=== PATIENT | female | born 1970 | race Caucasian/White ===

== ENCOUNTER 2018-07-17 18:59 | Emergency (ER) | payer MEDICAID, SELFPAY ==
[2018-07-17 19:04] VITALS: BP 151/89; PULSE 66; RESP 16; TEMP 36.2; O2SAT 97
--- NOTE | 2018-07-17 19:29 | ED.GENADUL_ITS ---
Disposition Clinical Impression: Migraine Disposition: HOME Condition: Good Instructions: Migraine Headache (ED) Additional Instructions: If you notice any worsening of your symptoms, or any new symptoms such as vomiting, diarrhea, fever, chills, shortness of breath, chest pain, numbness, weakness, or fainting , please return immediately to the emergency department for reevaluation. Please follow up with your primary care provider as soon as possible for reassessment and reevaluation. As always, it was a pleasure participating in your medical care today. Medical Decision Making - Medical Decision Making This is a pleasant 48-year-old female who presents for evaluation of migraine headache. It started at 3 AM. It was not thunderclap in onset, it is not the worst headache of her life. She has no risk factors or red flags for concerning headache etiologies. She shows no evidence of meningitis on clinical exam, nor does she show any nuchal rigidity or signs or symptoms concerning for intracranial bleed. We will give the patient a migraine cocktail , rehydrate, and reassess. 8:12 PM the patient is starting to feel better. I did inject 1 cc of bupivacaine with epinephrine into her left posterior occiput. The patient tolerated this well. Patient requires continued monitoring, and is not yet ready for discharge. She still needs her fluids completed. I feel that she can be safely discharged home if her headache resolves. The case has been signed out to my colleague Dr. Gama. History of Present Illness - General Chief complaint: Headache Stated complaint: MIGRAINE N/V Time Seen by Provider: 07/17/18 19:18 - History of Present Illness Initial comments: This is a 48-year-old female with a past medical history of migraines , narcolepsy, hysterectomy and kidney stones who presents tonight for headache. The patient states that she woke up at 3 AM with a headache. She described it as severe and achy in her left posterior occiput. It was worsened with loud noises and bright light. She had associated symptoms of seeing stars which she states is classic to her previous migraines. She has been nauseous and has had 3 episodes of vomiting. She denies any fevers, chills, or other sick contacts. She states that this headache seems very similar to her previous migraines, although slightly different. It is been about for 5 years since she has had a migraine. Patient states that she has had MRI imaging in the past which has been negative for evaluation of her migraines. Patient denies any history or family history of polycystic kidney disease, Marfan syndrome, Chicho-Danlos syndrome, intracranial aneurysms. Patient is not on any blood thinners. She has no other complaints at this time. Review of Systems Other: 10 point review of systems was performed, pertinent positives and negatives are noted in the history of present illness. General Exam - Other Other exam information: 1.Const: Well-nourished, Well-developed, appearing stated age 2.Eyes: PERRL, no conjunctival injection, and symmetrical lids. 3.ENT: Atraumatic external nose and ears. Moist MM. Neck: Symmetric, trachea midline, No thyromegaly. Patient demonstrates good movement of cervical neck. There is no nuchal rigidity, no nuchal tenderness. Patient is able to flex the neck without any difficulty or significant pain. Negative Kernig's and Brudzinski sign. Mild reproducible tenderness over the left occiput. 4.CVS: +S1/S2, No murmurs or gallops. Peripheral pulses 2+ and equal in all extremities. Brisk capillary refill in all extremities. 5.RESP: Unlabored respiratory effort. Clear to auscultation bilaterally. No wheezes rales or rhonchi 6.GI: Soft, Nontender/Nondistended, No hepatosplenomegaly. No guarding or rebound. 7.MSK: Normocephalic/Atraumatic, Extremities w/o deformity or ttp No cyanosis or clubbing, Normal movement of all extremities 8.Skin: Warm, Dry. No rashes or lesions. 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 Sensation grossly intact, no focal neurologic deficits. All 6 cardinal planes of vision or fully intact. No evidence of horizontal or vertical nystagmus. The patient demonstrated a normal [id number], good dexterity. There was no evidence of dysdiadochokinesia. Patient was able to ambulate without difficulty. There was no wide-based gait. Romberg, and [id number] are both normal on testing. Sensation was intact bilaterally as well as muscle strength bilaterally for all extremities. Patient was able to verbalize butter cup with no slurring, or miss pronunciation. 10.Psych: (AAO) x3. Appropriate mood and affect Course Vital Signs - 24 hr 07/17/18 19:04 Temperature 36.2 C L Pulse 66 Respiratory 16 Rate Blood Pressure 151/89 Pulse Oximetry 97
[2018-07-17] MEDS: Metoclopramide 10 MG/2 ML VIAL IVP (19:33)
[2018-07-17] MEDS: Ketorolac 30 MG/ML VIAL IVP (19:35)
[2018-07-17] MEDS: Normal Saline 1,000 ML 1000 ML IV (19:36)
[2018-07-17] MEDS: diphenhydrAMINE 50 MG/ML VIAL 25 MG IVP (19:37)
[2018-07-17] MEDS: Dexamethasone 10 MG/ML VIAL IVP (19:39)
[2018-07-17] MEDS: Acetaminophen 500 MG TAB 1000 MG PO (19:40)
[2018-07-17 21:10] VITALS: BP 126/79; PULSE 57; RESP 17; TEMP 36.9; O2SAT 95
== END 2018-07-17 21:25 | disposition home or self-care (01) ==
PROVIDERS: Emergency Provider Student in an Organized Health Care Education/Training Program; PCP Neuromusculoskeletal Medicine & OMM
DX: G43.909 Migraine, unspecified, not intractable, without status migrainosus (principal); R11.2 Nausea with vomiting, unspecified
CPT/HCPCS: 64405; 96361; 96374; 96375; 99284; J1100; J1200; J1885; J2765

== ENCOUNTER 2019-05-05 14:42 | Outpatient (CLI) | payer OTHER, SELFPAY ==
--- NOTE | 2019-05-05 14:39 | DI.RAD_ITS ---
SYMPTOM/DIAGNOSIS: EVAL LT KNEE PAIN LEFT KNEE: The joint spaces are well maintained. There is minimal periarticular spurring, greatest at the lateral patellofemoral joint. IMPRESSION: Minimal degenerative changes.
== END 2019-05-05 15:02 ==
PROVIDERS: PCP Neuromusculoskeletal Medicine & OMM; Visit Provider Student in an Organized Health Care Education/Training Program
DX: M25.562 Pain in left knee (principal); M17.12 Unilateral primary osteoarthritis, left knee
CPT/HCPCS: 73564

== ENCOUNTER 2019-08-20 22:41 | Emergency (ER) | payer OTHER, SELFPAY ==
[2019-08-20 22:47] VITALS: BP 136/74; PULSE 80; RESP 19; O2SAT 99
--- NOTE | 2019-08-20 23:02 | ED.GENADUL_ITS ---
Discharge Plan Disposition Patient Disposition: HOME Condition: Fair Discharge Details Chief Complaint: Orthopedic Clinical Impression: Epicondylitis, lateral Primary Care Provider: Waqas Cyr ED Provider: Mary Ann Buck Home Meds and New Rx's Prescriptions: Continued methylphenidate HCl [Ritalin] 10 mg tablet 10 mg PO QID RF: 0 meloxicam 15 mg tablet 15 mg PO DAILY Qty: 30 RF: 0 modafinil [Provigil] 200 MG tablet 200 mg PO PRNRF: 0 Discharge Instructions Instructions: Tennis Elbow Exercises (GEN) Additional Instructions: Encourage rest, ice, elevation. Tylenol and/or Ibuprofen as needed for discomfort. Continue with brace to help with discomfort. If not improved in 2 week follow up with primary care. If you develop new/worsening symptoms please seek care urgently once again. Referrals: Waqas Cyr [Primary Care Provider] - Medical Decision Making Patient is a 49 year old RHD female presenting today with c/c of right elbow pain x 2 weeks. Reprots that she was knocked by her [place] at [place] and fell striking the wall. Directly struck the lateral epicondyle. Since that time she has had persistent pain that has been gradually increasing such that now she is having difficulty preforming simple tasks such as picking up a cup. Denies altered sensation. Reports that pain radiates distally into the forearm. No other injury at the time of the incident. On exam, she is resting comfortably. She has full ROM. Pain with palpation over the lateral epicondyle, no palpable deformity. Pain with supination/pronation against resistence. Pain is alleviated by decompressing the area and apply pressure to the dorsal forearm. Discussed that this may be lateral epicondylitis. However, as there was a traumatic onset, feel that evaluation with XR is appropriate at this time. FINDINGS: Bones/joints: Bone mineralization is age-appropriate. There is no evidence of fracture. No evidence of dislocation. The joint spaces are adequately preserved; no significant degenerative narrowing and no bony erosion seen. Soft tissues: No radiopaque foreign body present. There is soft tissue swelling present. IMPRESSION: 1. No acute osseous abnormality. 2. Soft tissue swelling only. Discussed this finding with the patient. Encourage rest, ice, elevation. Tylenol and/or ibuprofen as needed for discomfort. Patient was fitted with a forearm brace to unload the lateral epicondyle, did have good improvement after application of this. Feels that the ADLs will be easier to perform. She is given strict return precautions. Advise close follow-up with primary care in 1 to 2 weeks if not improving. All other questions and concerns were addressed and she is in agreement this plan. HPI General Mode of arrival: ambulatory . Date/Time Provider Initiated Documentation: 08/20/19 23:01 . Limitations to Documentation: no limitations . Information obtained by: patient and RN notes reviewed . History of Present Illness 49 year old F presents to the emergency department with the chief complaint of right elbow pain, described as moderate, with intensity rated at 7. Quality is described as stabbing, and is localized to the right and upper extremity. Patient extremity. Patient started experiencing this w [place](s) (2) and it has been constant. Immobilization improves symptom(s), Movement worsens symptoms . Patient notes no other symptoms.. Patient did receive the following treatments prior to arrival, none Related Data Home Medications Medication Instructions Recorded Confirmed modafinil [Provigil] 200 mg PO PRN 07/17/18 06/16/19 meloxicam 15 mg tablet 15 mg PO DAILY #30 tab 05/05/19 08/20/19 methylphenidate HCl 10 mg tablet 10 mg PO QID tab 05/05/19 08/20/19 Previous Rx's Medication Instructions Recorded meloxicam 15 mg tablet 15 mg PO DAILY #30 tab 05/05/19 Allergies Allergy/AdvReac Type Severity Reaction Status Date / Time No Known Allergies Allergy Unverified 08/20/19 22:49 General Stated Complaint: Orthopedic RASHID: 4 Review of Systems Constitutional Constitutional: Reports as per HPI, Denies chills, Denies fever(s), Denies headache(s) and Denies weakness ENT Ears, Nose, Mouth, and Throat: Denies headache(s) Cardiovascular Cardiovascular: Reports as per HPI Respiratory Respiratory: Reports as per HPI and Denies cough Musculoskeletal Musculoskeletal: Reports as per HPI and Denies tingling Integumentary/Breasts Skin/Breast: Reports as per HPI, Denies rash and Denies wounds Neurologic Neurologic: Reports as per HPI, Denies headache(s), Denies tingling, Denies paresthesias and Denies weakness [facility] Social History Do you feel safe at home: Yes Do you feel safe in your relationship?: Yes Exam Const General: cooperative, healthy appearing, comfortable, no acute distress, well developed and well groomed Nutritional Appearance: average body habitus and well nourished Orientation: alert and awake Resp Effort & Inspection: normal respiratory effort, able to speak in complete sentences and no respiratory distress Cardio Rate: regular rate Rhythm: regular rhythm Skin General skin exam: no rashes or lesions noted Lesions: no lesions Rashes: no rashes Trauma: no lacerations or abrasions Neuro General: alert and awake Cognition: normal cognition Speech: speech normal Gait: normal gait Motor: muscle tone normal throughout Sensory Exam: no sensory deficits noted Extrem Right upper extremity: normal to inspection, full ROM, normal capillary refill, no joint enlargement, shoulder/upper arm Details: normal to inspection, elbow/forearm Details: normal to inspection, tenderness Location: of the lateral epicondyle (with direct palpation) Details: with resisted supination and with resisted pronation, normal ROM and distal pulses intact; no swelling, no unusual warmth, no abrasions, no lacerations, no ecchymosis, no crepitus, no penetrating wound and no deformity, wrist Details: normal to inspection, tenderness (extenstion against resistence causes pain over lateral epicondyle), normal ROM, normal vascular exam, radial pulse present and ulnar pulse present; no swelling, no unusual warmth, no lacerations, no ecchymosis and no deformity and hand Details: normal to inspection; no edema Psych Appearance: grossly normal and well kempt Mental Status: mental status grossly normal Speech and Movement: speech and movement normal Course Vital Signs Vital signs: Vital Signs Pulse 80 08/20/19 22:47 Respiratory Rate 19 08/20/19 22:47 Blood Pressure 136/74 08/20/19 22:47 Pulse Oximetry 99 08/20/19 22:47 Pulse 80 08/20/19 22:47 Respiratory Rate 19 08/20/19 22:47 Respiratory Effort 08/20/19 22:50 Blood Pressure 136/74 08/20/19 22:47 Blood Pressure Position Sitting 08/20/19 22:47 Pulse Oximetry 99 08/20/19 22:47 Oxygen Delivery Method Room Air 08/20/19 22:47 Oxygen Flow Rate 0 08/20/19 22:47 Pain Level 7 08/20/19 22:56
--- NOTE | 2019-08-20 23:14 | DI.RAD_ITS ---
EXAM: XR ELBOW RT COMPLETE INDICATION: struck lateral epicondyle. COMPARISON: No exams were available for comparison TECHNIQUE: 2D digital imaging was performed. FINDINGS: Three views were obtained. There is no evidence of an elbow joint effusion or hemarthrosis. No frac ture is identified. IMPRESSION:
--- NOTE | 2019-08-20 23:42 | DI.VRAD_ITS ---
PROCEDURE INFORMATION: Exam: XR Right Elbow Exam date and time: 08/20/2019 11:02 PM Clinical history: 49 years old, female; Injury or trauma; Injury history: Struck lateral epicondyle on wooden edge; Initial encounter; Blunt trauma (contusions or hematomas; Elbow; Right; Injury date: 08/20/2019 TECHNIQUE: Imaging protocol: XR Right elbow. Views: 3 or more views. COMPARISON: No relevant prior studies available. FINDINGS: Bones/joints: Bone mineralization is age-appropriate. There is no evidence of fracture. No evidence of dislocation. The joint spaces are adequately preserved; no significant degenerative narrowing and no bony erosion seen. Soft tissues: No radiopaque foreign body present. There is soft tissue swelling present. IMPRESSION: 1. No acute osseous abnormality. 2. Soft tissue swelling only. Dictated and Authenticated by: Mikey Moreno MD. Ordering:ALLEN Reese MD
== END 2019-08-20 23:27 | disposition home or self-care (01) ==
PROVIDERS: Emergency Provider Physician Assistant; PCP Neuromusculoskeletal Medicine & OMM
DX: M77.11 Lateral epicondylitis, right elbow (principal)
CPT/HCPCS: 99283; 73080; 99282

== ENCOUNTER 2019-11-22 02:22 | Emergency (ER) | payer OTHER, SELFPAY ==
[2019-11-22 02:31] VITALS: BP 152/100; PULSE 61; RESP 20; O2SAT 97
--- NOTE | 2019-11-22 02:47 | ED.GENADUL_ITS ---
Discharge Plan Disposition Patient Disposition: HOME Condition: Good Discharge Details Chief Complaint: RespSymp Clinical Impression: Right lower lobe pneumonia, RAD (reactive airway disease) with wheezing Primary Care Provider: Waqas Cyr ED Provider: Waqas Gama Home Meds and New Rx's Prescriptions: New albuterol sulfate [Ventolin HFA] 90 mcg/actuation Hfa Aerosol Inhaler 2 puff inhalation Q4H PRNQty: 8.5 RF: 0 doxycycline hyclate 100 mg tablet 100 mg PO BID Qty: 14 RF: 0 benzonatate 100 mg capsule 100 mg PO BID PRN (Reason: cough) Qty: 20 RF: 0 Continued methylphenidate HCl [Ritalin] 10 mg tablet 60 mg PO QID RF: 0 Discharge Instructions Instructions: Doxycycline (By mouth), Reactive Airways Disease (ED), Pneumonia (ED) Additional Instructions: Use inhaler with spacer every 4 hours for cough and wheezing. May use Tessalon for cough. Doxycycline twice a day. Avoid sunlight and UV rays due to photosensitivity of skin. Follow-up with primary care next week if not better. Return to ED for increasing shortness of breath, chest pain, mental status change, vomiting, other concerns or problems. Referrals: Waqas Cyr [Primary Care Provider] - Medical Decision Making Patient given DuoNeb treatment which did help. Still has bronchitic cough though not as severe. Wheezing cleared. Right lung still with diminished breath sounds and rhonchi at base. Presumed pneumonia. Will continue on albuterol inhaler. Will start on doxycycline and we discussed photosensitivity and GI symptoms. We will also try Tessalon to help with the cough. Rest and hydrate. Follow-up with primary care next week if not getting better. Return to ED for increasing shortness of breath, mental status changes, chest pain, other concerns or problems. HPI General Mode of arrival: ambulatory . Date/Time Provider Initiated Documentation: 11/22/19 02:47 . Limitations to Documentation: no limitations . Information obtained by: patient and RN notes reviewed . HPI Narrative: Patient presents to ED with cough. Symptoms started few days ago. Cough is bronchitic in nature. She does not have a history of asthma nor does she smoke. She has had sweats but no documented fever. She denies earache or sore throat. She denies chest pain. She has no GI symptoms. Cough is been getting worse so she wanted to be evaluated. Related Data Home Medications Medication Instructions Recorded Confirmed methylphenidate HCl 10 mg tablet 60 mg PO QID tab 05/05/19 11/22/19 albuterol sulfate [Ventolin HFA] 2 puff INHALATION Q4H PRN #8.5 gm 11/22/19 benzonatate 100 mg PO BID PRN #20 cap 11/22/19 doxycycline hyclate 100 mg PO BID #14 tab 11/22/19 Previous Rx's Medication Instructions Recorded albuterol sulfate [Ventolin HFA] 2 puff INHALATION Q4H PRN #8.5 gm 11/22/19 benzonatate 100 mg PO BID PRN #20 cap 11/22/19 doxycycline hyclate 100 mg PO BID #14 tab 11/22/19 Allergies Allergy/AdvReac Type Severity Reaction Status Date / Time No Known Allergies Allergy Unverified 11/22/19 02:32 General Stated Complaint: RespSymp RASHID: 3 Review of Systems Narrative: As documented in HPI otherwise negative as below. Const: no fever, chills, weakness Resp: cough; no SOB, pleuritic pain CV: no CP, diaphoresis, edema, syncope GI: no abdominal pain, nausea, vomiting, diarrhea Neuro: no headache, numbness, focal weakness, confusion PFSH Medical History ADHD (Chronic) Migraine (Chronic) Surgical History (Updated 11/22/19 @ 02:52 by Waqas Gama MD) History of section (Chronic) S/P gastric bypass (Chronic) S/P hysterectomy (Chronic) Social History Smoking/Tobacco Use Status: Never Alcohol Intake: never Substance use type: does not use Do you feel safe at home: Yes Do you feel safe in your relationship?: Yes Exam Narrative Exam Narrative: Vitals: Afebrile. Elevated blood pressure but otherwise normal vitals and normal room air pulse ox. Const: WDWN female in NAD. HEENT: NC/AT. Normal facial exam. TMs normal. OP normal. Eyes: Normal conjunctiva and sclera. Neck: Supple. Trachea midline. Lungs: Normal respiratory effort. Lungs with scattered wheeze. Diminished with rhonchi in right base. Cor: RRR without murmur/gallop. Neuro: A+O x 3. No gross motor or sensory deficit. Ext: No C/C/E. Skin: Warm and dry without rash. Course Vital Signs Vital signs: Vital Signs Pulse 61 11/22/19 02:31 Respiratory Rate 20 11/22/19 02:31 Blood Pressure 152/100 H 11/22/19 02:31 Pulse Oximetry 97 11/22/19 02:31 Pulse 61 11/22/19 02:31 Respiratory Rate 20 11/22/19 02:31 Respiratory Effort Non-Labored 11/22/19 02:33 Respiratory Depth Normal 11/22/19 02:33 Blood Pressure 152/100 H 11/22/19 02:31 Blood Pressure Position Sitting 11/22/19 02:31 Pulse Oximetry 97 11/22/19 02:31 Oxygen Delivery Method Room Air 11/22/19 02:31 Oxygen Flow Rate 0 11/22/19 02:31 Pain Level 0 11/22/19 02:31
[2019-11-22] MEDS: Albuterol/Ipratropium 3 ML UPD VIAL UPD (02:56)
[2019-11-22] MEDS: Doxycycline Hyclate 100 MG CAP PO (03:17)
[2019-11-22] MEDS: Benzonatate 100 MG CAP PO (03:17)
[2019-11-22] MEDS: Albuterol HFA 8 GM 60 PUFF INH IH (03:17)
[2019-11-22 03:43] VITALS: BP 152/100; PULSE 61; RESP 20; TEMP 37.1; O2SAT 97
== END 2019-11-22 03:25 | disposition home or self-care (01) ==
LOC: ER 03:26
PROVIDERS: Emergency Provider Emergency Medicine; PCP Neuromusculoskeletal Medicine & OMM
DX: J44.0 Chronic obstructive pulmonary disease with (acute) lower respiratory infection (principal); J18.9 Pneumonia, unspecified organism; J45.909 Unspecified asthma, uncomplicated
CPT/HCPCS: 94640; 99283; J7620

== ENCOUNTER 2020-02-04 12:04 | Emergency (ER) | payer OTHER, SELFPAY ==
[2020-02-04 12:07] VITALS: BP 152/90; PULSE 82; RESP 16; TEMP 36.7; O2SAT 97
--- NOTE | 2020-02-04 12:16 | W.ED.GENAD ---
Discharge Plan Disposition Patient Disposition: HOME Condition: Good Discharge Details Chief Complaint: FlankPain Clinical Impression: Hematuria, Urolithiasis, Back pain Primary Care Provider: Waqas Cyr ED Provider: Eulalio Arellano Home Meds and New Rx's Prescriptions: New lidocaine [Lidoderm] 1 PATCH patch 1 patch Topical Q24H Qty: 4 RF: 0 cyclobenzaprine 10 mg tablet 10 mg PO TID Qty: 14 RF: 0 No Action methylphenidate HCl [Ritalin] 10 mg tablet 60 mg PO QID RF: 0 albuterol sulfate [Ventolin HFA] 90 mcg/actuation Hfa Aerosol Inhaler 2 puff inhalation Q4H PRNQty: 8.5 RF: 0 sertraline 100 mg tablet 100 mg PO DAILY AM RF: 0 Discharge Instructions Instructions: Hematuria (ED), Back Pain (ED) Additional Instructions: I suspect that you have had a kidney stone that you have now passed. This is led to a notable spasm in your back. At this time your signs and symptoms are clinically consistent with a back sprain. This can cause significant pain and take a fair bit of time to heal. In the meantime do not lift anything greater than 5 pounds for the next 2 weeks. Avoid any significant vigorous physical activity. Perform easy gentle regular activities at home without any significant bending or lifting. Please take the steroids as directed. You have been given a prescription for Lidoderm patch. If your insurance does not cover this you can get [id number] Lidoderm patches at 4% which are almost just as effective. Please take the Flexeril as directed but do not take it when driving or operating any vehicles or heavy machinery, swimming, taking long baths, or operating firearms. Please use a heating pad as often as possible on your back. Perform daily gentle stretches on your back. Please continue to take the Tylenol and Motrin. You can take 1000 mg of Tylenol every 6 hours and 600 mg of ibuprofen every 6 hours. If you notice any worsening of your symptoms, or any new symptoms such as vomiting, diarrhea, fever, chills, shortness of breath, chest pain, numbness or tingling in your groin or legs, weakness in your legs, loss of control for your bowels or bladder, or fainting , please return immediately to the emergency department for reevaluation. Please follow up with your primary care provider as soon as possible for reassessment and reevaluation. As always, it was a pleasure participating in your medical care today. Referrals: Waqas Cyr [Primary Care Provider] - Medical Decision Making 49-year-old female with a past medical history of urolithiasis, and migraines past surgical history of gastric bypass hysterectomy and , presents today for evaluation of sudden onset of left flank pain that started last night early this morning. Sharp in onset, located in the left flank, radiates to the groin, she denies hematuria, blood was noticed on a dipstick urine at her PCPs office. She denies vomiting or diarrhea. She denies personal history of AAA. She denies numbness tingling or weakness. She states that this feels identical to her previous kidney stones. She did receive Toradol prior to arriving. She denies any other complaints. No other modifying factors. Physical exam demonstrates notable left-sided CVA tenderness, no significant abdominal pain to speak of. No signs of an acute surgical abdomen. Symptoms appearing inconsistent with AAA, they are certainly concerning for urolithiasis. We will get a CAT scan Noncon for further assessment, basic labs, check urine, monitor closely. Patient is refusing narcotics at this time, we will give Ofirmev. 1:57 PM Laboratory work-up is returned, no white count, no bandemia, no significant electrolyte abnormalities. Urinalysis shows evidence of large blood, greater than 50 RBCs, no significant whites leukoesterase or nitrates. Symptoms inconsistent with pyelonephritis. They also appearing inconsistent with interstitial cystitis. CT scan shows no evidence of retained stone. Suspect that she likely passed her stone. She has no bladder discomfort, no burning with urination, symptoms appearing inconsistent with pyelonephritis. No evidence of AAA. I suspect that her symptoms are secondary to a viscerosomatic reflex, with a back spasm from a passed kidney stone. Recommend Flexeril, Tylenol, Motrin, heating pad and Lidoderm patch. Discussed red flags which to return. Will give Wagener to go. I have extensively reviewed the treatment plan and discharge instructions with the patient. I have addressed all patient concerns at this time. The patient was made aware of what symptoms to monitor for that would warrant a return to the emergency department. Discussed the plan with the patient, they demonstrate verbal understanding and agreement with our assessment and plan at this time. FINDINGS: CT examination of the abdomen and pelvis was performed without contrast administration. Images obtained through the lung bases are unremarkable. Visualized portions of the liver and spleen are unremarkable. There is a prior cholecystectomy. No biliary dilatation seen. Pancreas unremarkable by CT criteria. Abdominal aorta is of normal diameter. No significant abdominal wall hernia seen. No abdominal or pelvic adenopathy. Appendix is normal. No evidence of diverticulitis or bowel obstruction. Adrenals appear normal bilaterally. There are tiny bilateral nonobstructing renal calculi. No hydronephrosis or nephrolithiasis seen. No ureterolithiasis identified. Urinary bladder grossly unremarkable by non contrast criteria. Uterus poorly visualized or absent. Presumed right and left ovaries identified, grossly unremarkable. No free fluid in the peritoneal cavity. IMPRESSION: Bilateral nonobstructing renal calculi. No evidence of urinary tract obstruction or ureterolithiasis. HPI General Date/Time Provider Initiated Documentation: 02/04/20 12:11. HPI Narrative: 49-year-old female with a past medical history of urolithiasis, and migraines past surgical history of gastric bypass hysterectomy and , presents today for evaluation of sudden onset of left flank pain that started last night early this morning. Sharp in onset, located in the left flank, radiates to the groin, she denies hematuria, blood was noticed on a dipstick urine at her PCPs office. She denies vomiting or diarrhea. She denies personal history of AAA. She denies numbness tingling or weakness. She states that this feels identical to her previous kidney stones. She did receive Toradol prior to arriving. She denies any other complaints. No other modifying factors. Related Data Home Medications Medication Instructions Recorded Confirmed methylphenidate HCl 10 mg tablet 60 mg PO QID tab 05/05/19 02/04/20 albuterol sulfate [Ventolin HFA] 2 puff INHALATION Q4H PRN #8.5 gm 11/22/19 02/04/20 cyclobenzaprine 10 mg PO TID #14 tab 02/04/20 lidocaine [Lidoderm] 1 patch TOPICAL Q24H #4 patch 02/04/20 sertraline 100 mg PO DAILY AM 02/04/20 02/04/20 Previous Rx's Medication Instructions Recorded albuterol sulfate [Ventolin HFA] 2 puff INHALATION Q4H PRN #8.5 gm 11/22/19 cyclobenzaprine 10 mg PO TID #14 tab 02/04/20 lidocaine [Lidoderm] 1 patch TOPICAL Q24H #4 patch 02/04/20 Allergies Allergy/AdvReac Type Severity Reaction Status Date / Time No Known Allergies Allergy Unverified 11/22/19 02:32 General Stated Complaint: FlankPain RASHID: 3 Review of Systems All systems reviewed & are unremarkable except as noted in HPI and below PFSH Medical History (Updated 02/04/20 @ 14:10 by Eulalio Arellano DO) ADHD (Chronic) Migraine (Chronic) Surgical History (Updated 11/22/19 @ 02:52 by Waqas Gama MD) History of section (Chronic) S/P gastric bypass (Chronic) S/P hysterectomy (Chronic) Social History Smoking/Tobacco Use Status: Never Alcohol Intake: never Substance use type: does not use Do you feel safe at home: Yes Do you feel safe in your relationship?: Yes Exam Narrative Exam Narrative: 1.Const: Well-nourished, Well-developed, appearing stated age 2.Eyes: PERRL, no conjunctival injection, and symmetrical lids. 3.ENT: Atraumatic external nose and ears. Moist MM. Neck: Symmetric, trachea midline, No thyromegaly. 4.CVS: +S1/S2, No murmurs or gallops. Peripheral pulses 2+ and equal in all extremities. Brisk capillary refill in all extremities. 5.RESP: Unlabored respiratory effort. Clear to auscultation bilaterally. No wheezes rales or rhonchi 6.GI: Soft, Nontender/Nondistended, minimal reproducible tenderness on the left, however notable left CVA tenderness as well as left paraspinal muscle spasm. No pain at McBurney's point, negative Ness sign. No hepatosplenomegaly. No guarding or rebound. 7.MSK: Normocephalic/Atraumatic, Extremities w/o deformity or ttp No cyanosis or clubbing, Normal movement of all extremities 8.Skin: Warm, Dry. No rashes or lesions. 9.Neuro: environmental protection officer II-XII grossly intact. Sensation grossly intact, no focal neurologic deficits. 10.Psych: (AAO) x3. Appropriate mood and affect Course Vital Signs Vital signs: Vital Signs Temperature 36.7 C 02/04/20 12:07 Pulse 82 02/04/20 12:07 Respiratory Rate 16 02/04/20 12:07 Blood Pressure 152/90 H 02/04/20 12:07 Pulse Oximetry 97 02/04/20 12:07 Temperature 36.7 C 02/04/20 12:07 Temperature Source Temporal Artery Scan 02/04/20 12:07 Pulse 82 02/04/20 12:07 Respiratory Rate 16 02/04/20 12:07 Blood Pressure 152/90 H 02/04/20 12:07 Pulse Oximetry 97 02/04/20 12:07 Oxygen Delivery Method Room Air 02/04/20 12:07 Oxygen Flow Rate 0 02/04/20 12:07 Pain Level 7 02/04/20 12:07
--- NOTE | 2020-02-04 12:40 | DI.CT_ITS ---
EXAM: CT RENAL COLIC WO CLINICAL HISTORY: left flank pain, hx stones TECHNIQUE: COMPARISON: No exams were available for comparison FINDINGS: CT examination of the abdomen and pelvis was performed without contrast administration. Images obtai dona through the lung bases are unremarkable. Visualized portions of the liver and spleen are unremar kable. There is a prior cholecystectomy. No biliary dilatation seen. Pancreas unremarkable by CT c riteria. Abdominal aorta is of normal diameter. No significant abdominal wall hernia seen. No abdo manpreet or pelvic adenopathy. Appendix is normal. No evidence of diverticulitis or bowel obstruction. Adrenals appear normal bilaterally. There are tiny bilateral nonobstructing renal calculi. No hydro nephrosis or nephrolithiasis seen. No ureterolithiasis identified. Urinary bladder grossly unremark able by non contrast criteria. Uterus poorly visualized or absent. Presumed right and left ovaries identified, grossly unremarkable . No free fluid in the peritoneal cavity. IMPRESSION: Bilateral nonobstructing renal calculi. No evidence of urinary tract obstruction or ureterolithiasis .
[2020-02-04 12:49] LABS: Abs Immature Grans 0.02 k/cumm (0.0-0.09); Absolute Basophil Count 0.02 k/cumm (0.0-0.2); Absolute Eosinophil Count 0.15 k/cumm (0.0-0.7); Absolute Lymphocyte Count 2.71 k/cumm (1.2-3.4); Absolute Monocyte Count 0.62 k/cumm (0.11-0.7); Absolute Neutrophil Count 5.61 k/cumm (1.2-6.7); Basophils % 0.2; Eosinophils % 1.6; HCT 37.4 % (36.0-46.0); HGB 12.7 g/dL (12.0-15.5); Immature Grans % 0.2 %; Lymphocytes % 29.7; Mean Corpuscular Hemoglobin 28.9 pg (27.0-33.0); Mean Corpuscular Volume 85.2 fL (80-95); Mean Platelet Volume 8.7 fL (8.0-11.0); Monocytes % 6.8; Neutrophils % 61.5; Platelet Count 387 x1000/uL (130-400); RBC 4.39 m/cumm (4.00-5.20); RBC Distribution Width 13.4 % (11.7-14.6); White Blood Cell Count 9.13 k/cumm (4.4-10.8)
[2020-02-04] MEDS: ACETAMINOPHEN 1,000 MG/100 ML BTL 400 MG IVPB (12:51)
[2020-02-04] MEDS: Normal Saline 1,000 ML 1000 ML IV (12:51)
[2020-02-04 13:05] LABS: ALT 25 U/L (14-59); AST 19 U/L (15-37); Alkaline Phosphatase 103 U/L (46-116); Anion Gap 10.5 mmol/L (3-11); BUN 14 mg/dL (7-18); Bilirubin, Total 0.5 mg/dL (0.2-1.0); CO2 24.5 mmol/L (21.0-32.0); CREATININE 0.89 mg/dL (0.55-1.02); Calcium 8.9 mg/dL (8.5-10.1); Chloride 103 mmol/L (98-107); Glucose 105 mg/dL (74-106); Potassium 3.7 mmol/L (3.5-5.1); Sodium 138 mmol/L (136-145); Total Protein 8.4 g/dL (6.4-8.2)
[2020-02-04 13:15] LABS: Bilirubin Negative (Negative); Blood Large (Negative); Clarity Sl Cloudy (Clear); Glucose Negative (Negative); Ketones Negative (Negative); Leukocyte Esterase Negative (Negative); Nitrite Negative (Negative); Specific Gravity >= 1.030 (1.005-1.025); Urobilinogen 0.2 EU/dL (Up TO 0.2)
[2020-02-04 13:43] LABS: RBC >50 HPF (0-2); WBC 0-2 HPF (0-5)
[2020-02-04 13:44] LABS: Bacteria Negative HPF (Negative); C & S Indicated? No; Casts 0-2 Coarse Granular LPF (Negative); Crystals Negative HPF (Negative); Epithelial Cells Negative HPF (Negative); Mucus Negative (Negative)
== END 2020-02-04 14:14 | disposition home or self-care (01) ==
PROVIDERS: Emergency Provider Student in an Organized Health Care Education/Training Program; PCP Neuromusculoskeletal Medicine & OMM
DX: M54.5 Low back pain (principal); R31.9 Hematuria, unspecified; Z87.442 Personal history of urinary calculi
CPT/HCPCS: 80053; 96360; 99284; 74176; 81003; 81015; 85025; J0131

== ENCOUNTER 2020-04-24 05:34 | Emergency (ER) | payer OTHER, SELFPAY ==
[2020-04-24 05:48] VITALS: BP 114/62; PULSE 67; RESP 20; TEMP 36.3; O2SAT 98
--- NOTE | 2020-04-24 05:53 | ED.GENADUL_ITS ---
Discharge Plan Disposition Patient Disposition: HOME Condition: Stable Discharge Details Chief Complaint: Recheck Clinical Impression: Encounter for screening for other viral diseases Primary Care Provider: Waqas Cyr ED Provider: Osmar Shetty Home Meds and New Rx's Prescriptions: Continued methylphenidate HCl [Ritalin] 10 mg tablet 60 mg PO QID RF: 0 albuterol sulfate [Ventolin HFA] 90 mcg/actuation Hfa Aerosol Inhaler 2 puff inhalation Q4H PRNQty: 8.5 RF: 0 sertraline 100 mg tablet 100 mg PO DAILY AM RF: 0 lidocaine [Lidoderm] 1 PATCH patch 1 patch Topical Q24H Qty: 4 RF: 0 cyclobenzaprine 10 mg tablet 10 mg PO TID Qty: 14 RF: 0 Medical Decision Making patient presents with no acute symptoms, 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 No symptoms, stable vitals, nursing to collect test and will d/c home Differential Diagnosis Differential Diagnosis: lab screening HPI General Mode of arrival: ambulatory . Date/Time Provider Initiated Documentation: 04/24/20 05:49 . Limitations to Documentation: no limitations . Information obtained by: patient . History of Present Illness 49 year old F presents to the emergency department with the chief complaint of covid19 test, and it has been constant. No relieving factors improve symptom(s), No exa cerbating factors reported . Related Data Home Medications Medication Instructions Recorded Confirmed methylphenidate HCl 10 mg tablet 60 mg PO QID tab 05/05/19 02/04/20 albuterol sulfate [Ventolin HFA] 2 puff INHALATION Q4H PRN #8.5 gm 11/22/19 02/04/20 cyclobenzaprine 10 mg PO TID #14 tab 02/04/20 lidocaine [Lidoderm] 1 patch TOPICAL Q24H #4 patch 02/04/20 sertraline 100 mg PO DAILY AM 02/04/20 02/04/20 Previous Rx's Medication Instructions Recorded albuterol sulfate [Ventolin HFA] 2 puff INHALATION Q4H PRN #8.5 gm 11/22/19 cyclobenzaprine 10 mg PO TID #14 tab 02/04/20 lidocaine [Lidoderm] 1 patch TOPICAL Q24H #4 patch 02/04/20 Allergies Allergy/AdvReac Type Severity Reaction Status Date / Time No Known Allergies Allergy Unverified 11/22/19 02:32 General RASHID: 3 Review of Systems All systems reviewed & are unremarkable except as noted in HPI and below Constitutional Constitutional: Denies chills and Denies fever(s) Cardiovascular Cardiovascular: Denies dyspnea Respiratory Respiratory: Denies cough and Denies dyspnea Gastrointestinal Gastrointestinal: Denies abdominal pain, Denies nausea and Denies vomiting PFSH Medical History (Updated 04/24/20 @ 05:53 by Osmar Shetty MD) ADHD (Chronic) Migraine (Chronic) Surgical History (Updated 11/22/19 @ 02:52 by Waqas Gama MD) History of section (Chronic) S/P gastric bypass (Chronic) S/P hysterectomy (Chronic) Social History Smoking/Tobacco Use Status: Never Alcohol Intake: never Substance use type: does not use Do you feel safe at home: Yes Do you feel safe in your relationship?: Yes Exam Const General: no acute distress Orientation: alert HENMT Head: normal to inspection Ears: external ears normal General nose exam: external nose normal Mouth: moist mucous membranes Eyes General: appearance normal, both eyes and all related structures Neck Neck: normal visual inspection Resp Effort & Inspection: normal respiratory effort and able to speak in complete sentences Cardio Rate: regular rate Skin General skin exam: no rashes or lesions noted Neuro General: patient alert and patient oriented x3 Extrem General: normal to inspection Psych Mental Status: mental status grossly normal
[2020-04-24 05:54] VITALS: BP 114/62; PULSE 67; RESP 20; TEMP 36.3; O2SAT 98
[2020-04-25 01:36] LABS: COVID-19 RT-PCR UVMMC Result Negative (Negative)
== END 2020-04-24 05:56 | disposition home or self-care (01) ==
LOC: ER 06:15
PROVIDERS: Emergency Provider Emergency Medicine; PCP Neuromusculoskeletal Medicine & OMM
DX: Z11.59 Encounter for screening for other viral diseases (principal)
CPT/HCPCS: U0003

== ENCOUNTER 2020-10-04 22:05 | Emergency (ER) | payer OTHER, SELFPAY ==
[2020-10-04 22:08] VITALS: BP 173/82; PULSE 86; RESP 20; TEMP 36.8; O2SAT 98
[2020-10-04 22:28] VITALS: RESP 20
--- NOTE | 2020-10-04 22:36 | ED.GENADUL_ITS ---
Discharge Plan Disposition Patient Disposition: HOME Condition: Good Discharge Details Clinical Impression: Panic attack Primary Care Provider: Waqas Cyr ED Provider: Eulalio Arellano Home Meds and New Rx's Prescriptions: Continued methylphenidate HCl [Ritalin] 10 mg tablet 60 mg PO QID RF: 0 albuterol sulfate [Ventolin HFA] 90 mcg/actuation Hfa Aerosol Inhaler 2 puff inhalation Q4H PRNQty: 8.5 RF: 0 sertraline 100 mg tablet 150 mg PO DAILY AM RF: 0 Discharge Instructions Additional Instructions: At this time your symptoms are concerning for panic attack. When you get home to take 2 tablets of the Valium, and 1x 25 mg Benadryl to help sleep. If you notice any worsening of your symptoms, or any new symptoms such as vomiting, diarrhea, fever, chills, shortness of breath, chest pain, numbness, weakness, or fainting , please return immediately to the emergency department for ree valuation. Please follow up with your primary care provider as soon as possible for reassessment and reevaluation. As always, it was a pleasure participating in your medical care today. Referrals: Waqas Cyr [Primary Care Provider] - Medical Decision Making 50-year-old female presents today for evaluation of panic attack. Patient has had a notable amount of stressors in her life, culminating today when she found out that her mother unexpectedly in a notably unexpected circumstance. Since then she has been unable to stop crying, she will get episodes where she breathes extremely rapidly and feels like she cannot get any air. She denies any chest pain. She does admit to frontal headache. She denies any experiences like this in the past. She denies any homicidal or suicidal ideations. She did take her melatonin tonight but denies any other medications. Physical exam demonstrates a notably tearful but very pleasant female. Intermittent episodes of tachypnea and rapid breathing, however oxygenation and heart rate remained stable and reassuring. No chest pain. No indication for EKG or further blood work-up. No homicidal or suicidal ideations. At this time I feel that the patient would strongly benefit from small dose of benzodiazepines. We will give her some Valium to go home with, to use at home. Discussed red flags which to return. I have extensively reviewed the treatment plan and discharge instructions with the patient. I have addressed all patient concerns at this time. The patient was made aware of what symptoms to monitor for that would warrant a return to the emergency department. Discussed the plan with the patient, they demonstrate verbal understanding and a greement with our assessment and plan at this time. HPI General Date/Time Provider Initiated Documentation: 10/04/20 22:05 . HPI Narrative: 50-year-old female presents today for evaluation of panic attack. Patient has had a notable amount of stressors in her life, culminating today when she found out that her mother unexpectedly in a notably unexpected circumstance. Since then she has been unable to stop crying, she will get episodes where she breathes extremely rapidly and feels like she cannot get any air. She denies any chest pain. She does admit to frontal headache. She denies any experiences like this in the past. She denies any homicidal or suicidal ideations. She did take her melatonin tonight but denies any other medications. Related Data Home Medications Medication Instructions Recorded Confirmed methylphenidate HCl 10 mg tablet 60 mg PO QID tab 05/05/19 10/04/20 albuterol sulfate [Ventolin HFA] 2 puff INHALATION Q4H PRN #8.5 gm 11/22/19 10/04/20 sertraline 150 mg PO DAILY AM 02/04/20 10/04/20 Previous Rx's Medication Instructions Recorded albuterol sulfate [Ventolin HFA] 2 puff INHALATION Q4H PRN #8.5 gm 11/22/19 Allergies Allergy/AdvReac Type Severity Reaction Status Date / Time No Known Allergies Allergy Unverified 11/22/19 02:32 General Stated Complaint: Anxiety RASHID: 3 Review of Systems All systems reviewed & are unremarkable except as noted in HPI and below [facility] Medical History ADHD Migraine Surgical History History of section S/P gastric bypass S/P hysterectomy Social History Smoking/Tobacco Use Status: Never Smoking risk assessment performed?: Yes Alcohol Intake: never Substance use type: does not use Do you feel safe at home: Yes Do you feel safe in your relationship?: Yes Exam Narrative Exam Narrative: 1.Const: Well-nourished, Well-developed, appearing stated age 2.Eyes: PERRL, no conjunctival injection, and symmetrical lids. 3.ENT: Atraumatic external nose and ears. Moist MM. Neck: Symmetric, trachea midline, No thyromegaly. 4.CVS: +S1/S2, No murmurs or gallops. Peripheral pulses 2+ and equal in all extremities. Brisk capillary refill in all extremities. 5.RESP: Unlabored respiratory effort. Clear to auscultation bilaterally. No wheezes rales or rhonchi 6.GI: Soft, Nontender/Nondistended, No hepatosplenomegaly. No guarding or rebound. 7.MSK: Normocephalic/Atraumatic, Extremities w/o deformity or ttp No cyanosis or clubbing, Normal movement of all extremities 8.Skin: Warm, Dry. No rashes or lesions. 9.Neuro: vamp throater II-XII grossly intact. Sensation grossly intact, no focal neurologic deficits. 10.Psych: (AAO) x3. Tremulous, notable current emotional distress, tearful. Course Vital Signs Vital signs: Vital Signs Temperature 36.8 C 10/04/20 22:08 Pulse 86 10/04/20 22:08 Respiratory Rate 20 10/04/20 22:08 Blood Pressure 173/82 H 10/04/20 22:08 Pulse Oximetry 98 10/04/20 22:08 Temperature 36.8 C 10/04/20 22:08 Temperature Source Skin 10/04/20 22:08 Pulse 86 10/04/20 22:08 Respiratory Rate 20 10/04/20 22:08 Blood Pressure 173/82 H 10/04/20 22:08 Blood Pressure Position Sitting 10/04/20 22:08 Pulse Oximetry 98 10/04/20 22:08 Oxygen Delivery Method Room Air 10/04/20 22:08 Oxygen Flow Rate 0 10/04/20 22:08 Comment 10/04/20 22:08
[2020-10-04] MEDS: diazePAM 5 MG TAB 25 MG PO (22:42)
[2020-10-04] MEDS: Ketorolac 30 MG/ML VIAL IM (22:43)
== END 2020-10-04 22:50 | disposition home or self-care (01) ==
PROVIDERS: Emergency Provider Student in an Organized Health Care Education/Training Program; PCP Neuromusculoskeletal Medicine & OMM
DX: F41.0 Panic disorder [episodic paroxysmal anxiety] (principal); R51.9 Headache, unspecified
CPT/HCPCS: 96372; 99284; 99283; J1885

== ENCOUNTER 2020-11-22 22:01 | Observation (INO) | payer OTHER, SELFPAY ==
[2020-11-22 22:07] VITALS: BP 143/95; PULSE 69; RESP 18; TEMP 36.6; O2SAT 95
--- NOTE | 2020-11-22 22:15 | DI.CT_ITS ---
EXAM: CT RENAL COLIC WO CLINICAL HISTORY: right flank pain. TECHNIQUE: Imaging Protocol: Axial computed tomography images with coronal and sagittal reformatted images were created and reviewed. COMPARISON: CT CT RENAL COLIC WO from 02/04/2020 FINDINGS: ABDOMEN: Lung Bases: Normal where visualized. Liver: Normal density. No measurable mass. Gallbladder and biliary tract: Status post cholecystectomy. No biliary ductal dilatation. Pancreas: Normal density, no abnormal calcifications or inflammatory process. Spleen: Normal. Kidneys: Normal size, contour and axis.There is a 1 cm stone in the right ureteropelvic junction caus ing mild hydronephrosis. No masses seen. Adrenal glands: No mass is seen. Lymph nodes: Within normal limits. Abdominal Aorta: Abdominal portion non-dilated. Mild atherosclerosis. PELVIS: Bladder:Incompletely distended but grossly unremarkable. Bowel: No obstruction or bowel wall thickening. Appendix is unremarkable. There again seen findings of prior gastric bypass surgery. Peritoneal cavity: No ascites, collection or mesenteric inflammatory response Reproductive organs: Status post hysterectomy. Bones: Degenerative changes. Grade 1 pseudo spondylolisthesis of L4 on L5. Soft Tissues: Within normal limits. IMPRESSION: 1 cm right UPJ calculus causing mild hydronephrosis. RADIATION DOSE DELIVERED: 1,406.58mGy.cm Total DLP DATA REPOSITORY: All CT scans at this facility are submitted to the National Radiology Data Registry (NRDR) Dose Index Registry (DIR) with the [employer] ([employer]). RADIATION OPTIMIZATION: All CT scans at this facility use at least one of these dose optimization te chniques: automated exposure control; mA and/or kV adjustment per patient size (includes targeted exa ms where dose is matched to clinical indication); or iterative reconstruction.
[2020-11-22] MEDS: Ketorolac 30 MG/ML VIAL IVP (22:16)
--- NOTE | 2020-11-22 22:24 | W.ED.GENAD ---
Discharge Plan Disposition Condition: Stable Discharge Details Chief Complaint: FlankPain Admit Date/Time: 11/22/20 23:35 Admit Provider: Quan Lebron Attending Provider: Quan Lebron Primary Care Provider: Waqas Cyr ED Provider: Delmy Lee Discharge Instructions Activity:: Activity as Tolerated Equipment/Supplies:: No Equipment Needed Diet:: As Tolerated Discharge Orders Discharge Orders: Discharge Order (Routine); Ordered 11/23/20 Ordered By: Quan Lebron Discharge Data Discharge Date/Time-TO BE ENTERED AT DEPARTURE: 11/23/20 00:24 Medical Decision Making Katty Peterson is a 50-year-old woman with a history of asthma, ADHD who presented to the emergency department with 1.5 weeks of right-sided flank/abdominal pain and hematuria consistent with multiple prior episodes of kidney stones. On exam patient is pacing in her exam room with worsening pain when staying still. Positive right CVA tenderness and right-sided abdominal tenderness. No rebound or guarding. Concern for likely obstructing kidney stone, possible UTI. Exam/history at this time is not consistent with appendicitis, cholecystitis, acute aortic pathology, sepsis, mesenteric ischemia. Plan for IV fluid hydration, IV pain meds, CT renal, screening labs. Will monitor and reassess. CT shows 9mm stone right renal pelvis. Labs reviewed, Cr 0.84. UA neg leuk est, nitrite. Plan for admission for further eval, IVF, pain control. Clinical Impression: kidney stone Disposition: [facility] inpatient Medical Records Medical records reviewed: Yes I reviewed the patient's medical records. Imaging Data Radiologic Study: Attestation: I personally reviewed and interpreted this imaging study as follows: Radiologist's impression: Exam: CT Abdomen And Pelvis Without Contrast Exam date and time: 11/22/2020 10:36 PM Age: 50 years old Clinical indication: Abdominal pain; Patient HX: Right flank pain TECHNIQUE: Imaging protocol: Computed tomography of the abdomen and pelvis without contrast. COMPARISON: CT RENAL COLIC WO 02/04/2020 12:30 PM FINDINGS: Lungs: Lung bases are clear. Liver: Normal. No mass. Gallbladder and bile ducts: Prior cholecystectomy. No biliary duct dilatation. Pancreas: Normal. No ductal dilation. Spleen: Normal. No splenomegaly. Adrenal glands: Normal. No mass. Kidneys and ureters: 9 mm oblong calculus in the right renal pelvis with minimal proximal hydronephrosis was not present on the comparison exam. No hydroureter. Punctate nonobstructing calculus in the right renal lower pole is unchanged. Left kidney and ureter have a normal noncontrast appearance. Stomach and bowel: Prior gastric bypass procedure. Small bowel and colon are unremarkable. Appendix: Normal appendix. Intraperitoneal space: Unremarkable. No free air. No significant fluid collection. Vasculature: Multiple pelvic phleboliths. Minimal calcified atherosclerotic disease. No abdominal aortic aneurysm. Lymph nodes: Unremarkable. No enlarged lymph nodes. Urinary bladder: Unremarkable as visualized. Reproductive: Uterus is absent. No adnexal mass. Bones/joints: Unremarkable. No acute fracture. Soft tissues: 4 mm soft tissue calcification adjacent to the right mid ureter is unchanged. IMPRESSION: 1. 9 mm partially obstructing right renal sinus calculus. 2. Unchanged punctate nonobstructing right renal lower pole calculus. 3. 4 mm soft tissue calcification adjacent to the right mid ureter is unchanged and appears to be external to the ureter. is new Lab Data Lab results reviewed: Yes I reviewed the patient's lab results. Labs: 11/22/20 22:25 Urine - Reflex from Ua Urine Culture - Pending Laboratory Tests Range/Units 11/22/20 11/22/20 11/22/20 22:25 22:30 22:30 WBC (4.4-10.8) 10^3/uL 8.28 RBC (3.93-5.22) 10^6/uL 4.41 Hgb (11.2-15.7) g/dL 12.5 Hct (36.0-46.0) % 37.4 MCV (80-95) fL 84.8 MCH (27.0-33.0) pg 28.3 MCHC (32.0-36.0) % 33.4 RDW (11.7-14.6) % 12.9 Plt Count (130-400) 10^3/uL 351 MPV (8.0-11.0) fL 8.6 Immature Gran % 0.2 Neutrophils % 53.8 Lymphocytes % 35.1 Monocytes % 8.0 Eosinophils % 2.5 Basophils % 0.4 Nucleated RBC % % 0 Absolute Neutrophils (1.2-6.7) 10^3/uL 4.45 Absolute Lymphocytes (1.2-3.4) 10^3/uL 2.91 Absolute Monocytes (0.1-0.8) 10^3/uL 0.66 Absolute Eosinophils (0.0-0.7) 10^3/uL 0.21 Absolute Basophils (0.0-0.2) 10^3/uL 0.03 Sodium (136-145) mmol/L 137 Potassium (3.5-5.1) mmol/L 3.6 Chloride (98-107) mmol/L 104 Carbon Dioxide (21.0-32.0) mmol/L 24.3 Anion Gap (3-11) mmol/L 8.7 BUN (7-18) mg/dL 17 Creatinine (0.55-1.02) mg/dL 0.84 Estimated GFR/1.73 m2 (mL/min/1.73m2) >= 60.00 Glucose (74-106) mg/dL 107 H Calcium (8.5-10.1) mg/dL 9.5 Total Bilirubin (0.2-1.0) mg/dL 0.5 AST (15-37) U/L 16 ALT (14-59) U/L 23 Alkaline Phosphatase (46-116) U/L 101 Total Protein (6.4-8.2) g/dL 8.3 H Albumin (3.4-5.0) g/dL 3.8 Urine Color (Yellow) Red Urine Clarity (Clear) Cloudy Urine pH (5-8) 5.5 Ur Specific [place] (1.005-1.025) >= 1.030 H Urine Protein (Negative) mg/dL >=300 H Urine Ketones (Negative) mg/dL Negative Urine Blood (Negative) Large H Urine Nitrite (Negative) Negative Urine Bilirubin (Negative) Negative Urine Urobilinogen (Up TO 0.2) EU/dL 0.2 Ur Leukocyte Esterase (Negative) Negative Urine RBC (0-2) HPF >50 H Urine WBC Not Applicable Ur Epithelial Cells Not Applicable Urine Crystals Not Applicable Urine Bacteria Not Applicable Urine Mucus Not Applicable Ur Culture Indicated? Yes Urine Glucose (Negative) mg/dL Negative HPI General Mode of arrival: ambulatory. Date/Time Provider Initiated Documentation: 11/22/20 22:16. Limitations to Documentation: no limitations. Information obtained by: patient, RN notes reviewed and old records reviewed. HPI Narrative: Katty Peterson is a 50 y/o woman with a history of ADHD, asthma presenting to emergency department with right-sided flank pain/abdominal pain. Patient reports that for the past week and a half she has had intermittent pain in her right flank, and also has noticed blood in her urine. Patient reports that she has a long history of kidney stones, and has been concerned that she has been passing kidney stones since onset of symptoms 1.5 weeks ago. Patient reports that she came to the emergency department today because of increasing pain unrelieved with oxycodone at home today. Patient reports that she has had mild diarrhea for the past 2 days. She denies fevers, cough, shortness of breath, vomiting, dysuria, weakness, numbness, rash, any other pain. Patient reports that her symptoms are exactly typical of many prior kidney stones. Has been eating and drinking as usual up until today, she states she has not had an appetite. Related Data Home Medications Medication Instructions Recorded Confirmed methylphenidate HCl 10 mg tablet 60 mg PO QID tab 05/05/19 11/22/20 albuterol sulfate [Ventolin HFA] 2 puff INHALATION Q4H PRN #8.5 gm 11/22/19 11/22/20 sertraline 150 mg PO DAILY AM 02/04/20 11/22/20 lidocaine 5 % topical patch 1 patch TOPICAL DAILY 11/23/20 11/23/20 lorazepam 0.5 mg tablet 0.5 mg PO Q4H PRN tab 11/23/20 11/23/20 tramadol 50 mg PO Q6H PRN #15 tab 11/23/20 Previous Rx's Medication Instructions Recorded albuterol sulfate [Ventolin HFA] 2 puff INHALATION Q4H PRN #8.5 gm 11/22/19 tramadol 50 mg PO Q6H PRN #15 tab 11/23/20 Allergies Allergy/AdvReac Type Severity Reaction Status Date / Time No Known Allergies Allergy Unverified 11/22/20 22:11 General Stated Complaint: FlankPain RASHID: 3 Review of Systems Narrative: Constitutional: denies fevers Eyes: denies eye pain ENT: denies ear pain, dental pain, sore throat Cardiovascular: denies chest pain Respiratory: denies SOB, cough GI: denies abdominal pain, vomiting, reports diarrhea : reports flank pain, hematuria MSK: denies back pain, neck pain, arthralgias, myalgias Skin: denies rash Neuro: denies headaches, numbness, weakness PFSH Medical History ADHD Carpal tunnel syndrome Claustrophobia Depressive disorder Hyperglycemia Insomnia Migraine ADAIR (obstructive sleep apnea) Polycystic ovaries Rosacea Severe obesity Surgical History History of section S/P gastric bypass S/P hysterectomy Social History Smoking/Tobacco Use Status: Never Smoking risk assessment performed?: Yes Alcohol Intake: never Drug use: Never Substance use type: does not use Do you feel safe at home: Yes Do you feel safe in your relationship?: Yes Exam Narrative Exam Narrative: Constitutional: uncomfortable but [id number], pleasant, conversing normally HENT: head atraumatic/normocephalic/normal inspection, mucous membranes moist Eyes: conjunctiva normal, sclera normal, pupils 3mm b/l Neck: no stridor, normal ROM, trachea midline Resp: normal work of breathing, speaking in full sentences Cardio: normal rate, normal rhythm GI: abdomen soft, non-tender, non-distended Back: + right CVA TTP, no left CVA TTP, normal inspection, no rash Skin: warm, dry, normal color, no rash Neuro: alert, not altered, grossly non-focal, normal tone Ext: no edema Psych: normal mood, normal affect, normal behavior Course Vital Signs Vital signs: Vital Signs Temperature 36.6 C 11/22/20 22:07 Pulse 69 11/22/20 22:07 Respiratory Rate 18 11/22/20 22:07 Blood Pressure 143/95 H 11/22/20 22:07 Pulse Oximetry 95 11/22/20 22:07 Temperature 36.6 C 11/22/20 22:07 Temperature Source Skin 11/22/20 22:07 Pulse 69 11/22/20 22:07 Respiratory Rate 18 11/22/20 22:07 Respiratory Effort Non-Labored 11/22/20 22:10 Blood Pressure 143/95 H 11/22/20 22:07 Pulse Oximetry 95 11/22/20 22:07 Oxygen Delivery Method Room Air 11/22/20 22:07 Oxygen Flow Rate 0 11/22/20 22:07 Pain Level 7 11/22/20 22:11
[2020-11-22 22:36] LABS: Abs Immature Grans 0.02 10^3/uL (0.0-0.06); Absolute Basophil Count 0.03 10^3/uL (0.0-0.2); Absolute Eosinophil Count 0.21 10^3/uL (0.0-0.7); Absolute Lymphocyte Count 2.91 10^3/uL (1.2-3.4); Absolute Monocyte Count 0.66 10^3/uL (0.1-0.8); Absolute Neutrophil Count 4.45 10^3/uL (1.2-6.7); Basophils % 0.4; Eosinophils % 2.5; HCT 37.4 % (36.0-46.0); HGB 12.5 g/dL (11.2-15.7); Immature Grans % 0.2; Lymphocytes % 35.1; MCH 28.3 pg (27.0-33.0); MCHC 33.4 % (32.0-36.0); MCV 84.8 fL (80-95); MPV 8.6 fL (8.0-11.0); Neutrophils % 53.8; Nucleated RBC 0 %; Platelet Count 351 10^3/uL (130-400); RBC 4.41 10^6/uL (3.93-5.22); RDW 12.9 % (11.7-14.6); RDW-SD 39.6 fL; WBC 8.28 10^3/uL (4.4-10.8)
[2020-11-22 22:38] LABS: Bilirubin Negative (Negative); Clarity Cloudy (Clear); Glucose Negative (Negative); Ketones Negative (Negative); Leukocyte Esterase Negative (Negative); Nitrite Negative (Negative); Specific Gravity >= 1.030 (1.005-1.025); Urobilinogen 0.2 EU/dL (Up TO 0.2); pH 5.5 (5-8)
[2020-11-22 22:40] LABS: Blood Large (Negative); C & S Indicated? Yes; RBC >50 HPF (0-2)
[2020-11-22 22:50] LABS: ALT 23 U/L (14-59); AST 16 U/L (15-37); Albumin 3.8 g/dL (3.4-5.0); Alkaline Phosphatase 101 U/L (46-116); Anion Gap 8.7 mmol/L (3-11); BUN 17 mg/dL (7-18); Bilirubin, Total 0.5 mg/dL (0.2-1.0); CO2 24.3 mmol/L (21.0-32.0); CREATININE 0.84 mg/dL (0.55-1.02); Calcium 9.5 mg/dL (8.5-10.1); Chloride 104 mmol/L (98-107); Glucose 107 mg/dL (74-106); Potassium 3.6 mmol/L (3.5-5.1); Sodium 137 mmol/L (136-145); Total Protein 8.3 g/dL (6.4-8.2)
[2020-11-22] MEDS: Normal Saline 1,000 ML 1000 ML IV (22:57)
--- NOTE | 2020-11-22 23:01 | DI.VRAD_ITS ---
PROCEDURE INFORMATION: Exam: CT Abdomen And Pelvis Without Contrast Exam date and time: 11/22/2020 10:36 PM Age: 50 years old Clinical indication: Abdominal pain; Patient HX: Right flank pain TECHNIQUE: Imaging protocol: Computed tomography of the abdomen and pelvis without contrast. COMPARISON: CT RENAL COLIC WO 02/04/2020 12:30 PM FINDINGS: Lungs: Lung bases are clear. Liver: Normal. No mass. Gallbladder and bile ducts: Prior cholecystectomy. No biliary duct dilatation. Pancreas: Normal. No ductal dilation. Spleen: Normal. No splenomegaly. Adrenal glands: Normal. No mass. Kidneys and ureters: 9 mm oblong calculus in the right renal pelvis with minimal proximal hydronephrosis was not present on the comparison exam. No hydroureter. Punctate nonobstructing calculus in the right renal lower pole is unchanged. Left kidney and ureter have a normal noncontrast appearance. Stomach and bowel: Prior gastric bypass procedure. Small bowel and colon are unremarkable. Appendix: Normal appendix. Intraperitoneal space: Unremarkable. No free air. No significant fluid collection. Vasculature: Multiple pelvic phleboliths. Minimal calcified atherosclerotic disease. No abdominal aortic aneurysm. Lymph nodes: Unremarkable. No enlarged lymph nodes. Urinary bladder: Unremarkable as visualized. Reproductive: Uterus is absent. No adnexal mass. Bones/joints: Unremarkable. No acute fracture. Soft tissues: 4 mm soft tissue calcification adjacent to the right mid ureter is unchanged. IMPRESSION: 1. 9 mm partially obstructing right renal sinus calculus. 2. Unchanged punctate nonobstructing right renal lower pole calculus. 3. 4 mm soft tissue calcification adjacent to the right mid ureter is unchanged and appears to be external to the ureter. is new Dictated and Authenticated by: Kip Gonsalves MD. Ordering:MATHEW Brock MD
[2020-11-22] MEDS: HYDROmorphone 2 MG/ML VIAL 1 MG IVP (23:08)
--- NOTE | 2020-11-22 23:26 | W.PM.HP.N ---
Date of service: 11/22/20 Time of Service: 23:27 Assessment and Plan Assessment and plan (1) Nephrolithiasis: Status: Chronic Assessment and plan: Kidney stone, apparently sufficiently distal in renal pelvis to cause obstruction. Spontaneous passage improbable given size. Will give IVF, prn analgesics and consult to urology. Usual meds as is otherwise. History of Present Illness History of Present Illness Chief Complaint: flank pain Narrative: 50 female with h/o kidney stones, here with 1 and 1/2 weeks of right flankn pain and gross hematuria. Has been receiving outpatient Tx with Oxycodone, but came in tonight with escalating pain. No nausea or vomiting, but a degree of anorexia. No fever or chills. In ER w/u of note for CT showing 9mm stone right renal pelvis with mild hydro. Given Dilaudid 1 mg IV with good effect. Admitted for further management. Review of Systems All systems reviewed & are unremarkable except as noted in HPI and below PFSH Medical History ADHD Migraine Surgical History History of section S/P gastric bypass S/P hysterectomy Social History Smoking/Tobacco Use Status: Never Smoking risk assessment performed?: Yes Alcohol Intake: never Drug use: Never Substance use type: does not use Do you feel safe at home: Yes Do you feel safe in your relationship?: Yes Meds Home Medications and Allergies Home Medications Medication Instructions Recorded Confirmed Type methylphenidate HCl 10 mg tablet 60 mg PO QID tab 05/05/19 11/22/20 History albuterol sulfate [Ventolin HFA] 2 puff INHALATION Q4H PRN #8.5 gm 11/22/19 11/22/20 Rx sertraline 150 mg PO DAILY AM 02/04/20 11/22/20 History Allergies Allergy/AdvReac Type Severity Reaction Status Date / Time No Known Allergies Allergy Unverified 11/22/20 22:11 Exam Narrative Exam Narrative: 119/72, 58, 36.6, 16, 96% RA. HEENT unremarkable; neck supple; lungs clearl heart RRR w/o MRG; back + right CVAT; extremities trace pedal edema, neuro ox3 nonfocal Results Labs Result diagrams: 11/22/20 22:30 11/22/20 22:30 Labs: Laboratory Results - last 24 hr 11/22/20 11/22/20 11/22/20 22:25 22:30 22:30 WBC 8.28 RBC 4.41 Hgb 12.5 Hct 37.4 MCV 84.8 MCH 28.3 MCHC 33.4 RDW 12.9 Plt Count 351 MPV 8.6 Immature Gran % 0.2 Neutrophils % 53.8 Lymphocytes % 35.1 Monocytes % 8.0 Eosinophils % 2.5 Basophils % 0.4 Nucleated RBC % 0 Absolute Neutrophils 4.45 Absolute Lymphocytes 2.91 Absolute Monocytes 0.66 Absolute Eosinophils 0.21 Absolute Basophils 0.03 Sodium 137 Potassium 3.6 Chloride 104 Carbon Dioxide 24.3 Anion Gap 8.7 BUN 17 Creatinine 0.84 Estimated GFR/1.73 m2 >= 60.00 Glucose 107 H Calcium 9.5 Total Bilirubin 0.5 AST 16 ALT 23 Alkaline Phosphatase 101 Total Protein 8.3 H Albumin 3.8 Urine Color Red Urine Clarity Cloudy Urine pH 5.5 Ur Specific [place] >= 1.030 H Urine Protein >=300 H Urine Ketones Negative Urine Blood Large H Urine Nitrite Negative Urine Bilirubin Negative Urine Urobilinogen 0.2 Ur Leukocyte Esterase Negative Urine RBC >50 H Urine WBC Not Applicable Ur Epithelial Cells Not Applicable Urine Crystals Not Applicable Urine Bacteria Not Applicable Urine Mucus Not Applicable Ur Culture Indicated? Yes Urine Glucose Negative Last Vital Signs Temp 36.6 C 11/22/20 22:07 Pulse 69 11/22/20 22:07 Resp 18 11/22/20 22:07 BP 143/95 H 11/22/20 22:07 Pulse Ox 95 11/22/20 22:07 COVID-19 Screening Have you, or household traveled for leisure in last 14 days?: No Had IN PERSON contact w/suspected or confirmed C-19 person: No
[2020-11-22 23:27] VITALS: BP 119/72; PULSE 58; RESP 16; O2SAT 96
[2020-11-23] VITALS (12 sets, daily range): BP systolic 89–130; BP diastolic 48–107; PULSE 48–60; RESP 16–20; TEMP 35.9–36.8; O2SAT 92–97
[2020-11-23] MEDS: HYDROmorphone 2 MG/ML VIAL 1 MG IVP ×4 (01:44→12:15)
[2020-11-23] MEDS: Normal Saline Flush 10 ML SYR IVP ×3 (01:45→05:24)
[2020-11-23] MEDS: Normal Saline 500 ML 150 ML IV (01:49)
[2020-11-23] MEDS: Normal Saline 1,000 ML 150 ML IV ×2 (04:59→14:34)
[2020-11-23] MEDS: Ondansetron 4 MG/2 ML VIAL IVP (05:24)
--- NOTE | 2020-11-23 07:04 | UCONE_ITS ---
Assessment and Plan Assessment and plan (1) Nephrolithiasis: Status: Chronic Assessment and plan: She has no signs of sepsis at this point, but she kenney s have persistent pain. We talked about 2 different definitive treatment options for her symptomatic stone. One would be ureteroscopy with holmium laser lithotripsy of the stone. The other would be ESWL. We do have access to ureteroscopy and holmium laser here at our facility, so this type of procedure could be done based on OR availability. The ESWL would require coordination with an outside company to bring the machine to our facility. Neither of these procedures would warrant declaring her an emergent surgical case. If elective OR time is not available today, we could always opt to place a ureteral stent temporarily. This would relieve any obstructive component related to her stone and we could schedule her ureteroscopy more electively. I would double check with my office staff and with the OR staff once they arrive today and see what we may be able to do later today in the operating room. I have asked the patient to remain n.p.o. until the nursing staff hears from us and we have finalized a plan. History of Present Illness History of Present Illness Chief Complaint: Right kidney stone Narrative: This is a 50-year-old woman who gives a past history of kidney stones. She last saw a urology provider at [facility] about 4 years ago. She was told that her stones were small and did not need any type of intervention. In fact, she has never required surgical treatment for any of her stones. She presented to our emergency room with persistent right flank pain that seemed to worsen last evening. She tells me that her urine has been orange-red colored for the past month or 2. She has not had any fever or chills. She presented to our emergency room and was evaluated with a noncontrast CT scan. A 9 mm stone was found in the renal pelvis. She also has smaller nonobstructing stones present. She does have a family history of stone disease (father). She has no history of gout or hyperparathyroid disease. She did have gastric bypass surgery about 2 years ago. In reviewing her [facility] and her [facility] records, I do not have access to any prior urologic evaluations. Review of Systems Narrative: No fevers or chills No vision change or dysphasia No diabetes or thyroid dysfunction No shortness of breath, cough or hemoptysis No chest pain or palpitations No hepatitis, ulcers, jaundice Hx migraines. No seizures or peripheral neuropathy No bleeding disorders or anemia No gout PFSH Medical History ADHD Migraine Surgical History History of section S/P gastric bypass S/P hysterectomy Social History Smoking/Tobacco Use Status: Never Smoking risk assessment performed?: Yes Alcohol Intake: never Drug use: Never Substance use type: does not use Do you feel safe at home: Yes Do you feel safe in your relationship?: Yes Exam Narrative Exam Narrative: I reviewed her CT scan on the PACS system. I also reviewed her previous scan from January 2020. There is a new stone in the renal pelvis on the right side with no obvious ureteral stone. Const General: cooperative and anxious Nutritional Appearance: obese Orientation: alert and oriented x3 GI Inspection: obesity Palpation: soft and no guarding Neuro General: patient alert, patient awake and patient oriented x3 Results Last Vital Signs Temp 35.9 C L 11/23/20 00:46 Pulse 57 L 11/23/20 00:46 Resp 18 11/23/20 00:46 BP 130/82 11/23/20 00:46 Pulse Ox 97 11/23/20 00:46 Labs Result diagrams: 11/22/20 22:30 11/22/20 22:30 Labs: Laboratory Results - last 24 hr 11/22/20 11/22/20 11/22/20 22:25 22:30 22:30 WBC 8.28 RBC 4.41 Hgb 12.5 Hct 37.4 MCV 84.8 MCH 28.3 MCHC 33.4 RDW 12.9 Plt Count 351 MPV 8.6 Immature Gran % 0.2 Neutrophils % 53.8 Lymphocytes % 35.1 Monocytes % 8.0 Eosinophils % 2.5 Basophils % 0.4 Nucleated RBC % 0 Absolute Neutrophils 4.45 Absolute Lymphocytes 2.91 Absolute Monocytes 0.66 Absolute Eosinophils 0.21 Absolute Basophils 0.03 Sodium 137 Potassium 3.6 Chloride 104 Carbon Dioxide 24.3 Anion Gap 8.7 BUN 17 Creatinine 0.84 Estimated GFR/1.73 m2 >= 60.00 Glucose 107 H Calcium 9.5 Total Bilirubin 0.5 AST 16 ALT 23 Alkaline Phosphatase 101 Total Protein 8.3 H Albumin 3.8 Urine Color Red Urine Clarity Cloudy Urine pH 5.5 Ur Specific [place] >= 1.030 H Urine Protein >=300 H Urine Ketones Negative Urine Blood Large H Urine Nitrite Negative Urine Bilirubin Negative Urine Urobilinogen 0.2 Ur Leukocyte Esterase Negative Urine RBC >50 H Urine WBC Not Applicable Ur Epithelial Cells Not Applicable Urine Crystals Not Applicable Urine Bacteria Not Applicable Urine Mucus Not Applicable Ur Culture Indicated? Yes Urine Glucose Negative
--- NOTE | 2020-11-23 08:00 | DI.RAD_ITS ---
EXAM: XR RETROGRADE IN OR CLINICAL HISTORY: cysto/retrograde stent TECHNIQUE: 2D and realtime digital imaging was performed. CONTRAST MATERIAL: Refer to procedure report. COMPARISON: No exams were available for comparison FINDINGS: Fluoroscopy was provided for Dr. Lebron during the performance of a retrograde evaluation of the kaitlin l collecting system. Please refer to the procedure report for complete details. Fluoro time: 24.6 seconds IMPRESSION: RADIATION DOSE DELIVERED:
[2020-11-23 08:45] LABS: Abs Immature Grans 0.01 10^3/uL (0.0-0.06); Absolute Basophil Count 0.01 10^3/uL (0.0-0.2); Absolute Eosinophil Count 0.11 10^3/uL (0.0-0.7); Absolute Lymphocyte Count 1.65 10^3/uL (1.2-3.4); Absolute Monocyte Count 0.49 10^3/uL (0.1-0.8); Absolute Neutrophil Count 5.61 10^3/uL (1.2-6.7); Basophils % 0.1; Eosinophils % 1.4; HCT 34.8 % (36.0-46.0); HGB 11.3 g/dL (11.2-15.7); Immature Grans % 0.1; Lymphocytes % 20.9; MCH 28.1 pg (27.0-33.0); MCHC 32.5 % (32.0-36.0); MCV 86.6 fL (80-95); MPV 8.5 fL (8.0-11.0); Monocytes % 6.2; Neutrophils % 71.3; Nucleated RBC 0 %; Platelet Count 303 10^3/uL (130-400); RBC 4.02 10^6/uL (3.93-5.22); RDW 13.2 % (11.7-14.6); RDW-SD 41.4 fL; WBC 7.88 10^3/uL (4.4-10.8)
[2020-11-23] MEDS: Lactated Ringers 1,000 ML 30 ML IV (08:50)
[2020-11-23 08:52] LABS: Anion Gap 8.3 mmol/L (3-11); BUN 17 mg/dL (7-18); CO2 24.7 mmol/L (21.0-32.0); CREATININE 0.69 mg/dL (0.55-1.02); Calcium 8.4 mg/dL (8.5-10.1); Chloride 105 mmol/L (98-107); Glucose 132 mg/dL (74-106); Magnesium 1.8 mg/dL (1.8-2.4); Potassium 3.7 mmol/L (3.5-5.1); Sodium 138 mmol/L (136-145)
[2020-11-23] MEDS: ceFAZolin 2 GM/50 ML BAG IVPB (09:09)
[2020-11-23] MEDS: Lidocaine 2% Jelly 6 ML SYR (09:52)
--- NOTE | 2020-11-23 10:25 | ROE_ITS ---
Date of service: 11/23/20 Time of Service: 10:25 Operative Note Operative Note DATE OF PROCEDURE: 11/23/20 PRE-OP DIAGNOSIS: Right kidney stone POST-OP DIAGNOSIS: same PROCEDURE: Cystoscopy, right retrograde pyelogram, right flexible ureteroscopy, right holmium laser lithotripsy of the renal stone, extract stone fragment, insert right ureteral stent SURGEON: Quan Lebron ANESTHESIA: GETA ESTIMATED BLOOD LOSS: 10 PATHOLOGY: other (stones for chemical analysis) COMPLICATIONS: None Patient was transported to: PACU Patient's condition: stable Implants: 4.8 [place] by 22 to 30 cm right ureteral stent (with string attached) Indications: This is a 50-year-old woman who has a past history of kidney stones. Apparently, she has never required surgical treatment for stones in the past. She presented to our emergency room last evening with right flank pain and discolored urine. On CT, she was found to have a 9 mm stone in the renal pelvis. She was admitted for pain control. She continued to have pain overnight and was agreeable to ureteroscopic treatment for renal stone. Findings: Stone within the right renal pelvis Procedure Description: The patient was brought to the operating room on 11/23/2020. He was given a dose of preoperative. After successful induction of general anesthesia, she was placed in the dorsal lithotomy position. Her genitalia was prepped and draped. 2% Xylocaine jelly was instilled into the urethra. A 22 [place] rigid cystoscope was passed through the urethra into the bladder. The bladder was then inspected with a 30 degree lens. The base of the bladder is distended slightly. Both ureteral orifice ease appeared normal. No blood was seen coming from either side. No papillary or nodular masses were seen within the bladder. The right ureteral orifice was cannulated with a 6 [place] access catheter. Retrograde film was obtained by injecting Omnipaque through the access catheter under fluoroscopic guidance. A retrograde pyelogram outlined an oval-shaped filling defect in the right renal pelvis. We then passed a Glidewire through the access catheter and maneuvered the wire up to the upper pole calyx. The access catheter was removed and was replaced with a dual-lumen catheter. We then positioned a second wire. We chose one of the wires as a working wire and the other as a safety wire. I then passed the ureteral access sheath over the working wire and advanced the sheath until the tip was seen in the proximal right ureter. I passed the flexible ureteroscope through the access sheath and advanced the scope up into the renal pelvis. The large stone could then be visualized directly. We used a holmium laser to treat the stone. We chose a 272 ?m holmium laser fiber and used dusting settings of his power of 200 and a rate of 8. The stone fragmented quite nicely. We left some of this fragments larger so that we could grasp them and remove for stone analysis. We used a ZeroTip stone basket to grasp and extract the stones. Each of the stone fragments that were retrieved were sent to pathology for chemical analysis. Reinspection of the renal pelvis and calyces showed no significant residual stone fragments. Because of trauma and edema associated with the holmium laser lithotripsy,we elected to place a ureteral stent. The stent should remain for 3 to 5 days before removal. We chose a 4.8 [place] variable length stent and advanced it over the safety wire. We positioned the stent such that the proximal end was curled in the renal pelvis and the distal end was curled within the bladder. The safety string was brought through the urethra and the end of the safety string was tucked into the patient's vaginal cavity. She tolerated this procedure well.
--- NOTE | 2020-11-23 10:44 | W.PM.DS.N ---
Date of service: 11/23/20 DS: Diagnosis Discharge Diagnosis (1) Nephrolithiasis: Status: Chronic Discharge Plan Disposition Patient Disposition: HOME Condition: Stable Discharge Details Reason For Visit: KIDNEY STONE Admit Date/Time: 11/22/20 23:35 Admit Provider: Quan Lebron Attending Provider: Quan Lebron Primary Care Provider: Waqas Cyr Hospital Course Hospital Course: The patient initially presented to the emergency room with right-sided flank pain and discolored urine. On CT, she was found to have a 9 mm stone in the right renal pelvis. Her pain could not be controlled as an outpatient, so she was admitted on 11/22/2020. The following day, her pain continued, so she was taken to the operating room where she underwent right flexible ureteroscopy, holmium laser lithotripsy of her right kidney stone, stone extraction and placement of her right ureteral stent. In the postoperative time, she was able to tolerate oral nutrition and pain medication. She is comfortable enough that she feels ready for discharge. Home Meds and New Rx's Prescriptions: New tramadol 50 mg tablet 50 mg PO Q6H PRN (Reason: pain) Qty: 15 RF: 0 Discontinued cyclobenzaprine 10 mg tablet 10 mg PO HS RF: 0 No Action methylphenidate HCl [Ritalin] 10 mg tablet 60 mg PO QID RF: 0 lorazepam 0.5 mg tablet 0.5 mg PO Q4H PRNRF: 0 lidocaine 5 % adhesive patch,medicated 1 patch topical DAILY RF: 0 albuterol sulfate [Ventolin HFA] 90 mcg/actuation Hfa Aerosol Inhaler 2 puff inhalation Q4H PRNQty: 8.5 RF: 0 sertraline 100 mg tablet 150 mg PO DAILY AM RF: 0 Discharge Instructions Additional Instructions: She should follow-up with my office (nurse visit) seems for stent removal in 2 to 3 days-tell my office that there is a string on the patient's stent She should have a follow-up visit with a provider in my office in 4 to 6 weeks. A renal ultrasound should be done at that time and we will review her stone analysis She does not need to strain her urine Stand Alone Forms: Nursing Discharge Form Activity:: Activity as Tolerated Equipment/Supplies:: No Equipment Needed Diet:: As Tolerated Discharge Orders Discharge Orders: Discharge Order (Routine); Ordered 11/23/20 Ordered By: Quan Lebron DS: Summary Status at Discharge Functional status at discharge: independent ambulation Overall status at discharge: patient is back to baseline Mental Status: mental status grossly normal Speech and Movement: speech and movement normal Mood: congruent mood Affect: normal affect Exam Psych Mental Status: mental status grossly normal Speech and Movement: speech and movement normal Mood: congruent mood Affect: normal affect DS: Data Vitals/I&O Vitals and I&O: Vital Signs Temperature 36.7 C 11/23/20 07:28 Temperature Source Temporal Artery Scan 11/23/20 07:28 Pulse 60 11/23/20 07:28 Pulse Rhythm Regular 11/23/20 05:26 Respiratory Rate 17 11/23/20 07:28 Respiratory Effort Non-Labored 11/23/20 05:26 Respiratory Depth Normal 11/23/20 05:26 Respiratory Pattern Normal 11/23/20 05:26 Blood Pressure 118/58 L 11/23/20 07:28 Pulse Oximetry 97 11/23/20 07:28 Oxygen Delivery Method Room Air 11/23/20 07:28 Oxygen Flow Rate 0 11/23/20 07:28 Pain Level 5 11/23/20 07:28 Intake & Output 11/22/20 11/22/20 11/23/20 11:59 23:59 11:59 Intake Total 450 / 450 Balance 450 / 450 Weight 95.254 kg 109.905 kg Intake: IV 450 / 450 Other: Urine Color Yellow Urine Appearance Clear Urine Odor Normal Comment pt reports voiding prior to procedure. no hat in toilet for assessment of urine. pt states she voided well Voiding Methods Toilet Data Completed and Pending Labs on day of discharge: Labs from last 24 hours 11/23/20 11/23/20 11/22/20 08:31 08:31 23:45 WBC 7.88 RBC 4.02 Hgb 11.3 Hct 34.8 L MCV 86.6 MCH 28.1 MCHC 32.5 RDW 13.2 Plt Count 303 MPV 8.5 Immature Gran % 0.1 Neutrophils % 71.3 Lymphocytes % 20.9 Monocytes % 6.2 Eosinophils % 1.4 Basophils % 0.1 Nucleated RBC % 0 Absolute Neutrophils 5.61 Absolute Lymphocytes 1.65 Absolute Monocytes 0.49 Absolute Eosinophils 0.11 Absolute Basophils 0.01 Sodium 138 Potassium 3.7 Chloride 105 Carbon Dioxide 24.7 Anion Gap 8.3 BUN 17 Creatinine 0.69 Estimated GFR/1.73 m2 >= 60.00 Glucose 132 H Calcium 8.4 L Magnesium 1.8 Total Bilirubin AST ALT Alkaline Phosphatase Total Protein Albumin Urine Color Urine Clarity Urine pH Ur Specific [place] Urine Protein Urine Ketones Urine Blood Urine Nitrite Urine Bilirubin Urine Urobilinogen Ur Leukocyte Esterase Urine RBC Urine WBC Ur Epithelial Cells Urine Crystals Urine Bacteria Urine Mucus Ur Culture Indicated? Urine Glucose SARS-CoV-2 (PCR) Pending Nasopharyn COVID-19 PCR Pending Ref Test Perform Site Pending 11/22/20 11/22/20 11/22/20 22:30 22:30 22:25 WBC 8.28 RBC 4.41 Hgb 12.5 Hct 37.4 MCV 84.8 MCH 28.3 MCHC 33.4 RDW 12.9 Plt Count 351 MPV 8.6 Immature Gran % 0.2 Neutrophils % 53.8 Lymphocytes % 35.1 Monocytes % 8.0 Eosinophils % 2.5 Basophils % 0.4 Nucleated RBC % 0 Absolute Neutrophils 4.45 Absolute Lymphocytes 2.91 Absolute Monocytes 0.66 Absolute Eosinophils 0.21 Absolute Basophils 0.03 Sodium 137 Potassium 3.6 Chloride 104 Carbon Dioxide 24.3 Anion Gap 8.7 BUN 17 Creatinine 0.84 Estimated GFR/1.73 m2 >= 60.00 Glucose 107 H Calcium 9.5 Magnesium Total Bilirubin 0.5 AST 16 ALT 23 Alkaline Phosphatase 101 Total Protein 8.3 H Albumin 3.8 Urine Color Red Urine Clarity Cloudy Urine pH 5.5 Ur Specific [place] >= 1.030 H Urine Protein >=300 H Urine Ketones Negative Urine Blood Large H Urine Nitrite Negative Urine Bilirubin Negative Urine Urobilinogen 0.2 Ur Leukocyte Esterase Negative Urine RBC >50 H Urine WBC Not Applicable Ur Epithelial Cells Not Applicable Urine Crystals Not Applicable Urine Bacteria Not Applicable Urine Mucus Not Applicable Ur Culture Indicated? Yes Urine Glucose Negative SARS-CoV-2 (PCR) Nasopharyn COVID-19 PCR Ref Test Perform Site Preliminary micro results at discharge 11/22/20 22:25 Urine Culture - Preliminary Urine - Reflex from [facility] Medical History (Updated 11/23/20 @ 09:29 by Magda More) ADHD Carpal tunnel syndrome Claustrophobia Depressive disorder Hyperglycemia Insomnia Migraine ADAIR (obstructive sleep apnea) Polycystic ovaries Rosacea Severe obesity Surgical History History of section S/P gastric bypass S/P hysterectomy Social History Smoking/Tobacco Use Status: Never Smoking risk assessment performed?: Yes Alcohol Intake: never Drug use: Never Substance use type: does not use Do you feel safe at home: Yes Do you feel safe in your relationship?: Yes
[2020-11-23] MEDS: traMADol 50 MG TAB PO (14:02)
--- NOTE | 2020-11-23 14:03 | INITIAL_ITS ---
- If Service Date Differs Date of service: 11/23/20 Time of Service: 14:03 Care Management Initial Assess REASON FOR HOSPITALIZATION:: Flank pain PAST MEDICAL HISTORY/PAST SURGICAL HISTORY:: Past Medical History: ADHD, carpal tunnel, claustrophobia, depressive disorder, hyperglycemia, In somnia, Migraine, DAAIR, Polycystic ovaries, rosacea, obesity. Past surgical history: C/S. S/P gastric bypass. S/P hysterectomy PREVIOUS FUNCTIONAL STATUS/SOCIAL/FAMILY SUPPORTS:: Katty lives in a single family home in [place] with her and daughter. She is independent at baseline and does not receive any community services. CURRENT FUNCTIONAL STATUS:: Katty was sitting up in a chair when CMmet with her. She admitted to being in pain and had just received medication. Katty stated that she will be going home later today and denied the need for any services. ADVANCE DIRECTIVES:: None- Declined offer of assistance or a copy of forms. Has patient been provided with info about the portal/API?: Yes Did the patient sign up for the portal?: Yes (previously) CODE STATUS:: Full Code INSURANCE COVERAGE / FINANCIAL ISSUES:: Medicaid. [employer] CURRENT HOME/COMMUNITY SERVICES/EQUIPMENT:: none PRIMARY CARE PHYSICIAN:: Waqas Cyr POTENTIAL DISCHARGE NEEDS:: follow up with Urology and PCP PATIENT/FAMILY EDUCATION NEEDS:: Discharge plan, limitations, follow up plan, Ask Me [employer] TRANSPORTATION:: via private vehicle with family PLAN:: Katty will be discharged home with no new services. She will follow up with Urology and her PCP and the plan of care. Katty will transpport with family.
--- NOTE | 2020-11-23 14:41 | PGE_ITS ---
Date of Service Date of service: 11/23/20 Time of Service: 14:41 Subjective Subjective Interval history since last seen: Care transitioned to Dr Lebron, who plans to discharge the patient home later today. Objective Last Vital Signs Temp 36.8 C 11/23/20 12:26 Pulse 53 L 11/23/20 12:26 Resp 17 11/23/20 12:26 BP 120/81 11/23/20 12:26 Pulse Ox 97 11/23/20 12:26 Laboratory Results - last 24 hr 11/22/20 11/22/20 11/22/20 22:25 22:30 22:30 WBC 8.28 RBC 4.41 Hgb 12.5 Hct 37.4 MCV 84.8 MCH 28.3 MCHC 33.4 RDW 12.9 Plt Count 351 MPV 8.6 Immature Gran % 0.2 Neutrophils % 53.8 Lymphocytes % 35.1 Monocytes % 8.0 Eosinophils % 2.5 Basophils % 0.4 Nucleated RBC % 0 Absolute Neutrophils 4.45 Absolute Lymphocytes 2.91 Absolute Monocytes 0.66 Absolute Eosinophils 0.21 Absolute Basophils 0.03 Sodium 137 Potassium 3.6 Chloride 104 Carbon Dioxide 24.3 Anion Gap 8.7 BUN 17 Creatinine 0.84 Estimated GFR/1.73 m2 >= 60.00 Glucose 107 H Calcium 9.5 Magnesium Total Bilirubin 0.5 AST 16 ALT 23 Alkaline Phosphatase 101 Total Protein 8.3 H Albumin 3.8 Urine Color Red Urine Clarity Cloudy Urine pH 5.5 Ur Specific [place] >= 1.030 H Urine Protein >=300 H Urine Ketones Negative Urine Blood Large H Urine Nitrite Negative Urine Bilirubin Negative Urine Urobilinogen 0.2 Ur Leukocyte Esterase Negative Urine RBC >50 H Urine WBC Not Applicable Ur Epithelial Cells Not Applicable Urine Crystals Not Applicable Urine Bacteria Not Applicable Urine Mucus Not Applicable Ur Culture Indicated? Yes Urine Glucose Negative 11/23/20 11/23/20 08:31 08:31 WBC 7.88 RBC 4.02 Hgb 11.3 Hct 34.8 L MCV 86.6 MCH 28.1 MCHC 32.5 RDW 13.2 Plt Count 303 MPV 8.5 Immature Gran % 0.1 Neutrophils % 71.3 Lymphocytes % 20.9 Monocytes % 6.2 Eosinophils % 1.4 Basophils % 0.1 Nucleated RBC % 0 Absolute Neutrophils 5.61 Absolute Lymphocytes 1.65 Absolute Monocytes 0.49 Absolute Eosinophils 0.11 Absolute Basophils 0.01 Sodium 138 Potassium 3.7 Chloride 105 Carbon Dioxide 24.7 Anion Gap 8.3 BUN 17 Creatinine 0.69 Estimated GFR/1.73 m2 >= 60.00 Glucose 132 H Calcium 8.4 L Magnesium 1.8 Total Bilirubin AST ALT Alkaline Phosphatase Total Protein Albumin Urine Color Urine Clarity Urine pH Ur Specific [place] Urine Protein Urine Ketones Urine Blood Urine Nitrite Urine Bilirubin Urine Urobilinogen Ur Leukocyte Esterase Urine RBC Urine WBC Ur Epithelial Cells Urine Crystals Urine Bacteria Urine Mucus Ur Culture Indicated? Urine Glucose
[2020-11-23 20:55] LABS: COVID-19 RT-PCR UVMMC Result Negative (Negative)
[2020-11-25 17:57] LABS: Source: Right Kidney
== END 2020-11-23 16:44 | disposition home or self-care (01) ==
LOC: ER 23:52 → MS 11-23 00:29
PROVIDERS: General Practice; Internal Medicine; Admitting Provider Urology; Emergency Provider Student in an Organized Health Care Education/Training Program; PCP Neuromusculoskeletal Medicine & OMM; Visit Provider Urology
PROC: (CPT 52356; principal; 2020-11-23 08:30)
DX: N20.0 Calculus of kidney (principal); R31.0 Gross hematuria; J45.909 Unspecified asthma, uncomplicated; F90.9 Attention-deficit hyperactivity disorder, unspecified type; Z98.84 Bariatric surgery status
CPT/HCPCS: 52356; 36415; 80048; 80053; 96361; 96374; 96375; 99222; 99253; 99284; NC; U0003; 74176; 74420; 81003; 81015; 82365; 83735; 85025; 87086; 99219; G0378; J0690; J1100; J1885; J2250; J2370; J2405

== ENCOUNTER 2020-12-22 02:19 | Outpatient (CLI) | payer OTHER, SELFPAY ==
--- NOTE | 2020-12-22 06:30 | DI.US_ITS ---
EXAM: US RENAL CLINICAL HISTORY: r/o hydronephrosis after ureteroscopy,NEPHROLITHIASIS,N20.0. TECHNIQUE: Pollard scale, color and spectral Doppler were used. COMPARISON: CT CT RENAL COLIC WO from 11/22/2020 FINDINGS: Renal size in cm: Right: 13.6. Left: 12.1. Echogenicity: Normal. Hydronephrosis: Mild prominence of the right renal pelvis. Cyst or mass: No. Nephrolithiasis: No. Other findings: None. Bladder:Normal. Ureteral jets: Right: Visualized and unremarkable. Left: Visualized and unremarkable. Prevoid vol:441 cc Postvoid vol:113 cc Renal color flow: Symmetric and within normal limits. IMPRESSION: 1. Mild prominence of the right renal pelvis. This may represent a mild hydronephrosis. 2. No evidence of nephrolithiasis. 3. Large postvoid urinary bladder volume. DATA REPOSITORY:
== END 2020-12-22 02:20 | disposition home or self-care (01) ==
LOC: DI 02:19
PROVIDERS: PCP Neuromusculoskeletal Medicine & OMM; Visit Provider Urology
DX: Z87.442 Personal history of urinary calculi (principal); R33.9 Retention of urine, unspecified
CPT/HCPCS: 76770

== ENCOUNTER 2021-01-18 18:38 | Emergency (ER) | payer OTHER, SELFPAY ==
[2021-01-18 18:41] VITALS: BP 165/104; PULSE 82; RESP 18; TEMP 36.4; O2SAT 97
--- NOTE | 2021-01-18 19:00 | DI.RAD_ITS ---
EXAM: XR CHEST 2V PA LATERAL CLINICAL HISTORY: cough TECHNIQUE: 2D digital imaging was performed. COMPARISON: No exams were available for comparison FINDINGS: MEDIASTINUM: Normal. HEART: Normal. PULMONARY VASCULATURE: Normal. LUNGS: Clear. PLEURAL SPACE: No pleural effusion or pneumothorax. BONE:Within normal limits for the patient's age. OTHER FINDINGS:Normal. IMPRESSION: No acute pulmonary findings. DATA REPOSITORY: RADIATION DOSE DELIVERED:
--- NOTE | 2021-01-18 19:04 | W.ED.GENAD ---
Discharge Plan Disposition Patient Disposition: HOME Condition: Improving Discharge Details Clinical Impression: Acute bronchitis with bronchospasm Primary Care Provider: Waqas Cyr ED Provider: Gonzalo Man Home Meds and New Rx's Prescriptions: New doxycycline hyclate 100 mg capsule 100 mg PO BID 7 Days Qty: 14 RF: 0 prednisone 50 mg tablet 50 mg PO DAILY 5 Days Qty: 5 RF: 0 zolpidem [Ambien] 5 mg tablet 5 mg PO QHS PRNQty: 5 RF: 0 Continued methylphenidate HCl [Ritalin] 10 mg tablet 60 mg PO QID RF: 0 sertraline 100 mg tablet 150 mg PO DAILY AM RF: 0 Discharge Instructions Instructions: Acute Bronchitis (ED) Additional Instructions: I recommend you and Dr. Cyr consider a referral for pulmonary function test. Take antibiotics as prescribed. Take prednisone as prescribed. May use Ambien if needed for sleep. Return for difficulty breathing or any other acute concerns. Use inhaler every 4 hours at home if needed, return if you feel you are requiring more frequent use of the inhaler. 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 Presents with 3 days of cough, wheeze, similar to previous pneumonias for which she benefited from an inhaled beta agonist. She has had COVID-19 vaccinations x2. She has recently been well and has no travel or known sick contacts. Afebrile, oxygenating normally and speaking in full sentences. Her lung sounds are diminished and and expiratory wheezes noted as well as dry cough. Differential diagnosis includes viral syndrome, bronchitis, pneumonia, exacerbation of reactive airway disease. Patient given DuoNeb updraft, oral prednisone, referred for chest x-ray. Chest x-ray is without infiltrate or other acute abnormality. 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 Given her history of reactive airway disease, will treat with burst of prednisone. Will treat for bronchitis with a course of doxycycline. She is stable and improving. Appropriate for discharge to home. Will recommend she consider outpatient follow-up PFTs for which I have placed a referral. She requests aids with sleep as she has had difficulty with same while taking prednisone in the past. She has had good success with Ambien in the past. HPI General Mode of arrival: ambulatory. Date/Time Provider Initiated Documentation: 01/18/21 18:39. Limitations to Documentation: no limitations. Information obtained by: patient. History of Present Illness 50 year old F presents to the emergency department with the chief complaint of Cough and wheeze for 3 days, described as moderate, Quality is described as dull, and is localized to the chest. Patient reports no radiation. Patient started experiencing this day(s) and it has been constant. No relieving factors improve symptom(s), No exacerbating factors reported . Patient notes cough and shortness of breath. Patient did receive the following treatments prior to arrival, none Related Data Home Medications Medication Instructions Recorded Confirmed methylphenidate HCl 10 mg tablet 60 mg PO QID tab 05/05/19 01/18/21 sertraline 150 mg PO DAILY AM 02/04/20 01/18/21 doxycycline hyclate 100 mg PO BID 7 Days #14 cap 01/18/21 prednisone 50 mg PO DAILY 5 Days #5 tab 01/18/21 zolpidem [Ambien] 5 mg PO QHS PRN #5 tab 01/18/21 Previous Rx's Medication Instructions Recorded doxycycline hyclate 100 mg PO BID 7 Days #14 cap 01/18/21 prednisone 50 mg PO DAILY 5 Days #5 tab 01/18/21 zolpidem [Ambien] 5 mg PO QHS PRN #5 tab 01/18/21 Allergies Allergy/AdvReac Type Severity Reaction Status Date / Time No Known Allergies Allergy Unverified 01/18/21 19:03 General Stated Complaint: RespSymp RASHID: 3 Review of Systems Narrative: No fever. 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 Has received 2 COVID-19 immunizations. No current inhaler. No smoking. No travel or known sick contacts. 8 systems reviewed and otherwise negative [facility] Medical History ADHD Carpal tunnel syndrome Claustrophobia Depressive disorder Hyperglycemia Insomnia Migraine ADAIR (obstructive sleep apnea) Polycystic ovaries Rosacea Severe obesity Surgical History History of section S/P gastric bypass S/P hysterectomy Social History Smoking/Tobacco Use Status: Never Smoking risk assessment performed?: Yes Alcohol Intake: never Drug use: Never Substance use type: does not use Do you feel safe at home: Yes Do you feel safe in your relationship?: Yes Exam Narrative Exam Narrative: GEN: awake, alert, oriented 3. Pleasant, well groomed, interactive. HEAD: Normocephalic, atraumatic ENT: Mucous membranes moist, oropharynx unremarkable, External ear exam unremarkable EYES: PERRL, EOMI NECK: Full ROM, no ADAN, no menigismus CHEST/RESP: Diminished bilaterally, and expiratory wheeze bilateral, cough noted CARDIOVASCULAR: RRR, no murmur, rub clary. 2+ Rad pulse bilateral ABDOMEN: Soft, nontender, no mass. +Bowel sounds EXT: Full ROM, no edema, no rash Neuro: Grossly normal neurologic exam, conversant, interactive. Psych: Speech fluent, thoughts congruent, affect normal Course Vital Signs Vital signs: Vital Signs Temperature 36.4 C L 01/18/21 18:41 Pulse 82 01/18/21 18:41 Respiratory Rate 18 01/18/21 18:41 Blood Pressure 165/104 H 01/18/21 18:41 Pulse Oximetry 97 01/18/21 18:41 Temperature 36.4 C L 01/18/21 18:41 Temperature Source Skin 01/18/21 18:41 Pulse 82 01/18/21 18:41 Respiratory Rate 18 01/18/21 18:41 Respiratory Effort Non-Labored 01/18/21 19:00 Respiratory Depth Normal 01/18/21 19:00 Blood Pressure 165/104 H 01/18/21 18:41 Blood Pressure Position Sitting 01/18/21 18:41 Pulse Oximetry 97 01/18/21 18:41 Oxygen Delivery Method Room Air 01/18/21 18:41 Oxygen Flow Rate 0 01/18/21 18:41 Pain Level 4 01/18/21 18:41
[2021-01-18] MEDS: predniSONE 20 MG TAB 60 MG PO (19:09)
[2021-01-18] MEDS: Albuterol/Ipratropium 3 ML UPD VIAL UPD ×2 (19:09→19:53)
[2021-01-18 19:33] VITALS: RESP 8
--- NOTE | 2021-01-18 19:39 | DI.VRAD_ITS ---
PROCEDURE INFORMATION: Exam: XR Chest Exam date and time: 01/18/2021 7:01 PM Age: 50 years old Clinical indication: Cough and other: Chest tightness; Patient HX: Chest tightness and cough TECHNIQUE: Imaging protocol: XR of the chest Views: 2 views. COMPARISON: No relevant prior studies available. FINDINGS: Lungs: Unremarkable. No consolidation. Pleural spaces: Unremarkable. No pleural effusion. No pneumothorax. Heart/Mediastinum: Unremarkable. No cardiomegaly. Bones/joints: Unremarkable. IMPRESSION: No evidence for acute abnormality in the chest. Dictated and Authenticated by: Linda Segundo MD. Ordering:ANTONIO Sánchez MD
[2021-01-18 19:53] VITALS: RESP 20; RESP 8
[2021-01-18] MEDS: Albuterol HFA 8 GM 60 PUFF INH IH (19:55)
[2021-01-18] MEDS: Inhaler, Assist Device 1 EACH MC (19:58)
[2021-01-18] MEDS: Doxycycline Hyclate 100 MG, 2 CAPS/BTL PO (20:01)
[2021-01-18 20:19] LABS: COVID-19 PCR Negative (Negative); Influenza A PCR Negative (Negative); Influenza B PCR Negative (Negative); RSV PCR Negative (Negative)
[2021-01-18 20:23] VITALS: RESP 1; RESP 8
[2021-01-18] MEDS: Benzonatate 100 MG CAP PO (20:23)
--- NOTE | 2021-01-24 06:33 | W.ED.FU ---
Date of service: 01/24/21 Time of Service: 06:33 Follow Up Plan: Patient was reassessed today. Patient still has persistent cough. Concern for early pneumonia. Will transition antibiotic to Levaquin 750 mg daily, will give prescription for duo nebs and nebulizer for home use. Recommend nebulizers every 4-6 hours as needed. Recommend 2 tablespoons of honey as needed for coughing continuation of Tessalon Perles. Discussed concerning red flags which to return.
== END 2021-01-18 20:32 | disposition home or self-care (01) ==
PROVIDERS: Emergency Provider Emergency Medicine; PCP Neuromusculoskeletal Medicine & OMM
DX: J20.8 Acute bronchitis due to other specified organisms (principal); Z03.818 Encounter for observation for suspected exposure to other biological agents ruled out
CPT/HCPCS: 94640; 99284; 71046; J7512; J7620

== ENCOUNTER 2021-02-04 11:53 | Inpatient (IN) | payer OTHER, SELFPAY ==
[2021-02-04] VITALS (23 sets, daily range): BP systolic 116–173; BP diastolic 76–106; PULSE 68–142; RESP 1–30; TEMP 36.4–36.5; O2SAT 93–100
[2021-02-04] MEDS: methylPREDNISolone SUCC 125 MG VIAL IVP (12:12)
--- NOTE | 2021-02-04 12:15 | RT.EKG_ITS ---
APPROVED REPORT Exam: Resting ECG Patient Location: E HR:104 bpm ECG Measurements Heart Rate 104 AXIS MS 130 P 47 QRSd 97 QRS 39 QT 359 T 20 QTc 471 Conclusion Sinus tachycardia...rate> 99 motion artifact, no clear st elevation
[2021-02-04] MEDS: Albuterol/Ipratropium 3 ML UPD VIAL UPD ×4 (12:18→19:59)
[2021-02-04] MEDS: Albuterol/Ipratropium 3 ML UPD VIAL (12:21)
--- NOTE | 2021-02-04 12:21 | ED.GENADUL_ITS ---
Discharge Plan Discharge Details Chief Complaint: SOB Admit Date/Time: 02/04/21 14:53 Admit Provider: Hernandez Cornell Attending Provider: Hernandez Cornell Primary Care Provider: Waqas Cyr ED Provider: Julieta Chaudhry Discharge Data Discharge Date/Time-TO BE ENTERED AT DEPARTURE: 02/04/21 15:[address] does not show evidence of acute abnormality Patient will be treated as a COPD exacerbation as she is still in mild distress Respiratory evaluated and treated patient Patient remains hypoxic, she is in bronchospasm does not appear to be improving at the [facility] IV steroids, observation, nebs and respiratory intervention Issues not show evidence of infectious etiology of symptoms, given the patient's, 2 courses of antibiotics, I will withhold antibiotics at this time discussion with the admitting hospitalist Patient likely with elevated, likely secondary to albuterol She is agreeable to admission at this time Unfortunately secondary to IV placement, patient did not have a therapeutic bolus contrast and needed a repeat and imaging study, I did discuss risk of radiation patient agreeable. [ Reviewed study, CTA of her radiology is not evident pulmonary embolism I suspect her symptoms are related to exacerbation of COPD Differential Diagnosis Differential Diagnosis: Pulmonary embolism, COPD exacerbation, bronchitis, pneumonia Medical Records Medical records reviewed: Yes I reviewed the patient's medical records. Lab Data Lab results reviewed: Yes I reviewed the patient's lab results. HPI This 50-year-old female presents with report of shortness of breath. Patient reportedly has been on 2 courses of antibiotics, finishing the last course of antibiotics 2 days ago. She is also been on steroids, and finished approximately a week ago. Negative Covid test. Denies known sick contacts. Is not on exogenous hormones, denies prior history of DVT or PE. Denies fever or chills. Is having chest pain, predominantly. Reports he used her nebulizer today without alleviation in symptoms. Symptoms were improved initially and in the past 2 days cough and shortness of breath is been exacerbating. General Date/Time Provider Initiated Documentation: 02/04/21 11:58 . Related Data Home Medications Medication Instructions Recorded Confirmed sertraline 150 mg PO DAILY AM 02/04/20 02/04/21 methylphenidate HCl [Ritalin] 60 mg PO TID 02/04/21 02/04/21 Allergies Allergy/AdvReac Type Severity Reaction Status Date / Time No Known Allergies Allergy Unverified 02/04/21 12:02 General Stated Complaint: SOB RASHID: 2 Review of Systems Narrative: Review of systems negative x7 aside from where indicated in HPI PFSH Medical History ADHD Carpal tunnel syndrome Claustrophobia Depressive disorder Hyperglycemia Insomnia Migraine ADARI (obstructive sleep apnea) Polycystic ovaries Rosacea Severe obesity Surgical History History of section S/P gastric bypass S/P hysterectomy Social History Smoking/Tobacco Use Status: Never Smoking risk assessment performed?: Yes Alcohol Intake: never Drug use: Never Substance use type: does not use Do you feel safe at home: Yes Do you feel safe in your relationship?: Yes Exam Const General: cooperative Nutritional Appearance: well nourished HENMT Throat: uvula midline Neck Other: no stridor Resp Effort & Inspection: cough and respiratory distress Auscultation: diminished lung sounds and rhonchi Cardio Rate: tachycardic Rhythm: regular rhythm Skin Other: diaphoretic Neuro General: patient alert and patient oriented x3 Extrem Other: no calf tenderness or swelling Course Vital Signs Vital signs: Vital Signs Temperature 36.4 C L 02/04/21 12:00 Pulse 79 02/04/21 12:00 Respiratory Rate 28 H 02/04/21 12:00 Blood Pressure 173/83 H 02/04/21 12:00 Pulse Oximetry 95 02/04/21 12:00 Temperature 36.4 C L 02/04/21 12:00 Temperature Source Skin 02/04/21 12:00 Pulse 120 H 02/04/21 12:21 Respiratory Rate 28 H 02/04/21 12:21 Respiratory Effort 02/04/21 12:03 Blood Pressure 173/83 H 02/04/21 12:00 Blood Pressure Position Standing 02/04/21 12:00 Pulse Oximetry 97 02/04/21 12:21 Oxygen Delivery Method Room Air 02/04/21 12:21 Oxygen Flow Rate 0 02/04/21 12:21 Lab/Test Results Lab/Test Results: 02/04/21 12:15 Blood Blood Culture - Pending 02/04/21 12:15 Blood Blood Culture - Pending
[2021-02-04 12:30] LABS: Lactate 3.1 mmol/L (0.6-1.4)
[2021-02-04 12:33] LABS: Abs Immature Grans 0.03 10^3/uL (0.0-0.06); Absolute Basophil Count 0.03 10^3/uL (0.0-0.2); Absolute Eosinophil Count 0.15 10^3/uL (0.0-0.7); Absolute Lymphocyte Count 2.16 10^3/uL (1.2-3.4); Absolute Monocyte Count 0.72 10^3/uL (0.1-0.8); Absolute Neutrophil Count 7.14 10^3/uL (1.2-6.7); Basophils % 0.3; Eosinophils % 1.5; HCT 40.1 % (36.0-46.0); HGB 13.4 g/dL (11.2-15.7); Immature Grans % 0.3; Lymphocytes % 21.1; MCHC 33.4 % (32.0-36.0); MCV 83.9 fL (80-95); MPV 8.9 fL (8.0-11.0); Neutrophils % 69.8; Nucleated RBC 0 %; Platelet Count 358 10^3/uL (130-400); RBC 4.78 10^6/uL (3.93-5.22); RDW 13.9 % (11.7-14.6); RDW-SD 42.1 fL; WBC 10.23 10^3/uL (4.4-10.8)
[2021-02-04] MEDS: Normal Saline 1,000 ML 1000 ML IV (12:38)
[2021-02-04 12:46] LABS: ALT 48 U/L (14-59); AST 29 U/L (15-37); Albumin 4.1 g/dL (3.4-5.0); Alkaline Phosphatase 97 U/L (46-116); Anion Gap 13.2 mmol/L (3-11); BUN 8 mg/dL (7-18); Bilirubin, Total 0.8 mg/dL (0.2-1.0); CO2 26.8 mmol/L (21.0-32.0); CREATININE 0.9 mg/dL (0.55-1.02); Calcium 10.1 mg/dL (8.5-10.1); Chloride 101 mmol/L (98-107); Glucose 104 mg/dL (74-106); Potassium 3.5 mmol/L (3.5-5.1); Sodium 141 mmol/L (136-145); Total Protein 9.1 g/dL (6.4-8.2)
[2021-02-04 12:55] LABS: NT-proBNP 71 pg/mL (<300); Troponin I < 0.05 ng/mL (<0.06)
[2021-02-04 13:08] LABS: COVID-19 PCR Negative (Negative)
[2021-02-04] MEDS: Normal Saline - Diluent 50 ML VIAL IV (13:18)
[2021-02-04] MEDS: Omnipaque 350 MG/ML 100 ML BTL IJ (13:36)
--- NOTE | 2021-02-04 13:41 | DI.CT_ITS ---
EXAM: CT CHEST PE CTA CLINICAL HISTORY: recurrent bronchospasm, 2 course of antibiotics. TECHNIQUE: Imaging Protocol: Axial CT angiography was performed with multi-slice acquisition and mu lti-planar and/or 3D reconstructions. CONTRAST MATERIAL: Intravenous: Omnipaque 350 Contrast volume:100 ml COMPARISON: CT CT RENAL COLIC WO from 11/22/2020 CR,XR XR CHEST 2V PA LATERAL from 01/18/2021 CR,XR XR CHEST 2V PA LATERAL from 01/18/2021 FINDINGS: The exam is somewhat limited due to patient body habitus. Pulmonary Arteries: No evidence of filling defect to suggest pulmonary emboli. Tracheobronchial tree: Patent where visualized. Mediastinum and Mayda: No dominant adenopathy or fluid collection. Pulmonary parenchyma: Somewhat limited evaluation due to mild respiratory motion and expiratory montoya es. No consolidation or dominant measurable mass. No emphysematous or fibrotic changes. No bronchi al wall thickening. Pleura: No effusion or pneumothorax. Heart: The heart is not dilated. No coronary artery calcifications are seen. Aorta: Thoracic aorta non-dilated. Upper abdomen: Unremarkable. Bones: Mild degenerative changes. IMPRESSION: No evidence of pulmonary embolism or other acute abnormality.. RADIATION DOSE DELIVERED: 494.22 mGy.cm Total DLP DATA REPOSITORY: All CT scans at this facility are submitted to the National Radiology Data Registry (NRDR) Dose Index Registry (DIR) with the [employer] (ACR). RADIATION OPTIMIZATION: All CT scans at this facility use at least one of these dose optimization te chniques: automated exposure control; mA and/or kV adjustment per patient size (includes targeted exa ms where dose is matched to clinical indication); or iterative reconstruction.
--- NOTE | 2021-02-04 17:54 | HPE_ITS ---
Date of service: 02/04/21 Time of Service: 17:54 Assessment and Plan Assessment and plan (1) Acute bronchitis with bronchospasm: Status: Acute Assessment and plan: Cont solu-medrol IV: 40mg Q12 hours. Cont hydrocodone/homotropine cough syrup prn. No antibiotics indicated at this time. No supplemental O2 requirements at this time. She denies acid-brash or reflux sxs; states they resolved after her gastric by- pass. Silent reflux triggering her cough? Pepcid 40mg po BID (2) S/P gastric bypass: Status: Chronic History of Present Illness History of Present Illness Chief Complaint: shortness of air Narrative: This is a 50 yo female with a PMH of yearly episode of bronchitis, nephrolithiasis, gastric bypass surgery for obesity, migraine HERNANDEZ, ADHD. She presented to the ED with ongoing SOA and cough for appx 3 weeks. During the last three weeks she finished a course of levaquin, a course of doxycycline and prednisone. Cough is dry. Congested feeling in the central chest. Discomfort from central chest into back. Covid negative. No known ill contacts. No F/C, N/V/abd pain. In the ED her WBC count was normal. CTA chest w/o pulmonary embolism or evidence of pneumonia. VBG lactate of 3.1. Electrolytes normal. IV solumedrol 125mg given in the ED. After a dose of hydrocodone/Homatropine her central chest discomfort improved as did her cough, though marginally. Review of Systems All systems reviewed & are unremarkable except as noted in HPI and below PFSH Medical History ADHD Carpal tunnel syndrome Claustrophobia Depressive disorder Hyperglycemia Insomnia Migraine ADAIR (obstructive sleep apnea) Polycystic ovaries Rosacea Severe obesity Surgical History History of section S/P gastric bypass S/P hysterectomy Social History Smoking/Tobacco Use Status: Never Smoking risk assessment performed?: Yes Alcohol Intake: never Drug use: Never Substance use type: does not use Do you feel safe at home: Yes Do you feel safe in your relationship?: Yes Meds Home Medications and Allergies Allergies Allergy/AdvReac Type Severity Reaction Status Date / Time No Known Allergies Allergy Unverified 02/04/21 12:02 Home Medications Medication Instructions Recorded Confirmed Type sertraline 150 mg PO DAILY AM 02/04/20 02/04/21 History methylphenidate HCl [Ritalin] 60 mg PO TID 02/04/21 02/04/21 History Exam Const General: cooperative and other (with coughing paroxysms has short-lived distress/chest discomfort.) Nutritional Appearance: obese Orientation: alert Neck Neck: full ROM and no JVD Resp Effort & Inspection: normal respiratory effort and able to speak in complete sentences Auscultation: diminished lung sounds and wheezes expiratory wheezes Cardio Rate: tachycardic Rhythm: regular rhythm Heart Sounds: S1 normal and S2 normal GI Palpation: soft and nontender Skin General skin exam: no rashes or lesions noted Extrem General: no pedal edema and no calf tenderness Psych Appearance: grossly normal Mental Status: mental status grossly normal Speech and Movement: speech and movement normal Affect: normal affect Results Labs Result diagrams: 02/04/21 12:05 02/04/21 12:05 Labs: Laboratory Results - last 24 hr 02/04/21 02/04/21 02/04/21 12:05 12:05 12:05 WBC 10.23 RBC 4.78 Hgb 13.4 Hct 40.1 MCV 83.9 MCH 28.0 MCHC 33.4 RDW 13.9 Plt Count 358 MPV 8.9 Immature Gran % 0.3 Neutrophils % 69.8 Lymphocytes % 21.1 Monocytes % 7.0 Eosinophils % 1.5 Basophils % 0.3 Nucleated RBC % 0 Absolute Neutrophils 7.14 H Absolute Lymphocytes 2.16 Absolute Monocytes 0.72 Absolute Eosinophils 0.15 Absolute Basophils 0.03 VBG Lactate 3.1 H* Sodium 141 Potassium 3.5 Chloride 101 Carbon Dioxide 26.8 Anion Gap 13.2 H BUN 8 Creatinine 0.9 Estimated GFR/1.73 m2 >= 60.00 Glucose 104 Calcium 10.1 Total Bilirubin 0.8 AST 29 ALT 48 Alkaline Phosphatase 97 Troponin I NT-Pro-B Natriuret Pep Total Protein 9.1 H Albumin 4.1 COVID-19 Source SARS-CoV-2 (PCR) 02/04/21 02/04/21 12:05 12:20 WBC RBC Hgb Hct MCV MCH MCHC RDW Plt Count MPV Immature Gran % Neutrophils % Lymphocytes % Monocytes % Eosinophils % Basophils % Nucleated RBC % Absolute Neutrophils Absolute Lymphocytes Absolute Monocytes Absolute Eosinophils Absolute Basophils VBG Lactate Sodium Potassium Chloride Carbon Dioxide Anion Gap BUN Creatinine Estimated GFR/1.73 m2 Glucose Calcium Total Bilirubin AST ALT Alkaline Phosphatase Troponin I < 0.05 NT-Pro-B Natriuret Pep 71 Total Protein Albumin COVID-19 Source Nasopharyx SARS-CoV-2 (PCR) Negative Last Vital Signs Temp 36.5 C 02/04/21 16:13 Pulse 99 H 02/04/21 16:13 Resp 22 02/04/21 16:13 BP 132/76 02/04/21 16:13 Pulse Ox 96 02/04/21 16:13 COVID-19 Screening Have you, or household traveled for leisure in last 14 days?: No Had IN PERSON contact w/suspected or confirmed C-19 person: No
[2021-02-04] MEDS: Acetaminophen 325 MG TAB 650 MG PO (19:59)
[2021-02-04] MEDS: Famotidine 20 MG TAB 40 MG PO (19:59)
[2021-02-04] MEDS: Normal Saline Flush 10 ML SYR IVP (20:01)
[2021-02-04] MEDS: methylPREDNISolone SUCC 40 MG VIAL IVP (20:01)
[2021-02-05] VITALS (8 sets, daily range): BP systolic 112–167; BP diastolic 70–87; PULSE 63–122; RESP 1–20; TEMP 36.3–36.7; O2SAT 95–99
[2021-02-05] MEDS: Acetaminophen 325 MG TAB 650 MG PO ×4 (04:51→20:01)
[2021-02-05] MEDS: Albuterol/Ipratropium 3 ML UPD VIAL UPD (07:40)
[2021-02-05 08:03] LABS: ALT 40 U/L (14-59); AST 19 U/L (15-37); Albumin 3.7 g/dL (3.4-5.0); Alkaline Phosphatase 86 U/L (46-116); Anion Gap 17.1 mmol/L (3-11); BUN 11 mg/dL (7-18); Bilirubin, Total 0.6 mg/dL (0.2-1.0); CO2 19.9 mmol/L (21.0-32.0); CREATININE 1.1 mg/dL (0.55-1.02); Calcium 9.9 mg/dL (8.5-10.1); Chloride 102 mmol/L (98-107); Estimated GFR 53.01 (mL/min/1.73m2); Glucose 144 mg/dL (74-106); Potassium 3.7 mmol/L (3.5-5.1); Sodium 139 mmol/L (136-145); Total Protein 8.4 g/dL (6.4-8.2)
[2021-02-05] MEDS: methylPREDNISolone SUCC 40 MG VIAL IVP (08:11)
[2021-02-05] MEDS: Sertraline 50 MG TAB 150 MG PO (08:12)
[2021-02-05] MEDS: Normal Saline Flush 10 ML SYR IVP (08:12)
[2021-02-05] MEDS: Famotidine 20 MG TAB 40 MG PO ×2 (08:12→19:52)
--- NOTE | 2021-02-05 08:17 | PDOC.CMIN ---
- If Service Date Differs Date of service: 02/05/21 Time of Service: 11:56 Care Management Initial Assess REASON FOR HOSPITALIZATION:: Acute Respiratory Failure PAST MEDICAL HISTORY/PAST SURGICAL HISTORY:: ADHD, carpal tunnel syndrome, claustrophobia, depressive disorder, hyperglycemia, insomnia, migraine, ADAIR, polycystic ovaries, rosacea, severe obesity, hx of section, gastric bypass, hysterectomy PREVIOUS FUNCTIONAL STATUS/SOCIAL/FAMILY SUPPORTS:: Independent at baseline, resides in [place], [place] with her , Kit. CURRENT FUNCTIONAL STATUS:: Katty is up independently in her room, and walking the hallways. She is looking forward to returning home. CM continues to follow. ADVANCE DIRECTIVES:: None on file. Has patient been provided with info about the portal/API?: No Did the patient sign up for the portal?: No CODE STATUS:: Full Code INSURANCE COVERAGE / FINANCIAL ISSUES:: Medicaid. [employer] CURRENT HOME/COMMUNITY SERVICES/EQUIPMENT:: None, currently. PRIMARY CARE PHYSICIAN:: Waqas Cyr. POTENTIAL DISCHARGE NEEDS:: Follow up appointments. PATIENT/FAMILY EDUCATION NEEDS:: Review discharge instructions, discuss Ask Me Three. ANTICIPATED BARRIERS TO DISCHARGE:: None identified. TRANSPORTATION:: Via private vehicle with her . PLAN:: Katty will return home when ready per MD. She will follow up with her PCP and plan of care as prescribed. She will transport home via private vehicle with her .
--- NOTE | 2021-02-05 09:47 | RESPIRATORY ---
Pt walked with RT 350 ft around M/S floor. Pt's O2 stayed at 96% and higher throughout walk. Of note, HR was in the 120's while walking.
[2021-02-05 10:13] LABS: Absolute Basophil Count 0.02 10^3/uL (0.0-0.2); Absolute Lymphocyte Count 0.72 10^3/uL (1.2-3.4); Absolute Monocyte Count 0.85 10^3/uL (0.1-0.8); Basophils % 0.1; HGB 11.4 g/dL (11.2-15.7); Immature Grans % 0.5; Lymphocytes % 3.9; MCH 28.5 pg (27.0-33.0); MCHC 33.5 % (32.0-36.0); MPV 8.6 fL (8.0-11.0); Monocytes % 4.6; Neutrophils % 90.9; Nucleated RBC 0 %; Platelet Count 282 10^3/uL (130-400); RDW 14.2 % (11.7-14.6); RDW-SD 43.6 fL; WBC 18.45 10^3/uL (4.4-10.8)
[2021-02-05 10:14] LABS: Absolute Neutrophil Count 16.77 10^3/uL (1.2-6.7)
[2021-02-05 10:17] LABS: Lactate 4.2 mmol/L (0.6-1.4)
[2021-02-05] MEDS: guaiFENesin 600 MG TABCR PO ×2 (12:19→19:53)
--- NOTE | 2021-02-05 12:24 | W.PM.PROGNOT ---
Date of Service Date of service: 02/05/21 Time of Service: 12:24 Assessment and Plan Assessment and plan (1) Acute bronchitis with bronchospasm: Status: Acute Assessment and plan: I am concerned about elevated lactate - it is unclear if this is due to beta agonists or due to severity of her illness. Cough is incessant though aeration is improving. I have scheduled tessalon and mucinex in addition to hycodin. Switch steroids to PO. Address GERD/esophagitis. Also, provide saline nasal spray. (2) GERD (gastroesophageal reflux disease): Status: Chronic Assessment and plan: Add PPI and carafate to pepcid. (3) Acute esophagitis: Status: Acute Assessment and plan: ?Pill esophagitis due to doxycycline. Add carafate. May require an EGD once respiratory status is better. (4) Insomnia: Status: Acute Assessment and plan: Control cough. Add ambien (5) DVT prophylaxis: Status: Acute Assessment and plan: SC lovenox (6) Discharge planning issues: Status: Acute Assessment and plan: Full code Continues to require hospitalization Subjective Subjective Interval history since last seen: Ms Peterson states that she cannot stop coughing. She has not been able to sleep for several nights. She reports bleeding from her nares, dry cough, burning when she drinks water senior living down her chest. She has a h/o GERD prior to gastric bypass, but has not been on any medications for it since her bypass. Denies dizziness, chest pain, nausea. Concerned about her BP (I reassured Crystal that steroids can drive it up) and her HR (which I explained to her had to do with medications for her breathing). Exam Narrative Exam Narrative: General: Obese female, A&Ox3, coughing HEENT: EOMI, MMM Heart: RRR, mildly tachycardic 110s Lungs: coarse breath sounds B, but no wheezing; bilateral air entry Abdomen: nondistended Extremities: no edema BLEs Objective Last Vital Signs Temp 36.3 C L 02/05/21 07:13 Pulse 92 H 02/05/21 07:42 Resp 20 02/05/21 07:42 BP 167/87 H 02/05/21 07:13 Pulse Ox 99 02/05/21 07:42 Laboratory Results - last 24 hr 02/04/21 02/04/21 02/04/21 12:05 12:05 12:05 WBC 10.23 RBC 4.78 Hgb 13.4 Hct 40.1 MCV 83.9 MCH 28.0 MCHC 33.4 RDW 13.9 Plt Count 358 MPV 8.9 Immature Gran % 0.3 Neutrophils % 69.8 Lymphocytes % 21.1 Monocytes % 7.0 Eosinophils % 1.5 Basophils % 0.3 Nucleated RBC % 0 Absolute Neutrophils 7.14 H Absolute Lymphocytes 2.16 Absolute Monocytes 0.72 Absolute Eosinophils 0.15 Absolute Basophils 0.03 VBG Lactate 3.1 H* Sodium 141 Potassium 3.5 Chloride 101 Carbon Dioxide 26.8 Anion Gap 13.2 H BUN 8 Creatinine 0.9 Estimated GFR/1.73 m2 >= 60.00 Glucose 104 Calcium 10.1 Total Bilirubin 0.8 AST 29 ALT 48 Alkaline Phosphatase 97 Troponin I NT-Pro-B Natriuret Pep Total Protein 9.1 H Albumin 4.1 COVID-19 Source SARS-CoV-2 (PCR) 02/04/21 02/04/21 02/05/21 12:05 12:20 06:43 WBC RBC Hgb Hct MCV MCH MCHC RDW Plt Count MPV Immature Gran % Neutrophils % Lymphocytes % Monocytes % Eosinophils % Basophils % Nucleated RBC % Absolute Neutrophils Absolute Lymphocytes Absolute Monocytes Absolute Eosinophils Absolute Basophils VBG Lactate Sodium 139 Potassium 3.7 Chloride 102 Carbon Dioxide 19.9 L Anion Gap 17.1 H BUN 11 Creatinine 1.1 H Estimated GFR/1.73 m2 53.01 Glucose 144 H Calcium 9.9 Total Bilirubin 0.6 AST 19 ALT 40 Alkaline Phosphatase 86 Troponin I < 0.05 NT-Pro-B Natriuret Pep 71 Total Protein 8.4 H Albumin 3.7 COVID-19 Source Nasopharyx SARS-CoV-2 (PCR) Negative 02/05/21 02/05/21 10:03 10:03 WBC 18.45 H D RBC 4.00 Hgb 11.4 Hct 34.0 L MCV 85.0 MCH 28.5 MCHC 33.5 RDW 14.2 Plt Count 282 MPV 8.6 Immature Gran % 0.5 Neutrophils % 90.9 Lymphocytes % 3.9 Monocytes % 4.6 Eosinophils % 0.0 Basophils % 0.1 Nucleated RBC % 0 Absolute Neutrophils 16.77 H Absolute Lymphocytes 0.72 L Absolute Monocytes 0.85 H Absolute Eosinophils 0.00 Absolute Basophils 0.02 VBG Lactate 4.2 H* Sodium Potassium Chloride Carbon Dioxide Anion Gap BUN Creatinine Estimated GFR/1.73 m2 Glucose Calcium Total Bilirubin AST ALT Alkaline Phosphatase Troponin I NT-Pro-B Natriuret Pep Total Protein Albumin COVID-19 Source SARS-CoV-2 (PCR)
[2021-02-05] MEDS: Omeprazole 20 MG CAPCR 40 MG PO ×2 (12:57→19:53)
[2021-02-05] MEDS: Benzonatate 200 MG CAP PO ×2 (14:27→19:53)
[2021-02-05] MEDS: Sodium Chloride-Nasal SPRAY-ADULT 44 ML BTL NS ×2 (16:19→20:02)
[2021-02-05] MEDS: Ipratropium 0.5 MG/2.5 ML UPD VIAL UPD ×2 (16:23→19:54)
[2021-02-05] MEDS: Levalbuterol 1.25 MG/3 ML UPD VIAL UPD (16:23)
[2021-02-05] MEDS: Sucralfate 1 GM TAB PO ×2 (17:02→21:27)
[2021-02-05] MEDS: Enoxaparin 40 MG/0.4 ML SYR SC (17:02)
[2021-02-05] MEDS: predniSONE 20 MG TAB 40 MG PO (19:53)
[2021-02-05] MEDS: Mometasone 220 MCG 14 DOSE INHALER 1 PUFF IH (20:01)
[2021-02-05] MEDS: Zolpidem 5 MG TAB PO (21:27)
[2021-02-06] VITALS (13 sets, daily range): BP systolic 92–130; BP diastolic 60–75; PULSE 68–111; RESP 1–20; TEMP 36.4–37.1; O2SAT 95–99
--- NOTE | 2021-02-06 04:05 | NUR.NOTE ---
Nursing Note: Patient slept well, since Ambien was taken until this time. The specification writer not able to take vital signs this shift. Aware of not disturbing her sleep for the reason that she had 48 hrs of no sleep at nights. Will continue to observe.
[2021-02-06 06:25] LABS: Abs Immature Grans 0.09 10^3/uL (0.0-0.06); Absolute Lymphocyte Count 1.46 10^3/uL (1.2-3.4); Absolute Monocyte Count 0.69 10^3/uL (0.1-0.8); Absolute Neutrophil Count 13.09 10^3/uL (1.2-6.7); Basophils % 0.1; HCT 33.5 % (36.0-46.0); Immature Grans % 0.6; Lymphocytes % 9.5; MCH 28.1 pg (27.0-33.0); MCHC 32.8 % (32.0-36.0); MCV 85.7 fL (80-95); MPV 8.8 fL (8.0-11.0); Monocytes % 4.5; Neutrophils % 85.3; Nucleated RBC 0 %; Platelet Count 293 10^3/uL (130-400); RBC 3.91 10^6/uL (3.93-5.22); RDW 14.6 % (11.7-14.6); RDW-SD 44.9 fL; WBC 15.34 10^3/uL (4.4-10.8)
[2021-02-06 06:26] LABS: Absolute Basophil Count 0.02 10^3/uL (0.0-0.2)
[2021-02-06 06:31] LABS: Lactate 2.1 mmol/L (0.6-1.4)
[2021-02-06 06:34] LABS: Anion Gap 10.6 mmol/L (3-11); BUN 17 mg/dL (7-18); CO2 26.4 mmol/L (21.0-32.0); CREATININE 0.8 mg/dL (0.55-1.02); Calcium 8.8 mg/dL (8.5-10.1); Chloride 103 mmol/L (98-107); Glucose 127 mg/dL (74-106); Potassium 3.9 mmol/L (3.5-5.1); Sodium 140 mmol/L (136-145)
[2021-02-06] MEDS: Ipratropium 0.5 MG/2.5 ML UPD VIAL UPD ×4 (07:35→20:43)
[2021-02-06] MEDS: Mometasone 220 MCG 14 DOSE INHALER 1 PUFF IH (07:35)
[2021-02-06] MEDS: Levalbuterol 1.25 MG/3 ML UPD VIAL UPD ×3 (07:36→16:20)
[2021-02-06] MEDS: Omeprazole 20 MG CAPCR 40 MG PO ×2 (08:09→20:43)
[2021-02-06] MEDS: guaiFENesin 600 MG TABCR PO ×2 (08:09→20:43)
[2021-02-06] MEDS: Sertraline 50 MG TAB 150 MG PO (08:09)
[2021-02-06] MEDS: Sucralfate 1 GM TAB PO ×4 (08:09→22:03)
[2021-02-06] MEDS: Benzonatate 200 MG CAP PO ×3 (08:09→22:03)
[2021-02-06] MEDS: Famotidine 20 MG TAB 40 MG PO ×2 (08:10→20:43)
[2021-02-06] MEDS: predniSONE 20 MG TAB 40 MG PO ×2 (08:10→20:43)
[2021-02-06] MEDS: Sodium Chloride-Nasal SPRAY-ADULT 44 ML BTL NS ×4 (08:17→22:03)
[2021-02-06] MEDS: Acetaminophen 325 MG TAB 650 MG PO (10:27)
--- NOTE | 2021-02-06 10:39 | CMPROGNOTE_ITS ---
- If Service Date Differs Date of service: 02/06/21 Time of Service: 10:39 Care Management Progress Note S/O:Katty was sitting up in bed when CM met with her. She was peasant and receptive to conversation. Katty stated that she is finally beginning to feel better after 3 weeks of having bronchitis and pneumonia.She has had several courses of antibioticsas an outpatient. Katty admitted to being a bit bored so CM provided her with an adult coloring book and colored pencils. Katty admit riddhi that she enjoys coloring and was appreciative of the items offered. A: Katty is a 50 year old woman admitted with bronchospasms om 02/04/21 P:Katty will return home when ready per MD. She will follow up with her PCP and plan of care as prescribed. She will transport home via private vehicle with her . CM will continue to support Katty and her discharge planning needs.
--- NOTE | 2021-02-06 11:32 | W.PM.PROGNOT ---
Date of Service Date of service: 02/06/21 Time of Service: 11:32 Assessment and Plan Assessment and plan (1) Acute bronchitis with bronchospasm: Status: Acute Assessment and plan: Clinically better. Introduce symbicort in place of mometasone. Cough now productive with green sputum. Obtain procalcitonin and sputum sample. Patient failed doxycycline and levofloxacin as outpatient. Consider zosyn. Continue scheduled tessalon and mucinex in addition to hycodin. No change to steroid dose. Continue H2 ascencion, PPI, carafate. Continue saline nasal spray. (2) GERD (gastroesophageal reflux disease): Status: Chronic Assessment and plan: As above - as this is triggering acute bronchospasm, using combination of H2 ascencion, PPI and carafate. (3) Acute esophagitis: Status: Acute Assessment and plan: ?Pill esophagitis due to doxycycline. Continue above therapy as improved. May require an EGD once respiratory status is better. (4) Insomnia: Status: Acute Assessment and plan: Control cough. prn ambien (5) DVT prophylaxis: Status: Acute Assessment and plan: SC lovenox (6) Discharge planning issues: Status: Acute Assessment and plan: Full code Continues to require hospitalization Admit to inpatient status. Subjective Subjective Interval history since last seen: Slept through most of the night as cough did improve some. Today, coughed up green sputum x 2. Cough is worse now than it was last night. Denies dizziness, chest is sore from coughing, but there is no longer burning on swallowing liquids, denies nausea. Feels better, but not ready to go home. Nose feels better - still having some bleeding. Exam Narrative Exam Narrative: General: Obese female, A&Ox3, coughing, less harsh than yesterday HEENT: EOMI, MMM Heart: RRR, not tachycardic today (70s) Lungs: coarse breath sounds B, no wheezing, sounds better than yesterday Abdomen: nondistended Extremities: no edema BLEs Objective Last Vital Signs Temp 36.6 C 02/06/21 07:25 Pulse 70 02/06/21 07:38 Resp 18 02/06/21 07:38 BP 108/75 02/06/21 07:25 Pulse Ox 99 02/06/21 07:38 Laboratory Results - last 24 hr 02/06/21 02/06/21 02/06/21 06:14 06:14 06:14 WBC 15.34 H RBC 3.91 L Hgb 11.0 L Hct 33.5 L MCV 85.7 MCH 28.1 MCHC 32.8 RDW 14.6 Plt Count 293 MPV 8.8 Immature Gran % 0.6 Neutrophils % 85.3 Lymphocytes % 9.5 Monocytes % 4.5 Eosinophils % 0.0 Basophils % 0.1 Nucleated RBC % 0 Absolute Neutrophils 13.09 H Absolute Lymphocytes 1.46 Absolute Monocytes 0.69 Absolute Eosinophils 0.00 Absolute Basophils 0.02 VBG Lactate 2.1 H Sodium 140 Potassium 3.9 Chloride 103 Carbon Dioxide 26.4 Anion Gap 10.6 BUN 17 D Creatinine 0.8 Estimated GFR/1.73 m2 >= 60.00 Glucose 127 H Calcium 8.8 Magnesium 2.0
[2021-02-06 12:24] LABS: Procalcitonin < 0.1 ng/mL
[2021-02-06] MEDS: Cetirizine 10 MG TAB PO (12:33)
[2021-02-06] MEDS: Enoxaparin 40 MG/0.4 ML SYR SC (16:10)
[2021-02-06] MEDS: PIPERACILLIN/TAZO 3.375 GM in Normal Saline 50 ML IVPB (19:01)
[2021-02-06] MEDS: Normal Saline 50 ML 100 ML IV (19:01)
[2021-02-06] MEDS: Normal Saline 500 ML 30 ML IV (19:02)
[2021-02-06] MEDS: Normal Saline Flush 10 ML SYR IVP ×2 (19:18→20:43)
[2021-02-06] MEDS: Budesonide/Formoterol 160/4.5 6 GM 60 PUFF INH IH (20:43)
[2021-02-06] MEDS: Zolpidem 5 MG TAB PO (22:40)
[2021-02-07] VITALS (7 sets, daily range): BP systolic 134–143; BP diastolic 79–99; PULSE 74–90; RESP 7–19; TEMP 36.2–36.8; O2SAT 93–97
[2021-02-07] MEDS: PIPERACILLIN/TAZO 3.375 GM in Normal Saline 50 ML IVPB ×4 (01:10→18:32)
[2021-02-07] MEDS: Normal Saline Flush 10 ML SYR IVP ×4 (01:17→23:41)
[2021-02-07] MEDS: Zolpidem 5 MG TAB PO ×2 (02:20→21:15)
[2021-02-07] MEDS: Sucralfate 1 GM TAB PO ×4 (08:36→21:15)
[2021-02-07] MEDS: Omeprazole 20 MG CAPCR 40 MG PO ×2 (08:36→21:15)
[2021-02-07] MEDS: Sertraline 50 MG TAB 150 MG PO (08:37)
[2021-02-07] MEDS: predniSONE 20 MG TAB 40 MG PO ×2 (08:37→14:02)
[2021-02-07] MEDS: guaiFENesin 600 MG TABCR PO ×2 (08:38→21:16)
[2021-02-07] MEDS: Benzonatate 200 MG CAP PO ×3 (08:38→21:15)
[2021-02-07] MEDS: Cetirizine 10 MG TAB PO (08:38)
[2021-02-07] MEDS: Famotidine 20 MG TAB 40 MG PO ×2 (08:38→21:15)
[2021-02-07] MEDS: Ipratropium 0.5 MG/2.5 ML UPD VIAL UPD ×4 (08:46→21:16)
[2021-02-07] MEDS: Budesonide/Formoterol 160/4.5 6 GM 60 PUFF INH IH ×2 (08:55→21:10)
--- NOTE | 2021-02-07 09:11 | PDOC.CMDIS ---
LACE Index Scoring Tool - Questions: Length of Stay (in days): 1 Acuity (Admit via E.D.?): Yes E.D. Visits: 5 - Answers: Total Score: 8 Risk of Readmission: Low Risk Care Management Discharge Reason for Hospitalization: Acute Respiratory Failure Discharge Plan: Katty will return home when ready per MD. She will follow up with her PCP and plan of care as prescribed. She will transport home via private vehicle with her . CM will continue to support Katty and her discharge planning needs. Patient/Family Education Needs: Review discharge instructions, discuss Ask Me Three.
[2021-02-07] MEDS: Sodium Chloride-Nasal SPRAY-ADULT 44 ML BTL NS ×2 (09:57→12:06)
--- NOTE | 2021-02-07 12:30 | W.PM.PROGNOT ---
Date of Service Date of service: 02/07/21 Time of Service: 12:30 Assessment and Plan Assessment and plan (1) Acute bronchitis with bronchospasm: Status: Acute Assessment and plan: No improvement except for appearance of sputum. Sputum no longer green since initiation of zosyn yesterday. Continue zosyn empirically. Await sputum culture. Continue scheduled tessalon and mucinex in addition to hycodin. Increase steroid dose. Continue H2 ascencion, PPI, carafate. Continue saline nasal spray. (2) GERD (gastroesophageal reflux disease): Status: Chronic Assessment and plan: As above - as this is triggering acute bronchospasm, using combination of H2 ascencion, PPI and carafate. (3) Acute esophagitis: Status: Acute Assessment and plan: ?Pill esophagitis due to doxycycline or due to reflux. I am concerned about pills getting stuck today. Obtain barium swallow. Depending on results, consider general surgery consult. May require an EGD once respiratory status is better. (4) Insomnia: Status: Acute Assessment and plan: This is better. Continue all antitussive measures, GERD meds, etc. prn ambien (5) DVT prophylaxis: Status: Acute Assessment and plan: SC lovenox (6) Discharge planning issues: Status: Acute Assessment and plan: Full code Continues to require hospitalization Subjective Subjective Interval history since last seen: Katty continues to cough. Sputum changed color to white today (was initiated on zosyn yesterday). Sputum sample was obtained. Katty feels like pills are getting stuck midway through the chest when she swallows them. No difficulty when eating chicken or swallowing liquids, just pills. Denies dizziness, chest pain, nausea. Exam Narrative Exam Narrative: General: Obese female, A&Ox3, coughing incessantly (dry) HEENT: EOMI, MMM Heart: RRR, not tachycardic, no m/r/g Lungs: coarse breath sounds B, unchanged from yesterday Abdomen: nondistended Extremities: no edema BLEs Objective Last Vital Signs Temp 36.2 C L 02/07/21 07:20 Pulse 90 02/07/21 07:20 Resp 19 02/07/21 07:20 BP 143/86 H 02/07/21 07:20 Pulse Ox 93 02/07/21 07:20
[2021-02-07] MEDS: Levalbuterol 1.25 MG/3 ML UPD VIAL UPD (12:31)
--- NOTE | 2021-02-07 13:09 | PHA.REVIEW ---
Pharmacy Admission Review - Admission Clinical Review (Last Reviewed 02/04/21 @ 18:19 by Hernandez Cornell MD) Discharge planning issues (Acute) DVT prophylaxis (Acute) Insomnia (Acute) Acute esophagitis (Acute) Acute bronchitis with bronchospasm (Acute) No Known Allergies Allergy (Unverified 02/04/21 12:02) Height 5 ft 4 in Weight 99.79 kg - Renal Dosing Renal Dosing: BUN 17 mg/dL (7-18) D 02/06/21 06:14 Creatinine 0.8 mg/dL (0.55-1.02) 02/06/21 06:14 Medications needing adjustments: Reviewed (Crcl ~98.7 mL/min using adjusted body weight. Current meds okay.) - Anticoagulation Anticoagulation: Hgb 11.0 g/dL (11.2-15.7) L 02/06/21 06:14 Hct 33.5 % (36.0-46.0) L 02/06/21 06:14 Plt Count 293 10^3/uL (130-400) 02/06/21 06:14 Creatinine 0.8 mg/dL (0.55-1.02) 02/06/21 06:14 DVT Prohphylaxis: Reviewed Medications: Enoxaparin Therapeutic Anticoagulation: N/A - Opiate Usage Evaluate Pain Scale/Pains Meds: Reviewed Scheduled Bowel Reg ordered if on Opiates?: No (has PRN med ordered) - Relevant Labs Sodium 140 mmol/L (136-145) 02/06/21 06:14 Potassium 3.9 mmol/L (3.5-5.1) 02/06/21 06:14 Chloride 103 mmol/L (98-107) 02/06/21 06:14 Magnesium 2.0 mg/dL (1.8-2.4) 02/06/21 06:14 Electrolytes, C-Reactive P, ESR: Reviewed - DM Control DM Control: Glucose 127 mg/dL (74-106) H 02/06/21 06:14 Insulin Dosing: N/A (BG has been mildly elevated so far this admission, pt has hyperglycemia listed one medical history but no A1c on file.) - Heart Failure/TX Heart Failure/TX: Troponin I < 0.05 ng/mL (<0.06) 02/04/21 12:05 NT-Pro-B Natriuret Pep 71 pg/mL (<300) 02/04/21 12:05 EF%, AKANKSHA's, B-Blockers, Diuretics: Reviewed - BP Control BP Control: Blood Pressure 143/86 Blood Pressure 134/79 If elevated: Reviewed (BP has been up and down this admission, but mostly elevated so far. Pt is not on any BP meds at home.) - Qtc Review If Elevated: Reviewed (QTc 471 on admission) - IV to PO Switch IV Medications: Reviewed - Home Meds Home Med List reviewed: Reviewed Relevent Home Meds Not ordered & why?: Both home meds ordered, pt has been refusing methylphenidate so far this admission. - Current meds Current Medication Order Review: Intervened (Discontinued a duplicate med order.) - Comments Comments/Follow Ups: Watch BP, BG, for culture results and for med changes (need of BM meds, change of abx to PO). Antibiotic Activity - Pharmacy Antibiotic Review Pharmacy Antibiotic Activity: Reviewed, no change (Zosyn continues (day 2 starts this evening). BC no growth @48 hours, sputum culture pending.)
[2021-02-07] MEDS: Polyethylene Glycol 3350 17 GM PACKET PO (14:02)
--- NOTE | 2021-02-07 14:16 | PDOC.CMPRO ---
Care Management Progress Note S/O: Katty continues to require hospitalization at this time, per MD. She was lying in bed when CM met with her, she shared no concerns at this time. She remains pleasant in interaction and continues to ambulate independently, CM continues to follow. A: 50 year old female admitted to [facility] 02/06/21 for Acute Respiratory Failure P: Katty will return home when ready per MD. She will follow up with her PCP and plan of care as prescribed. She will transport home via private vehicle with her . CM will continue to support Katty and her discharge planning needs.
[2021-02-07] MEDS: Enoxaparin 40 MG/0.4 ML SYR SC (17:01)
[2021-02-07] MEDS: predniSONE 20 MG TAB 60 MG PO (21:16)
[2021-02-07] MEDS: Normal Saline 500 ML IV (23:42)
[2021-02-08] VITALS (9 sets, daily range): BP systolic 128–129; BP diastolic 61–77; PULSE 68–102; RESP 1–19; TEMP 35.7–36.6; O2SAT 93–100
[2021-02-08] MEDS: PIPERACILLIN/TAZO 3.375 GM in Normal Saline 50 ML IVPB ×2 (06:02)
[2021-02-08] MEDS: Normal Saline Flush 10 ML SYR IVP ×2 (06:03→10:07)
[2021-02-08 07:16] LABS: Abs Immature Grans 0.13 10^3/uL (0.0-0.06); Absolute Basophil Count 0.01 10^3/uL (0.0-0.2); Absolute Monocyte Count 0.73 10^3/uL (0.1-0.8); Basophils % 0.1; HCT 34.5 % (36.0-46.0); HGB 11.6 g/dL (11.2-15.7); Immature Grans % 0.9; Lymphocytes % 9.3; MCH 28.4 pg (27.0-33.0); MCHC 33.6 % (32.0-36.0); MCV 84.4 fL (80-95); MPV 8.9 fL (8.0-11.0); Monocytes % 5.1; Neutrophils % 84.6; Nucleated RBC 0 %; Platelet Count 330 10^3/uL (130-400); RBC 4.09 10^6/uL (3.93-5.22); RDW 14.6 % (11.7-14.6); RDW-SD 44.6 fL; WBC 14.26 10^3/uL (4.4-10.8)
[2021-02-08 07:18] LABS: Absolute Lymphocyte Count 1.33 10^3/uL (1.2-3.4); Absolute Neutrophil Count 12.06 10^3/uL (1.2-6.7)
[2021-02-08 07:33] LABS: Anion Gap 10.6 mmol/L (3-11); BUN 18 mg/dL (7-18); CO2 26.4 mmol/L (21.0-32.0); CREATININE 0.8 mg/dL (0.55-1.02); Calcium 9.4 mg/dL (8.5-10.1); Chloride 103 mmol/L (98-107); Glucose 130 mg/dL (74-106); Magnesium 2.1 mg/dL (1.8-2.4); Sodium 140 mmol/L (136-145)
[2021-02-08] MEDS: Budesonide/Formoterol 160/4.5 6 GM 60 PUFF INH IH (07:42)
[2021-02-08] MEDS: Ipratropium 0.5 MG/2.5 ML UPD VIAL UPD ×2 (07:42→12:53)
[2021-02-08] MEDS: Levalbuterol 1.25 MG/3 ML UPD VIAL UPD ×2 (07:43→12:52)
--- NOTE | 2021-02-08 08:59 | PDOC.CMPRO ---
Care Management Progress Note S/O: Katty continues to require hospitalization at this time, per MD. Medications continue to be adjusted for suspected bronospasm, she will also have a barrium swallow today, per MD. She was lying in bed when CM met with her, she shared no concerns at this time. She remains pleasant in interaction and continues to ambulate independently, CM continues to follow. A: 50 year old female admitted to [facility] 02/06/21 for Acute Respiratory Failure P: Katty will return home when ready per MD. She will follow up with her PCP and plan of care as prescribed. She will transport home via private vehicle with her . CM will continue to support Katty and her discharge planning needs.
[2021-02-08] MEDS: Sertraline 50 MG TAB 150 MG PO (10:08)
[2021-02-08] MEDS: predniSONE 20 MG TAB 60 MG PO (10:09)
[2021-02-08] MEDS: Cetirizine 10 MG TAB PO (10:09)
[2021-02-08] MEDS: Famotidine 20 MG TAB 40 MG PO (10:09)
[2021-02-08] MEDS: Sucralfate 1 GM TAB PO ×2 (10:09→16:28)
[2021-02-08] MEDS: guaiFENesin 600 MG TABCR PO (10:10)
[2021-02-08] MEDS: Benzonatate 200 MG CAP PO ×2 (10:10→14:40)
[2021-02-08] MEDS: Omeprazole 20 MG CAPCR 40 MG PO (10:10)
--- NOTE | 2021-02-08 10:47 | DI.RAD_ITS ---
EXAM: RF BARIUM SWALLOW CLINICAL HISTORY: dysphagia for pills, ?esophageal stricture TECHNIQUE: 2D and realtime digital imaging was performed. CONTRAST MATERIAL: Oral barium contrast was administered. COMPARISON: No exams were available for comparison FINDINGS: CHEST X-RAY: The heart and pulmonary vasculature are within normal limits. The lungs are clear. No pl eural effusion or pneumothorax is present. The bones are within normal limits fo the patient's age. ESOPHAGRAM: The esophagus is patent with no evidence for erosions, fold thickening, strictures, or ma sses. With regards to the motility, there is a normal primary stripping wave. No tertiary contraction s were noted. There is a small hiatal hernia. No evidence of gastroesophageal reflux or aspiration w as seen during the examination. IMPRESSION: 1. Small hiatal hernia. 2. No evidence of aspiration or gastroesophageal reflux was seen during the examination.
[2021-02-08] MEDS: Barium Sulfate 60% W/V 355 ML BTL PO (10:49)
--- NOTE | 2021-02-08 10:51 | W.PM.PROGNOT ---
Date of Service Date of service: 02/08/21 Time of Service: 10:51 Assessment and Plan Assessment and plan (1) Acute bronchitis with bronchospasm: Status: Acute Assessment and plan: I think this is better today. Cough no longer productive. Switch to augmentin. Sputum cx without growth to date. Continue scheduled tessalon and mucinex in addition to hycodin. Continue current steroid dose. Continue H2 ascencion, PPI, carafate. Continue saline nasal spray. Address dysphagia. (2) GERD (gastroesophageal reflux disease): Status: Chronic Assessment and plan: As above - as this is triggering acute bronchospasm, using combination of H2 ascencion, PPI and carafate. (3) Acute esophagitis: Status: Acute Assessment and plan: ?Pill esophagitis due to doxycycline or due to reflux vs esophageal stricture or spasm. Await barium swallow results. May require an EGD. NPO until we have barium swallow results. May require an EGD once respiratory status is better. (4) Insomnia: Status: Acute Assessment and plan: This is better. Continue all antitussive measures, GERD meds, etc. prn ambien (5) DVT prophylaxis: Status: Acute Assessment and plan: SC lovenox (6) Discharge planning issues: Status: Acute Assessment and plan: Full code Continues to require hospitalization Subjective Subjective Interval history since last seen: Ms Peterson states that a pill got stuck in her esophagus again today. She is s/p barium swallow this am; results are not available. Cough and breathing are both a little better. Able to sleep last night. No other new complaints. Exam Narrative Exam Narrative: General: Obese female, A&Ox3, coughing les today(dry) HEENT: EOMI, MMM Heart: RRR, not tachycardic, no m/r/g Lungs: coarse breath sounds B, quiet expiratory wheezing on left Abdomen: nondistended Extremities: no edema BLEs Objective Last Vital Signs Temp 36.4 C L 02/08/21 07:14 Pulse 68 02/08/21 07:43 Resp 17 02/08/21 07:43 BP 129/77 02/08/21 07:14 Pulse Ox 98 02/08/21 07:43 Laboratory Results - last 24 hr 02/08/21 02/08/21 06:49 06:49 WBC 14.26 H RBC 4.09 Hgb 11.6 Hct 34.5 L MCV 84.4 MCH 28.4 MCHC 33.6 RDW 14.6 Plt Count 330 MPV 8.9 Immature Gran % 0.9 Neutrophils % 84.6 Lymphocytes % 9.3 Monocytes % 5.1 Eosinophils % 0.0 Basophils % 0.1 Nucleated RBC % 0 Absolute Neutrophils 12.06 H Absolute Lymphocytes 1.33 Absolute Monocytes 0.73 Absolute Eosinophils 0.00 Absolute Basophils 0.01 Sodium 140 Potassium 4.0 Chloride 103 Carbon Dioxide 26.4 Anion Gap 10.6 BUN 18 Creatinine 0.8 Estimated GFR/1.73 m2 >= 60.00 Glucose 130 H Calcium 9.4 Magnesium 2.1
--- NOTE | 2021-02-08 16:21 | DSE_ITS ---
Date of service: 02/08/21 Time of Service: 16:21 DS: Diagnosis Discharge Diagnosis (1) Acute bronchitis with bronchospasm: Status: Acute (2) GERD (gastroesophageal reflux disease): Status: Chronic (3) Acute esophagitis: Status: Acute (4) Pill dysphagia: Status: Acute Asessment and Plan: sensation of pills getting stuck in the esophagus (5) Insomnia: Status: Acute (6) Post-nasal drip: Status: Acute (7) Epistaxis: Status: Resolved (8) COVID-19 ruled out by laboratory testing: Status: Ruled-out Discharge Plan Disposition Patient Disposition: HOME Condition: Improving Discharge Details Reason For Visit: ACUTE RESPIRATORY DISTRESS Admit Date/Time: 02/06/21 16:17 Admit Provider: Hernandez Cornell Attending Provider: Hernandez Cornell Primary Care Provider: Waqas Cyr Hospital Course Hospital Course: Ms Peterson is a 50 year old female with PMHx of GERD, obesity s/p gastric bypass, since which she has not been on GERD therapy, nephrolithiasis, insomnia, who was a patient on [facility] hospitalist service from 02/04/2021 until 02/08/2021 for acute bronchospasm in setting of acute bronchitis likely complicated by GERD and esophagitis. The patient had failed two outpatient courses of antibiotics accompanied by prednisone. COVID-19 was ruled out with a negative nasal swab. There was no evidence of pneumonia by imaging. She has not required oxygen on this admission. She was initiated on high dose systemic steroids, scheduled and prn medications, as well as combination of H2 ascencion and PPI for her GERD symptoms. She also appeared to have some allergic rhinitis/postnasal drip, for which she was initiated on antihistamines and saline nasal spray. We found that she had become quite tachycardic with albuterol and did much better with xopenex. We did add symbicort to her regimen. The patient described a change in her sputum color, which prompted initiation of antibiotics (initially zosyn, then switched to augmentin). Sputum culture has grown only normal noemi. Her symptoms are improving now, but have certainly not resolved. She is going home today to complete her course of antibiotics and steroids and with follow up with her PCP, who can clear her to return to work. Importantly, Katty has reported that pills get stuck in her esophagus. She has no difficulties with food or liquids. She had a normal barium swallow. SHe is being referred to the general surgical service for an EGD as outpatient. She is stable for discharge home today. Care for patient as well as completion of her discharge summary on day of discharge took 1 hr. Home Meds and New Rx's Prescriptions: New benzonatate 200 mg Capsule 200 mg PO TID Qty: 30 RF: 0 budesonide-formoterol [Symbicort] 160-4.5 mcg/actuation Hfa Aerosol Inhaler 2 puff inhalation BID Qty: 10.2 RF: 0 cetirizine 10 mg Tablet 10 mg PO DAILY Qty: 30 RF: 0 prednisone 20 mg Tablet See Rx Instructions mg .ROUTE .COMPLEX Qty: 44 RF: 0 hydrocodone-homatropine 5-1.5 mg/5 mL Syrup 5 ml PO Q4H PRN PRNQty: 120 RF: 0 levalbuterol HCl 1.25 mg/3 mL Solution For Nebulization 1.25 mg UPD Q4H PRN PRNQty: 90 RF: 1 guaifenesin [Mucinex] 600 mg Tablet Extended Release 12hr 600 mg PO BID Qty: 30 RF: 0 sucralfate 1 gram Tablet 1 g PO AC & HS Qty: 120 RF: 0 zolpidem 5 mg Tablet 5 mg PO HS PRN MAY REPEAT X1 PRNQty: 10 RF: 0 sodium chloride [Deep Sea Nasal] 0.65 % Aerosol,Cashiers 2 spray NS QID Qty: 30 RF: 0 amoxicillin-pot clavulanate 400-57 mg/5 mL suspension for reconstitution 10 ml PO Q12H Qty: 100 RF: 0 pantoprazole [Protonix] 40 mg tablet,delayed release (DR/EC) 40 mg PO BID Qty: 60 RF: 0 Continued sertraline 100 mg tablet 150 mg PO DAILY AM RF: 0 methylphenidate HCl [Ritalin] 20 mg Tablet 60 mg PO TID RF: 0 Discharge Instructions Instructions: Prednisone (By mouth), Amoxicillin/Clavulanate Potassium (By mouth), Pantoprazole (By injection), GERD (Gastroesophageal Reflux Disease) (DC) Additional Instructions: Finish your antibiotics and steroids as prescribed. Return to the hospital with any fever, bleeding, chest pain, worsening shortness of breath or cough. Follow up with your PCP within 1 week. Follow up with general surgery for your difficulty with getting pills stuck in your esophagus. Referrals: Waqas Cyr [Primary Care Provider] - Theodora Sellers DO [OSTEOPATHIC DOCTOR] - (Dysphagia for pills - sensations of them stuck in the esophagus) Activity:: Activity as Tolerated Equipment/Supplies:: No Equipment Needed Diet:: As Tolerated Discharge Orders Discharge Orders: Discharge Order (Routine); Ordered 02/08/21 Ordered By: Ros Rodriguez DS: Summary Time Spent with Patient providing and/or coordinating discharge services: Greater than 30 minutes Status at Discharge Functional status at discharge: independent ambulation Overall status at discharge: patient is progressing back to baseline Mental Status: mental status grossly normal Speech and Movement: speech and movement normal Mood: congruent mood Affect: normal affect Exam Narrative Exam Narrative: General: Obese female, A&Ox3, coughing les today(dry) HEENT: EOMI, MMM Heart: RRR, not tachycardic, no m/r/g Lungs: coarse breath sounds B, quiet expiratory wheezing on left Abdomen: nondistended Extremities: no edema BLEs Psych Mental Status: mental status grossly normal Speech and Movement: speech and movement normal Mood: congruent mood Affect: normal affect DS: Data Vitals/I&O Vitals and I&O: Vital Signs Temperature 35.7 C L 02/08/21 15:09 Temperature Source Tympanic 02/08/21 15:09 Pulse 102 H 02/08/21 15:09 Pulse Rhythm Regular 02/08/21 07:15 Pulse 114 H 02/04/21 13:55 Respiratory Rate 19 02/08/21 15:09 Respiratory Effort 02/08/21 07:15 Respiratory Depth Normal 02/08/21 07:15 Respiratory Pattern Normal 02/08/21 07:15 Blood Pressure 128/71 02/08/21 15:09 Blood Pressure Mean 98 02/04/21 13:55 Blood Pressure Position Standing 02/04/21 12:00 Pulse Oximetry 93 02/08/21 15:09 Oxygen Delivery Method Room Air 02/08/21 15:09 Oxygen Flow Rate 0 02/08/21 15:09 Pain Level 0 02/08/21 15:09 Intake & Output 02/07/21 02/08/21 02/08/21 23:59 11:59 23:59 Intake Total 650.005 / 800.005 80 / 80 Balance 650.005 / 800.005 80 / 80 Intake: IV 170.005 / 270.005 80 / 80 Oral 480 / 530 Other: Urine Color Yellow Urine Appearance Clear Clear Urine Odor None Comment pt voiding independently Void in toilet, measuring hat has been removed. Voiding Methods Toilet Toilet Data Completed and Pending Completed studies during hospitalization [Text1]: CXR: No evidence of pulmonary embolism or other acute abnormality.. Barium Swallow: 1. Small hiatal hernia. 2. No evidence of aspiration or gastroesophageal reflux was seen during the examination Labs on day of discharge: Labs from last 24 hours 02/08/21 02/08/21 06:49 06:49 WBC 14.26 H RBC 4.09 Hgb 11.6 Hct 34.5 L MCV 84.4 MCH 28.4 MCHC 33.6 RDW 14.6 Plt Count 330 MPV 8.9 Immature Gran % 0.9 Neutrophils % 84.6 Lymphocytes % 9.3 Monocytes % 5.1 Eosinophils % 0.0 Basophils % 0.1 Nucleated RBC % 0 Absolute Neutrophils 12.06 H Absolute Lymphocytes 1.33 Absolute Monocytes 0.73 Absolute Eosinophils 0.00 Absolute Basophils 0.01 Sodium 140 Potassium 4.0 Chloride 103 Carbon Dioxide 26.4 Anion Gap 10.6 BUN 18 Creatinine 0.8 Estimated GFR/1.73 m2 >= 60.00 Glucose 130 H Calcium 9.4 Magnesium 2.1 Preliminary micro results at discharge 02/04/21 14:05 Blood Culture - Preliminary Blood NO GROWTH 96 HOURS 02/04/21 12:05 Blood Culture - Preliminary Blood NO GROWTH 96 HOURS 02/07/21 09:10 Sputum Culture - Preliminary Sputum Normal Noemi [facility] Medical History ADHD Carpal tunnel syndrome Claustrophobia Depressive disorder Hyperglycemia Insomnia Migraine ADAIR (obstructive sleep apnea) Polycystic ovaries Rosacea Severe obesity Surgical History History of section S/P gastric bypass S/P hysterectomy Social History Smoking/Tobacco Use Status: Never Smoking risk assessment performed?: Yes Alcohol Intake: never Drug use: Never Substance use type: does not use Do you feel safe at home: Yes Do you feel safe in your relationship?: Yes
--- NOTE | 2021-02-08 16:48 | PDOC.CMDIS ---
LACE Index Scoring Tool - Questions: Length of Stay (in days): 2 Acuity (Admit via E.D.?): Yes E.D. Visits: 5 - Answers: Total Score: 9 Risk of Readmission: Low Risk Care Management Discharge Reason for Hospitalization: Acute Respiratory Failure Discharge Plan: Katty will discharge home when ready per MD. She is not cleared to return to work (NEREYDA drafted work letter, collected MD signature and provided to Katty) and will need to be cleared by her PCP. She will fill new medications and follow up with her PCP. She will transport via private vehicle with her . Patient/Family Education Needs: Review discharge instructions, discuss Ask Me Three.
== END 2021-02-08 17:25 | disposition home or self-care (01) | DRG 203 ==
LOC: ER 15:14 → MS 16:06
PROVIDERS: Internal Medicine; Admitting Provider Family Medicine; Emergency Provider Physician Assistant; PCP Neuromusculoskeletal Medicine & OMM; Visit Provider Family Medicine
DX: J20.9 Acute bronchitis, unspecified (principal); Z98.84 Bariatric surgery status; Z20.822 Contact with and (suspected) exposure to COVID-19; K21.00 Gastro-esophageal reflux disease with esophagitis, without bleeding; G47.00 Insomnia, unspecified; R04.0 Epistaxis; E66.9 Obesity, unspecified; F90.9 Attention-deficit hyperactivity disorder, unspecified type; F32.9 Major depressive disorder, single episode, unspecified; R73.9 Hyperglycemia, unspecified; G43.909 Migraine, unspecified, not intractable, without status migrainosus; G47.33 Obstructive sleep apnea (adult) (pediatric); L71.9 Rosacea, unspecified; E28.2 Polycystic ovarian syndrome
CPT/HCPCS: 36415; 71275; 80048; 80053; 84145; 87040; 87635; 93005; 94618; 94640; 96361; 96374; 99219; 99225; 99232; 99233; 99239; 99285; J1650; 74221; 83605; 83735; 83880; 84484; 85025; 87070; 87205; 93010; G0378; J2543; J2930; J3490; J7512; J7614; J7620; J7644

== ENCOUNTER 2021-03-18 07:55 | Outpatient (CLI) | payer OTHER, SELFPAY ==
[2021-03-18] MEDS: Methacholine 100 MG VIAL IH (15:28)
[2021-03-18] MEDS: Albuterol HFA 18 GM 200 PUFF INH IH (15:29)
[2021-03-18] MEDS: Inhaler, Assist Device 1 EACH MC (15:29)
--- NOTE | 2021-03-21 13:29 | W.PFT ---
Date of service: 03/18/21 Time of Service: 13:13 Pulmonary Function Test Result Interpretation Spirometry: No evidence of obstructive airways disease, no bronchodilator response Lung Volumes: No evidence of restriction Diffusion Capacity: Borderline mildly reduced which is normal when corrected to alveolar volume Airway Pressure: Normal Impression Isolated borderline reduction in diffusion capacity, this is normal when corrected to alveolar volume Clinical Correlation therefore is recommended. Methacholine Challnege Test Date of Service Date of Service: 03/18/2021 Note After pulmonary function testing showing no obstruction but borderline diffusion defect, bronchoprovocation challenge testing with methacholine was carried out. Maximum methacholine concentration of 1 mg/mL which is reached at which point the patient had a 29% drop in FEV1. Impression Strongly positive methacholine challenge test
== END 2021-03-18 07:56 | disposition home or self-care (01) ==
LOC: RT 07:56
PROVIDERS: PCP Neuromusculoskeletal Medicine & OMM; Visit Provider Emergency Medicine
DX: J45.909 Unspecified asthma, uncomplicated (principal); R07.89 Other chest pain; R05 Cough; R06.09 Other forms of dyspnea
CPT/HCPCS: 94060; 94726; 94729; 95070; 94010; J7674

== ENCOUNTER 2021-05-23 01:03 | Outpatient (CLI) | payer OTHER, SELFPAY ==
--- NOTE | 2021-05-23 01:00 | DI.RAD_ITS ---
Exam(s) XR FOOT RT COMPLETE EXAM: XR FOOT RT COMPLETE CLINICAL HISTORY: 4,5 metatarsal pain, no trauma. TECHNIQUE: 2D digital imaging was performed. COMPARISON: No exams were available for comparison FINDINGS: BONES: No acute fracture is present. No bony destructive lesion is seen. Mild degenerative changes. JOINTS: No dislocation present. SOFT TISSUE: Normal. IMPRESSION: Unremarkable radiographs of the right foot. DATA REPOSITORY: RADIATION DOSE DELIVERED:
--- NOTE | 2021-05-23 02:52 | DI.VRAD_ITS ---
PROCEDURE INFORMATION: Exam: XR Right Foot Exam date and time: 05/23/2021 1:09 AM Age: 51 years old Clinical indication: Foot; Right; Patient HX: 4,5 metatarsal pain, no trauma TECHNIQUE: Imaging protocol: XR Right foot. Views: 3 or more views. COMPARISON: No relevant prior studies available. FINDINGS: Bones/joints: No acute fracture or dislocation. Question mild pes planus Soft tissues: Normal. IMPRESSION: No acute findings. Question mild pes planus Dictated and Authenticated by: Leonid Hannah MD. Ordering:CELE Tsai MD
== END 2021-05-23 01:23 ==
PROVIDERS: PCP Neuromusculoskeletal Medicine & OMM; Visit Provider Student in an Organized Health Care Education/Training Program
DX: M79.671 Pain in right foot (principal)
CPT/HCPCS: 73630

== ENCOUNTER 2021-07-27 00:56 | Outpatient (CLI) | payer OTHER, SELFPAY ==
--- NOTE | 2021-07-27 00:45 | DI.RAD_ITS ---
Exam(s) XR LUMBAR SPINE COMPLETE EXAM: XR LUMBAR SPINE COMPLETE CLINICAL HISTORY: fall, l4 pain. TECHNIQUE: 2D digital imaging was performed. COMPARISON: No exams were available for comparison FINDINGS: There are no compression fractures. There is mild disc space narrowing at L4-5 level and an element of anterolisthesis of L4 upon L5 is noted, not associated with obvious pars defects. Probably relate d to facet arthropathy. Mild disc space narrowing also noted at L5-S1 level. Other disc spaces exhi bit normal height. Sacroiliac joints appear unremarkable. Degenerative disc disease chronic-type no riddhi in the lower cyst thoracic spine. IMPRESSION: No obvious fracture. Mild anterolisthesis L4 upon L5, probably degenerative. There are no obvious p ars defects at this level. DATA REPOSITORY: RADIATION DOSE DELIVERED:
--- NOTE | 2021-07-27 00:45 | DI.RAD_ITS ---
Exam(s) XR THORACIC SPINE COMPLETE EXAM: XR THORACIC SPINE COMPLETE CLINICAL HISTORY: midline t2 pain after fall. TECHNIQUE: 2D digital imaging was performed. COMPARISON: No exams were available for comparison FINDINGS: There is no evidence of compression fracture or listhesis. Multilevel chronic-type degenerative disc disease is noted in the lower thoracic spinal column. No abnormal widening of the paraspinal lines. No scoliosis. No osseous lesions. IMPRESSION: DATA REPOSITORY: RADIATION DOSE DELIVERED:
--- NOTE | 2021-07-27 02:14 | DI.VRAD_ITS ---
PROCEDURE INFORMATION: Exam: XR Thoracic Spine Exam date and time: 07/27/2021 1:01 AM Age: 51 years old Clinical indication: Injury or trauma; Blunt trauma (contusions or hematomas); Injury date: 07/24/21; Injury details: Fall down stairs t2 pain TECHNIQUE: Imaging protocol: XR of the thoracic spine. Views: 3 views. COMPARISON: CR XR CHEST 2V PA LATERAL 01/18/2021 7:11 PM FINDINGS: Bones/joints: Normal. No acute fracture. Normal alignment. Soft tissues: Unremarkable. IMPRESSION: No definite fracture Dictated and Authenticated by: Jai Hooks MD. Ordering:CELE Tsai MD
--- NOTE | 2021-07-27 02:15 | DI.VRAD_ITS ---
PROCEDURE INFORMATION: Exam: XR Lumbosacral Spine Exam date and time: 07/27/2021 1:01 AM Age: 51 years old Clinical indication: Injury or trauma; Blunt trauma (contusions or hematomas); Injury date: 07/24/21; Injury details: Fall down stairs, l$ pain TECHNIQUE: Imaging protocol: XR of the lumbosacral spine. Views: 4 or 5 views. COMPARISON: CT RENAL COLIC WO 11/22/2020 10:33 PM FINDINGS: Bones/joints: Slight anterolisthesis at L4-L5. Vertebral body heights are maintained. Degenerative changes are noted. No evidence of fracture. Soft tissues: See Intraperitoneal space finding. Intraperitoneal space: Surgical clip seen in the right upper quadrant. Surgical clips near the GE junction. IMPRESSION: No definite fracture Dictated and Authenticated by: Jai Hooks MD. Ordering:CELE Tsai MD
== END 2021-07-27 01:16 ==
PROVIDERS: PCP Neuromusculoskeletal Medicine & OMM; Visit Provider Student in an Organized Health Care Education/Training Program
DX: M54.6 Pain in thoracic spine (principal); M51.34 Other intervertebral disc degeneration, thoracic region; M54.5 Low back pain; M51.37 Other intervertebral disc degeneration, lumbosacral region; Z91.81 History of falling
CPT/HCPCS: 72072; 72110

== ENCOUNTER 2021-08-02 15:58 | Inpatient (IN) | payer OTHER, SELFPAY ==
[2021-08-02] VITALS (55 sets, daily range): BP systolic 122–148; BP diastolic 60–94; PULSE 62–105; RESP 17–38; TEMP 36.5–38.3; O2SAT 90–95
[2021-08-02] MEDS: Normal Saline 1,000 ML 1000 ML IV (16:10)
--- NOTE | 2021-08-02 16:15 | RT.EKG_ITS ---
APPROVED REPORT Exam: Resting ECG Reason for Exam: sob Patient Location: E HR:94 bpm ECG Measurements Heart Rate 94 AXIS DE 150 P 50 QRSd 98 QRS 22 QT 374 T -5 QTc 468 Conclusion Sinus rhythm...normal P axis, V-rate 60- 99. Sinus. No STEMI. I have reviewed and interpreted ECG and agree with software generated interpretation.
--- NOTE | 2021-08-02 16:26 | W.ED.GENAD ---
Discharge Plan Disposition Patient Disposition: [facility] INPATIENT Condition: Fair Discharge Details Chief Complaint: RespSymp Clinical Impression: Pneumonia due to COVID-19 virus Admit Date/Time: 08/02/21 18:32 Admit Provider: Osmar Regalado Attending Provider: Osmar Regalado Primary Care Provider: Waqas Cyr ED Provider: Mary Ann Buck Discharge Data Discharge Date/Time-TO BE ENTERED AT DEPARTURE: 08/02/21 19:54 Medical Decision Making Patient is a pleasant 51-year-old female with past sickle history concerning for GERD, obesity status post gastric bypass, asthma, presenting today with chief complaint of increased shortness of breath. Patient was diagnosed with Covid 2 weeks ago. States that initially she was primarily having cough and diarrhea. However, over the past 2 to 3 days she has been having severe shortness of breath with any type of movement as well as pain in her back. States she has increased fatigue. Reports that she had presyncopal episode with going to the restroom. States that her oxygen saturation dropped into the mid 80s with any type of movement. She has been using her nebulizer as well as her inhalers without any improvement. States that this causes her cough more and thus become more short of breath. On exam, patient appears anxious, uncomfortable and short of breath. Her O2 is in the mid 90s. She was in the mid to high 80s initially after standing from wheelchair to the stretcher. Patient is tripoding. Has frequent dry cough. She is afebrile. Tachycardic with a heart rate in the 120s. Normal cardiac auscultation otherwise no murmurs rubs or gallops. Patient has shallow breaths., Lungs sound clear. Primarily concerned for worsening COVID-19. However, with her new complaint of back pain as well as increase shortness of breath and tachycardia, also considered potential pulmonary embolism. Also considered infectious etiologies such as bacterial pneumonia. Will obtain chest x-ray, baseline labs. We will begin the patient on steroids. FINDINGS: Lungs: There is some very hazy patchy opacity in the left upper lobe, poorly defined and both lower lobes. Pleural spaces: Unremarkable. No pleural effusion. No pneumothorax. Heart/Mediastinum: Unremarkable. No cardiomegaly. Vasculature: Mild aortic ectasia. Diaphragm: There is mild elevation of the left hemidiaphragm. Bones/joints: Unremarkable. IMPRESSION: Mild left upper lobe and bibasilar airspace disease consistent with positive COVID-19 status. Labs reviewed. No leukocytosis. Stable H&H. D-dimer within normal limits. Lactate normal. Potassium is low at 3.2. Will replenish this orally. Liver enzymes within normal limits. We will begin remdesivir. Troponin within normal limits. CRP is elevated 8.3. Given the marked shortness of breath and hypoxia with minimal movement, I do feel that patient would benefit from inpatient admission. I discussed this with her at length, she is agreeable with plan. Will treat with 6 mg of dexamethasone, remdesivir, antibiotics. Giving a cough suppressant as well. Updated patient's , Kit [phone], at her request. Consulted with hospitalist who agrees to admission. HPI General Mode of arrival: wheelchair. Date/Time Provider Initiated Documentation: 08/02/21 16:08. Limitations to Documentation: no limitations. Information obtained by: patient and RN notes reviewed. History of Present Illness 51 year old F presents to the emergency department with the chief complaint of SOB, cough, back pain, described as moderate, with intensity rated at 2. Quality is described as aching, and is localized to the back. Patient reports no radiation. Patient started experiencing this week(s) (2) and it has been constant. No relieving factors improve symptom(s), No exacerbating factors reported . Patient notes cough, fever/chills, loss of appetite and shortness of breath; denies chest pain and nausea/vomiting. Patient did receive the following treatments prior to arrival, none Related Data Home Medications Medication Instructions Recorded Confirmed sertraline 150 mg PO DAILY AM 02/04/20 08/02/21 methylphenidate HCl [Ritalin] 20 mg PO TID 02/04/21 08/03/21 benzonatate 200 mg PO TID #30 cap 02/08/21 budesonide-formoterol [Symbicort] 2 puff INHALATION BID #10.2 g 02/08/21 08/02/21 guaifenesin [Mucinex] 600 mg PO BID #30 tab 02/08/21 08/02/21 levalbuterol HCl 1.25 mg UPD Q4H PRN PRN #90 ml 02/08/21 08/02/21 albuterol sulfate [ProAir HFA] INHALATION PRN PRN 08/02/21 ipratropium-albuterol ml INHALATION 08/02/21 08/02/21 levalbuterol HCl INHALATION 08/02/21 08/02/21 Previous Rx's Medication Instructions Recorded benzonatate 200 mg PO TID #30 cap 02/08/21 budesonide-formoterol [Symbicort] 2 puff INHALATION BID #10.2 g 02/08/21 guaifenesin [Mucinex] 600 mg PO BID #30 tab 02/08/21 levalbuterol HCl 1.25 mg UPD Q4H PRN PRN #90 ml 02/08/21 Allergies Allergy/AdvReac Type Severity Reaction Status Date / Time No Known Allergies Allergy Unverified 08/02/21 16:06 General Stated Complaint: RespSymp RASHID: 2 Review of Systems Constitutional Constitutional: Reports as per HPI, Reports chills, Reports fatigue, Denies headache(s), Reports lethargy, Reports malaise and Reports poor appetite Eyes Eyes: Reports as per HPI, Denies eye discharge and Denies irritation ENT Ears, Nose, Mouth, and Throat: Reports as per HPI and Denies headache(s) Cardiovascular Cardiovascular: Reports as per HPI, Denies chest pain, Reports lightheadedness (with increased SOB), Denies radiating jaw, neck or arm pain, Reports dyspnea and Reports dyspnea on exertion Respiratory Respiratory: Reports as per HPI, Reports cough, Reports dyspnea and Reports dyspnea on exertion Gastrointestinal Gastrointestinal: Reports as per HPI, Denies abdominal pain, Denies change in bowel habits, Denies nausea and Denies vomiting Integumentary/Breasts Skin/Breast: Reports as per HPI and Denies rash Neurologic Neurologic: Reports as per HPI and Denies headache(s) Endocrine Endocrine: Reports fatigue PFSH Medical History ADHD Carpal tunnel syndrome Claustrophobia Depressive disorder Hyperglycemia Insomnia Migraine ADAIR (obstructive sleep apnea) Polycystic ovaries Rosacea Severe obesity Surgical History History of section S/P gastric bypass S/P hysterectomy Social History Smoking/Tobacco Use Status: Never Smoking risk assessment performed?: Yes Alcohol Intake: never Drug use: Never Substance use type: does not use Do you feel safe at home: Yes Do you feel safe in your relationship?: Yes Exam Const General: cooperative, well developed, in distress mild, anxious and ill appearing acutely Nutritional Appearance: well nourished and overweight Orientation: alert and awake [facility] Head: normal to inspection Ears: hearing grossly normal bilaterally, external ears normal and TM's normal bilaterally Face and sinus: normal facial exam and face symmetric Mouth: oral mucosae normal, lip normal, tongue normal, oropharynx normal and mucous membranes dry Teeth and gingiva: dentition normal Throat: posterior oropharynx normal, tonsils normal and uvula midline Eyes General: appearance normal, both eyes and all related structures Neck Neck: normal visual inspection, full ROM, no lymphadenopathy and no meningeal signs Resp Effort & Inspection: cough Quality of cough: dry, labored, tachypneic, tripod positioning and uses accessory muscles Auscultation: clear to auscultation bilaterally, no rales, no rhonchi and no wheezes Cardio Rate: tachycardic Rhythm: regular rhythm Heart Sounds: S1 normal and S2 normal Skin General skin exam: no rashes or lesions noted Neuro General: patient alert and patient awake Cognition: normal cognition Speech: speech normal Gait: normal gait Psych Appearance: grossly normal and well kempt Mental Status: mental status grossly normal Speech and Movement: speech and movement normal Course Vital Signs Vital signs: Vital Signs Temperature 36.5 C 08/02/21 16:01 Pulse 105 H 08/02/21 16:01 Respiratory Rate 34 H 08/02/21 16:01 Pulse Oximetry 94 08/02/21 16:01 Temperature 36.5 C 08/02/21 16:01 Temperature Source Skin 08/02/21 16:01 Pulse 105 H 08/02/21 16:01 Respiratory Rate 34 H 08/02/21 16:01 Respiratory Effort 08/02/21 16:05 Blood Pressure Position Sitting 08/02/21 16:01 Pulse Oximetry 94 08/02/21 16:01 Oxygen Delivery Method Room Air 08/02/21 16:01 Oxygen Flow Rate 0 08/02/21 16:01 Pain Level 2 08/02/21 16:01
--- NOTE | 2021-08-02 16:30 | DI.RAD_ITS ---
Exam(s) XR PORTABLE CHEST AP EXAM: XR PORTABLE CHEST AP CLINICAL HISTORY: SOB, COVID+ TECHNIQUE: 2D digital imaging was performed. COMPARISON: No exams were available for comparison FINDINGS: MEDIASTINUM: Normal. HEART: Normal. PULMONARY VASCULATURE: Normal. LUNGS: There are mild increased lung markings suggested in the left upper and left lower lobe. Incre ased lung markings in the right lung base. PLEURAL SPACE: No pleural effusion or pneumothorax. BONE:Within normal limits for the patient's age. OTHER FINDINGS:Normal. IMPRESSION: Question of a faint multifocal pneumonia. DATA REPOSITORY: RADIATION DOSE DELIVERED:
[2021-08-02] MEDS: LORazepam 2 MG/ML VIAL 0.5 MG IVP (16:44)
[2021-08-02 17:15] LABS: Abs Immature Grans 0.03 10^3/uL (0.0-0.06); Absolute Basophil Count 0.01 10^3/uL (0.0-0.2); Absolute Eosinophil Count 0.01 10^3/uL (0.0-0.7); Absolute Lymphocyte Count 1.05 10^3/uL (1.2-3.4); Absolute Monocyte Count 0.49 10^3/uL (0.1-0.8); Absolute Neutrophil Count 6.51 10^3/uL (1.2-6.7); Basophils % 0.1; Eosinophils % 0.1; HCT 37.1 % (36.0-46.0); HGB 12.4 g/dL (11.2-15.7); Immature Grans % 0.4; MCH 28.1 pg (27.0-33.0); MCHC 33.4 % (32.0-36.0); MCV 83.9 fL (80-95); MPV 8.8 fL (8.0-11.0); Neutrophils % 80.4; Nucleated RBC 0 %; Platelet Count 284 10^3/uL (130-400); RBC 4.42 10^6/uL (3.93-5.22); RDW 13.1 % (11.7-14.6)
[2021-08-02 17:20] LABS: ALT 40 U/L (14-59); AST 31 U/L (15-37); Albumin 3.7 g/dL (3.4-5.0); Alkaline Phosphatase 116 U/L (46-116); Anion Gap 11.2 mmol/L (3-11); BUN 9 mg/dL (7-18); Bilirubin, Total 0.6 mg/dL (0.2-1.0); CO2 26.8 mmol/L (21.0-32.0); CREATININE 0.8 mg/dL (0.55-1.02); Calcium 9.2 mg/dL (8.5-10.1); Chloride 100 mmol/L (98-107); Glucose 124 mg/dL (74-106); LDH 234 U/L (81-234); Potassium 3.2 mmol/L (3.5-5.1); Sodium 138 mmol/L (136-145)
[2021-08-02 17:24] LABS: Troponin I < 0.05 ng/mL (<0.06)
[2021-08-02 17:47] LABS: Ferritin 145 ng/mL (8-252)
[2021-08-02 17:49] LABS: D-Dimer 415 ng/mlFEU (<500)
--- NOTE | 2021-08-02 17:49 | DI.VRAD_ITS ---
PROCEDURE INFORMATION: Exam: XR Chest Exam date and time: 08/02/2021 4:38 PM Age: 51 years old Clinical indication: Cough; Patient HX: SOB, covid+ TECHNIQUE: Imaging protocol: XR of the chest. Views: 1 view. Other technique: Portable exam. COMPARISON: CR XR CHEST 2V PA LATERAL 01/18/2021 7:11 PM FINDINGS: Lungs: There is some very hazy patchy opacity in the left upper lobe, poorly defined and both lower lobes. Pleural spaces: Unremarkable. No pleural effusion. No pneumothorax. Heart/Mediastinum: Unremarkable. No cardiomegaly. Vasculature: Mild aortic ectasia. Diaphragm: There is mild elevation of the left hemidiaphragm. Bones/joints: Unremarkable. IMPRESSION: Mild left upper lobe and bibasilar airspace disease consistent with positive COVID-19 status. Dictated and Authenticated by: Linda Segundo MD. Ordering:ALLEN Reese MD
[2021-08-02] MEDS: Dexamethasone 4 MG/ML VIAL 6 MG IVP (17:56)
[2021-08-02] MEDS: guaiFENesin/CODEINE PHOSPHATE 10 ML CUP 5 ML PO (17:56)
[2021-08-02] MEDS: REMDESIVIR 200 MG in Normal Saline 250 ML 250 MG IVPB (17:57)
[2021-08-02 17:59] LABS: Procalcitonin < 0.1 ng/mL
[2021-08-02] MEDS: Azithromycin 250 MG TAB 500 MG PO (18:55)
[2021-08-02] MEDS: POTASSIUM CHLORIDE 20 MEQ, POTASSIUM CHLORIDE 10 MEQ 30 MEQ PO (18:56)
[2021-08-02] MEDS: cefTRIAXone 1 GM/50 ML BAG IVPB (19:26)
[2021-08-02 20:14] LABS: Troponin I < 0.05 ng/mL (<0.06)
--- NOTE | 2021-08-02 21:37 | W.PM.HP.N ---
Date of service: 08/02/21 Time of Service: 21:37 Assessment and Plan Assessment and plan (1) Pneumonia due to COVID-19 virus: Status: Acute Assessment and plan: fully vaccinated, week 2 of symptoms/diagnosis. requiring oxygen with activity. started on remdesivir and decadron in addition to ceftriaxone and azithromycin all day 1. wean oxygen as able. continue home inhalers as scheduled and as needed. follow crp, bmp and cbc tomorrow morning add vit D (2) Discharge planning issues: Status: Acute Assessment and plan: anticipate discharge to home with no services continue home medication discussed with DR Regalado. History of Present Illness History of Present Illness Chief Complaint: shortness of breath Narrative: This is a 51-year-old female with past medical history of GERD, obesity status post gastric bypass, asthma, who presented to the ED with increased shortness of breath. Patient was diagnosed with Covid 2 weeks ago, she was fully vaccinated in Nov 2020. States that initially she was primarily having cough and diarrhea. However, over the past 2 to 3 days she has been having severe shortness of breath with any type of movement as well as pain in her back. Reports that she had presyncopal episode with going to the restroom. States that her oxygen saturation dropped into the mid 80s with any type of movement. She has been using her nebulizer as well as her inhalers without any improvement. States that this causes her cough more and thus become more short of breath. Work up in the ED with cxr consistent with covid pneumonia. she was started on remdesivir, decadron and antibiotics. she will be admitted to the med/surg unit for further monitoring and treatment. Review of Systems All systems reviewed & are unremarkable except as noted in HPI and below Cardiovascular Cardiovascular: Reports dyspnea Respiratory Respiratory: Reports cough and Reports dyspnea PFSH Medical History ADHD Carpal tunnel syndrome Claustrophobia Depressive disorder Hyperglycemia Insomnia Migraine ADAIR (obstructive sleep apnea) Polycystic ovaries Rosacea Severe obesity Surgical History History of section S/P gastric bypass S/P hysterectomy Social History Smoking/Tobacco Use Status: Never Smoking risk assessment performed?: Yes Alcohol Intake: never Drug use: Never Substance use type: does not use Do you feel safe at home: Yes Do you feel safe in your relationship?: Yes Meds Allergies and Home Medications Allergies Allergy/AdvReac Type Severity Reaction Status Date / Time No Known Allergies Allergy Unverified 08/02/21 16:06 Home Medications Medication Instructions Recorded Confirmed Type sertraline 150 mg PO DAILY AM 02/04/20 08/02/21 History methylphenidate HCl [Ritalin] 60 mg PO TID 02/04/21 08/02/21 History benzonatate 200 mg PO TID #30 cap 02/08/21 Rx budesonide-formoterol [Symbicort] 2 puff INHALATION BID #10.2 g 02/08/21 08/02/21 Rx guaifenesin [Mucinex] 600 mg PO BID #30 tab 02/08/21 08/02/21 Rx levalbuterol HCl 1.25 mg UPD Q4H PRN PRN #90 ml 02/08/21 08/02/21 Rx albuterol sulfate [ProAir HFA] INHALATION PRN PRN 08/02/21 History ipratropium-albuterol ml INHALATION 08/02/21 08/02/21 History levalbuterol HCl INHALATION 08/02/21 08/02/21 History Exam Const General: cooperative, healthy appearing, comfortable, well developed and well groomed Nutritional Appearance: well nourished Orientation: alert and awake [facility] Head: normal to inspection, normocephalic and atraumatic Ears: external ears normal General nose exam: external nose normal and nares normal Face and sinus: normal facial exam and face symmetric Mouth: oral mucosae normal, oropharynx normal and moist mucous membranes Eyes General: appearance normal, both eyes and all related structures Neck Neck: normal visual inspection, full ROM, no lymphadenopathy and no meningeal signs Resp Effort & Inspection: normal respiratory effort and able to speak in complete sentences Cardio Rate: regular rate Rhythm: regular rhythm Skin General skin exam: no rashes or lesions noted Neuro General: patient alert and patient awake Cognition: normal cognition Speech: speech normal Gait: normal gait Psych Appearance: grossly normal and well kempt Mental Status: mental status grossly normal Speech and Movement: speech and movement normal Results Labs Result diagrams: 08/02/21 16:07 08/02/21 16:07 Labs: Laboratory Results - last 24 hr 08/02/21 08/02/21 08/02/21 16:07 16:07 16:07 WBC 8.10 RBC 4.42 Hgb 12.4 Hct 37.1 MCV 83.9 MCH 28.1 MCHC 33.4 RDW 13.1 Plt Count 284 MPV 8.8 Immature Gran % 0.4 Neutrophils % 80.4 Lymphocytes % 13.0 Monocytes % 6.0 Eosinophils % 0.1 Basophils % 0.1 Nucleated RBC % 0 Absolute Neutrophils 6.51 Absolute Lymphocytes 1.05 L Absolute Monocytes 0.49 Absolute Eosinophils 0.01 Absolute Basophils 0.01 D-Dimer 415 VBG Lactate Sodium 138 Potassium 3.2 L Chloride 100 Carbon Dioxide 26.8 Anion Gap 11.2 H BUN 9 Creatinine 0.8 Estimated GFR/1.73 m2 >= 60.00 Glucose 124 H Calcium 9.2 Ferritin 145 Total Bilirubin 0.6 AST 31 ALT 40 Alkaline Phosphatase 116 Lactate Dehydrogenase 234 Troponin I < 0.05 C-Reactive Protein 8.30 H Total Protein 9.0 H Albumin 3.7 Procalcitonin 08/02/21 08/02/21 16:50 19:37 WBC RBC Hgb Hct MCV MCH MCHC RDW Plt Count MPV Immature Gran % Neutrophils % Lymphocytes % Monocytes % Eosinophils % Basophils % Nucleated RBC % Absolute Neutrophils Absolute Lymphocytes Absolute Monocytes Absolute Eosinophils Absolute Basophils D-Dimer VBG Lactate 1.0 Sodium Potassium Chloride Carbon Dioxide Anion Gap BUN Creatinine Estimated GFR/1.73 m2 Glucose Calcium Ferritin Total Bilirubin AST ALT Alkaline Phosphatase Lactate Dehydrogenase Troponin I < 0.05 C-Reactive Protein Total Protein Albumin Procalcitonin < 0.1 Last Vital Signs Temp 38.3 C H 08/02/21 20:09 Pulse 84 08/02/21 19:58 Resp 22 08/02/21 19:58 BP 122/72 08/02/21 19:58 Pulse Ox 93 08/02/21 19:58
[2021-08-02] MEDS: Acetaminophen 325 MG TAB 650 MG PO (23:00)
[2021-08-02] MEDS: Melatonin 3 MG TAB 6 MG PO (23:01)
[2021-08-02] MEDS: LORazepam 0.5 MG TAB PO (23:49)
[2021-08-02] MEDS: Enoxaparin 40 MG/0.4 ML SYR SC (23:49)
[2021-08-03] VITALS: TEMP 36.7
[2021-08-03 04:10] VITALS: BP 110/69; PULSE 55; RESP 16; TEMP 35.6; O2SAT 96
[2021-08-03 07:26] LABS: Abs Immature Grans 0.02 10^3/uL (0.0-0.06); Absolute Basophil Count 0.01 10^3/uL (0.0-0.2); Absolute Lymphocyte Count 0.73 10^3/uL (1.2-3.4); Absolute Monocyte Count 0.25 10^3/uL (0.1-0.8); Basophils % 0.2; HCT 35.4 % (36.0-46.0); HGB 11.5 g/dL (11.2-15.7); Immature Grans % 0.4; Lymphocytes % 13.2; MCH 27.5 pg (27.0-33.0); MCHC 32.5 % (32.0-36.0); MCV 84.7 fL (80-95); MPV 8.6 fL (8.0-11.0); Monocytes % 4.5; Neutrophils % 81.7; Nucleated RBC 0 %; Platelet Count 272 10^3/uL (130-400); RBC 4.18 10^6/uL (3.93-5.22); RDW 13.1 % (11.7-14.6); RDW-SD 40.3 fL; WBC 5.55 10^3/uL (4.4-10.8)
[2021-08-03 07:29] LABS: Absolute Neutrophil Count 4.53 10^3/uL (1.2-6.7)
[2021-08-03 07:43] LABS: ALT 34 U/L (14-59); AST 26 U/L (15-37); Albumin 3.3 g/dL (3.4-5.0); Alkaline Phosphatase 107 U/L (46-116); Anion Gap 9.2 mmol/L (3-11); BUN 12 mg/dL (7-18); Bilirubin, Total 0.4 mg/dL (0.2-1.0); C-Reactive Protein 9.06 mg/dL (0.0-0.3); CO2 27.8 mmol/L (21.0-32.0); CREATININE 0.7 mg/dL (0.55-1.02); Calcium 8.8 mg/dL (8.5-10.1); Chloride 103 mmol/L (98-107); Glucose 133 mg/dL (74-106); Potassium 3.8 mmol/L (3.5-5.1); Sodium 140 mmol/L (136-145); Total Protein 7.7 g/dL (6.4-8.2)
[2021-08-03] MEDS: Normal Saline Flush 10 ML SYR IVP ×3 (08:39→22:07)
[2021-08-03] MEDS: Azithromycin 250 MG TAB 500 MG PO (08:40)
[2021-08-03] MEDS: Sertraline 50 MG TAB 150 MG PO (08:40)
[2021-08-03] MEDS: guaiFENesin 600 MG TABCR PO ×2 (08:40→22:06)
[2021-08-03] MEDS: Cholecalciferol (Vitamin D3) 1,000 UNIT TAB 2000 UNITS PO (08:40)
[2021-08-03] MEDS: Methylphenidate 10 MG TAB 20 MG PO (08:40)
[2021-08-03] MEDS: Benzonatate 200 MG CAP PO ×3 (08:40→22:05)
[2021-08-03] MEDS: Dexamethasone 4 MG TAB 6 MG PO (08:41)
[2021-08-03] MEDS: Acetaminophen 325 MG TAB 650 MG PO (08:41)
[2021-08-03] MEDS: LORazepam 0.5 MG TAB PO ×2 (08:41→22:11)
[2021-08-03 08:45] VITALS: BP 123/78; PULSE 63; RESP 16; TEMP 35.6; O2SAT 94
[2021-08-03] MEDS: Budesonide/Formoterol 160/4.5 6 GM 60 PUFF INH IH ×2 (09:09→22:15)
--- NOTE | 2021-08-03 12:57 | W.NUTRFU ---
Date of service: 08/03/21 Time of Service: 12:45 Nutritional Follow up NOTE: Assessment: Pt. with poor PO intake. BMI is 40.7 kg/m2 c/w severe obesity. She is on a regular diet. She is s/p gastric bypass but I do not know when she had it. Nutrition diagnosis: Inadequate intake of oral foods and fluids likely r/t respiratory status. Intervention: Will provide Glucerna supplements with meals (low simple sugars, high protein better tolerated s/p gastric bypass) Monitoring and Evaluation: Will continue to monitor PO intake, tolerance to supplements. Will evaluate nutrition care plan ongoing and adjust as needed. Time Spent in Nutritional Counseling and Treatment: 0
[2021-08-03 13:26] VITALS: O2SAT 93
--- NOTE | 2021-08-03 15:06 | W.PM.PROGNOT ---
Date of Service Date of service: 08/03/21 Time of Service: 15:06 Assessment and Plan Assessment and plan (1) Pneumonia due to COVID-19 virus: Status: Acute Assessment and plan: fully vaccinated, week 2 of symptoms/diagnosis. requiring oxygen with activity. started on remdesivir and decadron in addition to ceftriaxone and azithromycin all day 1. wean oxygen as able. Currently with O2 sats in the low to mid 90's at rest. continue home inhalers as scheduled and as needed. Add quaifenasin with codeine for cough. Cont to follow crp, bmp and cbc. add vit D (2) Discharge planning issues: Status: Acute Assessment and plan: anticipate discharge to home with no services continue home medication discussed with DR Regalado. Subjective Subjective Patient reports: no new complaints, tolerating a regular diet and shortness of breath (with ambulation.); denies nausea and vomiting Exam Const General: cooperative, healthy appearing, comfortable, well developed and well groomed Nutritional Appearance: well nourished Orientation: alert and awake [facility] Head: normal to inspection, normocephalic and atraumatic Ears: external ears normal General nose exam: external nose normal and nares normal Face and sinus: normal facial exam and face symmetric Mouth: oral mucosae normal, oropharynx normal and moist mucous membranes Eyes General: appearance normal, both eyes and all related structures Neck Neck: normal visual inspection, full ROM, no lymphadenopathy and no meningeal signs Resp Effort & Inspection: normal respiratory effort and able to speak in complete sentences Cardio Rate: regular rate Rhythm: regular rhythm Skin General skin exam: no rashes or lesions noted Neuro General: patient alert and patient awake Cognition: normal cognition Speech: speech normal Gait: normal gait Psych Appearance: grossly normal and well kempt Mental Status: mental status grossly normal Speech and Movement: speech and movement normal Objective Last Vital Signs Temp 35.6 C L 08/03/21 08:45 Pulse 63 08/03/21 08:45 Resp 16 08/03/21 08:45 BP 123/78 08/03/21 08:45 Pulse Ox 93 08/03/21 13:26 Laboratory Results - last 24 hr 08/02/21 08/02/21 08/02/21 16:07 16:07 16:07 WBC 8.10 RBC 4.42 Hgb 12.4 Hct 37.1 MCV 83.9 MCH 28.1 MCHC 33.4 RDW 13.1 Plt Count 284 MPV 8.8 Immature Gran % 0.4 Neutrophils % 80.4 Lymphocytes % 13.0 Monocytes % 6.0 Eosinophils % 0.1 Basophils % 0.1 Nucleated RBC % 0 Absolute Neutrophils 6.51 Absolute Lymphocytes 1.05 L Absolute Monocytes 0.49 Absolute Eosinophils 0.01 Absolute Basophils 0.01 D-Dimer 415 VBG Lactate Sodium 138 Potassium 3.2 L Chloride 100 Carbon Dioxide 26.8 Anion Gap 11.2 H BUN 9 Creatinine 0.8 Estimated GFR/1.73 m2 >= 60.00 Glucose 124 H Calcium 9.2 Ferritin 145 Total Bilirubin 0.6 AST 31 ALT 40 Alkaline Phosphatase 116 Lactate Dehydrogenase 234 Troponin I < 0.05 C-Reactive Protein 8.30 H Total Protein 9.0 H Albumin 3.7 Procalcitonin 08/02/21 08/02/21 08/03/21 16:50 19:37 06:50 WBC RBC Hgb Hct MCV MCH MCHC RDW Plt Count MPV Immature Gran % Neutrophils % Lymphocytes % Monocytes % Eosinophils % Basophils % Nucleated RBC % Absolute Neutrophils Absolute Lymphocytes Absolute Monocytes Absolute Eosinophils Absolute Basophils D-Dimer VBG Lactate 1.0 Sodium 140 Potassium 3.8 Chloride 103 Carbon Dioxide 27.8 Anion Gap 9.2 BUN 12 Creatinine 0.7 Estimated GFR/1.73 m2 >= 60.00 Glucose 133 H Calcium 8.8 Ferritin Total Bilirubin 0.4 AST 26 ALT 34 Alkaline Phosphatase 107 Lactate Dehydrogenase Troponin I < 0.05 C-Reactive Protein 9.06 H Total Protein 7.7 Albumin 3.3 L Procalcitonin < 0.1 08/03/21 06:50 WBC 5.55 D RBC 4.18 Hgb 11.5 Hct 35.4 L MCV 84.7 MCH 27.5 MCHC 32.5 RDW 13.1 Plt Count 272 MPV 8.6 Immature Gran % 0.4 Neutrophils % 81.7 Lymphocytes % 13.2 Monocytes % 4.5 Eosinophils % 0.0 Basophils % 0.2 Nucleated RBC % 0 Absolute Neutrophils 4.53 Absolute Lymphocytes 0.73 L Absolute Monocytes 0.25 Absolute Eosinophils 0.00 Absolute Basophils 0.01 D-Dimer VBG Lactate Sodium Potassium Chloride Carbon Dioxide Anion Gap BUN Creatinine Estimated GFR/1.73 m2 Glucose Calcium Ferritin Total Bilirubin AST ALT Alkaline Phosphatase Lactate Dehydrogenase Troponin I C-Reactive Protein Total Protein Albumin Procalcitonin
[2021-08-03] MEDS: cefTRIAXone 1 GM/50 ML BAG IVPB (18:48)
--- NOTE | 2021-08-03 18:56 | INITIAL_ITS ---
- If Service Date Differs Date of service: 08/03/21 Time of Service: 18:56 Care Management Initial Assess REASON FOR HOSPITALIZATION:: Acute Respiratory Failure PAST MEDICAL HISTORY/PAST SURGICAL HISTORY:: ADHD, carpal tunnel syndrome, claustrophobia, depressive disorder, hyperglycemia, insomnia, migraine, ADAIR, polycystic ovaries, rosacea, severe obesity, hx of section, gastric bypass, hysterectomy PREVIOUS FUNCTIONAL STATUS/SOCIAL/FAMILY SUPPORTS:: Independent at baseline, resides in [place], [place] with her , Kit. CURRENT FUNCTIONAL STATUS:: Katty is up independently in her room, and walking the hallways. She is looking forward to returning home. CM continues to follow. ADVANCE DIRECTIVES:: None on file. Has patient been provided with info about the portal/API?: No Did the patient sign up for the portal?: No CODE STATUS:: Full Code INSURANCE COVERAGE / FINANCIAL ISSUES:: Medicaid. CURRENT HOME/COMMUNITY SERVICES/EQUIPMENT:: None, currently. PRIMARY CARE PHYSICIAN:: Waqas Cyr. POTENTIAL DISCHARGE NEEDS:: Follow up appointments. PATIENT/FAMILY EDUCATION NEEDS:: Review discharge instructions, discuss Ask Me Three. ANTICIPATED BARRIERS TO DISCHARGE:: None identified. TRANSPORTATION:: Via private vehicle with her . PLAN:: Katty will return home when ready per MD. She will follow up with her PCP and plan of care as prescribed. She will transport home via private vehicle with her .
[2021-08-03 19:07] VITALS: BP 130/84; PULSE 90; RESP 24; TEMP 36; O2SAT 93
[2021-08-03] MEDS: guaiFENesin/CODEINE PHOSPHATE 10 ML CUP 5 ML PO (19:39)
[2021-08-03] MEDS: Melatonin 3 MG TAB 6 MG PO (22:07)
[2021-08-03] MEDS: Enoxaparin 40 MG/0.4 ML SYR SC (22:12)
[2021-08-03 22:19] VITALS: BP 128/85; PULSE 77; RESP 24; TEMP 35.8; O2SAT 93
[2021-08-04] MEDS: guaiFENesin/CODEINE PHOSPHATE 10 ML CUP 5 ML PO (06:16)
[2021-08-04 06:20] VITALS: BP 109/72; PULSE 62; RESP 18; TEMP 35.9; O2SAT 93
[2021-08-04 07:11] LABS: Abs Immature Grans 0.05 10^3/uL (0.0-0.06); Absolute Basophil Count 0.01 10^3/uL (0.0-0.2); Absolute Lymphocyte Count 0.91 10^3/uL (1.2-3.4); Absolute Monocyte Count 0.42 10^3/uL (0.1-0.8); Basophils % 0.1; HCT 33.4 % (36.0-46.0); HGB 11.2 g/dL (11.2-15.7); Immature Grans % 0.6; MCH 27.8 pg (27.0-33.0); MCHC 33.5 % (32.0-36.0); MCV 82.9 fL (80-95); MPV 8.8 fL (8.0-11.0); Monocytes % 5.1; Neutrophils % 83.2; Nucleated RBC 0 %; Platelet Count 301 10^3/uL (130-400); RBC 4.03 10^6/uL (3.93-5.22); RDW 12.9 % (11.7-14.6); RDW-SD 39.2 fL; WBC 8.24 10^3/uL (4.4-10.8)
[2021-08-04 07:18] LABS: Absolute Neutrophil Count 6.86 10^3/uL (1.2-6.7)
[2021-08-04 07:36] LABS: Anion Gap 12.2 mmol/L (3-11); BUN 16 mg/dL (7-18); C-Reactive Protein 4.18 mg/dL (0.0-0.3); CO2 24.8 mmol/L (21.0-32.0); CREATININE 0.7 mg/dL (0.55-1.02); Calcium 9.1 mg/dL (8.5-10.1); Chloride 104 mmol/L (98-107); Glucose 139 mg/dL (74-106); Potassium 3.1 mmol/L (3.5-5.1); Sodium 141 mmol/L (136-145)
[2021-08-04] MEDS: guaiFENesin 600 MG TABCR PO (07:43)
[2021-08-04] MEDS: Cholecalciferol (Vitamin D3) 1,000 UNIT TAB 2000 UNITS PO (07:43)
[2021-08-04] MEDS: Benzonatate 200 MG CAP PO (07:44)
[2021-08-04] MEDS: Sertraline 50 MG TAB 150 MG PO (07:44)
[2021-08-04] MEDS: Azithromycin 250 MG TAB 500 MG PO (07:44)
[2021-08-04] MEDS: Normal Saline Flush 10 ML SYR IVP (07:44)
[2021-08-04] MEDS: Dexamethasone 4 MG TAB 6 MG PO (07:44)
[2021-08-04] MEDS: Budesonide/Formoterol 160/4.5 6 GM 60 PUFF INH IH (09:15)
--- NOTE | 2021-08-04 11:05 | W.PM.DS.N ---
Date of service: 08/04/21 Time of Service: 11:05 DS: Diagnosis Discharge Diagnosis (1) Pneumonia due to COVID-19 virus: Status: Acute (2) Discharge planning issues: Status: Acute Discharge Plan Disposition Patient Disposition: HOME Condition: Fair Discharge Details Reason For Visit: Covid, Hypoxia Admit Date/Time: 08/02/21 18:31 Admit Provider: Osmar Regalado Attending Provider: Osmar Regalado Primary Care Provider: [facility] Hospital Course: This is a 51-year-old female with past medical history of GERD, obesity status post gastric bypass, asthma, who presented to the ED with increased shortness of breath. Patient was diagnosed with Covid 2 weeks ago, she was fully vaccinated in Nov 2020. States that initially she was primarily having cough and diarrhea. However, over the past 2 to 3 days she has been having severe shortness of breath with any type of movement as well as pain in her back. Reports that she had presyncopal episode with going to the restroom. States that her oxygen saturation dropped into the mid 80s with any type of movement. She has been using her nebulizer as well as her inhalers without any improvement. States that this causes her cough more and thus become more short of breath. Work up in the ED with cxr consistent with covid pneumonia. WBC count normal. Her temperature was elevated at 38.3. She was started on remdesivir, decadron and antibiotics. she will be admitted to the med/surg unit for further monitoring and treatment. Her main complaint during this admission was fatigue and a cough. Guaifenasin with codeine was helpful. She was afebrile during the course of this stay. Her CRP declined from 9.06 to 4.18. Her RA oxygen saturation remained in the low to mid 90's. She will d/c on a tapering dose of dexamethasone. She will finish a course of azithromycin. Guaifenesin with codeine prescription given. She plans to return to work next week. This will be greater than 14 days from onset of symptoms. F/U with PCP in 1-2 weeks. Home Meds and New Rx's Prescriptions: New azithromycin 250 mg Tablet 500 mg PO DAILY Qty: 3 RF: 0 cholecalciferol (vitamin D3) 25 mcg (1,000 unit) Tablet 2,000 units PO DAILY Qty: 0 RF: 0 zolpidem 10 mg tablet 10 mg PO QHS PRNQty: 14 RF: 0 dexamethasone 1 mg tablet See Rx Instructions .ROUTE .COMPLEX Qty: 12 RF: 0 codeine-guaifenesin 6.3-100 mg/5 mL liquid 10 ml PO Q6H PRNQty: 250 RF: 0 Continued ipratropium-albuterol 0.5 mg-3 mg(2.5 mg base)/3 mL solution for nebulization 3 ml INHALATION Q6H PRNRF: 0 albuterol sulfate [ProAir HFA] 90 mcg/actuation HFA aerosol inhaler 1 - 2 puff INHALATION PRN PRNRF: 0 fluticasone propionate 50 mcg/actuation spray,suspension 2 spray INTRANASAL BID PRNRF: 0 sertraline 100 mg tablet 150 mg PO DAILY AM RF: 0 methylphenidate HCl [Ritalin] 20 mg Tablet 20 mg PO TID RF: 0 budesonide-formoterol [Symbicort] 160-4.5 mcg/actuation Hfa Aerosol Inhaler 2 puff inhalation BID Qty: 10.2 RF: 0 levalbuterol HCl 1.25 mg/3 mL Solution For Nebulization 1.25 mg UPD Q4H PRN PRNQty: 90 RF: 1 guaifenesin [Mucinex] 600 mg Tablet Extended Release 12hr 600 mg PO BID Qty: 30 RF: 0 Discharge Instructions Instructions: COVID-19 (Coronavirus Disease 2019) (DC) Stand Alone Forms: Nursing Discharge Form Referrals: Waqas Cyr [Primary Care Provider] - 08/17/21 9:20 am Activity:: Activity as Tolerated Equipment/Supplies:: No Equipment Needed Diet:: Normal Diet Discharge Orders Discharge Orders: Discharge Order (Routine); Ordered 08/04/21 Ordered By: Hernandez Cornell Discharge Data Discharge Date/Time-TO BE ENTERED AT DEPARTURE: 08/04/21 12:38 DS: Summary Time Spent with Patient providing and/or coordinating discharge services: Greater than 30 minutes Status at Discharge Functional status at discharge: independent ambulation Overall status at discharge: patient is progressing back to baseline Mental Status: mental status grossly normal Speech and Movement: speech and movement normal Mood: congruent mood Affect: normal affect Exam Const General: cooperative, healthy appearing, comfortable, well developed and well groomed Nutritional Appearance: well nourished Orientation: alert and awake [facility] Head: normal to inspection, normocephalic and atraumatic Ears: external ears normal General nose exam: external nose normal and nares normal Face and sinus: normal facial exam and face symmetric Mouth: oral mucosae normal, oropharynx normal and moist mucous membranes Eyes General: appearance normal, both eyes and all related structures Neck Neck: normal visual inspection, full ROM, no lymphadenopathy and no meningeal signs Resp Effort & Inspection: normal respiratory effort and able to speak in complete sentences Cardio Rate: regular rate Rhythm: regular rhythm Skin General skin exam: no rashes or lesions noted Neuro General: patient alert and patient awake Cognition: normal cognition Speech: speech normal Gait: normal gait Psych Appearance: grossly normal and well kempt Mental Status: mental status grossly normal Speech and Movement: speech and movement normal Mood: congruent mood Affect: normal affect DS: Data Vitals/I&O Vitals and I&O: Vital Signs Temperature 35.9 C L 08/04/21 06:20 Temperature Source Tympanic 08/04/21 06:20 Pulse 62 08/04/21 06:20 Pulse Rhythm Regular 08/04/21 06:33 Respiratory Rate 18 08/04/21 06:20 Respiratory Effort Non-Labored 08/04/21 06:33 Respiratory Depth Normal 08/04/21 06:33 Respiratory Pattern Normal 08/04/21 06:33 Blood Pressure 109/72 08/04/21 06:20 Blood Pressure Position Sitting 08/02/21 16:01 Pulse Oximetry 93 08/04/21 06:20 Oxygen Delivery Method Room Air 08/04/21 06:20 Oxygen Flow Rate 0 08/04/21 06:20 Pain Level 0 08/04/21 06:20 Comment 08/02/21 19:58 Intake & Output 08/03/21 08/03/21 08/04/21 11:59 23:59 11:59 Intake Total 120 / 590 470 / 590 Output Total 200 / 400 200 / 400 300 / 300 Balance -80 / 190 270 / 190 -300 / -300 Intake: IV 110 / 110 Oral 120 / 480 360 / 480 Output: Urine 200 / 400 200 / 400 300 / 300 Other: Urine Color Yellow [place] Urine Appearance Clear Clear Comment per pt report, pt voiding independently Stool Size Small Stool Characteristics Liquid Mucoid Voiding Methods Toilet Data Completed and Pending Labs on day of discharge: Labs from last 24 hours 08/04/21 08/04/21 06:32 06:32 WBC 8.24 D RBC 4.03 Hgb 11.2 Hct 33.4 L MCV 82.9 MCH 27.8 MCHC 33.5 RDW 12.9 Plt Count 301 MPV 8.8 Immature Gran % 0.6 Neutrophils % 83.2 Lymphocytes % 11.0 Monocytes % 5.1 Eosinophils % 0.0 Basophils % 0.1 Nucleated RBC % 0 Absolute Neutrophils 6.86 H Absolute Lymphocytes 0.91 L Absolute Monocytes 0.42 Absolute Eosinophils 0.00 Absolute Basophils 0.01 Sodium 141 Potassium 3.1 L Chloride 104 Carbon Dioxide 24.8 Anion Gap 12.2 H BUN 16 Creatinine 0.7 Estimated GFR/1.73 m2 >= 60.00 Glucose 139 H Calcium 9.1 C-Reactive Protein 4.18 H Preliminary micro results at discharge 08/02/21 18:47 Blood Culture - Preliminary Blood NO GROWTH 24 HOURS 08/02/21 18:07 Blood Culture - Preliminary Blood NO GROWTH 24 HOURS [facility] Medical History ADHD Carpal tunnel syndrome Claustrophobia Depressive disorder Hyperglycemia Insomnia Migraine ADAIR (obstructive sleep apnea) Polycystic ovaries Rosacea Severe obesity Surgical History History of section S/P gastric bypass S/P hysterectomy Social History Smoking/Tobacco Use Status: Never Smoking risk assessment performed?: Yes Alcohol Intake: never Drug use: Never Substance use type: does not use Do you feel safe at home: Yes Do you feel safe in your relationship?: Yes
--- NOTE | 2021-08-04 18:14 | PDOC.CMDIS ---
LACE Index Scoring Tool - Questions: Length of Stay (in days): 2 Acuity (Admit via E.D.?): Yes E.D. Visits: 5 - Answers: Total Score: 9 Risk of Readmission: Low Risk Care Management Discharge Reason for Hospitalization: Acute Respiratory Failure Discharge Plan: Katty will return home with her and follow up with her PCP and plan of care as prescribed. Patient/Family Education Needs: Review discharge instructions, discuss Ask Me Three.
== END 2021-08-04 12:38 | disposition home or self-care (01) | DRG 177 ==
LOC: ER 19:14 → MS 19:54
PROVIDERS: Family Medicine; Nurse Practitioner Acute Care; Admitting Provider Family Medicine; Emergency Provider Physician Assistant; PCP Neuromusculoskeletal Medicine & OMM; Visit Provider Family Medicine
DX: U07.1 COVID-19 (principal); J12.82 Pneumonia due to coronavirus disease 2019; Z68.41 Body mass index [BMI] 40.0-44.9, adult; R09.02 Hypoxemia; Z98.84 Bariatric surgery status; K21.9 Gastro-esophageal reflux disease without esophagitis; J45.909 Unspecified asthma, uncomplicated; M54.9 Dorsalgia, unspecified; F90.9 Attention-deficit hyperactivity disorder, unspecified type; F32.9 Major depressive disorder, single episode, unspecified; G43.909 Migraine, unspecified, not intractable, without status migrainosus; G47.33 Obstructive sleep apnea (adult) (pediatric); E28.2 Polycystic ovarian syndrome; E66.01 Morbid (severe) obesity due to excess calories; L71.9 Rosacea, unspecified; R73.9 Hyperglycemia, unspecified
CPT/HCPCS: 36415; 80048; 80053; 84145; 87040; 93005; 94640; 96361; 96365; 96367; 96375; 99285; J1650; 71045; 82728; 83605; 83615; 84484; 85025; 85379; 86140; 93010; 99223; 99232; 99239; J0696; J1100; J2060; J8540

== ENCOUNTER 2022-04-24 17:10 | Emergency (ER) | payer BC, SELFPAY ==
[2022-04-24 17:14] VITALS: BP 173/108; PULSE 96; RESP 16; TEMP 36.3; O2SAT 95
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
[2022-04-24] MEDS: Ketorolac 15 MG/ML VIAL IM (17:38)
[2022-04-24] MEDS: Acetaminophen 325 MG TAB 650 MG PO (17:39)
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
== END 2022-04-24 19:55 | disposition home or self-care (01) ==
PROVIDERS: Emergency Provider Emergency Medicine; PCP Neuromusculoskeletal Medicine & OMM
DX: M54.50 Low back pain, unspecified (principal); V86.65XA Passenger of 3- or 4- wheeled all-terrain vehicle (ATV) injured in nontraffic accident, initial encounter
CPT/HCPCS: 73552; 96372; 99284; 72128; 72131; 72192; 99283; J1885

== ENCOUNTER 2022-11-22 03:21 | Outpatient (CLI) | payer BC, SELFPAY ==
--- NOTE | 2022-11-22 | DI.MAMMO_ITS ---
Exam(s) MAMMO SCREENING EXAM: MAMMO SCREENING CLINICAL HISTORY: SCREENING, Z00.00,ENCOUTER FOR GEN ADULT MEDICAL EXAM TECHNIQUE: Mammograms were interpreted according to the usual protocol including computer analysis w [employer] CAD system, tomosynthesis and C-view imaging. COMPARISON: [address] [facility]. FINDINGS: The breasts are composed of mainly fatty density , Breast Density category A. No suspicious masses or suspicious microcalcifications are seen. No skin thickening or abnormal axillary lymph nodes are seen. There has been no significant change from prior exams. IMPRESSION: BI-RADS Category 1, Negative mammogram Yearly screening mammography is recommended. Breast Density - Category A, fatty density. A negative radiographic report should not delay biopsy if a dominant or clinically suspicious mass is present. Up to ten percent of cancers are not identified on mammography. A negative report may reinforce clinical impression. Adenosis and dense breasts may obscure an underlying neoplasm. False positive reports average 6 to 10%. Patient will receive a letter notifying them of these results.
== END 2022-11-22 03:41 ==
PROVIDERS: PCP Neuromusculoskeletal Medicine & OMM; Visit Provider Neuromusculoskeletal Medicine & OMM
DX: Z00.00 Encounter for general adult medical examination without abnormal findings (principal); Z12.31 Encounter for screening mammogram for malignant neoplasm of breast
CPT/HCPCS: 77063; 77067

== ENCOUNTER 2023-03-27 21:47 | Emergency (ER) | payer BC, SELFPAY ==
[2023-03-27 21:50] VITALS: BP 119/77; PULSE 128; RESP 20; TEMP 36.9; O2SAT 97
--- NOTE | 2023-03-27 22:01 | W.ED.GENAD ---
Discharge Plan Disposition Patient Disposition: Home Condition: Stable Discharge Details Clinical Impression: H/O bilateral breast reduction surgery Primary Care Provider: Waqas Cyr ED Provider: Eileen Alcocer Home Meds and New Rx's Prescriptions: Continued Ozempic 1 mg/dose (2 mg/1.5 mL) pen injector 1 mg subcut QWEEK ipratropium-albuterol 0.5 mg-3 mg(2.5 mg base)/3 mL solution for nebulization 3 ml INHALATION Q6H PRN albuterol sulfate [ProAir HFA] 90 mcg/actuation HFA aerosol inhaler 1 - 2 puff INHALATION PRN PRN fluticasone propionate 50 mcg/actuation spray,suspension 2 spray INTRANASAL BID PRN azithromycin 250 mg Tablet 500 mg PO DAILY Qty: 3 0RF cholecalciferol (vitamin D3) 25 mcg (1,000 unit) Tablet 2,000 units PO DAILY Qty: 0 0RF zolpidem 10 mg tablet 10 mg PO QHS PRNQty: 14 0RF dexamethasone 1 mg tablet See Rx Instructions .ROUTE .COMPLEX Qty: 12 0RF Rx Instructions: 3 daily for 2 days (starting 08/05), then 2 daily for 2, then 1 daily for 2, then stop codeine-guaifenesin 6.3-100 mg/5 mL liquid 10 ml PO Q6H PRNQty: 250 0RF sertraline 100 mg tablet 150 mg PO DAILY AM methylphenidate HCl [Ritalin] 20 mg Tablet 20 mg PO TID budesonide-formoterol [Symbicort] 160-4.5 mcg/actuation Hfa Aerosol Inhaler 2 puff inhalation BID Qty: 10.2 0RF levalbuterol HCl 1.25 mg/3 mL Solution For Nebulization 1.25 mg UPD Q4H PRN PRNQty: 90 1RF guaifenesin [Mucinex] 600 mg Tablet Extended Release 12hr 600 mg PO BID Qty: 30 0RF lidocaine [Lidoderm] 5 % adhesive patch,medicated 1 patch topical DAILY Qty: 7 0RF Rx Instructions: leave on most painful area for up to 12 hrs cyclobenzaprine 5 mg tablet 5 mg PO DAILY PRN (Reason: muscle spasm) Qty: 7 0RF Discharge Instructions Additional Instructions: your hemoglobin and hemotocrit are 11.4 and 33, however, this does not indicate how much blood you are losing. your vitals signs are stable but you should have evaluation by your surgery team to determine if any interventions or further testing is required. Referrals: Abhilash Chacon [ NON-[facility] STAFF PHYSICIAN] - Discharge Data Discharge Date/Time-TO BE ENTERED AT DEPARTURE: 03/27/23 23:28 Medical Decision Making <Eileen Alcocer NP - Last Filed: 03/29/23 17:01> Patient presents for evaluation of postoperative bleeding she is tachycardic IV established we will give a liter of normal saline check CBC coags orthostatics. Patient continues to remain hemodynamically stable in the department with a pulse in the high 60s. Orthostatic vital signs unremarkable with systolic blood pressure remaining in the 110's. Call placed to plastics at [facility] and awaiting return phone call While awaiting callback from [facility] patient is requesting discharge. She is stable for discharge and will follow-up with her plastics team at [facility] for further evaluation Lab Data Lab results reviewed: Yes I reviewed the patient's lab results. Lab results narrative: Laboratory Results - last 24 hr 03/27/23 03/27/23 03/27/23 22:05 22:05 22:05 WBC 20.40 H RBC 3.93 Hgb 11.4 Hct 33.0 L MCV 84 MCH 29.0 MCHC 34.5 RDW 13.0 Plt Count 322 MPV 8.6 Immature Gran % 0.4 Neutrophils % 89.8 Lymphocytes % 3.5 Monocytes % 6.0 Eosinophils % 0.0 Basophils % 0.3 Nucleated RBC % 0.0 Absolute Neutrophils 18.32 H Absolute Lymphocytes 0.71 L Absolute Monocytes 1.22 H Absolute Eosinophils 0.00 Absolute Basophils 0.06 PT 10.2 INR 1.0 Patient ABO/Rh A Positive Antibody Screen NEGATIVE <Janine Puente DO - Last Filed: 04/02/23 07:55> Patient presents for evaluation of postoperative bleeding she is tachycardic IV established we will give a liter of normal saline check CBC coags orthostatics. Patient continues to remain hemodynamically stable in the department with a pulse in the high 60s. Orthostatic vital signs unremarkable with systolic blood pressure remaining in the 110's. Call placed to plastics at [facility] and awaiting return phone call While awaiting callback from [facility] patient is requesting discharge. She is stable for discharge and will follow-up with her plastics team at [facility] for further evaluation Dr. Puente Patient not seen or examined by me but I was available for consult if needed. HPI <Eileen Alcocer NP - Last Filed: 03/29/23 17:01> General Date/Time Provider Initiated Documentation: 03/27/23 21:52. Limitations to Documentation: no limitations. Information obtained by: patient. HPI Narrative: Is a 52-year-old female patient who had breast reduction at [facility] today discharged to home and tonight noticed increased drainage from her left CRISTAL drain. She has been emptying the drain hourly. They are both draining bloody drainage. She states there was a clot on the left side that she removed and since removing that clot she has had increased drainage and has since developed increased pain firmness and swelling in that left chest area. She contacted [facility] who advised her to come here for evaluation. She does report some lightheadedness and nausea with position change intermittently but currently is denying any complaints Of nausea. There have been no syncopal episodes. She has had no fever no vomiting Related Data Home Medications Medication Instructions Recorded Confirmed sertraline 100 mg tablet 150 mg PO DAILY AM 02/04/20 04/24/22 methylphenidate HCl 20 mg tablet 20 mg PO TID 02/04/21 04/24/22 (Ritalin) budesonide-formoterol HFA 160 2 puff inhalation BID #10.2 grams 02/08/21 08/02/21 mcg-4.5 mcg/actuation aerosol inhaler (Symbicort) guaifenesin 600 mg tablet, 600 mg PO BID #30 tabs 02/08/21 08/02/21 extended release 12 hr (Mucinex) levalbuterol HCl 1.25 mg/3 mL 1.25 mg (3 mL) UPD Q4H PRN PRN #90 02/08/21 08/02/21 solution for nebulization mL albuterol sulfate 90 mcg/actuation 1 - 2 puff inhalation PRN PRN 08/02/21 08/03/21 aerosol inhaler (ProAir HFA) ipratropium 0.5 mg-albuterol 3 mg 3 ml inhalation Q6H PRN 08/02/21 08/03/21 (2.5 mg base)/3 mL nebulization soln fluticasone propionate 50 2 spray intranasal BID PRN 08/03/21 08/03/21 mcg/actuation nasal spray,suspension azithromycin 250 mg tablet 500 mg PO DAILY #3 tabs 08/04/21 cholecalciferol (vitamin D3) 25 2,000 units PO DAILY #0 tabs 08/04/21 mcg (1,000 unit) tablet codeine 6.3 mg-guaifenesin 100 10 ml PO Q6H PRN #250 mL 08/04/21 mg/5 mL oral liquid dexamethasone 1 mg tablet See Rx Instructions .Route 08/04/21 .COMPLEX #12 tabs zolpidem 10 mg tablet 10 mg PO QHS PRN #14 tabs 08/04/21 04/24/22 cyclobenzaprine 5 mg tablet 5 mg PO DAILY PRN muscle spasm #7 04/24/22 tabs lidocaine 5 % topical patch 1 patch topical DAILY pain #7 ea 04/24/22 (Lidoderm) semaglutide 1 mg/dose (2 mg/1.5 1 mg subcut QWEEK 12/26/22 mL) subcutaneous pen injector (Ozempic) Previous Rx's Medication Instructions Recorded budesonide-formoterol HFA 160 2 puff inhalation BID #10.2 grams 02/08/21 mcg-4.5 mcg/actuation aerosol inhaler (Symbicort) guaifenesin 600 mg tablet, 600 mg PO BID #30 tabs 02/08/21 extended release 12 hr (Mucinex) levalbuterol HCl 1.25 mg/3 mL 1.25 mg (3 mL) UPD Q4H PRN PRN #90 02/08/21 solution for nebulization mL azithromycin 250 mg tablet 500 mg PO DAILY #3 tabs 08/04/21 cholecalciferol (vitamin D3) 25 2,000 units PO DAILY #0 tabs 08/04/21 mcg (1,000 unit) tablet codeine 6.3 mg-guaifenesin 100 10 ml PO Q6H PRN #250 mL 08/04/21 mg/5 mL oral liquid dexamethasone 1 mg tablet See Rx Instructions .Route 08/04/21 .COMPLEX #12 tabs zolpidem 10 mg tablet 10 mg PO QHS PRN #14 tabs 08/04/21 cyclobenzaprine 5 mg tablet 5 mg PO DAILY PRN muscle spasm #7 04/24/22 tabs lidocaine 5 % topical patch 1 patch topical DAILY pain #7 ea 04/24/22 (Lidoderm) Allergies Allergy/AdvReac Type Severity Reaction Status Date / Time No Known Allergies Allergy Unverified 04/24/22 17:20 General Stated Complaint: Recheck RASHID: 3 Review of Systems <Eileen Alcocer NP - Last Filed: 03/29/23 17:01> All systems reviewed & are unremarkable except as noted in HPI and below PFSH <Eileen Alcocer NP - Last Filed: 03/29/23 17:01> All Active Problems (Updated 12/26/22 @ 14:50 by Jocelynn Correia RN) H/O bilateral breast reduction surgery (Acute) Acne (Acute) Abdominal pain (Acute) Screening for colon cancer (Acute) Pneumonia due to COVID-19 virus (Acute) Encounter for screening laboratory testing for COVID-19 virus (Acute) Post-nasal drip (Acute) Pill dysphagia (Acute) Discharge planning issues (Acute) DVT prophylaxis (Acute) Insomnia (Acute) Acute esophagitis (Acute) GERD (gastroesophageal reflux disease) (Chronic) Acute bronchitis with bronchospasm (Acute) Nephrolithiasis (Chronic) Nausea (Acute) Fatigue (Acute) Fever (Acute) Encounter for screening for other viral diseases (Acute) S/P hysterectomy (Chronic) History of section (Chronic) S/P gastric bypass (Chronic) Migraine (Chronic) ADHD (Chronic) Chondromalacia of left patellofemoral joint (Acute) Maltracking of left patella (Acute) Medical History (Updated 12/26/22 @ 14:50 by Jocelynn Correia RN) Carpal tunnel syndrome Claustrophobia Depressive disorder Family history of cardiovascular disease Gastritis Hyperglycemia Hypersomnia Insomnia Mixed hyperlipidemia ADAIR (obstructive sleep apnea) Ovarian cyst Periodic limb movement sleep disorder Polycystic ovaries Rosacea Severe obesity Surgical History (Updated 03/27/23 @ 22:58 by Eileen Alcocer NP) H/O cystoscopy (~2020) H/O LEEP (~1998) H/O ureteroscopy (~2020) Hx of cholecystectomy (~2000) Social History Smoking/Tobacco Use Status: Never Smoking risk assessment performed?: Yes Alcohol Intake: never Drug use: Never Substance use type: does not use Do you feel safe at home: Yes Do you feel safe in your relationship?: Yes Exam <Eileen Alcocer NP - Last Filed: 03/29/23 17:01> Const General: cooperative and ill appearing (Pale fatigued appearing) acutely Orientation: alert, awake and oriented x3 HENMT Head: normal to inspection, normocephalic and atraumatic Mouth: oral mucosae normal Chest Chest: tenderness (Increased swelling and firmness over left chest wall bulky dressings and bi) Cardio Rate: tachycardic Skin Lesions: other (Surgical dressings intact no drainage CRISTAL drains intact bilaterally with blo) Course <Eileen Alcocer NP - Last Filed: 03/29/23 17:01> Vital Signs Vital signs: Vital Signs Temperature 36.9 C 03/27/23 21:50 Pulse 128 H 03/27/23 21:50 Respiratory Rate 20 03/27/23 21:50 Blood Pressure 119/77 03/27/23 21:50 Pulse Oximetry 97 03/27/23 21:50 Temperature 36.9 C 03/27/23 21:50 Temperature Source Temporal Artery Scan 03/27/23 21:50 Pulse 128 H 03/27/23 21:50 Respiratory Rate 20 03/27/23 21:50 Blood Pressure 119/77 03/27/23 21:50 Blood Pressure Position Sitting 03/27/23 21:50 Pulse Oximetry 97 03/27/23 21:50 Oxygen Delivery Method Room Air 03/27/23 21:50 Oxygen Flow Rate 0 03/27/23 21:50 Pain Level 6 03/27/23 21:50
[2023-03-27 22:12] LABS: Abs Immature Grans 0.09 10^3/uL (0.0-0.06); Absolute Basophil Count 0.06 10^3/uL (0.0-0.2); Absolute Monocyte Count 1.22 10^3/uL (0.1-0.8); Basophils % 0.3; HGB 11.4 g/dL (11.2-15.7); Immature Grans % 0.4; Lymphocytes % 3.5; MCHC 34.5 % (32.0-36.0); MCV 84 fL (80-95); MPV 8.6 fL (8.0-11.0); Neutrophils % 89.8; Platelet Count 322 10^3/uL (130-400); RBC 3.93 10^6/uL (3.93-5.22); RDW-SD 40.2 fL
[2023-03-27 22:13] LABS: Absolute Lymphocyte Count 0.71 10^3/uL (1.2-3.4); Absolute Neutrophil Count 18.32 10^3/uL (1.2-6.7)
--- NOTE | 2023-03-27 22:14 | NUR.NOTE ---
CRISTAL drains emptied: L:70mL pt states last emptied at 2115. R: 20 mL last emptied at 1700.
--- OUTSIDE RECORDS SUMMARY | 2023-03-27 22:20 | XMS_ITS | Continuity of Care Document ---
Author Name Unknown Organization [facility] Address [address] [place] [address] Care Team Providers Care College Dean Name Role Phone Waqas Cyr Primary Care Physician [facility] [id number] Date(s): 01/23/23 - 01/23/[address] [address] Encounter Diagnosis Fatigue(Discharge Diagnosis) - 01/23/23 Hyperglycemia(Discharge Diagnosis) - 01/23/23 Abdominal pain(Discharge Diagnosis) - 01/23/23 Screening for cardiovascular condition(Discharge Diagnosis) - 01/23/23 Discharge Disposition: Home or Self Care Attending Physician: Waqas Cyr DO Admitting Physician: Waqas Cyr DO Allergies, Adverse Reactions, Alerts No Known Medication Allergies Assessment and Plan Future Appointments Future Scheduled Tests Radiology* MG Mammo Digital Screening Bilateral 10/31/22 * US AAA Screening 10/31/22 Immunizations Given and Recorded Vaccine Date Status Refusal Reason hepatitis B adult vaccine 05/24/18 Recorded hepatitis B adult vaccine 02/20/18 Recorded hepatitis B adult vaccine 01/08/18 Recorded Medications methylphenidate 20 mg oral tablet 20 mg = 1 tab, Oral, TID, ok to fill 01/19/2023, next will be due 02/18/2023, # 90 tab, 0 Refill(s), Pharmacy: [facility] Start Date: 01/16/23 Status: Ordered zolpidem 5 mg oral tablet 5 mg = 1 tab, Oral, every day at bedtime, PRN as needed for insomnia, # 30 tab, 5 Refill(s), 04/18/23 10:34:00 EDT, Pharmacy: [facility] Start Date: 10/16/22 Stop Date: 04/18/23 Status: Ordered Problem List Condition Confirmation Course Effective Dates Status H ealth Status Informant Abdominal pain Confirmed Active Acne Confirmed Active Carpal tunnel syndrome of right wrist Confirmed Active Chronic gastritis Confirmed Active Circadian rhythm sleep disorder of shift work type Confirmed Active Claustrophobia Confirmed Active COVID-19 Confirmed 08/04/21 Active Cyst of right ovary Confirmed Active Depressive disorder Confirmed Active FH: Cardiovascular disease Confirmed Active Hyperglycemia Confirmed Active Hypersomnia Confirmed Active Insomnia Confirmed Active Kidney stone Confirmed Active Large breasts Confirmed Active Menopause present Confirmed Active Mixed hyperlipidemia Confirmed Active Obesity Confirmed Active Obstructive sleep apnea syndrome Confirmed Active Annual physical exam Confirmed Active Dietary counseling Confirmed Active Periodic leg movements of sleep Confirmed 09/11/18 Active Pneumonia Confirmed 08/04/21 Active Polycystic ovaries Confirmed Active Rosacea Confirmed Active Serum/plasma protein finding Confirmed Active Severe obesity Confirmed Active Skin change Confirmed Active Sleep disorder Confirmed Active Sprain of wrist and/or hand Confirmed Active Procedures Procedure Date Related Diagnosis Body Site Status Cystoscopy 11/22/20 Completed Ureteroscopy 11/21/20 Completed Cholecystectomy 11/18/00 Completed LEEP 1 11/18/98 Completed 1x2 and Cryo, pap normal since Results Laboratory List Name Date Automated Diff 01/23/23 CBC w/ Diff 01/23/23 Comprehensive Metabolic Panel (CMP) Generic Orderable [facility] 01/23/23 Hemoglobin A1c 01/23/23 Lipase Level 01/23/23 Lipid Panel 01/23/23 T3, Free [facility] 01/23/23 TSH w/ Rflx to Free T4 01/23/23 Most recent to oldest [Reference Range]: 1 WBC [5.0-10.0 x10^3/mcL] 5.7 x10^3/mcL (01/23/23 11:40 AM) RBC [4.1-5.3 x10^6/mcL] 4.7 x10^6/mcL (01/23/23 11:40 AM) Neutro Auto [40.0-75.0 %] 57.4 % (01/23/23 11:40 AM) Lymph Auto [20.0-50.0 %] 31.3 % (01/23/23 11:40 AM) [place] Auto [2.0-15.0 %] 8.1 % (01/23/23 11:40 AM) Basophil Auto [0.0-1.0 %] 0.7 % (01/23/23 AM) BUN [7-18 mg/dL] 14 mg/dL (01/23/23 AM) Cholesterol Total [50-200 mg/dL] 245 mg/ dL *HI* (01/23/23 AM) LDL [0-130 mg/dL] 177 mg/dL *HI* (01/23/23 AM) Glucose Level [74-106 mg/dL] 120 mg/dL *HI* (01/23/23 AM) Potassium Level [3.5-5.1 mmol/L] 4.0 mmo l/L (01/23/23 AM) MCV [80.0-96.0] 85.0 (01/23/23 AM) HDL [40-60 mg/dL] 37 mg/dL *LOW* (01/23/23) AST [15-37 unit/L] 26 unit/L (01/23/23 AM) ALT [14-59 unit/L] 40 unit/L (01/23/23 AM) MCHC [31.0-35.0 g/dL] 34.0 g/dL (01/23/23 AM) Sodium Level [136-145 mmol/L] 140 mmol/L (01/23/23 AM) Hct [37.0-47.0 %] 40.3 % (01/23/23 AM) Lipase Level [16-77 unit/L] 58 unit/L (01/23/23 AM) Triglycerides [0-150 mg/dL] 154 mg/dL *HI* (01/23/23 AM) Calcium Level [8.5-10.1 mg/dL] 10.3 mg/d L *HI* (01/23/23 AM) Albumin Level [3.4-5.0 g/dL] 4.1 g/dL (01/23/23 AM) Protein Total [6.4-8.2 g/dL] 8.6 g/dL *HI* (3/7/23 11:40 AM) MCH [26.0-32.0 pg] 28.9 pg (01/23/23 11:40 AM) Neutro Absolute 3.3 x10^3/mcL *NA* (01/23/2340 AM) Bilirubin Total [0.2-1.0 mg/dL] 0.6 mg/d L (01/23/23:40 AM) Hgb [12.0-16.0 g/dL] 13.7 g/dL (01/23/2340 AM) Alk Phos [46-146 unit/L] 105 unit/L (01/23/23:40 AM) Platelets [130-450 x10^3/mcL] 322 x10^3/ mcL (01/23/23:40 AM) CO2 [21-32 mmol/L] 26 mmol/L (01/23/23:40 AM) TSH [0.358-3.740 mcIntlUnit/mL] 1.735 mc IntlUnit/mL (01/23/23:40 AM) eGFR Non-AA [>=60] 88 (01/23/23:40 AM) eGFR AA [>=60] 88 (01/23/23 11:40 AM) Hemoglobin A1c [4.0-6.0 %] Sent to [facility] % *NA* (01/23/2340 AM) Chloride Level [98-107 mmol/L] 103 mmol/ L (01/23/23:40 AM) RDW-CV [11.7-17.0 %] 13.2 % (01/23/23:40 AM) Imm Gran Auto [0.0-0.9 %] 0.2 % (01/23/23:40 AM) Creatinine Level [0.55-1.02 mg/dL] 0.81 mg/dL (01/23/23 11:40 AM) T3, Free [facility] [2.8-5.3 pg/mL] 4.6 pg/mL 1 *NA* (01/23/23 11:40 AM) Generic Result LEE See Footnote 2 *ABN* (01/23/23:40 AM) Eos, Auto [1.0-6.0 %] 2.3 % (01/23/23 11:40 AM) 1Result Comment: Test performed [place] [address] 2Result Comment: Test Result Flag Unit RefValue Hemoglobin A1c 6.1 H % <5.7 Glycemic Status References: Normal: <5.7% Pre-Diabetes: 5.7% - 6.4% Diagnostic of Diabetes: > or = 6.5% (if confirmed) Estimated Average Glucose 128 mg/dL The eAG represents the A1c result expressed as average glucose in mg/dL. [id number]: HA1C [facility]: [id number] Test performed [place] [address] Social History Social History Type Response Tobacco Former tobacco user Tobacco Use:. Sex Female Patient Care team information Care Team Personnel Name: Waqas Cyr DO Position: Physician Member Role: Primary Care Physician Address: Address: [place] [facility] [address] [address] Name: Leydi Presley NP Position: Physician Member Role: Nurse Practitioner Address: Address: [facility] [place], [place] [address]
[2023-03-27 22:21] VITALS: BP 109/61; BP 111/66; BP 113/86; PULSE 100; PULSE 123; PULSE 73
--- OUTSIDE RECORDS SUMMARY | 2023-03-27 22:21 | XMS_ITS ---
Author Name Oj Kumar Address [address], [place] [id number] Organization [facility] Address [address], [place] [id number] Care Team Providers Care Patent Chemist Name Role Phone Oj Kumar Unavailable [phone] PROBLEMS Unknown Problems ALLERGIES No Information ENCOUNTERS Encounter Location Date Diagnosis [facility] [address], [place] [id number] Feb, Encounter for other administrative examinations Z02.89 IMMUNIZATIONS Vaccine Route Administration Date Status Tdap - Adult IM Intramuscular March 01, 2022 Administe red SOCIAL HISTORY Never Assessed REASON FOR REFERRAL FUNCTIONAL STATUS PLAN OF CARE VITAL SIGNS MEDICATIONS Unknown Medications PROCEDURES Procedure Date Ordered Result Body Site IMMUNIZATION ADMINISTRATION March 01, 2022 TDaP (TT REDUCED DT AND ACEL) March 01, 2022 RESULTS Name Result Date Reference Range MEASLES ANTIBODIES, IgG ([id number]) 2022-03-01 Rubeola Ab, IgG 198.0 Immune >16.4 MUMPS IgG ANTIBODY ([id number]) 2022-03-01 RUBELLA IGG ANTIBODY 2022-03-01 RUBELLA 51.1 >=10.0 RUB HEAD REFERENCE RANGE: (IU /mL) <5.0 : NON-IMMUNE 5.0 - 9.9 : GODOY ZONE >= 10.0 : IMMUNE VARICELLA ZOSTER IGG AB (LRH) 2022-03-01 VARICELLA ZOSTER IGG POSITIVE NEGATIV E VZG_TEXT An Equivocal result may occur when a specimen falls close to, but does not achieve, an interpretative threshold. They are statistically uninterpretable. These are repeated for validity and, if required, submitted to a Reference Laboratory for confirmation testing. QUANTIFERON TB GOLD PLUS ([id number]) 2022-03-01 QuantiFERON Criteria Comment QuantiFERON TB1 Ag Value 0.02 QuantiFERON TB2 Ag Value 0.03 QuantiFERON Nil Value 0.08 QuantiFERON Mitogen Value >10.00 QuantiFERON TB Gold Plus Negative Neg ative REASON FOR VISIT occ tb mmr varicella tdap titers Insurance Providers Health Insurance Type Health Plan Insurance Address Health Plan Insurance Phone Health Plan Insurance Name Health Plan Coverage Dates Member ID Patient Relationship to Subscriber Patient Address Patient Phone Patient Name Patient Date of Subscriber ID Subscriber Name Subscriber Date of Group No [employer] [address] [address] [facility] [id number] [employer] self Crystal Langmaid [id number]
--- OUTSIDE RECORDS SUMMARY | 2023-03-27 22:21 | XMS_ITS | Continuity of Care Document ---
Author Name Unknown Organization 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 Name Role Phone Darrin Titus Primary Care Physician [phone] Encounter [facility] Date(s): 11/17/22 - 11/17/22 [facility] [address] [place] [address] Encounter Diagnosis Hypersomnia(Discharge Diagnosis) - 09/07/22 Insomnia(Discharge Diagnosis) - 11/17/22 Discharge Disposition: Home or Self Care Attending Physician: Leydi Presley [employer] MEMBER Allergies, Adverse Reactions, Alerts No Known Medication Allergies Assessment and Plan Future Appointments Future Scheduled Tests Radiology* MG Mammo Digital Screening Bilateral 10/31/22 * US AAA Screening 10/31/22 Functional Status 11/17/22 Other exposure to Infectious Disease Non e Immunizations Given and Recorded Vaccine Date Status Refusal Reason hepatitis B adult vaccine 05/24/18 Recorded hepatitis B adult vaccine 02/20/18 Recorded hepatitis B adult vaccine 01/08/18 Recorded Medications methylphenidate 20 mg oral tablet 20 mg = 1 tab, Oral, TID, ok to fill 11/17/2022, next will be due 12/17/2022, # 90 tab, 0 Refill(s),Pharmacy: [facility] Start Date: 11/15/22 Status: Ordered methylphenidate 20 mg oral tablet 20 mg = 1 tab, Oral, TID, ok to fill 04/13/2022, # 90 tab, 0 Refill(s), Pharmacy: [facility] Start Date: 04/12/22 Status: Ordered zolpidem 5 mg oral tablet 5 mg = 1 tab, Oral, every night at bedtime, # 30 tab, 5 Refill(s), Pharmacy: [facility] Start Date: 06/14/22 Status: Ordered zolpidem 5 mg oral tablet 5 mg = 1 tab, Oral, every day at bedtime, PRN as needed for insomnia, # 30 tab, 5 Refill(s), 04/18/23 10:34:00 EDT, Pharmacy: [facility] Start Date: 10/16/22 Stop Date: 04/18/23 Status: [...] Insomnia Confirmed Active Kidney stone Confirmed Active Menopause present Confirmed Active Mixed hyperlipidemia Confirmed Active Obstructive sleep apnea syndrome Confirmed Active Annual physical exam Confirmed Active Periodic leg movements of sleep Confirmed 09/11/18 Active Pneumonia Confirmed 08/04/21 Active Polycystic ovaries Confirmed Active Rosacea Confirmed Active Serum/plasma protein finding Confirmed Active Severe obesity Confirmed Active Sleep disorder Confirmed Active Sprain of wrist and/or hand Confirmed Active Procedures Procedure Date Related Diagnosis Body Site Status Cystoscopy 11/22/20 Completed Ureteroscopy 11/21/20 Completed Cholecystectomy 11/18/00 Completed LEEP 1 11/18/98 Completed 1x2 and Cryo, pap normal since Vital Signs Most recent to oldest [Reference Range]: 1 Weight 107.95 kg (11/17/22 12:48 PM) Weight Measured (lbs) 237.989 lb (11/17/22 12:48 PM) Height 162 cm (11/17/22 12:48 PM) Height/Length Measured (inches) 63.78 in ch (11/17/22 12:48 PM) BSA Measured 2.2 m2 (11/17/22 12:48 PM) Body Mass Index 41.13 kg/m2 (11/17/22 12:48 PM) Social History Social History Type Response Tobacco Former tobacco user Tobacco Use:. Sex Female Polysomnography (sleep) study * Sonny Reyez: PERFORM Event Display: Sleep Study Authored Date: [id number] Physician Outpatient Note * Leydi Presley [employer] MEMBER: PERFORM Event Display: Office Clinic Note Physician Authored Date: [id number] RODOLFO PETERSON :1970 Age:52 years Sex:Female Visit Date:11/17/2022 Primary Care Physician: Darrin Titus DO History of Present Illness Rodolfo Peterson has a visit for hypersomnia and medication follow-up. ?? Rodolfo last had a visit with me on 03/03/2022.?? HST 07/22/16 (BMI 43.93) with an AHI of 7.2/hr and sp02 deana 87%. She had been treated with CPAP with good compliance and residual sleepiness so she had been taking modafinil 200 mg ?? tab BID in the past. She had bariatric surgery on 05/25/17 and since that time reported severe sleepiness to the point she has trouble staying awake all day. Her ESS was 24/24. PSG 08/22/18 (BMI 36.13), Sleep efficiency was 87% sleep latency 0 minutes, REM latency 108 minutes,AHI 4.8/hr, RDI 7.3/hr, REM AHI 11.4/hr, REM RDI 15.8/hr, supine AHI 9/hr, right lateral AHI 0/hr, left lateral AHI 0/hr, sp02 deana 88%,0 minutes were spent at a saturation <88%, arousal index 6/hr, PLMi 17.1/hr, PLM arousal index 0.4/hr, EKG . MSLT 08/23/18 she slept 5/5 naps with a mean sleep l atency of 0.3 minutes and 0/5 SOREM???s inconsistent with narcolepsy but consistent with extremely severe hypersomnia. Provigil 200 mg BID was not effective. ?? Last visit she was taking methylphenidate 20 TID. She was using Ambien 5 mg sparingly. ?? Rodolfo tells me she typically gets to bed around 7 pm, she falls asleep easily most nights. She wakes after a couple of hours and it can take a long time to get back to sleep so she often takes anAmbien to help her get back to sleep. She takes Ambien at least 4 nights a week. She gets up between 3-6 am (50% time it is around 3 am). She is falling asleep at work many days even when taking her m edication. This tends to occur during the last two hours before she takes her next med. She is taking her methylphenidate??every 3-4 hours. She tries to stretch it out because she has a two [address] commute [address]. the drive home is often difficult. She does caul fat puller to sleep when needed. ?? She is not snoring that she is aware of and denies waking choking/gasping. She is not having nocturia??or nocturnal reflux. She has chronic headaches in the morning and frequent. N/A ?? ESS 03/12 Physical Exam Vitals & Measurements HT:??162??cm?? WT:??107.95??kg?? BMI:??41.13?? BSA:??2.2?? N/A Assessment/Plan 1.??Hypersomnia??G47.10 MSLT 08/23/18 she slept 5/5 naps with a mean sleep latency of 0.3 minutes and 0/5 SOREM???s As long as she uses the methylphenidate she is able to stay awake but as soon as it wears out she can't stayawake. She is prescribed 20 mg TID and she tolerates this very well and it significantly improved her sleepiness but she still gets very sleepy for bout two hours before she can take her next dose. She drives two hours home from work and this is often difficult for her to sty awake. I have suggested she break one or two of her tabs in half to allow her to take them more often and closer to her drive home. She will try this. Controlled drug contract was mailed to her today. She is asked to sign and return it at her earliest convenience. I will see her back in six months. She is asked to call our office for any sleep related questions or concerns. Drowsy driving precautions were reviewed.?? I provided greater than 30 minutes in the care of this patient, more than half the time was spent in [id number] counseling. Ordered: Follow-Up Appointment Request RAMO, *Est. 05/18/23 +/- 28 days, Future Order, In [facility] ?? 2.??Insomnia??G47.00 She takes Ambien 5 mg most days of the week. Without this she has significant sleep fragmentation and difficulty returning to sleep. Her weight is up some and I wonder if she has developed ADAIR or if her PLMS seen on last PSG is now affecting her sleep. I discussed repeating a PSG as it has been over four years since her last. She may be having surgery soon (remove Pannus) so she would like to wait until after this. We will discuss at follow-up or she will call sooner if she wants to proceed . Ordered: Follow-Up Appointment Request RAMO, *Est. 05/18/23 +/- 28 days, Future Order, In Approximately, [facility] ?? Problem List/Past Medical History Ongoing Abdominal pain Acne Annual physical exam Carpal tunnel syndrome of right wrist Chronic gastritis Circadian rhythm sleep disorder of shift work type Claustrophobia COVID-19 Cyst of right ovary Depressive disorder FH: Cardiovascular disease Hyperglycemia Hypersomnia Insomnia Kidney stone Menopause present Mixed hyperlipidemia Obstructive sleep apnea syndrome Periodic leg movements of sleep Pneumonia Polycystic ovaries Rosacea Serum/plasma protein finding Severe obesity Sleep disorder Sprain of wrist and/or hand Historical No qualifying data Procedure/Surgical History ???Cystoscopy (11/23/2020)???Ureteroscopy (11/22/2020)???Cholecystectomy (11/19/2000)???LEEP (11/19/1998) Medications methylphenidate 20 mg oral tablet, 20 mg= 1 tab, Oral, TID methylphenidate 20 mg oral tablet, 20 mg= 1 tab, Oral, TID zolpidem 5 mg oral tablet, 5 mg= 1 tab, Oral, every night at bedtime, 5 refills zolpidem 5 mg oral tablet, 5 mg= 1 tab, Oral, every night at bedtime, PRN, 5 refills Allergies No Known Medication Allergies Social History Electronic Cigarette/Vaping Electronic Cigarette Use: Unknown/not obtained. Tobacco Former tobacco user Tobacco Use:. Family History Coronary artery disease: Father. Depression: Mother and Father. Diabetes mellitus: Father. Diabetes mellitus type II: Mother (Dx about 30). Disorder of kidney: Father. Myocardial infarction: Father. Obesity: Mother. Family Member(s): ?? FATHER, at age: 66 Years. Cause of : Immunizations Vaccine Date Status hepatitis B adult vaccine 05/24/2018 Recorded hepatitis B adult vaccine 02/20/2018 Recorded hepatitis B adult vaccine 01/08/2018 Recorded Electronically Signed on 11/17/22 01:09 PM Leydi Presley [employer] TE[employer] MEMBER * Sonny Reyez: PERFORM Event Display: Office Clinic Note Physician Authored Date: [id number] Name RODOLFO PETERSON (51yo, F) ID# [id number] Appt. Date/Time 03/03/2022 01:30PM 1970 Service Dept. P_Sleep Medicine Provider LEYDI PRESLEY NP Insurance Med Primary: [facility] Insurance # : [id number] Policy/Group # : [id number] Employer Name : [employer] Prescription: OPTUM_IRX - Member is eligible. details Chief Complaint None recorded. Patient's Care Team Urologist: LETICIA VASQUEZ MD Primary Care Provider: DARRIN TITUS DO: [address] [place] [address], , Patient's Pharmacies [facility] [address], [place] [address], , Vitals 03/03/2022 12:03 pm Ht: 5 ft 4 in Stated (162.56 cm) Wt: 240.5 lbs (109.09 kg) BMI: 41.3 BP: 130/92 Pulse: 69 bpm O2Sat: 98% Allergies Reviewed Allergies NKDA Medications Reviewed Medications fluticasone propionate 50 mcg/actuation nasal spray,suspension [place] 1 spray(s) every day by intranasal route. 06/13/21 filled surescripts ipratropium 0.5 mg-albuteroL 3 mg (2.5 mg base)/3 mL nebulization soln 01/24/21 filled surescripts levalbuteroL 1.25 mg/3 mL solution for nebulization 02/08/21 filled surescripts methylphenidate 20 mg tablet TAKE ONE TABLET BY MOUTH THREE TIMES A DAY 02/15/22 filled surescripts multivitamin 1 qd 05/15/18 entered Guillermo Nye LPN Nebulizer 01/27/21 entered Guillermo Nye LPN ProAir HFA 90 mcg/actuation aerosol inhaler 06/13/21 filled surescripts sertraline 100 mg tablet Take 1.5 tablet(s) every day by oral route for 90 days. 01/10/22 filled surescripts Symbicort 160 mcg-4.5 mcg/actuation HFA aerosol inhaler Inhale 2 puff(s) twice a day by inhalation route. 02/09/21 entered Guillermo Nye LPN triamcinolone acetonide 0.1 % topical cream APPLY A THIN LAYER TO THE AFFECTED AREA(S) BY TOPICAL ROUTE 2 TIMES PER DAY Internal Note: prn 05/21/19 filled [facility] Vitamin D3 25 mcg (1,000 unit) capsule Take 1 capsule(s) every day by oral route. 08/04/21 entered Guillermo Nye LPN zolpidem 5 mg tablet TAKE ONE TABLET BY MOUTH EVERY DAY AT BEDTIME NEEDED 02/09/22 filled surescripts Vaccines Vaccines not reviewed (last reviewed 09/13/2021) Vaccine Type Date Amt. Route Site [facility] Lot # [id number]. Exp. Date VIS VIS Given [employer] Professional Hepatitis B Hep B, adult 05/24/18 1 mL Intramuscular Deltoid, Right [id number] [employer] 07/11/20 Franchesca Grajeda RN Hep B, adult 02/20/18 1 mL Subcutaneous Deltoid, Right [id number] 02/20/20 [facility] Hep B, adult 01/08/18 1 mL Subcutaneous Deltoid, Right [id number] 04/20/19 JD Problems Reviewed Problems Mixed hyperlipidemia Severe obesity Claustrophobia Depressive disorder Insomnia Hypersomnia - . MSLT 08/23/18 she slept 5/5 naps with a mean sleep latency of 0.3 minutes and 0/5 SOREM???s Contract signed 08/26/2021- VPMS checked 02/07/21 and c/w POC- Obstructive sleep apnea syndrome - HST 07/22/16 AHI 7.2, 02 87%- PSG 08/22/18 AHI 4.8, RDI 7.3, 02 88%, CPAP 5-10 cm- Circadian rhythm sleep disorder of shift work type Pneumonia - Onset: 08/04/2021 Chronic gastritis Kidney stone Rosacea Acne Sleep disorder Periodic leg movements of sleep - Onset: 09/11/2018 Abdominal pain Hyperglycemia Serum/plasma protein finding Sprain of wrist and/or hand Family history of Cardiovascular disease Menopause present Polycystic ovaries Carpal tunnel syndrome of right wrist Cyst of right ovary COVID-19 - Onset: 08/04/2021 Family History Family History not reviewed (last reviewed 09/13/2021) Mother; 05/29/2014: Type 2 DM on insulin, onset in 30's, obesity, I think she has depression but shedoesn't address it. She's 62 and she sleeps all day. Father; 03/29/2016: d. age 66. AAA ?PE. 05/29/2014: age 64. Type 1 DM x childhood, CAD, multiple IL, multiple stents, kidney stones (not on dialysis), severe depression- suicidal, I remember him cutting himself when I was 12 , no inpt psych admit Cancer; Mother Per pt non-cancerous tumors were found Depression; mother, aunt Heart Disease;Mother, Father Diabetes Mellitus; Mother, Father Father; 05/29/2014: age 64. Type 1 DM x childhod, CAD, multiple IL, multiple stents, kidney stones (not on dialysis), severe depression- suicidal, I remember him cutting himself when I was 12 , no inpt psych admit Brother 1; 12/23/2015 Father; 05/29/2014: age 64. Type 1 DM x childhood, CAD, multiple IL, multiple stents, kidney stones (not on dialysis), severe depression- suicidal, I remember him cutting himself when I was 12 , no inpt psych admit Brother 2; 12/23/2015: tall and lean per patient Father; 03/29/2016: d. age 66. ?AAA ?PE. No autopsy. 05/29/2014: age 64. Type 1 DM x childhood, CAD, multiple IL, multiple stents, kidney stones (not on dialysis), severe depression- suicidal, I remember him cutting himself when I was 12 , no inpt psych admit Arthritis; Mother, Father Mother; 03/29/2016: age 65 05/29/2014: Type 2 DM on insulin, onset in 30's, obesity, I think she has depression but she doesn't address it. She's 64 and she sleeps all day. Social History Reviewed Social History Education and Occupation Are you currently employed?: Yes What is your occupation?: (Notes: [employer]) Substance Use Do you or have you ever smoked tobacco?: Former smoker (Notes: 18, 1/2ppd. quit 2012) How much tobacco do you chew?: none What was the date of your most recent tobacco screening?: 05/21/2019 What is your level of alcohol consumption?: Occasional (Notes: 0-1 per month) Have you used IV drugs?: No What is your level of caffeine consumption?: Occasional (Notes: 2 cups daily) Home and Environment Do you have any pets?: Yes (Notes: 4 dogs) Activities of Daily Living Are you blind or do you have difficulty seeing?: No (Notes: glasses) Are you deaf or do you have serious difficulty hearing? 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 GROUP LEADER History not reviewed (last reviewed 09/13/2021) Obstetric History Obstetric History not reviewed (last reviewed 09/13/2021) Past Medical History Past Medical History not reviewed (last reviewed 08/21/2018) Notes: Mammogram, Screening [02/19/2018] Tetanus Annual Eye Exam Flu Vaccine Home Sleep Study (eg, ApneaLink)[07/22/2016] EDX[12/14/2015] MRI Brain, Brain Stem[11/25/2014] Endoscopy[03/20/2017] Ultrasound, Pelvic[11/10/2014] Ultrasound[08/01/2016] CT Scan of Head[11/10/2014] Screening Name Score Notes [place] Sleepiness Not scored HPI Rodolfo Peterson has a visit for hypersomnia and medication follow-up. Rodolfo last had a visit with me on 02/07/21. She had a HST 07/22/16 (BMI 43.93) with an AHI of 7.2/hrand sp02 deana 87%. She had been treated with CPAP with good compliance and residual sleepiness so she had been taking modafinil 200 mg ?? tab BID in the past. She had bariatric surgery on 05/25/17 andsince that time reported severe sleepiness to the point she has trouble staying awake all day. Her ESS was . She stopped Ambien CR because she couldn???t stay awake and insomnia was no longer a problem. She had lost 60 lbs and hadn???t been using her CPAP since her weight loss. I ordered a PSG/MSLT at that time. PSG 08/22/18 (BMI 36.13), Sleep efficiency was 87% sleep latency 0 minutes, REM latency 108 minutes, AHI 4.8/hr, RDI 7.3/hr, REM AHI 11.4/hr, REM RDI 15.8/hr, supine AHI 9/hr, rightlateral AHI 0/hr, left lateral AHI 0/hr, sp02 deana 88%,0 minutes were spent at a saturation <88%, arousal index 6/hr, PLMi 17.1/hr, PLM arousal index 0.4/hr, EKG . MSLT 08/23/18 she slept 5/5 napswith a mean sleep latency of 0.3 minutes and 0/5 SOREM???s inconsistent with narcolepsy but consistent with extremely severe hypersomnia. Provigil 200 mg BID was not effective. Last visit she was taking methylphenidate 20 TID. 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 Rodolfo says she is still taking the methylphenidate 20 mg TID (7am, 11am and 3pm). She says as long as she takes her methylphenidate. She is back on day shift and she really is no longer having trouble falling asleep. She falls asleep instantly. She only very rarely takes an Ambien. She is sleeping from about 7:30 pm, she wakes 2-3 times a night and gets right back to sleep. She gets up 4:30 am to start her day. ESS today ROS ROS as noted in the HPI Physical Exam General: A&O, well groomed obese. HEAD: normocephalic & atraumatic. EYES: non icteric. LUNGS: CTA all phillip. Good air movement. CARDIO: RRR without murmur, gallop or thrill. NEURO: A&O. Normal gait. PSYCH: Normal mood and affect. CUTANEOUS: no overt lesions or rashes Assessment / Plan 1. Hypersomnia - MSLT 08/23/18 she slept 5/5 naps with a mean sleep latency of 0.3 minutes and 0/5 SOREM???s As long as she uses the methylphenidate she is able to stay awake but as soon as it wears out she can't stayawake. She is prescribed 20 mg TID and she tolerates this very well and it significantly improved her sleepiness. She has taken zolpidem with good relief in the past so today I filled a Rx for zolpidem 5 mg to take only when working. She is advised to stop once she gets on a day shift. I let her know I would write a letter to support her getting on day shifts. I provided greater than 20 minutes in the care of this patient, more than half the time was spent in [id number] counseling. G47.10: Hypersomnia, unspecified 2. Insomnia - This has resolved since being back on day shift and she really is not taking Ambien any longer. G47.00: Insomnia, unspecified Return to Office to see LEYDI PRESLEY NP at P_Sleep Medicine on or around 09/02/2022 Electronically Signed on 09/08/22 02:34 PM Sonny Reyez Patient Care team information Personnel Name: Darrin Titus DO Address: Address: [place] [facility] [address] [place] [id number] [place] [address]
[2023-03-27 22:29] LABS: Prothrombin Time 10.2 sec (9.3-11.0)
[2023-03-27 23:00] VITALS: BP 103/66; PULSE 99; TEMP 36.6; O2SAT 97
[2023-03-27 23:53] LABS: Anion Gap 10.7 mmol/L (3-11); BUN 18 mg/dL (7-18); CO2 24.3 mmol/L (21.0-32.0); CREATININE 0.9 mg/dL (0.55-1.02); Calcium 9.2 mg/dL (8.5-10.1); Chloride 99 mmol/L (98-107); Estimated GFR 77.88 (mL/min/1.73m2); Glucose 169 mg/dL (74-106); Sodium 134 mmol/L (136-145)
== END 2023-03-27 23:28 | disposition home or self-care (01) ==
PROVIDERS: Emergency Provider Nurse Practitioner Acute Care; PCP Neuromusculoskeletal Medicine & OMM
DX: T81.89XA Other complications of procedures, not elsewhere classified, initial encounter (principal); G89.18 Other acute postprocedural pain; L76.22 Postprocedural hemorrhage of skin and subcutaneous tissue following other procedure; R42 Dizziness and giddiness; R11.0 Nausea
CPT/HCPCS: 36415; 80048; 86850; 86900; 86901; 96360; 99283; 85025; 85610

== ENCOUNTER 2023-06-01 09:09 | Emergency (ER) | payer BC, SELFPAY ==
[2023-06-01 09:14] VITALS: BP 135/75; PULSE 76; RESP 16; TEMP 36.3; O2SAT 96
[2023-06-01 09:56] LABS: Lactate 1.7 mmol/L (0.6-1.4)
[2023-06-01 09:57] LABS: Abs Immature Grans 0.01 10^3/uL (0.0-0.06); Absolute Basophil Count 0.04 10^3/uL (0.0-0.2); Absolute Eosinophil Count 0.19 10^3/uL (0.0-0.7); Absolute Lymphocyte Count 1.88 10^3/uL (1.2-3.4); Absolute Monocyte Count 0.54 10^3/uL (0.1-0.8); Absolute Neutrophil Count 3.94 10^3/uL (1.2-6.7); Basophils % 0.6; Eosinophils % 2.9; HCT 33.2 % (36.0-46.0); HGB 10.4 g/dL (11.2-15.7); Immature Grans % 0.2; Lymphocytes % 28.5; MCH 24.1 pg (27.0-33.0); MCHC 31.3 % (32.0-36.0); MCV 77 fL (80-95); MPV 8.4 fL (8.0-11.0); Monocytes % 8.2; Neutrophils % 59.6; Platelet Count 345 10^3/uL (130-400); RBC 4.32 10^6/uL (3.93-5.22); RDW 14.2 % (11.7-14.6); RDW-SD 39.9 fL
[2023-06-01] MEDS: Normal Saline 500 ML IV (09:59)
--- NOTE | 2023-06-01 09:59 | ED.GENADUL_ITS ---
Discharge Plan Disposition Patient Disposition: Home Condition: Good Discharge Details Clinical Impression: Kidney stone on right side Primary Care Provider: Waqas Cyr ED Provider: Eulalio Arellano Home Meds and New Rx's Prescriptions: New oxycodone 10 mg tablet 10 mg PO BID PRNQty: 10 0RF No Action Ozempic 1 mg/dose (2 mg/1.5 mL) pen injector 1 mg subcut QWEEK Rx Instructions: no longer taking ipratropium-albuterol 0.5 mg-3 mg(2.5 mg base)/3 mL solution for nebulization 3 ml INHALATION Q6H PRN Patient Comments: no longer taking albuterol sulfate [ProAir HFA] 90 mcg/actuation HFA aerosol inhaler 1 - 2 puff INHALATION PRN PRN fluticasone propionate 50 mcg/actuation spray,suspension 2 spray INTRANASAL BID PRN azithromycin 250 mg Tablet 500 mg PO DAILY Qty: 3 0RF cholecalciferol (vitamin D3) 25 mcg (1,000 unit) Tablet 2,000 units PO DAILY Qty: 0 0RF zolpidem 10 mg tablet 10 mg PO QHS PRNQty: 14 0RF dexamethasone 1 mg tablet See Rx Instructions .ROUTE .COMPLEX Qty: 12 0RF Rx Instructions: 3 daily for 2 days (starting 08/05), then 2 daily for 2, then 1 daily for 2, then stop codeine-guaifenesin 6.3-100 mg/5 mL liquid 10 ml PO Q6H PRNQty: 250 0RF sertraline 100 mg tablet 150 mg PO DAILY AM Rx Instructions: no longer taking methylphenidate HCl [Ritalin] 20 mg Tablet 20 mg PO TID budesonide-formoterol [Symbicort] 160-4.5 mcg/actuation Hfa Aerosol Inhaler 2 puff inhalation BID Qty: 10.2 0RF levalbuterol HCl 1.25 mg/3 mL Solution For Nebulization 1.25 mg UPD Q4H PRN PRNQty: 90 1RF guaifenesin [Mucinex] 600 mg Tablet Extended Release 12hr 600 mg PO BID Qty: 30 0RF Patient Comments: no longer taking lidocaine [Lidoderm] 5 % adhesive patch,medicated 1 patch topical DAILY Qty: 7 0RF Patient Comments: no longer taking Rx Instructions: leave on most painful area for up to 12 hrs cyclobenzaprine 5 mg tablet 5 mg PO DAILY PRN (Reason: muscle spasm) Qty: 7 0RF Discharge Instructions Instructions: Kidney Stones (ED) Additional Instructions: Please follow-up closely with Dr. Lebron. Please stay well-hydrated and drink plenty of fluids. Please take the oxycodone tablets only as needed for pain. If you notice any worsening of your symptoms, or any new symptoms such as vomiting, diarrhea, fever, chills, shortness of breath, chest pain, numbness, weakness, or fainting , please return immediately to the emergency department for reevaluation. Please follow up with your primary care provider as soon as possible for reassessment and reevaluation. As always, it was a pleasure participating in your medical care today. Referrals: Quan Lebron MD [ [facility] STAFF PHYSICIAN] - Medical Decision Making This is a 53-year-old female with a past medical history of hysterectomy, , gastric bypass, obstructive sleep apnea, cholecystectomy, kidney stone, who presents today for evaluation of right-sided flank pain. Patient states has been present for the last 3 to 4 weeks. She states that it is chronic in nature and worsens throughout the day. She denies any nausea vomiting or diarrhea. She denies any dysuria hematuria or increase in urinary frequency. She does admit to intermittent occasional chills. She denies any recorded fever. She states that this feels similar to her previous kidney stones. She denies any numbness tingling or weakness. She denies any radiation to any other quadrants. She has been taking Tylenol and Motrin with no improvement. Physical exam demonstrates right-sided flank pain and tenderness and right upper quadrant tenderness as well. Differential is broad but includes pyelonephritis, kidney stone, abscess tumor mass. We will get CT imaging, gently rehydrate, evaluate can for concerning etiologies, monitor closely and reassess. Patient does not want anything for pain at this time. 12:30 PM Patient does not feel improved after Toradol. Laboratory work-up shows no evidence of infection on urinalysis, laboratory work-up stable. Electrolytes and renal function stable. CT scan shows evidence of a large 9 x 8 mm calculus in the right UPJ. This is likely the cause of her pain. I did contact Dr. Lebron and discussed this with him. He states that he does not have any OR time availability today or on Sunday, but we will try to expedite this to to have removal. We will give a few oxycodones to go home with for the patient and a small prescription to use as needed. Recommend continued hydration. Discussed red flags for which to return. I have extensively reviewed the treatment plan and discharge instructions with the patient. I have addressed all patient concerns at this time. The patient was made aware of what symptoms to monitor for that would warrant a return to the emergency department. Discussed the plan with the patient, they demonstrate verbal understanding and agreement with our assessment and plan at this time. The documentation in this chart was dictated using [email or web address] dictation software. Please excuse any dictation errors. FINDINGS: VISUALIZED LUNG BASES: No nodules nor pleural effusions evident. ABDOMEN: GI: There is evidence of prior bariatric surgery. The pre colic Colt limb is not dilated. The [place] excluded stomach is not dilated. Duodenum not dilated. No obstruction at the distal anastomosis-enteroenterostomy nor evidence of small-bowel obstruction distal to this level. No evidence of free air nor abscess nor ascites. LIVER: There are no obvious focal hepatic lesions evident of this noninfused study. GALLBLADDER/BILIARY: Gallbladder surgically absent. CBD is not dilated. PANCREAS: No evidence of pancreatic mass nor dilatation of the pancreatic duct. SPLEEN: Spleen is not enlarged. No obvious intrasplenic lesions. ADRENALS: There are no significant adrenal masses. KIDNEYS:Bilateral nephrolithiasis. On the right side is a E 9 x 8 millimeter calculus in the renal pelvis just above the UPJ. Another punctate calculus is seen in the lower pole the right kidney and a single punctate calculus in the left kidney, nonobstructive. There is a round calcification associated with the mid right ureter but I suspect this is probably a phlebolith and is unchanged from April [address] CT scan. ABDOMINAL AORTA: Abdominal aorta is not enlarged. LYMPH NODES: There is no retroperitoneal nor paraaortic adenopathy. ABDOMINAL WALL: No evidence of significant anterior abdominal wall nor inguinal hernia. GI: There is no evidence of bowel obstruction, free air, nor abscess. PELVIS: LYMPH NODES: There is no intrapelvic nor inguinal adenopathy. GI: No evidence of appendicitis.No evidence of sigmoid diverticulitis. URINARY BLADDER: No calculi nor obvious masses evident REPRODUCTIVE: Uterus is surgically absent. Ovaries appear unremarkable. No free fluid in the pelvis. OSSEOUS: No significant osseous lesions. No fractures but there is degenerative anterolisthesis L4 upon L5 due to facet arthropathy. IMPRESSION: 1. Bilateral nephrolithiasis. In addition, there is an 8 x 9 millimeter calculus in the right renal pelvis just above the UPJ. Minimal dilatation. No calculi in the nondistended urinary bladder. 2. Prior bariatric surgery. No evidence of bowel obstruction. No free air nor abscess. 3. Gallbladder surgically absent. Biliary tree not dilated. HPI General Date/Time Provider Initiated Documentation: 06/01/23 09:41 . HPI Narrative: This is a 53-year-old female with a past medical history of hysterectomy, , gastric bypass, obstructive sleep apnea, cholecystectomy, kidney stone, who presents today for evaluation of right-sided flank pain. Patient states has been present for the last 3 to 4 weeks. She states that it is chronic in nature and worsens throughout the day. She denies any nausea vomiting or diarrhea. She denies any dysuria hematuria or increase in urinary frequency. She does admit to intermittent occasional chills. She denies any recorded fever. She states that this feels similar to her previous kidney stones. She denies any numbness tingling or weakness. She denies any radiation to any other quadrants. She has been taking Tylenol and Motrin with no improvement. Related Data Home Medications Medication Instructions Recorded Confirmed sertraline 100 mg tablet 150 mg PO DAILY AM 02/04/20 04/24/22 methylphenidate HCl 20 mg tablet 20 mg PO TID 02/04/21 06/01/23 (Ritalin) budesonide-formoterol HFA 160 2 puff inhalation BID #10.2 grams 02/08/21 08/02/21 mcg-4.5 mcg/actuation aerosol inhaler (Symbicort) guaifenesin 600 mg tablet, 600 mg PO BID #30 tabs 02/08/21 08/02/21 extended release 12 hr (Mucinex) levalbuterol HCl 1.25 mg/3 mL 1.25 mg (3 mL) UPD Q4H PRN PRN #90 02/08/21 06/01/23 solution for nebulization mL albuterol sulfate 90 mcg/actuation 1 - 2 puff inhalation PRN PRN 09/14/21 09/15/21 aerosol inhaler (ProAir HFA) ipratropium 0.5 mg-albuterol 3 mg 3 ml inhalation Q6H PRN 08/02/21 08/03/21 (2.5 mg base)/3 mL nebulization soln fluticasone propionate 50 2 spray intranasal BID PRN 08/03/21 08/03/21 mcg/actuation nasal spray,suspension azithromycin 250 mg tablet 500 mg PO DAILY #3 tabs 08/04/21 cholecalciferol (vitamin D3) 25 2,000 units PO DAILY #0 tabs 08/04/21 mcg (1,000 unit) tablet codeine 6.3 mg-guaifenesin 100 10 ml PO Q6H PRN #250 mL 08/04/21 mg/5 mL oral liquid dexamethasone 1 mg tablet See Rx Instructions .Route 08/04/21 .COMPLEX #12 tabs zolpidem 10 mg tablet 10 mg PO QHS PRN #14 tabs 08/04/21 06/01/23 cyclobenzaprine 5 mg tablet 5 mg PO DAILY PRN muscle spasm #7 04/24/22 tabs lidocaine 5 % topical patch 1 patch topical DAILY pain #7 ea 04/24/22 (Lidoderm) semaglutide 1 mg/dose (2 mg/1.5 1 mg subcut QWEEK 12/26/22 mL) subcutaneous pen injector (Ozempic) oxycodone 10 mg tablet 10 mg PO BID PRN #10 tabs 06/01/23 Previous Rx's Medication Instructions Recorded budesonide-formoterol HFA 160 2 puff inhalation BID #10.2 grams 02/08/21 mcg-4.5 mcg/actuation aerosol inhaler (Symbicort) guaifenesin 600 mg tablet, 600 mg PO BID #30 tabs 02/08/21 extended release 12 hr (Mucinex) levalbuterol HCl 1.25 mg/3 mL 1.25 mg (3 mL) UPD Q4H PRN PRN #90 02/08/21 solution for nebulization mL azithromycin 250 mg tablet 500 mg PO DAILY #3 tabs 08/04/21 cholecalciferol (vitamin D3) 25 2,000 units PO DAILY #0 tabs 08/04/21 mcg (1,000 unit) tablet codeine 6.3 mg-guaifenesin 100 10 ml PO Q6H PRN #250 mL 08/04/21 mg/5 mL oral liquid dexamethasone 1 mg tablet See Rx Instructions .Route 08/04/21 .COMPLEX #12 tabs zolpidem 10 mg tablet 10 mg PO QHS PRN #14 tabs 08/04/21 cyclobenzaprine 5 mg tablet 5 mg PO DAILY PRN muscle spasm #7 04/24/22 tabs lidocaine 5 % topical patch 1 patch topical DAILY pain #7 ea 04/24/22 (Lidoderm) oxycodone 10 mg tablet 10 mg PO BID PRN #10 tabs 06/01/23 Allergies Allergy/AdvReac Type Severity Reaction Status Date / Time No Known Allergies Allergy Unverified 06/01/23 09:19 General Stated Complaint: FlankPain RASHID: 3 Review of Systems All systems reviewed & are unremarkable except as noted in HPI and below PFSH All Active Problems (Updated 06/01/23 @ 11:38 by Eulalio Arellano DO) Kidney stone on right side (Acute) Acne (Acute) Abdominal pain (Acute) Screening for colon cancer (Acute) Pneumonia due to COVID-19 virus (Acute) Encounter for screening laboratory testing for COVID-19 virus (Acute) Post-nasal drip (Acute) Pill dysphagia (Acute) Discharge planning issues (Acute) DVT prophylaxis (Acute) Insomnia (Acute) Acute esophagitis (Acute) GERD (gastroesophageal reflux disease) (Chronic) Acute bronchitis with bronchospasm (Acute) Nephrolithiasis (Chronic) Nausea (Acute) Fatigue (Acute) Fever (Acute) Encounter for screening for other viral diseases (Acute) S/P hysterectomy (Chronic) History of section (Chronic) S/P gastric bypass (Chronic) Migraine (Chronic) ADHD (Chronic) Chondromalacia of left patellofemoral joint (Acute) Maltracking of left patella (Acute) Medical History Carpal tunnel syndrome Claustrophobia Depressive disorder Family history of cardiovascular disease Gastritis Hyperglycemia Hypersomnia Insomnia Mixed hyperlipidemia ADAIR (obstructive sleep apnea) Ovarian cyst Periodic limb movement sleep disorder Polycystic ovaries Rosacea Severe obesity Surgical History H/O cystoscopy (~2020) H/O LEEP (~1998) H/O ureteroscopy (~2020) Hx of cholecystectomy (~2000) Social History Smoking/Tobacco Use Status: Never Smoking risk assessment performed?: Yes Alcohol Intake: never Drug use: Never Substance use type: does not use Do you feel safe at home: Yes Do you feel safe in your relationship?: Yes Exam Narrative Exam Narrative: 1.Const: Well-nourished, Well-developed, appearing stated age 2.Eyes: PERRL, no conjunctival injection, and symmetrical lids. 3.ENT: Atraumatic external nose and ears. Moist MM. Neck: Symmetric, trachea midline, No thyromegaly. 4.CVS: +S1/S2, No murmurs or gallops. Peripheral pulses 2+ and equal in all extremities. Brisk capillary refill in all extremities. 5.RESP: Unlabored respiratory effort. Clear to auscultation bilaterally. No wheezes rales or rhonchi 6.GI: Soft, nondistended. No guarding. Mild rebound and notable tenderness in the right upper right flank and right lower quadrants of the abdomen. No extremity tenderness. No left-sided tenderness. 7.MSK: Normocephalic/Atraumatic, Extremities w/o deformity or ttp No cyanosis or clubbing, Normal movement of all extremities 8.Skin: Warm, Dry. No rashes or lesions. 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 Sensation grossly intact, no focal neurologic deficits. 10.Psych: (AAO) x3. Appropriate mood and affect Course Vital Signs Vital signs: Vital Signs Temperature 36.3 C L 06/01/23 09:14 Pulse 76 06/01/23 09:14 Respiratory Rate 16 06/01/23 09:14 Blood Pressure 135/75 06/01/23 09:14 Pulse Oximetry 96 06/01/23 09:14 Temperature 36.3 C L 06/01/23 09:14 Temperature Source Oral 06/01/23 09:14 Pulse 76 06/01/23 09:14 Respiratory Rate 16 06/01/23 09:14 Blood Pressure 135/75 06/01/23 09:14 Blood Pressure Position Sitting 06/01/23 09:14 Pulse Oximetry 96 07/14/23 09:14 Oxygen Delivery Method Room Air 06/01/23 09:14 Oxygen Flow Rate 0 06/01/23 09:14 Pain Level 8 06/01/23 09:14 Lab/Test Results Lab/Test Results: Laboratory Tests Range/Units 06/01/23 09:51 VBG Lactate (0.6-1.4) mmol/L 1.7 H POC- Test(urine) Negative
[2023-06-01 10:05] LABS: Bilirubin Negative (Negative); Blood Moderate (Negative); Clarity Clear (Clear); Glucose Negative (Negative); Ketones Negative (Negative); Leukocyte Esterase Negative (Negative); Nitrite Negative (Negative); Specific Gravity >= 1.030 (1.005-1.025); Urobilinogen 0.2 mg/dL (Up to 0.2)
[2023-06-01 10:13] LABS: ALT 38 U/L (14-59); AST 26 U/L (15-37); Alkaline Phosphatase 130 U/L (46-116); BUN 11 mg/dL (7-18); Bilirubin, Total 0.6 mg/dL (0.2-1.0); CREATININE 0.8 mg/dL (0.55-1.02); Calcium 9.4 mg/dL (8.5-10.1); Chloride 102 mmol/L (98-107); Estimated GFR 89.15 (mL/min/1.73m2); Glucose 120 mg/dL (74-106); Potassium 3.9 mmol/L (3.5-5.1); Sodium 139 mmol/L (136-145); Total Protein 8.5 g/dL (6.4-8.2)
--- NOTE | 2023-06-01 10:15 | DI.CT_ITS ---
Exam(s) CT ABDOMEN PELVIS WO EXAM: CT ABDOMEN PELVIS WO CLINICAL HISTORY: right flank and upper abdominal pain. TECHNIQUE: Imaging Protocol: Axial computed tomography images with coronal and sagittal reformatted images were created and reviewed CONTRAST MATERIAL: Intravenous: none Oral: None COMPARISON: CT CT PELVIC WO from 04/24/2022 FINDINGS: VISUALIZED LUNG BASES: No nodules nor pleural effusions evident. ABDOMEN: GI: There is evidence of prior bariatric surgery. The pre colic Colt limb is not dilated. The nativ e excluded stomach is not dilated. Duodenum not dilated. No obstruction at the distal anastomosis-e nteroenterostomy nor evidence of small-bowel obstruction distal to this level. No evidence of free a ir nor abscess nor ascites. LIVER: There are no obvious focal hepatic lesions evident of this noninfused study. GALLBLADDER/BILIARY: Gallbladder surgically absent. CBD is not dilated. PANCREAS: No evidence of pancreatic mass nor dilatation of the pancreatic duct. SPLEEN: Spleen is not enlarged. No obvious intrasplenic lesions. ADRENALS: There are no significant adrenal masses. KIDNEYS:Bilateral nephrolithiasis. On the right side is a E 9 x 8 millimeter calculus in the renal p eddie just above the UPJ. Another punctate calculus is seen in the lower pole the right kidney and a single punctate calculus in the left kidney, nonobstructive. There is a round calcification associa riddhi with the mid right ureter but I suspect this is probably a phlebolith and is unchanged from April [address] scan[address] ABDOMINAL AORTA: Abdominal aorta is not enlarged. LYMPH NODES: There is no retroperitoneal nor paraaortic adenopathy. ABDOMINAL WALL: No evidence of significant anterior abdominal wall nor inguinal hernia. GI: There is no evidence of bowel obstruction, free air, nor abscess. PELVIS: LYMPH NODES: There is no intrapelvic nor inguinal adenopathy. GI: No evidence of appendicitis.No evidence of sigmoid diverticulitis. URINARY BLADDER: No calculi nor obvious masses evident REPRODUCTIVE: Uterus is surgically absent. Ovaries appear unremarkable. No free fluid in the pelvis . OSSEOUS: No significant osseous lesions. No fractures but there is degenerative anterolisthesis L4 upon L5 due to facet arthropathy. IMPRESSION: 1. Bilateral nephrolithiasis. In addition, there is an 8 x 9 millimeter calculus in the right renal pelvis just above the UPJ. Minimal dilatation. No calculi in the nondistended urinary bladder. 2. Prior bariatric surgery. No evidence of bowel obstruction. No free air nor abscess. 3. Gallbladder surgically absent. Biliary tree not dilated. Uterus surgically absent. Discussed with ER physician. RADIATION DOSE DELIVERED: 1,433.36mGy.cm Total DLP DATA REPOSITORY: All CT scans at this facility are submitted to the National Radiology Data Registry (NRDR) Dose Index Registry (DIR) with the [employer] (A[employer]). RADIATION OPTIMIZATION: All CT scans at this facility use at least one of these dose optimization te chniques: automated exposure control; mA and/or kV adjustment per patient size (includes targeted exa ms where dose is matched to clinical indication); or iterative reconstruction.
[2023-06-01 10:17] LABS: Bacteria Negative HPF (Negative); C & S Indicated? No; Casts 3-5 Hyaline LPF (Negative); Crystals Negative HPF (Negative); Epithelial Cells Few HPF (Negative); Mucus Trace (Negative); RBC 20-50 HPF (0-2); WBC Negative HPF (0-5)
[2023-06-01] MEDS: Dicyclomine 10 MG CAP (10:53)
[2023-06-01] MEDS: Ketorolac 30 MG/ML VIAL IVP (10:53)
[2023-06-01] MEDS: MORPHine 4 MG/ML SYR IVP (11:52)
== END 2023-06-01 11:56 | disposition home or self-care (01) ==
PROVIDERS: Emergency Provider Student in an Organized Health Care Education/Training Program; PCP Neuromusculoskeletal Medicine & OMM
DX: R10.9 Unspecified abdominal pain (principal); N20.2 Calculus of kidney with calculus of ureter; Z98.84 Bariatric surgery status
CPT/HCPCS: 80053; 96374; 96375; 99284; 74176; 81003; 81015; 83605; 85025; J1885; J2270

== ENCOUNTER 2023-06-07 08:25 | Day surgery (SDC) | payer BC, SELFPAY ==
[2023-06-07] VITALS (8 sets, daily range): BP systolic 94–138; BP diastolic 41–82; PULSE 52–74; RESP 16–23; TEMP 36–36.7; O2SAT 94–97; BMI 42.2
[2023-06-07] MEDS: Lactated Ringers 1,000 ML 80 ML IV (09:14)
--- NOTE | 2023-06-07 09:22 | ANES.PREOP_ITS ---
General Info Date of Service Date Performed: 06/07/23 Height: 5 ft 4 in Weight: 111.5 kg Body Mass Index (BMI): 42.2 Surgical Procedure: Operation Date: 06/07/23 09:40 Proposed Procedure Side Surgeon p Cystoscopy/Laser/Retrograde/Ureteroscopy/Possible Stent Placement Right Quan Lebron MD Meds Allergies and Home Medications Allergies Allergy/AdvReac Type Severity Reaction Status Date / Time No Known Allergies Allergy Unverified 06/07/23 08:46 Home Medication Medication Instructions Recorded methylphenidate HCl 20 mg tablet 20 mg PO TID 02/04/21 (Ritalin) levalbuterol HCl 1.25 mg/3 mL 1.25 mg (3 mL) UPD Q4H PRN PRN #90 02/08/21 solution for nebulization mL albuterol sulfate 90 mcg/actuation 1 - 2 puff inhalation PRN PRN 08/02/21 aerosol inhaler (ProAir HFA) ipratropium 0.5 mg-albuterol 3 mg 3 ml inhalation Q6H PRN 08/02/21 (2.5 mg base)/3 mL nebulization soln zolpidem 10 mg tablet 10 mg PO QHS PRN #14 tabs 08/04/21 oxycodone 10 mg tablet 10 mg PO Q6H PRN PRN pain #20 tabs 06/04/23 Current Visit Medications: Current Medications Generic Name Dose Route Start Last Admin Trade Name Freq PRN Reason Stop Dose Admin Ringer's Solution 1,000 mls @ 80 mls/hr 06/07/23 06:00 06/07/23 09:14 IV 07/06/23 23:59 80 mls/hr INFUSION MEI Administration Cefazolin Sodium/Dextrose 2 gm in 50 mls @ 100 mls/hr 06/07/23 06:00 Ancef Duplex IVPB 06/07/23 16:00 PREOP MEI IV Miscellaneous Supplies 1 each 06/07/23 06:00 Iv Access IV 07/06/23 23:59 DIRECTED MEI Sodium Chloride 0 ml 06/07/23 06:00 Normal Saline Flush 10 Ml Syr IV 07/06/23 23:59 PRN PRN Sodium Chloride 0 ml 06/07/23 06:00 Normal Saline 10 Ml Vial IJ 07/06/23 23:59 DIRECTED PRN Sterile Water 0 ml 06/07/23 06:00 Water,Injection,Sterile 10 Ml Vial IJ 07/06/23 23:59 DIRECTED PRN PFSH Active Problems Active Problems: Problem Status Onset Code Kidney stone on right side N20.0 Acne L70.9 Abdominal pain R10.9 Screening for colon cancer Z12.11 Pneumonia due to COVID-19 virus U07.1, J12.82 Encounter for screening laboratory testing for COVID-19 virus Z20.822 Epistaxis R04.0 Post-nasal drip R09.82 Pill dysphagia R13.10 Discharge planning issues Z02.9 DVT prophylaxis Z29.9 Insomnia G47.00 Acute esophagitis K20.90 GERD (gastroesophageal reflux disease) K21.9 Acute bronchitis with bronchospasm J20.9 Nephrolithiasis N20.0 Nausea R11.0 Fatigue R53.83 Fever R50.9 Encounter for screening for other viral diseases Z11.59 S/P hysterectomy Z90.710 History of section Z98.891 S/P gastric bypass Z98.84 Migraine G43.909 ADHD F90.9 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.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 Medical History Medical History Carpal tunnel syndrome Claustrophobia Depressive disorder Family history of cardiovascular disease Gastritis Hyperglycemia Hypersomnia Insomnia Mixed hyperlipidemia ADAIR (obstructive sleep apnea) Ovarian cyst Periodic limb movement sleep disorder Polycystic ovaries Rosacea Severe obesity Surgical History Surgical History H/O cystoscopy (~2020) H/O LEEP (~1998) H/O ureteroscopy (~2020) Hx of cholecystectomy (~2000) Tobacco Smoking/Tobacco Use Status: Former Tobacco Use Alcohol Alcohol Intake: never Substance Use Substance use: Never Substance use type: does not use Vital Signs and Lab Results Vital Signs Most Recent Vital Signs in EMR: Most Recent Vital Signs Temp Pulse Resp BP Pulse Ox 36.7 C 74 18 138/82 97 06/07/23 08:35 06/07/23 08:35 06/07/23 08:35 06/07/23 08:35 06/07/23 08:35 Lab Results Blood Type / Crossmatch: No Data to Display Complete Blood Count: White Blood Count 6.60 10^3/uL (4.4-10.8) 06/01/23 09:51 Red Blood Count 4.32 10^6/uL (3.93-5.22) 06/01/23 09:51 Hemoglobin 10.4 g/dL (11.2-15.7) L 06/01/23 09:51 Hematocrit 33.2 % (36.0-46.0) L 06/01/23 09:51 Platelet Count 345 10^3/uL (130-400) 06/01/23 09:51 Venous Blood Lactate 1.7 mmol/L (0.6-1.4) H 06/01/23 09:51 Complete Metabolic Panel: Sodium 139 mmol/L (136-145) 06/01/23 09:51 Potassium 3.9 mmol/L (3.5-5.1) 06/01/23 09:51 Chloride 102 mmol/L (98-107) 06/01/23 09:51 Carbon Dioxide 26.0 mmol/L (21.0-32.0) 06/01/23 09:51 BUN 11 mg/dL (7-18) 06/01/23 09:51 Creatinine 0.8 mg/dL (0.55-1.02) 06/01/23 09:51 Est GFR (CKD-EPI 2020) 89.15 (mL/min/1.73m2) 06/01/23 09:51 Calcium 9.4 mg/dL (8.5-10.1) 06/01/23 09:51 Albumin 4.0 g/dL (3.4-5.0) 06/01/23 09:51 Glucose 120 mg/dL (74-106) H 06/01/23 09:51 Liver Function Panel: Alanine Aminotransferase (ALT/SGPT) 38 U/L (14-59) 06/01/23 09: 51 Aspartate Amino Transf (AST/SGOT) 26 U/L (15-37) 06/01/23 09:51 Coagulation Panel: No Data to Display Cardiac Panel: No Data to Display Arterial Blood Gas: No Data to Display Venous Blood Gas: No Data to Display Pancreas Panel: No Data to Display Thyroid Panel: No Data to Display Infectious Disease: No Data to Display Blood Cultures: No Data to Display Toxicology Panel: No Data to Display Panel: No Data to Display Imaging and Studies Imaging and Studies Study information below may be from another EMR and interpreted by another provider. Please see original notes in EMR for more complete details. EKG Summary: 08/02/21: Exam: Resting ECG Reason for Exam: sob Patient Location: E HR:94 bpm ECG Measurements Heart Rate 94 AXIS NC 150 P 50 QRSd 98 QRS 22 QT 374 T-5 QTc 468 Conclusion Sinus rhythm...normal P axis, V-rate 60- 99. Sinus. No STEMI. I have reviewed and interpreted ECG and agree with software generated interpretation. Pulmonary Function Summary: 03/31/21: Pulmonary Function Test Result Interpretation Spirometry: No evidence of obstructive airways disease, no bronchodilator response Lung Volumes: No evidence of restriction Diffusion Capacity: Borderline mildly reduced which is normal when corrected to alveolar volume Airway Pressure: Normal Impression Isolated borderline reduction in diffusion capacity, this is normal when corrected to alveolar volume Clinical Correlation therefore is recommended. Anesthesia Assessment and Plan Anesthesia History Personal History: No History of Anesthesia Complications Family History: No Family History of Anesthesia Complications Exercise Tolerance Exercise Tolerance: Metabolic Equivalents>4 Pertinent Negatives Pertinent Negatives: No Symptoms of GERD, No Major Cardiovascular Symptoms or Complaints and No Major Pulmonary Symptoms or Complaints Cardiac & Pulmonary Exam Cardiac Exam: Normal S1/S2 Heart Sounds Pulmonary Exam: Clear Bilateral Breath Sounds Implantable Cardiac Device Does patient have a Pacemaker or an ICD?: No Airway Exam Known Difficult Airway: No Mallampati Class: 1 Mouth Opening: Normal (> 3cm) Thyromental Distance: Greater than 3 cm Neck Range of Motion: Full ROM Neck Circumference: Normal Teeth Condition: Edentulous ASA Classification ASA Score: ASA 3 Emergency Case?: No NPO Status NPO Status: NPO Clears >2 hours, Solids >8 hours Status Status: History of Hysterectomy Anesthesia Plan Resuscitation Status: Full Code Anesthesia Technique: General Anesthesia Airway Planned: LMA Monitors Used: Standard Monitors
--- NOTE | 2023-06-07 09:28 | W.PM.HP.N ---
Date of service: 06/07/23 Time of Service: 09:28 Assessment and Plan Assessment and plan (1) Kidney stone on right side: Status: Acute Assessment and plan: We will plan on doing cystoscopy, right retrograde pyelogram and right flexible ureteroscopy with holmium laser lithotripsy. If I am unable to access the stone safely today, we may need to place a ureteral stent and do a staged procedure. We discussed potential side effects from ureteroscopy including bleeding, infection and ureteral injuries. We plan on doing a follow-up renal ultrasound to rule out silent hydronephrosis 6 to 8 weeks following her final procedure. Once we see her stone analysis, we can come up with stone prevention techniques. History of Present Illness History of Present Illness Chief Complaint: Right kidney stone Narrative: This is a 53-year-old woman who has a past history of kidney stones. About 2 years ago, she had undergone ureteroscopy and holmium laser lithotripsy of a right sided stone. The stone analysis showed it was composed of 80% uric acid and 20% calcium oxalate dihydrate. She presented to the emergency department recently with right flank pain reminiscent of her renal colic. She has had right flank pain for up to a month now. She has not seen any gross hematuria (like she did with her last stone presentation) She was found to have a large stone at the right ureteropelvic junction. She had no nausea or vomiting. She had no fever or chills. She presents now for stone manipulation. She has no known bleeding disorders. She has not had issues with general anesthesia in the past. She has had a gastric bypass and follows a high protein diet. Review of Systems Narrative: No fevers or chills No vision change or dysphasia No diabetes or thyroid dysfunction Has needed her inhaler more frequently recently. No hemoptysis No chest pain or palpitations GERD. No hepatitis, ulcers, jaundice No seizures, strokes or peripheral neuropathy No bleeding disorders or anemia No gout PFSH All Active Problems Kidney stone on right side (Acute) Acne (Acute) Abdominal pain (Acute) Screening for colon cancer (Acute) Pneumonia due to COVID-19 virus (Acute) Encounter for screening laboratory testing for COVID-19 virus (Acute) Post-nasal drip (Acute) Pill dysphagia (Acute) Discharge planning issues (Acute) DVT prophylaxis (Acute) Insomnia (Acute) Acute esophagitis (Acute) GERD (gastroesophageal reflux disease) (Chronic) Acute bronchitis with bronchospasm (Acute) Nephrolithiasis (Chronic) Nausea (Acute) Fatigue (Acute) Fever (Acute) Encounter for screening for other viral diseases (Acute) S/P hysterectomy (Chronic) History of section (Chronic) S/P gastric bypass (Chronic) Migraine (Chronic) ADHD (Chronic) Chondromalacia of left patellofemoral joint (Acute) Maltracking of left patella (Acute) Medical History Carpal tunnel syndrome Claustrophobia Depressive disorder Family history of cardiovascular disease Gastritis Hyperglycemia Hypersomnia Insomnia Mixed hyperlipidemia ADAIR (obstructive sleep apnea) Ovarian cyst Periodic limb movement sleep disorder Polycystic ovaries Rosacea Severe obesity Surgical History H/O cystoscopy (~2020) H/O LEEP (~1998) H/O ureteroscopy (~2020) Hx of cholecystectomy (~2000) Social History Smoking/Tobacco Use Status: Former Tobacco Use Quit Date: 11/19/99 Smoking risk assessment performed?: Yes Alcohol Intake: never Drug use: Never Substance use type: does not use Housing: house Do you feel safe at home: Yes Do you feel safe in your relationship?: Yes Meds Allergies and Home Medications Allergies Allergy/AdvReac Type Severity Reaction Status Date / Time No Known Allergies Allergy Unverified 06/07/23 08:46 Home Medications Medication Instructions Recorded Confirmed Type methylphenidate HCl 20 mg tablet 20 mg PO TID 02/04/21 06/07/23 History (Ritalin) levalbuterol HCl 1.25 mg/3 mL 1.25 mg (3 mL) UPD Q4H PRN PRN #90 02/08/21 06/06/23 Rx solution for nebulization mL albuterol sulfate 90 mcg/actuation 1 - 2 puff inhalation PRN PRN 08/02/21 06/07/23 History aerosol inhaler (ProAir HFA) ipratropium 0.5 mg-albuterol 3 mg 3 ml inhalation Q6H PRN 08/02/21 06/06/23 History (2.5 mg base)/3 mL nebulization soln zolpidem 10 mg tablet 10 mg PO QHS PRN #14 tabs 08/04/21 06/07/23 Rx oxycodone 10 mg tablet 10 mg PO Q6H PRN PRN pain #20 tabs 06/04/23 06/07/23 Rx Exam Const General: cooperative Neck Neck: normal visual inspection and supple Resp Effort & Inspection: normal respiratory effort Auscultation: clear to auscultation bilaterally Cardio Rate: regular rate Rhythm: regular rhythm GI Palpation: soft and no masses Neuro General: patient alert, patient awake and patient oriented x3 Results Last Vital Signs Temp 36.7 C 06/07/23 08:35 Pulse 74 06/07/23 08:35 Resp 18 06/07/23 08:35 BP 138/82 06/07/23 08:35 Pulse Ox 97 06/07/23 08:35 Time Spent Time spent with Patient: <40 minutes Time was spent: other
[2023-06-07] MEDS: ceFAZolin 2 GM/50 ML BAG IVPB (10:29)
[2023-06-07] MEDS: Omnipaque 300 MG/ML 50 ML BTL (10:46)
[2023-06-07] MEDS: Lidocaine 2% Jelly 6 ML SYR (10:47)
--- NOTE | 2023-06-07 11:51 | W.PM.DSUDISC ---
Date of service: 06/07/23 Time of Service: 11:51 Discharge Plan Disposition Condition: Stable Discharge Details Reason For Visit: right kidney stone Attending Provider: Quan Lebron Primary Care Provider: Waqas Cyr Home Meds and New Rx's Prescriptions: No Action oxycodone 10 mg tablet 10 mg PO Q6H PRN MDD 4 PRN (Reason: pain) Qty: 20 0RF ipratropium-albuterol 0.5 mg-3 mg(2.5 mg base)/3 mL solution for nebulization 3 ml INHALATION Q6H PRN Patient Comments: no longer taking albuterol sulfate [ProAir HFA] 90 mcg/actuation HFA aerosol inhaler 1 - 2 puff INHALATION PRN PRN zolpidem 10 mg tablet 10 mg PO QHS PRNQty: 14 0RF methylphenidate HCl [Ritalin] 20 mg Tablet 20 mg PO TID levalbuterol HCl 1.25 mg/3 mL Solution For Nebulization 1.25 mg UPD Q4H PRN PRNQty: 90 1RF Discharge Instructions Additional Instructions: no need to strain urine my office will contact pt to make arrangement for cystoscopy, stent removal and repeat ureteroscopy to make sure all stone fragments have been removed ask pt to call my office tomorrow to let us know about her pain level and whether or not she needs a refill on her pain meds Activity:: Activity as Tolerated Shower/Bathe:: 24 hours Diet:: As Tolerated DS: Diagnosis Discharge Diagnosis (1) Kidney stone on right side: Status: Acute
--- NOTE | 2023-06-07 11:52 | DI.RAD_ITS ---
Exam(s) XR RETROGRADE IN OR EXAM: XR RETROGRADE IN OR CLINICAL HISTORY: KIDNEY STONE TECHNIQUE: 2D and realtime digital imaging was performed. CONTRAST MATERIAL: Refer to procedure report. COMPARISON: CT CT ABDOMEN PELVIS WO from 06/01/2023 FINDINGS: Fluoroscopy was provided for Dr. Lebron during the performance of a retrograde evaluation of the kaitlin l collecting system. Single image shows the distal aspect of a nephroureteral stent.. Please refer to the procedure report for complete details. Ka,r=17.3 mGy IMPRESSION: RADIATION DOSE DELIVERED:
--- NOTE | 2023-06-07 11:56 | W.PM.OP ---
Date of service: 06/07/23 Time of Service: 11:56 Operative Note Operative Note DATE OF PROCEDURE: 06/07/23 PRE-OP DIAGNOSIS: Right kidney stone POST-OP DIAGNOSIS: same PROCEDURE: Cystoscopy, right retrograde pyelogram, right flexible ureteroscopy with holmium laser lithotripsy of right kidney stone, extraction of multiple stone fragments, insert right ureteral stent SURGEON: Quan Lebron ANESTHESIA TYPE: Local By Surgeon and General LMA/ETT Refer to Anesthesia Record ESTIMATED BLOOD LOSS: 0 PATHOLOGY: other (Stones for chemical analysis) COMPLICATIONS: None Patient was transported to: PACU Patient's condition: stable Implants: 6 [place] by 22 to 30 cm right ureteral stent Indications: This is a 53-year-old woman who has a past history of kidney stones. We had done ureteroscopy and holmium laser lithotripsy of a right sided kidney stone several years ago. Her stone was composed of 80% uric acid and 20% calcium oxalate dihydrate. She has had about a 1 month history of right-sided back pain. She was evaluated in the emergency department and found to have a large stone in the right renal pelvis. She presents now for stone manipulation Findings: Large kidney stone in right renal pelvis Procedure Description: The patient was brought to the operating room on 06/07/2023. After being given IV antibiotics, general anesthesia was induced. She was then placed in the dorsal lithotomy position. Her genitalia and perineum were prepped and draped. 2% Xylocaine jelly was instilled into the urethra to act as a local anesthetic. A 22 [place] rigid cystoscope was passed through the urethra into the bladder. The bladder was inspected with a 30 degree lens. Both ureteral orifices appeared normal with no blood coming from either side. The right ureteral orifice was then cannulated with a 5 [place] access catheter and a retrograde film was obtained by injecting Omnipaque through the access catheter under fluoroscopic guidance. A filling defect in the renal pelvis was outlined. A Glidewire was then advanced through the access catheter and the catheter was removed. A dual-lumen catheter was passed over the wire and a second wire was then positioned. We chose one of the wires as a working wire and the other as a safety wire. The dual-lumen catheter was removed and the ureteral access sheath was then passed over the working wire. The safety wire was left in place. The flexible ureteroscope was then passed through the lumen of the access sheath. The renal pelvis was then inspected and a large stone was visualized. We then treated the stone with a 272 ?m holmium laser fiber. The stone fragmented quite nicely with a power setting of 0.8 and a rate of 8. We then were able to grasp multiple stone fragments using a 0 tip stone basket. The stone fragments that were removed were sent to pathology for chemical analysis. At the completion of the procedure, there was some blood product present in the renal pelvis. I was unsure if all large stone fragments had been removed, so we placed a 6 [place] variable length ureteral stent over the safety wire. The proximal end of the stent was curled in the renal pelvis and the distal end was curled within the bladder. The positioning of the stent was confirmed both fluoroscopically and cystoscopically. We will make arrangements to come back to the operating room to remove the stent and take 1 more look with the ureteroscope to make sure all stone fragments had been addressed. The bladder was emptied. The patient was taken to the recovery room in stable condition.
[2023-06-07] MEDS: ePHEDrine 25 MG/5 ML Syringe IVP (12:09)
--- NOTE | 2023-06-07 12:49 | W.ANESPOSTOP ---
Postoperative Evaluation Date, Time and Location Date Performed: 06/07/23 Time Performed: 12:49 Patient Location: Day Surgery Unit Vital Signs Most Recent Imported Vital Signs: Most Recent Vital Signs Temp Pulse Resp BP Pulse Ox 36.7 C 57 L 19 106/61 95 06/07/23 12:35 06/07/23 12:35 06/07/23 12:35 06/07/23 12:35 06/07/23 12:35 Pain Score Most Recent Pain Score: Most Recent Pain Score Pain Level 0 06/07/23 12:35 Assessment Mental Status: Awake (Alert & Oriented to Patient Baseline) Airway and Respiratory Function: Patent airway with normal (patient baseline) respiratory exam Cardiovascular Function: Hemodynamically Stable Hydration Status: Adequately Hydrated Nausea & Vomiting: No Nausea or Vomiting Pain: Pt. Denies Any Pain Peripheral Nerve Block: Patient did not receive a nerve block
[2023-06-07] MEDS: Phenazopyridine 200 MG TAB PO (12:56)
[2023-06-07] MEDS: oxyCODONE 5 MG TAB 10 MG PO (12:56)
[2023-06-13 15:07] LABS: Source: Right Kidney
== END 2023-06-07 13:15 | disposition home or self-care (01) ==
PROVIDERS: PCP Neuromusculoskeletal Medicine & OMM; Visit Provider Urology
PROC: (CPT 52356; principal; 2023-06-07 09:30)
DX: N20.0 Calculus of kidney (principal)
CPT/HCPCS: 52356; 74420; 82365; J0131; J0690; J1100; J1885; J2001; J2250; J2405; Q9967

== ENCOUNTER 2023-07-02 07:04 | Day surgery (SDC) | payer BC, SELFPAY ==
[2023-07-02] VITALS (10 sets, daily range): BP systolic 112–138; BP diastolic 60–73; PULSE 49–61; RESP 14–20; TEMP 36–36.5; O2SAT 94–97; BMI 41.3
[2023-07-02] MEDS: Lactated Ringers 1,000 ML 80 ML IV (07:45)
--- NOTE | 2023-07-02 07:56 | W.ANESPRE ---
General Info Date of Service Date Performed: 07/02/23 Height: 5 ft 4 in Weight: 109.4 kg Body Mass Index (BMI): 41.3 Surgical Procedure: Operation Date: 07/02/23 08:40 Proposed Procedure Side Surgeon p Cystoscopy/Possible Laser/Retrograde/Ureteroscopy/Stent Removal Right Quan Lebron MD Meds Allergies and Home Medications Allergies Allergy/AdvReac Type Severity Reaction Status Date / Time No Known Allergies Allergy Unverified 07/02/23 07:28 Home Medication Medication Instructions Recorded methylphenidate HCl 20 mg tablet 20 mg PO TID 02/04/21 (Ritalin) levalbuterol HCl 1.25 mg/3 mL 1.25 mg (3 mL) UPD Q4H PRN PRN #90 02/08/21 solution for nebulization mL albuterol sulfate 90 mcg/actuation 1 - 2 puff inhalation PRN PRN 08/02/21 aerosol inhaler (ProAir HFA) ipratropium 0.5 mg-albuterol 3 mg 3 ml inhalation Q6H PRN 08/02/21 (2.5 mg base)/3 mL nebulization soln zolpidem 10 mg tablet 10 mg PO QHS PRN #14 tabs 08/04/21 oxycodone 10 mg tablet 10 mg PO Q6H PRN PRN pain #10 tabs 06/22/23 Current Visit Medications: Current Medications Generic Name Dose Route Start Last Admin Trade Name Freq PRN Reason Stop Dose Admin Ringer's Solution 1,000 mls @ 80 mls/hr 07/02/23 06:00 IV 07/29/23 23:59 INFUSION MEI Cefazolin Sodium/Dextrose 2 gm in 50 mls @ 100 mls/hr 07/02/23 06:00 Ancef Duplex IVPB 07/02/23 16:00 PREOP MEI IV Miscellaneous Supplies 1 each 07/02/23 06:00 Iv Access IV 07/29/23 23:59 DIRECTED MEI Sodium Chloride 0 ml 07/02/23 06:00 Normal Saline Flush 10 Ml Syr IV 07/29/23 23:59 PRN PRN Sodium Chloride 0 ml 07/02/23 06:00 Normal Saline 10 Ml Vial IJ 07/29/23 23:59 DIRECTED PRN Sterile Water 0 ml 07/02/23 06:00 Water,Injection,Sterile 10 Ml Vial IJ 07/29/23 23:59 DIRECTED PRN PFSH Active Problems Active Problems: Problem Status Onset Code 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 ADHD F90.9 History of section Z98.891 S/P gastric bypass Z98.84 S/P hysterectomy Z90.710 Migraine G43.909 Encounter for screening for other viral diseases Z11.59 Fever R50.9 Fatigue R53.83 Nausea R11.0 Nephrolithiasis N20.0 Acute bronchitis with bronchospasm J20.9 GERD (gastroesophageal reflux disease) K21.9 Acute esophagitis K20.90 Insomnia G47.00 DVT prophylaxis Z29.9 Discharge planning issues Z02.9 Pill dysphagia R13.10 Post-nasal drip R09.82 Epistaxis R04.0 Encounter for screening laboratory testing for COVID-19 virus Z20.822 Pneumonia due to COVID-19 virus U07.1, J12.82 Screening for colon cancer Z12.11 Abdominal pain R10.9 Acne L70.9 Medical History Medical History (Updated 07/02/23 @ 07:27 by Genet Willett) Carpal tunnel syndrome Claustrophobia Depressive disorder Family history of cardiovascular disease Gastritis History of asthma Hyperglycemia Hypersomnia Insomnia Mixed hyperlipidemia ADAIR (obstructive sleep apnea) Ovarian cyst Periodic limb movement sleep disorder Polycystic ovaries Rosacea Severe obesity Surgical History Surgical History (Updated 07/02/23 @ 08:00 by Genet Willett) H/O cystoscopy (~2020) H/O LEEP (~1998) H/O ureteroscopy (~2020) Hx of cholecystectomy (~2000) Hx of hysterectomy Tobacco Smoking/Tobacco Use Status: Former Tobacco Use Alcohol Alcohol Intake: never Substance Use Substance use: Never Substance use type: does not use Vital Signs and Lab Results Vital Signs Most Recent Vital Signs in EMR: Most Recent Vital Signs Temp Pulse Resp BP Pulse Ox 36.2 C L 58 L 16 133/67 97 07/02/23 07:32 07/02/23 07:32 07/02/23 07:32 07/02/23 07:32 07/02/23 07:32 Lab Results Blood Type / Crossmatch: No Data to Display Complete Blood Count: No Data to Display Complete Metabolic Panel: No Data to Display Liver Function Panel: No Data to Display Coagulation Panel: No Data to Display Cardiac Panel: No Data to Display Arterial Blood Gas: No Data to Display Venous Blood Gas: No Data to Display Pancreas Panel: No Data to Display Thyroid Panel: No Data to Display Infectious Disease: No Data to Display Blood Cultures: No Data to Display Toxicology Panel: No Data to Display Panel: No Data to Display Imaging and Studies Imaging and Studies Study information below may be from another EMR and interpreted by another provider. Please see original notes in EMR for more complete details. EKG Summary: 08/02/21: Exam: Resting ECG Reason for Exam: sob Patient Location: E HR:94 bpm ECG Measurements Heart Rate 94 AXIS IL 150 P 50 QRSd 98 QRS 22 QT 374 T-5 QTc 468 Conclusion Sinus rhythm...normal P axis, V-rate 60- 99. Sinus. No STEMI. I have reviewed and interpreted ECG and agree with software generated interpretation. Pulmonary Function Summary: 03/31/21: Pulmonary Function Test Result Interpretation Spirometry: No evidence of obstructive airways disease, no bronchodilator response Lung Volumes: No evidence of restriction Diffusion Capacity: Borderline mildly reduced which is normal when corrected to alveolar volume Airway Pressure: Normal Impression Isolated borderline reduction in diffusion capacity, this is normal when corrected to alveolar volume Clinical Correlation therefore is recommended. Anesthesia Assessment and Plan Anesthesia History Personal History: No History of Anesthesia Complications Family History: No Family History of Anesthesia Complications Exercise Tolerance Exercise Tolerance: Metabolic Equivalents>4 Pertinent Negatives Pertinent Negatives: No Major Cardiovascular Symptoms or Complaints, No Major Pulmonary Symptoms or Complaints and No History of CVA/TIA Cardiac & Pulmonary Exam Cardiac Exam: Normal S1/S2 Heart Sounds Pulmonary Exam: Clear Bilateral Breath Sounds Cardiac and Pulmonary Comment:: Lungs slightly diminished Denies ADAIR Uses inhalers PRN only, not needed today Implantable Cardiac Device Does patient have a Pacemaker or an ICD?: No Airway Exam Known Difficult Airway: No Mallampati Class: 1 Mouth Opening: Normal (> 3cm) Thyromental Distance: Greater than 3 cm Neck Range of Motion: Full ROM Neck Circumference: Normal Teeth Condition: Removable Dentures/Plates Upper and Edentulous ASA Classification ASA Score: ASA 3 Emergency Case?: No NPO Status NPO Status: NPO Clears >2 hours, Solids >8 hours Status Status: History of Hysterectomy Anesthesia Plan Resuscitation Status: Full Code Anesthesia Technique: General Anesthesia Airway Planned: Endotracheal Tube Monitors Used: Standard Monitors Preoperative Comments:: Methylphenidate taken to treat Narcolepsy
--- NOTE | 2023-07-02 08:00 | DI.RAD_ITS ---
Exam(s) XR RETROGRADE IN OR EXAM: XR RETROGRADE IN OR CLINICAL HISTORY: rt kidney stone. TECHNIQUE: Fluoroscopy was provided for the referring physician for guidance with performing retrogr jet procedure. COMPARISON: CT CT ABDOMEN PELVIS WO from 06/01/2023 XA XR RETROGRADE IN OR from 06/07/2023 FINDINGS: Please see procedure note for details. Fluoro time: 1 minutes 21 seconds RADIATION DOSE DELIVERED: Ka,r=40.5 mGy
--- NOTE | 2023-07-02 08:07 | W.PM.HP.N ---
Date of service: 07/02/23 Time of Service: 08:07 Assessment and Plan Assessment and plan (1) Nephrolithiasis: Status: Chronic Assessment and plan: We will do cystoscopy and remove her right ureteral stent. We will then do retrograde pyelogram and repeat right flexible ureteroscopy to ensure that all stone fragments had been addressed. We will be prepared to use a holmium laser to fragment stones or use a 0 tip stone basket to extract stone fragments. History of Present Illness History of Present Illness Chief Complaint: right kidney stone Narrative: This is a 53-year-old woman who has a history of kidney stones. She underwent ureteroscopy and holmium laser lithotripsy of her right sided stones. I was not convinced that I removed all significant stone fragments during her first procedure, so we elected to do a staged procedure. She now has a ureteral stent in place. She presents for stent removal with repeat ureteroscopy and stone manipulation. She has had some stent discomfort which improves with oxycodone as needed. She is not having any fevers or chills. She does see occasional gross hematuria. Review of Systems Constitutional Comments: No fevers or chills No vision change or dysphasia No diabetes or thyroid dysfunction No shortness of breath, cough or hemoptysis No chest pain or palpitations Hx GERD. No hepatitis, ulcers, jaundice ADHD. No seizures, strokes or peripheral neuropathy No bleeding disorders or anemia No gout PFSH All Active Problems Maltracking of left patella (Acute) Chondromalacia of left patellofemoral joint (Acute) ADHD (Chronic) History of section (Chronic) S/P gastric bypass (Chronic) S/P hysterectomy (Chronic) Migraine (Chronic) Encounter for screening for other viral diseases (Acute) Fever (Acute) Fatigue (Acute) Nausea (Acute) Nephrolithiasis (Chronic) Acute bronchitis with bronchospasm (Acute) GERD (gastroesophageal reflux disease) (Chronic) Acute esophagitis (Acute) Insomnia (Acute) DVT prophylaxis (Acute) Discharge planning issues (Acute) Pill dysphagia (Acute) Post-nasal drip (Acute) Encounter for screening laboratory testing for COVID-19 virus (Acute) Pneumonia due to COVID-19 virus (Acute) Screening for colon cancer (Acute) Abdominal pain (Acute) Acne (Acute) Medical History Carpal tunnel syndrome Claustrophobia Depressive disorder Family history of cardiovascular disease Gastritis History of asthma Hyperglycemia Hypersomnia Insomnia Mixed hyperlipidemia ADAIR (obstructive sleep apnea) Ovarian cyst Periodic limb movement sleep disorder Polycystic ovaries Rosacea Severe obesity Surgical History (Updated 07/02/23 @ 08:00 by Genet Willett) H/O cystoscopy (~2020) H/O LEEP (~1998) H/O ureteroscopy (~2020) Hx of cholecystectomy (~2000) Hx of hysterectomy Social History Smoking/Tobacco Use Status: Former Tobacco Use Quit Date: 11/19/99 Smoking risk assessment performed?: Yes Alcohol Intake: never Drug use: Never Substance use type: does not use Housing: house Do you feel safe at home: Yes Do you feel safe in your relationship?: Yes Meds Allergies and Home Medications Allergies Allergy/AdvReac Type Severity Reaction Status Date / Time No Known Allergies Allergy Unverified 07/02/23 07:28 Home Medications Medication Instructions Recorded Confirmed Type methylphenidate HCl 20 mg tablet 20 mg PO TID 02/04/21 07/02/23 History (Ritalin) levalbuterol HCl 1.25 mg/3 mL 1.25 mg (3 mL) UPD Q4H PRN PRN #90 02/08/21 07/02/23 Rx solution for nebulization mL albuterol sulfate 90 mcg/actuation 1 - 2 puff inhalation PRN PRN 08/02/21 07/02/23 History aerosol inhaler (ProAir HFA) ipratropium 0.5 mg-albuterol 3 mg 3 ml inhalation Q6H PRN 08/02/21 07/02/23 History (2.5 mg base)/3 mL nebulization soln zolpidem 10 mg tablet 10 mg PO QHS PRN #14 tabs 08/04/21 07/02/23 Rx oxycodone 10 mg tablet 10 mg PO Q6H PRN PRN pain #10 tabs 06/22/23 07/02/23 Rx Exam Const General: cooperative Neck Neck: supple Resp Effort & Inspection: normal respiratory effort Auscultation: clear to auscultation bilaterally GI Inspection: normal to inspection Neuro General: patient alert, patient awake and patient oriented x3 Results Labs Labs: RUN DATE: 07/02/23 [facility] PAGE 1 RUN TIME: [id number] RUN USER: [place] [address] Batsheva Jones MD PATIENT REPORT PATIENT: Katty Peterson LOC: [facility] U #: [id number] /SX: 1970 F ROOM: RE06/07/[address]: KAVITHA HUANG MD STATUS: DEP [facility] [place] BED: DIS: SPEC #: [id number] NAVID: 06/07/23 STATUS: COMP REQ #: [id number] RECD: 06/07/[address]: KAVITHA HUANG MD ENTERED: 06/07/[address]: DARRIN TITUS DO FAX #: ORDERED: Stone Anaylsis QUERIES: Source: Right Kidney Test Result Flag Reference Verified Kidney Stone Analysis Source: Right Kidney 06/13/23 Interpretation SEE BELOW 06/13/23 RESULT: 80% Uric acid dihydrate. 20% Calcium oxalate dihydrate. Result Comment See Comment 06/13/23 For stones containing calcium oxalate, calcium phosphate, and/or uric acid, a 24 hr urinary supersaturation test may help detect underlying risk factors for this type of stone formation and provide guidance for a stone prevention strategy. ADDITIONAL INFORMATION This test was developed and its performance characteristics determined by [facility] in a manner consistent with CLIA requirements. This test has not been cleared or approved by the U.S. Food and Drug Administration. Test Performed by: [facility] [place] [address] [place] [address] Quoter: Willi Michael M.D. 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
[2023-07-02] MEDS: ceFAZolin 2 GM/50 ML BAG IVPB (08:40)
[2023-07-02] MEDS: Lidocaine 2% Jelly 11 ML SYR (08:58)
[2023-07-02] MEDS: Omnipaque 300 MG/ML 50 ML BTL (10:03)
--- NOTE | 2023-07-02 10:09 | W.PM.DSUDISC ---
Date of service: 07/02/23 Time of Service: 10:09 Discharge Plan Disposition Condition: Stable Discharge Details Reason For Visit: right kidney stone Attending Provider: Quan Lebron Primary Care Provider: Waqas Cyr Home Meds and New Rx's Prescriptions: Continued oxycodone 10 mg tablet 10 mg PO Q6H PRN MDD 4 PRN (Reason: pain) Qty: 10 0RF No Action ipratropium-albuterol 0.5 mg-3 mg(2.5 mg base)/3 mL solution for nebulization 3 ml INHALATION Q6H PRN Patient Comments: no longer taking albuterol sulfate [ProAir HFA] 90 mcg/actuation HFA aerosol inhaler 1 - 2 puff INHALATION PRN PRN zolpidem 10 mg tablet 10 mg PO QHS PRNQty: 14 0RF Patient Comments: 07/02/23 Pt states does not have insomnia since not working nights, and does not use medication now. methylphenidate HCl [Ritalin] 20 mg Tablet 20 mg PO TID levalbuterol HCl 1.25 mg/3 mL Solution For Nebulization 1.25 mg UPD Q4H PRN PRNQty: 90 1RF Discharge Instructions Additional Instructions: no need to strain urine followup 2 to 3 days for stent removal - tell my office pt has string on stent followup appt 6 to 8 weeks for renal US in office Activity:: Activity as Tolerated Shower/Bathe:: 24 hours Diet:: As Tolerated DS: Diagnosis Discharge Diagnosis (1) Nephrolithiasis: Status: Chronic
--- NOTE | 2023-07-02 10:15 | W.PM.OP ---
Date of service: 07/02/23 Time of Service: 10:15 Operative Note Operative Note DATE OF PROCEDURE: 07/02/23 PRE-OP DIAGNOSIS: Right renal stone POST-OP DIAGNOSIS: same PROCEDURE: Cystoscopy, remove right ureteral stent, right retrograde pyelogram, right ureteroscopy with holmium laser lithotripsy of stones, stone extraction, insert right ureteral stent SURGEON: Quan Lebron ANESTHESIA TYPE: Local By Surgeon and General LMA/ETT Refer to Anesthesia Record ESTIMATED BLOOD LOSS: 25 PATHOLOGY: other (stone fragments for chemical analysis) COMPLICATIONS: None Patient was transported to: PACU Patient's condition: stable Implants: 6 Nepali by 22 to 30 cm right ureteral stent Indications: This is a 53-year-old woman who has a history of kidney stones. She recently underwent ureteroscopy with holmium laser lithotripsy of a large renal pelvic stone on the right. We left a ureteral stent in place following the procedure. She presents now for stent removal and repeat ureteroscopy to make sure all stone fragments had been removed Findings: encrusted right ureteral stent Procedure Description: The patient was brought to the operating room on 07/02/2023. She was given preoperative IV antibiotics. After successful induction of general anesthesia, she was placed in the dorsal lithotomy position. Her genitalia was prepped and draped. 2% Xylocaine jelly was instilled into the urethra to act as a local anesthetic. A 22 Nepali rigid cystoscope was passed through the urethra into the bladder. The bladder was inspected with a 30 degree lens. A stent could be seen protruding from the right ureteral orifice. The entire visible curl of the stent was encrusted with stone. The stent was grasped and it was difficult to retrieve the entire stent but we were eventually able to do so. We then passed a 5 Nepali access catheter through the lumen of the cystoscope and maneuvered the catheter into the right ureteral orifice. A retrograde pyelogram was obtained by injecting Omnipaque through the access catheter under fluoroscopic guidance. The entire ureter appeared dilated with minimal contrast going above the ureteropelvic junction. I was then able to pass a guidewire through the lumen of the ureteral catheter and advance the wire to the upper pole calyx. The access catheter was removed and the dual-lumen catheter was placed. We then positioned a second wire. We chose one of the wires as a safety wire and the other as a working wire. We passed a ureteral access sheath over the working wire leaving the safety wire in place. The flexible ureteroscope was passed through the lumen of the ureteral access sheath. In the upper ureter at the level of the ureteropelvic junction, there were multiple stones visible. The stones followed the contour of the stent and it was felt that they had been encrusted on the upper curl of her right ureteral stent. We used a 272 ?m holmium laser fiber to fragment the stone for particles and we used a 0 tip stone basket to extract multiple stone fragments. The stone fragments were sent to pathology for chemical analysis. At the completion of the procedure, no large stone burden was found in the ureter or in the renal pelvis. We removed the scope and the ureteral access sheath. We passed a 6 Nepali variable length stent over the safety wire. We positioned the proximal end of the stent in the renal pelvis and the distal end in the bladder. We left the safety string in place and brought the string through the urethral meatus. The positioning of the stent was confirmed both fluoroscopically and cystoscopically. The safety string was then tucked in the patient's vaginal cavity and we will plan to remove the stent in 2 to 3 days. The patient tolerated this procedure well with no complications.
[2023-07-02] MEDS: fentaNYL 100 MCG/2 ML VIAL IVP ×2 (10:42→10:56)
--- NOTE | 2023-07-02 10:47 | W.ANESPOSTOP ---
Postoperative Evaluation Date, Time and Location Date Performed: 07/02/23 Time Performed: 10:47 Patient Location: PACU Vital Signs Most Recent Imported Vital Signs: Most Recent Vital Signs Temp Pulse Resp BP Pulse Ox 36.3 C L 53 L 18 126/60 97 07/02/23 10:32 07/02/23 10:32 07/02/23 10:32 07/02/23 10:32 07/02/23 10:32 Pain Score Most Recent Pain Score: Most Recent Pain Score Pain Level 4 07/02/23 10:40 Assessment Mental Status: Awake (Alert & Oriented to Patient Baseline) Airway and Respiratory Function: Patent airway with normal (patient baseline) respiratory exam Cardiovascular Function: Hemodynamically Stable Hydration Status: Adequately Hydrated Nausea & Vomiting: No Nausea or Vomiting Pain: Pain is tolerable per patient Peripheral Nerve Block: Patient did not receive a nerve block
[2023-07-02] MEDS: Phenazopyridine 200 MG TAB PO (11:26)
[2023-07-09 22:02] LABS: Source: Right Kidney
== END 2023-07-02 12:05 | disposition home or self-care (01) ==
PROVIDERS: PCP Neuromusculoskeletal Medicine & OMM; Visit Provider Urology
PROC: (CPT 52356; principal; 2023-07-02 08:30)
DX: N20.0 Calculus of kidney (principal); E66.01 Morbid (severe) obesity due to excess calories; Z68.41 Body mass index [BMI] 40.0-44.9, adult
CPT/HCPCS: 52356; 74420; 82365; J0690; J1100; J1885; J2250; J2405; J2704; J3010; Q9967

== ENCOUNTER 2023-07-05 00:16 | Emergency (ER) | payer BC, SELFPAY ==
[2023-07-05] VITALS (14 sets, daily range): BP systolic 119–183; BP diastolic 69–134; PULSE 45–65; RESP 24; TEMP 36.8; O2SAT 90–99
--- NOTE | 2023-07-05 00:30 | DI.CT_ITS ---
Exam(s) CT RENAL COLIC WO EXAM: CT RENAL COLIC WO CLINICAL HISTORY: severe right flank pain s/p uretral stent removal. TECHNIQUE: Imaging Protocol: Axial computed tomography images with coronal and sagittal reformatted images were created and reviewed CONTRAST MATERIAL: Intravenous: none Oral: None COMPARISON: CT CT ABDOMEN PELVIS WO from 06/01/2023 FINDINGS: VISUALIZED LUNG BASES: No nodules nor pleural effusions evident. ABDOMEN: There is no ascites. Again noted is evidence of bariatric surgery. The pre colic Colt limb is not d ilated. There is no evidence of obstruction at the enteroenterostomy nor more distal small bowel obs truction. LIVER: There are no obvious focal hepatic lesions evident of this noninfused study. GALLBLADDER/BILIARY: Gallbladder is again noted to be surgically absent. CBD is not dilated. PANCREAS: No evidence of pancreatic mass nor dilatation of the pancreatic duct. SPLEEN: Spleen is not enlarged. No obvious intrasplenic lesions. ADRENALS: There are no significant adrenal masses. KIDNEYS:Bilateral nephrolithiasis is again noted. However, on the present study there is an obstruct ing 4 millimeter calculus in the right ureter at the iliac vessel crossover point with significant di latation of the collecting system above this level and perinephric streaking. Remaining calculi also noted in the lower pole of the right kidney. There are no calculi evident in the nondistended urina ry bladder. ABDOMINAL AORTA: Abdominal aorta is not enlarged. LYMPH NODES: There is no retroperitoneal nor paraaortic adenopathy. ABDOMINAL WALL: No evidence of significant anterior abdominal wall nor inguinal hernia. GI: There is no evidence of bowel obstruction, free air, nor abscess. PELVIS: LYMPH NODES: There is no intrapelvic nor inguinal adenopathy. GI: No evidence of appendicitis.No evidence of sigmoid diverticulitis. URINARY BLADDER: No calculi nor obvious masses evident REPRODUCTIVE: Uterus surgically absent. No abnormal adnexal masses. No free fluid in the pelvis. OSSEOUS: No significant osseous lesions. No fractures. Degenerative anterolisthesis L4 upon L5 again noted. IMPRESSION: 1. Compared to the prior CT scan of 06/01/2023 there is bilateral nephrolithiasis again noted but the re is now obstructing 4 millimeter calculus in the right ureter at the iliac vessel level with signif icant dilatation of the right collecting system above this level and ipsilateral perinephric streakin g. There are no radiopaque calculi in the nondistended urinary bladder. 2. Prior bariatric surgery again noted with no evidence of bowel obstruction, free air, nor abscess. 3. This cholecystectomy and hysterectomy again noted. RADIATION DOSE DELIVERED: 1,425.94mGy.cm Total DLP DATA REPOSITORY: All CT scans at this facility are submitted to the National Radiology Data Registry (NRDR) Dose Index Registry (DIR) with the [employer] (A[employer]). RADIATION OPTIMIZATION: All CT scans at this facility use at least one of these dose optimization te chniques: automated exposure control; mA and/or kV adjustment per patient size (includes targeted exa ms where dose is matched to clinical indication); or iterative reconstruction.
[2023-07-05] MEDS: MORPHine 10 MG/ML VIAL 5 MG IVP ×4 (00:35→03:52)
--- NOTE | 2023-07-05 00:36 | ED.GENADUL_ITS ---
Discharge Plan Disposition Patient Disposition: Home Condition: Good Discharge Details Clinical Impression: Kidney stone Primary Care Provider: Waqas Cyr ED Provider: Shanae Tracy Home Meds and New Rx's Prescriptions: New oxycodone 5 mg tablet 5 mg PO Q6H PRNQty: 20 0RF ondansetron 4 mg tablet,disintegrating 4 mg PO Q8H PRNQty: 20 0RF tamsulosin [Flomax] 0.4 mg capsule 0.4 mg PO DAILY Qty: 14 0RF No Action oxybutynin chloride 5 mg tablet 5 mg PO TID PRN (Reason: bladder spasms) Qty: 15 0RF ipratropium-albuterol 0.5 mg-3 mg(2.5 mg base)/3 mL solution for nebulization 3 ml INHALATION Q6H PRN Patient Comments: no longer taking albuterol sulfate [ProAir HFA] 90 mcg/actuation HFA aerosol inhaler 1 - 2 puff INHALATION PRN PRN zolpidem 10 mg tablet 10 mg PO QHS PRNQty: 14 0RF Patient Comments: 07/02/23 Pt states does not have insomnia since not working nights, and does not use medication now. oxycodone 10 mg tablet 10 mg PO Q6H PRN MDD 4 PRN (Reason: pain) Qty: 10 0RF methylphenidate HCl [Ritalin] 20 mg Tablet 20 mg PO TID levalbuterol HCl 1.25 mg/3 mL Solution For Nebulization 1.25 mg UPD Q4H PRN PRNQty: 90 1RF Discharge Instructions Instructions: Kidney Stones (ED) Additional Instructions: Take tylenol over the counter as needed for pain, follow the directions on the bottle. You can take oxycodone for breakthrough pain, 1-2 tablets (5-10mgs) every 6 hours. Take flomax once a day. You can take zofran up to every 8 hours as needed for nausea. Follow up with your urologist- call today to schedule an appointment. Return to the emergency department for new or worsening symptoms, including fever, inability to urinate, inability to keep down fluids, or new/different/worse pain. Referrals: [facility] [Provider Group] Medical Decision Making 53yo F with hx asthma, kidney stones, presenting for severe right flank pain after removal of right sided uretral stent in office today. This evening severe right flank pain radiating into her groin with associated nausea, worse than the kidney stone itself, not improved by home medications including oxycodone. Hypertensive on arrival, vital signs otherwise reassuring, does not appear septic. Given IV toradol, morhpine, zofran for symptoms. Labs reviewed as below, CBC reassuring no leuocytosis, mild anemia with Hg 9.4 (most recent prior June 01 2023 10.4), CMP with normal Cr. UA with blood, not suggestive of infection. CT reviewed, mild hydronephrosis on right, agree with radiology read below which states 3mm calculus in right ureter. Discussed with on-call urologist at [facility] [place]; no acute interventions indicated, not concerned for significant post-procedural complications, okay to treat symptoms as due to kidney stone. On reassessment pain is improved and now is tolerable, nausea persists. Appropriate interval for 2nd dose of zofran which was given; sub sequently able to tolerate PO. Given prescription for short course of oxyodone, zofran, and flomax. Advised to follow up closely with her urologist. Discharged home; discharge instructions including return precautions were reviewed with patient who verbalized understanding. All questions were answered and they are in full agreement with the plan. Medical Records Medical records reviewed: Yes I reviewed the patient's medical records. Medical records narrative: Urology office visit note 07/04/23 Imaging Data Radiologic Study: Imaging: CT Scan Radiologist's impression: IMPRESSION: 3 mm calculus right proximal ureter with mild right hydroureteronephrosis. Lab Data Lab results reviewed: Yes I reviewed the patient's lab results. Labs: Laboratory Tests Range/Units 07/05/23 07/05/23 07/05/23 00:25 00:25 03:15 WBC (4.4-10.8) 10^3/uL 8.92 RBC (3.93-5.22) 10^6/uL 4.09 Hgb (11.2-15.7) g/dL 9.4 L Hct (36.0-46.0) % 30.4 L MCV (80-95) fL 74 L MCH (27.0-33.0) pg 23.0 L MCHC (32.0-36.0) % 30.9 L RDW (11.7-14.6) % 15.4 H Plt Count (130-400) 10^3/uL 357 MPV (8.0-11.0) fL 8.6 Immature Gran % 0.2 Neutrophils % 52.4 Lymphocytes % 32.3 Monocytes % 9.5 Eosinophils % 4.9 Basophils % 0.7 Nucleated RBC % (0.0-0.3) % 0.0 Absolute Neutrophils (1.2-6.7) 10^3/uL 4.67 Absolute Lymphocytes (1.2-3.4) 10^3/uL 2.88 Absolute Monocytes (0.1-0.8) 10^3/uL 0.85 H Absolute Eosinophils (0.0-0.7) 10^3/uL 0.44 Absolute Basophils (0.0-0.2) 10^3/uL 0.06 RBC Morphology See Below Microcytosis 2+ Sodium (136-145) mmol/L 143 Potassium (3.5-5.1) mmol/L 3.7 Chloride (98-107) mmol/L 104 Carbon Dioxide (21.0-32.0) mmol/L 27.5 Anion Gap (3-11) mmol/L 11.5 H BUN (7-18) mg/dL 16 Creatinine (0.55-1.02) mg/dL 1.0 Est GFR (CKD-EPI 2020) (mL/min/1.73m2) 68.21 Glucose (74-106) mg/dL 141 H Calcium (8.5-10.1) mg/dL 9.4 Total Bilirubin (0.2-1.0) mg/dL 0.3 AST (15-37) U/L 24 ALT (14-59) U/L 36 Alkaline Phosphatase (46-116) U/L 113 Total Protein (6.4-8.2) g/dL 7.5 Albumin (3.4-5.0) g/dL 3.6 Urine Color (Yellow) Yellow Urine Clarity (Clear) Cloudy Urine pH (5-8) 5.5 Ur Specific [place] (1.005-1.025) >= 1.030 H Urine Protein (Negative) mg/dL >=300 H Urine Ketones (Negative) mg/dL Negative Urine Blood (Negative) Moderate H Urine Nitrite (Negative) Negative Urine Bilirubin (Negative) Negative Urine Urobilinogen (Up to 0.2) mg/dL 0.2 Ur Leukocyte Esterase (Negative) Negative Urine RBC (0-2) HPF 10-20 H Urine WBC (0-5) HPF 5-10 Ur Epithelial Cells (Negative) HPF Many Urine Crystals (Negative) HPF Negative Urine Bacteria (Negative) HPF Few Urine Mucus (Negative) Trace Ur Culture Indicated? No/Sq. Contamination Urine Glucose (Negative) mg/dL Negative HPI General Mode of arrival: ambulatory . Date/Time Provider Initiated Documentation: 07/05/23 00:25 . Limitations to Documentation: no limitations . Information obtained by: patient . HPI Narrative: 53yo F with hx asthma, kidney stones, presenting for severe right flank pain. Had stone removal recently and right sided uretral stent removed in office to day. Initially doing well post procedure, this evening now severe right flank pain radiating into her groin worse than when I had the stone, no improvement with home medications including oxycodone. Able to void. Assoicated nausea, 3- 4 episodes of vomiting this evening, nonbloody nonbilious. No abdominal pain. She is otherwise in her usual state of health with no fevers, chills, rash, presycnope, syncope, chest pain, shortness of breath, or other concerns. Related Data Home Medications Medication Instructions Recorded Confirmed methylphenidate HCl 20 mg tablet 20 mg PO TID 02/04/21 07/02/23 (Ritalin) levalbuterol HCl 1.25 mg/3 mL 1.25 mg (3 mL) UPD Q4H PRN PRN #90 02/08/21 07/02/23 solution for nebulization mL albuterol sulfate 90 mcg/actuation 1 - 2 puff inhalation PRN PRN 08/02/21 07/02/23 aerosol inhaler (ProAir HFA) ipratropium 0.5 mg-albuterol 3 mg 3 ml inhalation Q6H PRN 08/02/21 07/02/23 (2.5 mg base)/3 mL nebulization soln zolpidem 10 mg tablet 10 mg PO QHS PRN #14 tabs 08/04/21 07/02/23 oxybutynin chloride 5 mg tablet 5 mg PO TID PRN bladder spasms #15 07/02/23 0 07/02/23 tabs oxycodone 10 mg tablet 10 mg PO Q6H PRN PRN pain #10 tabs 07/02/23 ondansetron 4 mg disintegrating 4 mg PO Q8H PRN #20 tabs 07/05/23 tablet oxycodone 5 mg tablet 5 mg PO Q6H PRN #20 tabs 07/05/23 tamsulosin 0.4 mg capsule (Flomax) 0.4 mg PO DAILY #14 caps 07/05/23 Previous Rx's Medication Instructions Recorded levalbuterol HCl 1.25 mg/3 mL 1.25 mg (3 mL) UPD Q4H PRN PRN #90 02/08/21 solution for nebulization mL zolpidem 10 mg tablet 10 mg PO QHS PRN #14 tabs 08/04/21 oxybutynin chloride 5 mg tablet 5 mg PO TID PRN bladder spasms #15 07/02/23 tabs oxycodone 10 mg tablet 10 mg PO Q6H PRN PRN pain #10 tabs 07/02/23 ondansetron 4 mg disintegrating 4 mg PO Q8H PRN #20 tabs 07/05/23 tablet oxycodone 5 mg tablet 5 mg PO Q6H PRN #20 tabs 07/05/23 tamsulosin 0.4 mg capsule (Flomax) 0.4 mg PO DAILY #14 caps 07/05/23 Allergies Allergy/AdvReac Type Severity Reaction Status Date / Time No Known Allergies Allergy Unverified 07/02/23 07:28 General Stated Complaint: FlankPain RASHID: 3 Review of Systems Narrative: see HPI PFSH All Active Problems (Updated 07/05/23 @ 05:08 by Shanae Tracy MD) Kidney stone (Chronic) Maltracking of left patella (Acute) Chondromalacia of left patellofemoral joint (Acute) ADHD (Chronic) History of section (Chronic) S/P gastric bypass (Chronic) S/P hysterectomy (Chronic) Migraine (Chronic) Encounter for screening for other viral diseases (Acute) Fever (Acute) Fatigue (Acute) Nausea (Acute) Acute bronchitis with bronchospasm (Acute) GERD (gastroesophageal reflux disease) (Chronic) Acute esophagitis (Acute) Insomnia (Acute) DVT prophylaxis (Acute) Discharge planning issues (Acute) Pill dysphagia (Acute) Post-nasal drip (Acute) Encounter for screening laboratory testing for COVID-19 virus (Acute) Pneumonia due to COVID-19 virus (Acute) Screening for colon cancer (Acute) Abdominal pain (Acute) Acne (Acute) Medical History (Updated 07/05/23 @ 05:08 by Shanae Tracy MD) Carpal tunnel syndrome Claustrophobia Depressive disorder Family history of cardiovascular disease Gastritis History of asthma Hyperglycemia Hypersomnia Insomnia Mixed hyperlipidemia Nephrolithiasis ADAIR (obstructive sleep apnea) Ovarian cyst Periodic limb movement sleep disorder Polycystic ovaries Rosacea Severe obesity Surgical History (Updated 07/02/23 @ 08:00 by Genet Willett) H/O cystoscopy (~2020) H/O LEEP (~1998) H/O ureteroscopy (~2020) Hx of cholecystectomy (~2000) Hx of hysterectomy Social History Smoking/Tobacco Use Status: Former Tobacco Use Quit Date: 11/19/99 Smoking risk assessment performed?: Yes Alcohol Intake: never Drug use: Never Substance use type: does not use Housing: house Do you feel safe at home: Yes Do you feel safe in your relationship?: Yes Exam Narrative Exam Narrative: General: Alert, appears distressed. Head: Normocephalic, atraumatic Neck: Trachea midline, Neck supple. ENT: MMM. No oropharygeal lesions or exudate. Cardiac: RRR, no murmurs appreciated Resp: No respiratory distress. CTAB. Abd: Soft, non-distended, nontender : No suprapubic tenderness. + CVA tendernes on right. Extremities: No deformities. No peripheral edema. Neurologic: GCS 15. Moves all extremities freely against gravity Course Vital Signs Vital signs: Vital Signs Temperature 36.8 C 07/05/23 00:22 Pulse 60 07/05/23 00:22 Respiratory Rate 24 07/05/23 00:22 Blood Pressure 119/105 H 07/05/23 00:22 Pulse Oximetry 96 07/05/23 00:22 Temperature 36.8 C 07/05/23 00:22 Temperature Source Temporal Artery Scan 07/05/23 00:22 Pulse 60 07/05/23 00:22 Respiratory Rate 24 07/05/23 00:22 Respiratory Effort Normal 07/05/23 00:31 Blood Pressure 119/105 H 07/05/23 00:22 Blood Pressure Position Sitting 07/05/23 00:22 Pulse Oximetry 96 07/05/23 00:22 Oxygen Delivery Method Room Air 07/05/23 00:22 Oxygen Flow Rate 0 07/05/23 00:22 Pain Level 10 07/05/23 00:33
[2023-07-05] MEDS: Ketorolac 30 MG/ML VIAL 15 MG IVP (00:40)
[2023-07-05] MEDS: Ondansetron 4 MG/2 ML VIAL IVP ×2 (00:41→05:06)
[2023-07-05 00:49] LABS: Abs Immature Grans 0.02 10^3/uL (0.0-0.06); Absolute Basophil Count 0.06 10^3/uL (0.0-0.2); Absolute Eosinophil Count 0.44 10^3/uL (0.0-0.7); Absolute Lymphocyte Count 2.88 10^3/uL (1.2-3.4); Absolute Monocyte Count 0.85 10^3/uL (0.1-0.8); Absolute Neutrophil Count 4.67 10^3/uL (1.2-6.7); Basophils % 0.7; Eosinophils % 4.9; HCT 30.4 % (36.0-46.0); HGB 9.4 g/dL (11.2-15.7); Immature Grans % 0.2; Lymphocytes % 32.3; MCHC 30.9 % (32.0-36.0); MCV 74 fL (80-95); MPV 8.6 fL (8.0-11.0); Monocytes % 9.5; Neutrophils % 52.4; Platelet Count 357 10^3/uL (130-400); RBC 4.09 10^6/uL (3.93-5.22); RDW 15.4 % (11.7-14.6); RDW-SD 41.4 fL; WBC 8.92 10^3/uL (4.4-10.8)
[2023-07-05 01:06] LABS: ALT 36 U/L (14-59); AST 24 U/L (15-37); Albumin 3.6 g/dL (3.4-5.0); Alkaline Phosphatase 113 U/L (46-116); Anion Gap 11.5 mmol/L (3-11); BUN 16 mg/dL (7-18); Bilirubin, Total 0.3 mg/dL (0.2-1.0); CO2 27.5 mmol/L (21.0-32.0); Calcium 9.4 mg/dL (8.5-10.1); Chloride 104 mmol/L (98-107); Estimated GFR 68.21 (mL/min/1.73m2); Glucose 141 mg/dL (74-106); Potassium 3.7 mmol/L (3.5-5.1); Sodium 143 mmol/L (136-145); Total Protein 7.5 g/dL (6.4-8.2)
[2023-07-05] MEDS: Normal Saline 1,000 ML 1000 ML IV (01:10)
[2023-07-05 01:16] LABS: Diff Comment RBC Morph Reviewed; Microcytosis 2+
--- NOTE | 2023-07-05 01:29 | DI.VRAD_ITS ---
PROCEDURE INFORMATION: Exam: CT Abdomen And Pelvis Without Contrast Exam date and time: 07/05/2023 12:48 AM Age: 53 years old Clinical indication: Prior surgery; Surgery date: Post-operative (0-2 days); Surgery type: Ureterial stent removed, surgery yesterday kidney stones; Patient HX: R flank pain TECHNIQUE: Imaging protocol: Computed tomography of the abdomen and pelvis without contrast. Radiation optimization: All CT scans at this facility use at least one of these dose optimization techniques: automated exposure control; mA and/or kV adjustment per patient size (includes targeted exams where dose is matched to clinical indication); or iterative reconstruction. COMPARISON: CT ABDOMEN PELVIS WO 06/01/2023 10:38 AM FINDINGS: Liver: Hepatic steatosis. Gallbladder and bile ducts: Status post cholecystectomy. Pancreas: Normal. No ductal dilation. Spleen: Normal. No splenomegaly. Adrenal glands: Normal. No mass. Kidneys and ureters: 3 mm calculus right proximal ureter with mild right hydroureteronephrosis. Nonobstructing renal calculi. Stomach and bowel: Colonic diverticula. No bowel obstruction. Status post gastrojejunostomy. Appendix: No evidence of appendicitis. Intraperitoneal space: Unremarkable. No free air. No significant fluid collection. Vasculature: Unremarkable. No abdominal aortic aneurysm. Lymph nodes: Unremarkable. No enlarged lymph nodes. Urinary bladder: Unremarkable as visualized. Reproductive: Status post hysterectomy. Bones/joints: Unremarkable. No acute fracture. Soft tissues: Unremarkable. IMPRESSION: 3 mm calculus right proximal ureter with mild right hydroureteronephrosis. Dictated and Authenticated by: Osmar Moss MD. Ordering:NOAH Jolly MD
[2023-07-05 03:35] LABS: Bilirubin Negative (Negative); Blood Moderate (Negative); Clarity Cloudy (Clear); Glucose Negative (Negative); Ketones Negative (Negative); Leukocyte Esterase Negative (Negative); Nitrite Negative (Negative); Specific Gravity >= 1.030 (1.005-1.025); Urobilinogen 0.2 mg/dL (Up to 0.2); pH 5.5 (5-8)
[2023-07-05 03:42] LABS: Bacteria Few HPF (Negative); C & S Indicated? No/Sq. Contamination; Crystals Negative HPF (Negative); Epithelial Cells Many HPF (Negative); Mucus Trace (Negative)
== END 2023-07-05 06:10 | disposition home or self-care (01) ==
PROVIDERS: Emergency Provider Student in an Organized Health Care Education/Training Program; PCP Neuromusculoskeletal Medicine & OMM
DX: N20.0 Calculus of kidney (principal)
CPT/HCPCS: 36415; 80053; 96361; 96374; 96375; 96376; 99284; 74176; 81003; 81015; 85025; J1885; J2270; J2405

== ENCOUNTER 2023-07-27 09:07 | Day surgery (SDC) | payer BC, SELFPAY ==
--- NOTE | 2023-07-26 12:31 | W.COLOREPORT ---
Date of service: 07/27/23 Time of Service: 10:30 Colonoscopy Report Date of procedure: 07/27/23 Pre-op diagnosis general: Colorectal cancer screening/secondary family member with colorectal cancer Post-op diagnosis procedure note: other (Diverticula/colon polyp/internal hemorrhoids) Surgeon: Theodora Sellers Anesthesia Type: General:No Airway Estimated blood loss (mL): 2 Pathology: other Complications: None Disposition: no change Prep: Miralax/Dulcolax Retraction Time: 14 Procedure Description: After informed consent was obtained the patient was taken to the procedure room and placed in a left decubitous position. Monitors were applied and a time out was done. The patients name, date of , procedure, allergies to medications and metal in their body was reviewed. The patient was then sedated. Once sedated and comfortable a rectal exam was done. External exam was normal. Internal exam revealed a normal sphincter tone and no palpable masses. The scope was then introduced and retrofelexed. Grade I internal hemorrhoids x 3 columns were identified. The scope was then advanced to the cecum w/out difficulty. The TI and appendiceal orifice were identified. The prep was BBPS 3 in all segments for a total of 9. The scope was then slowly retracted over 14 minutes back into the rectum. She has a few small scattered diverticula in the sigmoid colon with no signs of active bleeding or infection.. She had multiple polyps that we removed. She had a flat 5 mm polyp in the rectum that is removed with a cold biopsy forceps. She has a flat 5 mm polyp at 40 cm that is removed with a cold biting forcep. At 30 cm she has a 1 cm pedunculated polyp that is removed with cold snare. A clip is placed over the defect. There is no bleeding noted. She has x3 5 mm polyps that are removed with a cold Biopsy forcep at 30 cm.. All specimen is retrieved and no bleeding is noted. The scope was removed and the patient was woken up and taken back to Same day surgery in stable condition. The patient tolerated the procedure well and there were no immediate complications. Follow up: The patient should follow up in 3-5 years unless they develop changes in bowel habits or other new gastrointestinal complaints.
--- NOTE | 2023-07-26 12:32 | PDOC.DSDIS_ITS ---
Date of service: 07/27/23 Time of Service: 10:25 Discharge Plan Disposition Patient Disposition: Home Condition: Good Discharge Details Reason For Visit: Colorectal cancer screening Attending Provider: Theodora Sellers Primary Care Provider: Waqas Cyr [place] Meds and New Rx's Prescriptions: Continued oxybutynin chloride 5 mg tablet 5 mg PO TID PRN (Reason: bladder spasms) Qty: 15 0RF ipratropium-albuterol 0.5 mg-3 mg(2.5 mg base)/3 mL solution for nebulization 3 ml INHALATION Q6H PRN Patient Comments: no longer taking albuterol sulfate [ProAir HFA] 90 mcg/actuation HFA aerosol inhaler 1 - 2 puff INHALATION PRN PRN zolpidem 10 mg tablet 10 mg PO QHS PRNQty: 14 0RF Patient Comments: 07/02/23, 07/27/23 Pt states does not have insomnia since not working nights, and does not use medication now. oxycodone 10 mg tablet 10 mg PO Q6H PRN MDD 4 PRN (Reason: pain) Qty: 10 0RF methylphenidate HCl [Ritalin] 20 mg Tablet 20 mg PO TID levalbuterol HCl 1.25 mg/3 mL Solution For Nebulization 1.25 mg UPD Q4H PRN PRNQty: 90 1RF oxycodone 5 mg tablet 5 mg PO Q6H PRNQty: 20 0RF ondansetron 4 mg tablet,disintegrating 4 mg PO Q8H PRNQty: 20 0RF tamsulosin [Flomax] 0.4 mg capsule 0.4 mg PO DAILY Qty: 14 0RF Discontinued polyethylene glycol 3350 17 gram/dose powder 238 g PO ONCE Qty: 238 0RF Rx Instructions: take per colonoscopy instructions bisacodyl [Dulcolax (bisacodyl)] 5 mg tablet,delayed release (DR/EC) 5 mg PO ONCE Qty: 4 0RF Rx Instructions: take per colonoscopy instructions Discharge Instructions Additional Instructions: DSU Colonoscopy Post- Op Instructions Instructions for Everyone who is given Anesthesia: For your safety, please do the following for the next twenty-four (24) hours: *Do Not operate a motor vehicle (car, truck, motorcycle, etc.) *Do Not drink alcoholic beverages or use any recreational drugs for the first 24 hours or while taking pain medications. The medications in your body may have a reaction that can be dangerous. *Do Not make any important decisions or sign any important papers. Findings: Minor diverticula and x6 polyps. My office will send a letter in 2 to 3 weeks time with the results of pathology and when we want you to repeat the colonoscopy, most likely 3 to 5 years time. No ASA/NSAID's for 5 day. 1. No lifting over 20 pounds or strenuous activity for the first 24 hours after your procedure. After 24 hours there are no restrictions on your activity but you may feel fatigued for a few days. 2. After you arrive home you may have a light meal and return to your normal diet as you can tolerate it without feeling sick to your stomach. 3. You may have a bloated, gaseous feeling in your belly (abdomen) after a colonoscopy. Passing gas and belching will help. Walking or lying down on your left side with your knees flexed may relieve the discomfort. Call the office at [phone] (Office) or [phone] (Hospital) right away if you notice any of the following: a.Vomiting of blood or ?coffee ground stools?. b.Rectal bleeding 1Tbsp, blood clots or continuous bleeding. c.Severe belly (abdominal) pain. d.A hard distended belly (abdomen) and an inability to pass gas. 4. Please don?t expect to have a normal BM (bowel movement) for 2-3 days after your procedure. 5. If there are questions regarding the findings of your procedure, please contact your doctor 6. If you are unable to contact your doctor with a problem, contact the hospital at [phone]. 7. Continue all your regular medications unless directed otherwise. I understand the above instructions and have no questions. Signature of Patient or Adult Escort Name of Responsible Adult Escort Signature of Nurse Date/Time Activity:: See above Diet:: See above Discharge Orders Discharge Orders: Discharge Order (Routine); Ordered 07/27/23 Ordered By: Theodora Sellers DS: Diagnosis Discharge Diagnosis (1) Screening for malignant neoplasm of colon performed: Status: Acute Asessment and Plan: The patient is seen and examined after their colonoscopy.? The patient has been able to pass gas.? They are not having abdominal pain.? They have been able to tolerate liquids and a snack.? They do not have any nausea or vomiting.? They are not having any chest pain or shortness of breath.??? They are not having any rectal bleeding. Their vital signs have been stable-see nursing notes. We discussed findings during their colonoscopy, and any biopsies that were done/polyps that were removed. The patient will be sent a letter with any biopsy results, and when to repeat the colonoscopy.-see discharge instructions. Patient was given explicit instructions to follow-up regarding colonoscopy-refer to discharge instructions.? We reviewed resumption of medications. Patient verbalized understanding and discharged in stable and satisfactory condition- See nursing notes. (2) ADHD: Status: Chronic (3) S/P gastric bypass: Status: Chronic (4) S/P hysterectomy: Status: Chronic (5) GERD (gastroesophageal reflux disease): Status: Chronic (6) Insomnia: Status: Acute (7) Screening for colon cancer: Status: Acute (8) Adenomatous polyp of sigmoid colon: Status: Acute (9) Diverticula of colon: Status: Acute
[2023-07-27 09:19] VITALS: BP 129/84; PULSE 60; RESP 16; TEMP 36.5; O2SAT 96
--- NOTE | 2023-07-27 09:28 | ANES.PREOP_ITS ---
General Info Date of Service Date Performed: 07/27/23 Height: 5 ft 3 in Weight: 107.3 kg Body Mass Index (BMI): 41.9 Surgical Procedure: Operation Date: 07/27/23 09:50 Proposed Procedure Side Surgeon kia Sellers, DO Meds Allergies and Home Medications Allergies Allergy/AdvReac Type Severity Reaction Status Date / Time No Known Allergies Allergy Unverified 07/27/23 09:27 Home Medication Medication Instructions Recorded methylphenidate HCl 20 mg tablet 20 mg PO TID 02/04/21 (Ritalin) levalbuterol HCl 1.25 mg/3 mL 1.25 mg (3 mL) UPD Q4H PRN PRN #90 02/08/21 solution for nebulization mL albuterol sulfate 90 mcg/actuation 1 - 2 puff inhalation PRN PRN 08/02/21 aerosol inhaler (ProAir HFA) ipratropium 0.5 mg-albuterol 3 mg 3 ml inhalation Q6H PRN 08/02/21 (2.5 mg base)/3 mL nebulization soln zolpidem 10 mg tablet 10 mg PO QHS PRN #14 tabs 08/04/21 oxybutynin chloride 5 mg tablet 5 mg PO TID PRN bladder spasms #15 07/02/23 tabs oxycodone 10 mg tablet 10 mg PO Q6H PRN PRN pain #10 tabs 07/02/23 ondansetron 4 mg disintegrating 4 mg PO Q8H PRN #20 tabs 07/05/23 tablet oxycodone 5 mg tablet 5 mg PO Q6H PRN #20 tabs 07/05/23 tamsulosin 0.4 mg capsule (Flomax) 0.4 mg PO DAILY #14 caps 07/05/23 Current Visit Medications: Current Medications Generic Name Dose Route Start Last Admin Trade Name Freq PRN Reason Stop Dose Admin Hyoscyamine Sulfate 0.125 mg 07/27/23 00:42 Hyoscyamine 0.125 Mg Sl/Oral/Chew SL 08/26/23 00:41 DIRECTED PRN Ringer's Solution 1,000 mls @ 80 mls/hr 07/27/23 06:00 IV 08/25/23 23:59 INFUSION MEI IV Miscellaneous Supplies 1 each 07/27/23 06:00 Iv Access IV 08/25/23 23:59 DIRECTED MEI Ondansetron HCl 4 mg 07/27/23 00:42 Ondansetron 4 Mg/2 Ml Vial IVP 08/26/23 00:41 Q4H PRN PRN Nausea / Vomiting Sodium Chloride 0 ml 07/27/23 06:00 Normal Saline Flush 10 Ml Syr IV 08/25/23 23:59 PRN PRN Sodium Chloride 0 ml 07/27/23 06:00 Normal Saline 10 Ml Vial IJ 08/25/23 23:59 DIRECTED PRN Sterile Water 0 ml 07/27/23 06:00 Water,Injection,Sterile 10 Ml Vial IJ 08/25/23 23:59 DIRECTED PRN PFSH Active Problems Active Problems: Problem Status Onset Code Screening for malignant neoplasm of colon performed Z12.11 Kidney stone N20.0 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 ADHD F90.9 History of section Z98.891 S/P gastric bypass Z98.84 S/P hysterectomy Z90.710 Migraine G43.909 Encounter for screening for other viral diseases Z11.59 Fever R50.9 Fatigue R53.83 Nausea R11.0 Acute bronchitis with bronchospasm J20.9 GERD (gastroesophageal reflux disease) K21.9 Acute esophagitis K20.90 Insomnia G47.00 DVT prophylaxis Z29.9 Discharge planning issues Z02.9 Pill dysphagia R13.10 Post-nasal drip R09.82 Epistaxis R04.0 Encounter for screening laboratory testing for COVID-19 virus Z20.822 Pneumonia due to COVID-19 virus U07.1, J12.82 Screening for colon cancer Z12.11 Abdominal pain R10.9 Acne L70.9 Medical History Medical History Carpal tunnel syndrome Claustrophobia Depressive disorder Family history of cardiovascular disease Gastritis History of asthma Hyperglycemia Hypersomnia Insomnia Mixed hyperlipidemia Nephrolithiasis ADAIR (obstructive sleep apnea) Ovarian cyst Periodic limb movement sleep disorder Polycystic ovaries Rosacea Severe obesity Surgical History Surgical History H/O cystoscopy (~2020) H/O LEEP (~1998) H/O ureteroscopy (~2020) Hx of cholecystectomy (~2000) Hx of hysterectomy Tobacco Smoking/Tobacco Use Status: Former Tobacco Use Alcohol Alcohol Intake: never Substance Use Substance use: Never Substance use type: does not use Vital Signs and Lab Results Vital Signs Most Recent Vital Signs in EMR: Most Recent Vital Signs Temp Pulse Resp BP Pulse Ox 36.5 C 60 16 129/84 96 07/27/23 09:19 07/27/23 09:19 07/27/23 09:19 07/27/23 09:19 07/27/23 09:19 Lab Results Blood Type / Crossmatch: No Data to Display Complete Blood Count: White Blood Count 8.92 10^3/uL (4.4-10.8) 07/05/23 00:25 Red Blood Count 4.09 10^6/uL (3.93-5.22) 07/05/23 00:25 Hemoglobin 9.4 g/dL (11.2-15.7) L 07/05/23 00:25 Hematocrit 30.4 % (36.0-46.0) L 07/05/23 00:25 Platelet Count 357 10^3/uL (130-400) 07/05/23 00:25 Complete Metabolic Panel: Sodium 143 mmol/L (136-145) 07/05/23 00:25 Potassium 3.7 mmol/L (3.5-5.1) 07/05/23 00:25 Chloride 104 mmol/L (98-107) 07/05/23 00:25 Carbon Dioxide 27.5 mmol/L (21.0-32.0) 07/05/23 00:25 BUN 16 mg/dL (7-18) 07/05/23 00:25 Creatinine 1.0 mg/dL (0.55-1.02) 07/05/23 00:25 Est GFR (CKD-EPI 2020) 68.21 (mL/min/1.73m2) 07/05/23 00:25 Calcium 9.4 mg/dL (8.5-10.1) 07/05/23 00:25 Albumin 3.6 g/dL (3.4-5.0) 07/05/23 00:25 Glucose 141 mg/dL (74-106) H 07/05/23 00:25 Liver Function Panel: Alanine Aminotransferase (ALT/SGPT) 36 U/L (14-59) 07/05/23 00: 25 Aspartate Amino Transf (AST/SGOT) 24 U/L (15-37) 07/05/23 00:25 Coagulation Panel: No Data to Display Cardiac Panel: No Data to Display Arterial Blood Gas: No Data to Display Venous Blood Gas: No Data to Display Pancreas Panel: No Data to Display Thyroid Panel: No Data to Display Infectious Disease: No Data to Display Blood Cultures: No Data to Display Toxicology Panel: No Data to Display Panel: No Data to Display Imaging and Studies Imaging and Studies Study information below may be from another EMR and interpreted by another provider. Please see original notes in EMR for more complete details. EKG Summary: 08/02/21: Exam: Resting ECG Reason for Exam: sob Patient Location: E HR:94 bpm ECG Measurements Heart Rate 94 AXIS ND 150 P 50 QRSd 98 QRS 22 QT 374 T-5 QTc 468 Conclusion Sinus rhythm...normal P axis, V-rate 60- 99. Sinus. No STEMI. I have reviewed and interpreted ECG and agree with software generated int erpretation. Pulmonary Function Summary: 03/31/21: Pulmonary Function Test Result Interpretation Spirometry: No evidence of obstructive airways disease, no bronchodilator res ponse Lung Volumes: No evidence of restriction Diffusion Capacity: Borderline mildly reduced which is normal when corrected to alveolar volume Airway Pressure: Normal Impression Isolated borderline reduction in diffusion capacity, this is normal when corrected to alveolar volume Clinical Correlation therefore is recommended. Anesthesia Assessment and Plan Anesthesia History Personal History: No History of Anesthesia Complications Family History: No Family History of Anesthesia Complications Exercise Tolerance Exercise Tolerance: Metabolic Equivalents>4 Cardiac & Pulmonary Exam Cardiac Exam: Normal S1/S2 Heart Sounds Pulmonary Exam: Clear Bilateral Breath Sounds Implantable Cardiac Device Does patient have a Pacemaker or an ICD?: No Airway Exam Known Difficult Airway: No Mallampati Class: 1 Mouth Opening: Normal (> 3cm) Thyromental Distance: Greater than 3 cm Neck Range of Motion: Full ROM Neck Circumference: Normal Teeth Condition: Removable Dentures/Plates Upper and Edentulous ASA Classification ASA Score: ASA 2 Emergency Case?: No NPO Status NPO Status: NPO Clears >2 hours, Solids >8 hours Status Status: Not Relevant due to Medical History Anesthesia Plan Resuscitation Status: Full Code Anesthesia Technique: General Anesthesia Airway Planned: Natural Airway Monitors Used: Standard Monitors
[2023-07-27 09:40] VITALS: BMI 41.9
[2023-07-27] MEDS: Lactated Ringers 1,000 ML 80 ML IV (09:40)
--- NOTE | 2023-07-27 09:54 | BOWEL_PTH ---
PATIENT: Katty Peterson LOC: [facility] U#:[id number] AGE/SX: 53/F ROOM: RE07/27/[address]: Theodora Sellers : 1970 BED: DIS: 07/27/2023 SPEC #: [id number] RECD: 07/27/23 12:04 STATUS: ROBLES RE #: [id number] NAVID: 07/27/23 09:[address]: Theodora Sellers DEPT: Surgical Specimen RECD BY: Lorraine Rivas ENTERED: 07/27/23 12:05 SP TYPE: Bowel OTHR DR: Waqas Cyr Tissues: 1 - BIOPSY BOWEL 2 - BIOPSY BOWEL 3 - BIOPSY BOWEL Procedures: GROSS AND MICRO LEVEL 4 Comments: [id number]
[2023-07-27 10:20] VITALS: BP 109/67; PULSE 64; RESP 16; TEMP 36.4; O2SAT 96
--- NOTE | 2023-07-27 10:36 | W.ANESPOSTOP ---
Postoperative Evaluation Date, Time and Location Date Performed: 07/27/23 Time Performed: 10:37 Patient Location: Day Surgery Unit Vital Signs Most Recent Imported Vital Signs: Most Recent Vital Signs Temp Pulse Resp BP Pulse Ox 36.4 C L 64 16 109/67 96 07/27/23 10:20 07/27/23 10:20 07/27/23 10:20 07/27/23 10:20 07/27/23 10:20 Pain Score Most Recent Pain Score: Most Recent Pain Score Pain Level 0 07/27/23 10:20 Assessment Mental Status: Awake (Alert & Oriented to Patient Baseline) Airway and Respiratory Function: Patent airway with normal (patient baseline) respiratory exam Cardiovascular Function: Hemodynamically Stable Hydration Status: Adequately Hydrated Nausea & Vomiting: No Nausea or Vomiting Pain: Pt. Denies Any Pain Peripheral Nerve Block: Patient did not receive a nerve block
[2023-07-27 10:52] VITALS: BP 106/72; PULSE 59; RESP 16; TEMP 36.3; O2SAT 96
== END 2023-07-27 11:00 | disposition home or self-care (01) ==
PROVIDERS: PCP Neuromusculoskeletal Medicine & OMM; Visit Provider Surgery
PROC: 0DJD8ZZ Inspection of Lower Intestinal Tract, Via Natural or Artificial Opening Endoscopic (ICD-10-PCS; CPT 45378; principal; 2023-07-27 09:45)
DX: Z12.11 Encounter for screening for malignant neoplasm of colon (principal); K63.5 Polyp of colon; K57.30 Diverticulosis of large intestine without perforation or abscess without bleeding; K64.0 First degree hemorrhoids; Z80.0 Family history of malignant neoplasm of digestive organs; K21.9 Gastro-esophageal reflux disease without esophagitis; Z98.84 Bariatric surgery status
CPT/HCPCS: 45385; 45380; 88305

== ENCOUNTER → 2023-09-11 01:07 | Outpatient (CLI) | payer BC, SELFPAY ==
--- NOTE | 2023-09-11 07:15 | DI.CT_ITS ---
Exam(s) CT ABDOMEN PELVIS WO/W EXAM: CT ABDOMEN PELVIS WO/W CLINICAL HISTORY: ? ureteral stricture/stone,rt hydronephrosis,n13.30. TECHNIQUE: Imaging Protocol: Axial computed tomography images with coronal and sagittal reformatted images were created and reviewed. Images were performed from the lung bases through the ischial tuberosities before IV contrast and fol lowing IV contrast using a 70 second delay, followed by 7 minutes delayed images. CONTRAST MATERIAL: Intravenous: Omnipaque 350 Contrast volume:100 cc Oral: no COMPARISON: CT CT RENAL COLIC WO from 07/05/2023 FINDINGS: ABDOMEN: Lung Bases: Normal where visualized. Liver: Normal density. No measurable mass. Gallbladder and biliary tract: No radiodense calculus or dilation. Pancreas: Normal density, no abnormal calcifications or inflammatory process. Spleen: Normal. Kidneys: Several stones are noted at the lower pole of the right kidney. 4 millimeter stone noted at right ureteropelvic junction. No additional ureteral calculi. Right renal pelvis is cmhy-co-eazwyu tely dilated. No delay in nephrogram or pyelogram. No left renal calculi are identified. No suspic ious masses seen. Adrenal glands: No masses seen. Lymph nodes: Within normal limits. Abdominal Aorta: Abdominal portion non-dilated. Soft tissues: Unremarkable. PELVIS: Bladder: No gross wall thickening. No evidence of a mass.No evidence of calculi. Bowel: No obstruction or bowel wall thickening. Appendix normal. Peritoneal cavity: No ascites, collection or mesenteric inflammatory response. Soft tissues: Bones: Unremarkable for age.. Reproductive organs: Status post hysterectomy. IMPRESSION: 4 millimeter stone in the right ureteral pelvic junction causing mild right hydronephrosis. Addition al stones are noted at the lower pole the right kidney. RADIATION DOSE DELIVERED: Total DLP DATA REPOSITORY: All CT scans at this facility are submitted to the National Radiology Data Registry (NRDR) Dose Index Registry (DIR) with the [employer] ([employer]). RADIATION OPTIMIZATION: All CT scans at this facility use at least one of these dose optimization te chniques: automated exposure control; mA and/or kV adjustment per patient size (includes targeted exa ms where dose is matched to clinical indication); or iterative reconstruction.
[2023-09-11] MEDS: Normal Saline - Diluent 50 ML VIAL 100 ML IJ (08:52)
[2023-09-11] MEDS: Omnipaque 350 MG/ML 500 ML BTL-Imaging package IJ (08:54)
[2023-09-11] MEDS: Normal Saline Flush 10 ML SYR IVP (08:55)
== END ==
PROVIDERS: PCP Neuromusculoskeletal Medicine & OMM; Visit Provider Urology
DX: N13.30 Unspecified hydronephrosis (principal)
CPT/HCPCS: 74178

== ENCOUNTER 2023-09-19 12:25 | Outpatient (CLI) | payer BC, SELFPAY ==
[2023-09-19 09:48] LABS: HCT 34.5 % (36.0-46.0); HGB 10.7 g/dL (11.2-15.7); MCH 23.3 pg (27.0-33.0); MCV 75 fL (80-95); MPV 9.2 fL (8.0-11.0); Platelet Count 307 10^3/uL (130-400); RBC 4.59 10^6/uL (3.93-5.22); RDW 17.1 % (11.7-14.6); RDW-SD 45.4 fL; Reticulocyte 1.1 % (0.5-2.4); WBC 7.41 10^3/uL (4.4-10.8)
[2023-09-19 10:17] LABS: Iron 29 ug/dL (50-170); Total Iron Binding Capacity 507 ug/dL (250-450); Transferrin Sat 6 % (15-50)
[2023-09-19 10:28] LABS: ALT 30 U/L (14-59); AST 20 U/L (15-37); Alkaline Phosphatase 138 U/L (46-116); Anion Gap 12.6 mmol/L (3-11); BUN 12 mg/dL (7-18); Bilirubin, Total 0.5 mg/dL (0.2-1.0); CO2 26.4 mmol/L (21.0-32.0); CREATININE 0.8 mg/dL (0.55-1.02); Calcium 9.6 mg/dL (8.5-10.1); Chloride 103 mmol/L (98-107); Estimated GFR 89.15 (mL/min/1.73m2); Ferritin 10 ng/mL (8-252); Glucose 101 mg/dL (74-106); Potassium 3.5 mmol/L (3.5-5.1); Sodium 142 mmol/L (136-145); Total Protein 8.3 g/dL (6.4-8.2)
== END 2023-09-19 12:26 | disposition home or self-care (01) ==
LOC: LBO 12:25
PROVIDERS: PCP Neuromusculoskeletal Medicine & OMM; Visit Provider Family Medicine
DX: N13.30 Unspecified hydronephrosis (principal); R77.9 Abnormality of plasma protein, unspecified; J45.909 Unspecified asthma, uncomplicated; D64.9 Anemia, unspecified
CPT/HCPCS: 36415; 80053; 85027; 82728; 83540; 83550; 85045

== ENCOUNTER 2023-09-24 07:02 | Day surgery (SDC) | payer BC, SELFPAY ==
[2023-09-24] VITALS (10 sets, daily range): BP systolic 102–141; BP diastolic 54–91; PULSE 53–70; RESP 16–18; TEMP 36.1–36.6; O2SAT 94–100; BMI 39.4
[2023-09-24] MEDS: Lactated Ringers 1,000 ML 80 ML IV (08:05)
--- NOTE | 2023-09-24 08:20 | W.PM.HP.N ---
Date of service: 09/24/23 Time of Service: 08:20 Assessment and Plan Assessment and plan (1) Hydronephrosis: Status: Acute (2) Stress incontinence: Status: Acute Assessment and plan: We will plan ureteroscopy with holmium laser lithotripsy of her ureteral and kidney stones on the right. At the completion of the procedure, we will inject a bulking agent at the bladder neck. History of Present Illness History of Present Illness Chief Complaint: Bilateral kidney stones Narrative: This is a 53-year-old woman who has a history of a large right renal pelvic kidney stone. She underwent a staged procedure with ureteroscopy and holmium laser lithotripsy. Her stone was 80% uric acid. On follow-up ultrasound, she had some persistent right hydronephrosis. We did a CT urogram which demonstrated a small right proximal ureteral stone and nonobstructing lower pole stones on the right She continues to have flank pain that requires oxycodone. She develops nausea when the pain is severe but has not had vomiting, fevers or chills. She is not seeing any gross hematuria. She presents for right sided stone manipulation. She does have urinary incontinence that is worse with activity. She is agreeable to an injection of a bulking agent at the bladder neck as well. Review of Systems Narrative: No fevers or chills No vision change or dysphasia No diabetes or thyroid dysfunction No shortness of breath, cough or hemoptysis No chest pain or palpitations GERD. No hepatitis, ulcers, jaundice No seizures, strokes or peripheral neuropathy No bleeding disorders or anemia No gout PFSH All Active Problems Hyperplastic colon polyp (Acute ~08/06/23) Stress incontinence (Acute) Hydronephrosis (Acute) Diverticula of colon (Acute) Adenomatous polyp of sigmoid colon (Acute) Screening for malignant neoplasm of colon performed (Acute) Maltracking of left patella (Acute) Chondromalacia of left patellofemoral joint (Acute) ADHD (Chronic) History of section (Chronic) S/P hysterectomy (Chronic) Migraine (Chronic) Encounter for screening for other viral diseases (Acute) Fever (Acute) Fatigue (Acute) Nausea (Acute) Acute bronchitis with bronchospasm (Acute) GERD (gastroesophageal reflux disease) (Chronic) Acute esophagitis (Acute) Insomnia (Acute) DVT prophylaxis (Acute) Discharge planning issues (Acute) Pill dysphagia (Acute) Post-nasal drip (Acute) Encounter for screening laboratory testing for COVID-19 virus (Acute) Pneumonia due to COVID-19 virus (Acute) Screening for colon cancer (Acute) Abdominal pain (Acute) Acne (Acute) Medical History History of asthma Periodic limb movement sleep disorder Mixed hyperlipidemia Hypersomnia Family history of cardiovascular disease Ovarian cyst Gastritis Carpal tunnel syndrome Polycystic ovaries Hyperglycemia Rosacea ADAIR (obstructive sleep apnea) Insomnia Depressive disorder Claustrophobia Severe obesity Nephrolithiasis Surgical History Hx of reduction mammoplasty S/P gastric bypass History of colonoscopy (~07/2023) Hx of hysterectomy H/O LEEP (~1998) Hx of cholecystectomy (~2000) H/O ureteroscopy (~2020) H/O cystoscopy (~2020) Social History Smoking/Tobacco Use Status: Former Tobacco Use Quit Date: 11/19/99 Smoking risk assessment performed?: Yes Alcohol Intake: never Drug use: Never Substance use type: does not use Housing: house Current gender identity: female Do you feel safe at home: Yes Do you feel safe in your relationship?: Yes Meds Allergies and Home Medications Allergies Allergy/AdvReac Type Severity Reaction Status Date / Time No Known Allergies Allergy Unverified 09/24/23 07:38 Home Medications Medication Instructions Recorded Confirmed Type methylphenidate HCl 20 mg tablet 20 mg PO TID 02/04/21 09/24/23 History (Ritalin) levalbuterol HCl 1.25 mg/3 mL 1.25 mg (3 mL) UPD Q4H PRN PRN #90 02/08/21 09/24/23 Rx solution for nebulization mL albuterol sulfate 90 mcg/actuation 1 - 2 puff inhalation PRN PRN 08/02/21 09/24/23 History aerosol inhaler (ProAir HFA) ipratropium 0.5 mg-albuterol 3 mg 3 ml inhalation Q6H PRN 08/02/21 09/24/23 History (2.5 mg base)/3 mL nebulization soln oxycodone 5 mg tablet 5 - 10 mg (1 - 2 x 5 mg) PO Q6H 09/17/23 09/24/23 Rx PRN pain #50 tabs Exam Const General: cooperative and comfortable Neck Neck: supple Resp Effort & Inspection: normal respiratory effort Auscultation: clear to auscultation bilaterally Cardio Rate: regular rate Rhythm: regular rhythm GI Palpation: soft Neuro General: patient alert, patient awake and patient oriented x3 Results Last Vital Signs Temp 36.6 C 09/24/23 07:43 Pulse 66 09/24/23 07:43 Resp 18 09/24/23 07:43 BP 133/91 H 09/24/23 07:43 Pulse Ox 98 09/24/23 07:43 Time Spent Time spent with Patient: <40 minutes Time was spent: other
--- NOTE | 2023-09-24 08:30 | DI.RAD_ITS ---
Exam(s) XR RETROGRADE IN OR EXAM: XR RETROGRADE IN OR CLINICAL HISTORY: RIGHT URTERAL AND KIDNEY STONES TECHNIQUE: 2D and realtime digital imaging was performed. CONTRAST MATERIAL: Refer to procedure report. COMPARISON: CT CT ABDOMEN PELVIS WO/W from 09/11/2023 FINDINGS: Fluoroscopy was provided for Dr. Lebron during the performance of a retrograde evaluation of the rig t renal collecting system. Please refer to the procedure report for complete details. Ka,r=17.9 mGy IMPRESSION: RADIATION DOSE DELIVERED:
--- NOTE | 2023-09-24 08:36 | ANES.PREOP_ITS ---
General Info Date of Service Date Performed: 09/24/23 Height: 5 ft 4 in Weight: 104.2 kg Body Mass Index (BMI): 39.4 Surgical Procedure: Operation Date: 09/24/23 09:25 Proposed Procedure Side Surgeon p Cystoscopy/Possible Laser/Retrograde/Ureteroscopy Right Quan Lebron MD s Transurethral Injection Coaptite Quan Lebron MD Meds Allergies and Home Medications Allergies Allergy/AdvReac Type Severity Reaction Status Date / Time No Known Allergies Allergy Unverified 09/24/23 07:38 Home Medication Medication Instructions Recorded methylphenidate HCl 20 mg tablet 20 mg PO TID 02/04/21 (Ritalin) levalbuterol HCl 1.25 mg/3 mL 1.25 mg (3 mL) UPD Q4H PRN PRN #90 02/08/21 solution for nebulization mL albuterol sulfate 90 mcg/actuation 1 - 2 puff inhalation PRN PRN 08/02/21 aerosol inhaler (ProAir HFA) ipratropium 0.5 mg-albuterol 3 mg 3 ml inhalation Q6H PRN 08/02/21 (2.5 mg base)/3 mL nebulization soln oxycodone 5 mg tablet 5 - 10 mg (1 - 2 x 5 mg) PO Q6H 09/17/23 PRN pain #50 tabs Current Visit Medications: Current Medications Generic Name Dose Route Start Last Admin Trade Name Freq PRN Reason Stop Dose Admin Ringer's Solution 1,000 mls @ 80 mls/hr 09/24/23 06:00 09/24/23 08:05 IV 10/21/23 23:59 80 mls/hr INFUSION MEI Administration Cefazolin Sodium/Dextrose 2 gm in 50 mls @ 100 mls/hr 09/24/23 06:00 Ancef Duplex IVPB 09/24/23 16:00 PREOP MEI IV Miscellaneous Supplies 1 each 09/24/23 06:00 Iv Access IV 10/21/23 23:59 DIRECTED MEI Sodium Chloride 0 ml 09/24/23 06:00 Normal Saline Flush 10 Ml Syr IV 10/21/23 23:59 PRN PRN Sodium Chloride 0 ml 09/24/23 06:00 Normal Saline 10 Ml Vial IJ 10/21/23 23:59 DIRECTED PRN Sterile Water 0 ml 09/24/23 06:00 Water,Injection,Sterile 10 Ml Vial IJ 10/21/23 23:59 DIRECTED PRN PFSH Active Problems Active Problems: Problem Status Onset Code Hyperplastic colon polyp ~08/06/23 K63.5 Stress incontinence N39.3 Hydronephrosis N13.30 Diverticula of colon K57.30 Adenomatous polyp of sigmoid colon D12.5 Screening for malignant neoplasm of colon performed Z12.11 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 ADHD F90.9 History of section Z98.891 S/P hysterectomy Z90.710 Migraine G43.909 Encounter for screening for other viral diseases Z11.59 Fever R50.9 Fatigue R53.83 Nausea R11.0 Acute bronchitis with bronchospasm J20.9 GERD (gastroesophageal reflux disease) K21.9 Acute esophagitis K20.90 Insomnia G47.00 DVT prophylaxis Z29.9 Discharge planning issues Z02.9 Pill dysphagia R13.10 Post-nasal drip R09.82 Epistaxis R04.0 Encounter for screening laboratory testing for COVID-19 virus Z20.822 Pneumonia due to COVID-19 virus U07.1, J12.82 Screening for colon cancer Z12.11 Abdominal pain R10.9 Acne L70.9 Medical History Medical History History of asthma Periodic limb movement sleep disorder Mixed hyperlipidemia Hypersomnia Family history of cardiovascular disease Ovarian cyst Gastritis Carpal tunnel syndrome Polycystic ovaries Hyperglycemia Rosacea ADAIR (obstructive sleep apnea) Insomnia Depressive disorder Claustrophobia Severe obesity Nephrolithiasis Surgical History Surgical History Hx of reduction mammoplasty S/P gastric bypass History of colonoscopy (~07/2023) Hx of hysterectomy H/O LEEP (~1998) Hx of cholecystectomy (~2000) H/O ureteroscopy (~2020) H/O cystoscopy (~2020) Tobacco Smoking/Tobacco Use Status: Former Tobacco Use Alcohol Alcohol Intake: never Substance Use Substance use: Never Substance use type: does not use Vital Signs and Lab Results Vital Signs Most Recent Vital Signs in EMR: Most Recent Vital Signs Temp Pulse Resp BP Pulse Ox 36.6 C 66 18 133/91 H 98 09/24/23 07:43 09/24/23 07:43 09/24/23 07:43 09/24/23 07:43 09/24/23 07:43 Lab Results Blood Type / Crossmatch: No Data to Display Complete Blood Count: White Blood Count 7.41 10^3/uL (4.4-10.8) 09/19/23 09:05 Red Blood Count 4.59 10^6/uL (3.93-5.22) 09/19/23 09:05 Hemoglobin 10.7 g/dL (11.2-15.7) L 09/19/23 09:05 Hematocrit 34.5 % (36.0-46.0) L 09/19/23 09:05 Platelet Count 307 10^3/uL (130-400) 09/19/23 09:05 Complete Metabolic Panel: Sodium 142 mmol/L (136-145) 09/19/23 09:05 Potassium 3.5 mmol/L (3.5-5.1) 09/19/23 09:05 Chloride 103 mmol/L (98-107) 09/19/23 09:05 Carbon Dioxide 26.4 mmol/L (21.0-32.0) 09/19/23 09:05 BUN 12 mg/dL (7-18) 09/19/23 09:05 Creatinine 0.8 mg/dL (0.55-1.02) 09/19/23 09:05 Est GFR (CKD-EPI 2020) 89.15 (mL/min/1.73m2) 09/19/23 09:05 Calcium 9.6 mg/dL (8.5-10.1) 09/19/23 09:05 Albumin 4.0 g/dL (3.4-5.0) 09/19/23 09:05 Glucose 101 mg/dL (74-106) 09/19/23 09:05 Liver Function Panel: Alanine Aminotransferase (ALT/SGPT) 30 U/L (14-59) 09/19/23 09: 05 Aspartate Amino Transf (AST/SGOT) 20 U/L (15-37) 09/19/23 09:05 Coagulation Panel: No Data to Display Cardiac Panel: No Data to Display Arterial Blood Gas: No Data to Display Venous Blood Gas: No Data to Display Pancreas Panel: No Data to Display Thyroid Panel: No Data to Display Infectious Disease: No Data to Display Blood Cultures: No Data to Display Toxicology Panel: No Data to Display Panel: No Data to Display Imaging and Studies Imaging and Studies Study information below may be from another EMR and interpreted by another provider. Please see original notes in EMR for more complete details. EKG Summary: 08/02/21: Exam: Resting ECG Reason for Exam: sob Patient Location: E HR:94 bpm ECG Measurements Heart Rate 94 AXIS NJ 150 P 50 QRSd 98 QRS 22 QT 374 T-5 QTc 468 Conclusion Sinus rhythm...normal P axis, V-rate 60- 99. Sinus. No STEMI. I have reviewed and interpreted ECG and agree with software generated interpretation. Pulmonary Function Summary: 03/31/21: Pulmonary Function Test Result Interpretation Spirometry: No evidence of obstructive airways disease, no bronchodilator response Lung Volumes: No evidence of restriction Diffusion Capacity: Borderline mildly reduced which is normal when corrected to alveolar volume Airway Pressure: Normal Impression Isolated borderline reduction in diffusion capacity, this is normal when corrected to alveolar volume Clinical Correlation therefore is recommended. Anesthesia Assessment and Plan Anesthesia History Personal History: No History of Anesthesia Complications Family History: No Family History of Anesthesia Complications Exercise Tolerance Exercise Tolerance: Metabolic Equivalents>4 Pertinent Negatives Pertinent Negatives: No Symptoms of GERD and No Major Cardiovascular Symptoms or Complaints Cardiac & Pulmonary Exam Cardiac Exam: Normal S1/S2 Heart Sounds Pulmonary Exam: Clear Bilateral Breath Sounds Implantable Cardiac Device Does patient have a Pacemaker or an ICD?: No Airway Exam Known Difficult Airway: No Mallampati Class: 1 Mouth Opening: Normal (> 3cm) Thyromental Distance: Greater than 3 cm Neck Range of Motion: Full ROM Neck Circumference: Normal Teeth Condition: Removable Dentures/Plates Upper and Edentulous ASA Classification ASA Score: ASA 3 Emergency Case?: No NPO Status NPO Status: NPO Clears >2 hours, Solids >8 hours Status Status: History of Hysterectomy Anesthesia Plan Resuscitation Status: DNR Fully Suspended During Perioperative Period Anesthesia Technique: General Anesthesia Airway Planned: LMA Monitors Used: Standard Monitors
[2023-09-24] MEDS: ceFAZolin 2 GM/50 ML BAG IVPB (08:58)
[2023-09-24] MEDS: Lidocaine 2% Jelly 6 ML SYR (09:19)
[2023-09-24] MEDS: Omnipaque 300 MG/ML 50 ML BTL (09:19)
--- NOTE | 2023-09-24 10:36 | W.PM.DSUDISC ---
Date of service: 09/24/23 Time of Service: 10:36 Discharge Plan Disposition Patient Disposition: Home Condition: Stable Discharge Details Reason For Visit: ureteroscopy Attending Provider: Quan Lebron Primary Care Provider: Waqas Cyr Home Meds and New Rx's Prescriptions: No Action oxycodone 5 mg tablet 5 - 10 mg PO Q6H MDD 8 PRN (Reason: pain) Qty: 50 0RF ipratropium-albuterol 0.5 mg-3 mg(2.5 mg base)/3 mL solution for nebulization 3 ml INHALATION Q6H PRN Patient Comments: no longer taking albuterol sulfate [ProAir HFA] 90 mcg/actuation HFA aerosol inhaler 1 - 2 puff INHALATION PRN PRN methylphenidate HCl [Ritalin] 20 mg Tablet 20 mg PO TID levalbuterol HCl 1.25 mg/3 mL Solution For Nebulization 1.25 mg UPD Q4H PRN PRNQty: 90 1RF Discharge Instructions Additional Instructions: no need to strain urine ureteral stent removal in 3 to 5 days (tell my office pt has string on stent followup appt @ 6weeks for renal US Stand Alone Forms: Anesthesia Discharge Inst. Activity:: Activity as Tolerated Shower/Bathe:: 24 hours Diet:: As Tolerated Discharge Orders Discharge Orders: Discharge Order (Routine); Ordered 09/24/23 Ordered By: Quan Lebron DS: Diagnosis Discharge Diagnosis (1) Hydronephrosis: Status: Acute (2) Stress incontinence: Status: Acute
--- NOTE | 2023-09-24 10:40 | W.PM.OP ---
Date of service: 09/24/23 Time of Service: 10:40 Operative Note Operative Note DATE OF PROCEDURE: 09/24/23 PRE-OP DIAGNOSIS: right kidney stones stress urinary incontinence PROCEDURE: cystoscopy, right retrograde pyelogram, right ureteroscopy with holmium laser lithotripsy of kidney stones, extraction of stone fragments, insery right ureteral stent, inject Coaptite at bladder neck SURGEON: Quan Lebron ANESTHESIA TYPE: Local By Surgeon and General LMA/ETT Refer to Anesthesia Record ESTIMATED BLOOD LOSS: 5 PATHOLOGY: other (stones for chemical analysis) COMPLICATIONS: None Patient was transported to: PACU Patient's condition: stable Implants: 4.8 palestinian by 22 to 30 cm stent with string attached Indications: This is a 53-year-old woman who has a history of a large right ureteropelvic junction stone. She had undergone a staged ureteroscopy and holmium laser lithotripsy about 2 to 3 years ago. She then developed a recurrent right flank pain and was found to have hydronephrosis on ultrasound. We obtained a CT urogram and found a 4 mm right proximal ureteral stone and larger stones in the lower pole calyx. She presents now for ureteroscopy with stone manipulation. In addition to the kidney stones, she has a history of urinary incontinence that is worse with activity. We had previously discussed treatment options and she is interested in an injection of a bulking agent at the bladder neck. She has already had a sling procedure Findings: multiple stones in renal pelvis Procedure Description: The patient was brought to the operating room on 09/24/2023. After successful induction of general anesthesia, she was placed in the dorsal lithotomy position. Her genitalia was prepped and draped. 2% Xylocaine jelly was instilled into the urethra to act as a local anesthetic. A 22 Austrian rigid cystoscope was passed through the urethra into the bladder. The bladder was inspected with a 30 degree lens. Both ureteral orifices appeared normal with no blood coming from either side. The right orifice was cannulated with a 5 Austrian access catheter. A retrograde pyelogram was obtained by injecting Omnipaque through the access catheter under fluoroscopic guidance. Multiple filling defects were outlined in the renal pelvis. I then passed a guidewire through the access catheter and maneuvered the wire up the ureter until the end was seen fluoroscopically in the upper pole calyx. A dual-lumen catheter was then advanced and a second wire was positioned. We chose one of the wires as a working wire and the second as a safety wire. The dual-lumen catheter was removed and the ureteral access sheath was advanced over the working wire leaving the safety wire in place. Flexible ureteroscopy was then performed and 2 yellow-tinged stones were seen in the renal pelvis. The stones were then treated with a 272 ?m holmium laser fiber. We used a power setting of 0.8 and a rate of 8. The stones fragmented quite well. Once fragmentation was adequate, I was able to grasp stone fragments in a 0 tip stone basket and extract the stone fragments. The fragments were then sent to pathology for chemical analysis. At the completion of the procedure, the retrograde pyelogram was repeated and no residual stone fragments or filling defects were seen. I then passed a 4.8 Austrian variable length stent over the safety wire. The proximal end of the stent was curled in the renal pelvis and the distal end was curled in the bladder. The safety string was left in place and brought through the urethra. As I am not expecting to need to do a repeat cystoscopy, we elected to go ahead with the injection of Coaptite at the bladder neck. I removed the cystoscope and used a 20 Austrian urethrotome sheath. We injected 1 vial of Coaptite submucosally. There were 3 injection sites. At the completion of the procedure, there did appear to be visible closure of the bladder neck. The patient tolerated this procedure well with no complications.
[2023-09-24] MEDS: Phenazopyridine 200 MG TAB PO (11:36)
[2023-09-24] MEDS: oxyCODONE 5 MG TAB PO ×2 (12:00→12:55)
[2023-09-24] MEDS: Oxybutynin 5 MG TAB PO (13:33)
--- NOTE | 2023-09-24 13:44 | W.ANESPOSTOP ---
Postoperative Evaluation Date, Time and Location Date Performed: 09/24/23 Time Performed: 13:44 Patient Location: Day Surgery Unit Vital Signs Most Recent Imported Vital Signs: Most Recent Vital Signs Temp Pulse Resp BP Pulse Ox 36.1 C L 61 16 138/90 98 09/24/23 12:50 09/24/23 12:50 09/24/23 12:50 09/24/23 12:50 09/24/23 12:50 Pain Score Most Recent Pain Score: Most Recent Pain Score Pain Level 4 09/24/23 1344 Assessment Mental Status: Awake (Alert & Oriented to Patient Baseline) Airway and Respiratory Function: Patent airway with normal (patient baseline) respiratory exam Cardiovascular Function: Hemodynamically Stable Hydration Status: Adequately Hydrated Nausea & Vomiting: No Nausea or Vomiting Pain: Pain is tolerable per patient Peripheral Nerve Block: Patient did not receive a nerve block
[2023-10-01 12:24] LABS: Source: Right Kidney
== END 2023-09-24 15:00 | disposition home or self-care (01) ==
PROVIDERS: PCP Neuromusculoskeletal Medicine & OMM; Visit Provider Urology
PROC: (CPT 52356; principal; 2023-09-24 09:15)
PROC: (CPT 52356; 2023-09-24 09:15)
DX: N13.2 Hydronephrosis with renal and ureteral calculous obstruction (principal); N39.3 Stress incontinence (female) (male)
CPT/HCPCS: 52356; 51715; 74420; 82365; J0690; J1100; J1885; J2250; J2405; J2704; L8606; Q9967

== ENCOUNTER 2023-09-27 01:45 | Emergency (ER) | payer BC, SELFPAY ==
[2023-09-27 01:51] VITALS: BP 145/80; PULSE 74; RESP 26; TEMP 36.6; O2SAT 99
[2023-09-27 01:55] VITALS: BP 145/80; PULSE 72; RESP 21; TEMP 36.7; O2SAT 99
--- NOTE | 2023-09-27 02:00 | DI.CT_ITS ---
Exam(s) CT ABDOMEN PELVIS WO EXAM: CT ABDOMEN PELVIS WO CLINICAL HISTORY: Right flank pain. TECHNIQUE: Imaging Protocol: Axial computed tomography images with coronal and sagittal reformatted images were created and reviewed. Oral: no COMPARISON: CT CT ABDOMEN PELVIS WO/W from 09/11/2023 FINDINGS: ABDOMEN: Lung Bases: Normal where visualized. Liver: Hepatic steatosis. No measurable mass. Gallbladder and biliary tract: Status post cholecystectomy. No radiodense calculus or dilation. Pancreas: Normal density, no abnormal calcifications or inflammatory process. Spleen: Normal. Kidneys: Normal size, contour and axis. 2mm stone in right renal pelvis which is not obstructing this of 0 was located at the ureteral pelvic junction on the prior exam.. Question additional tiny densi ty in the upper left ureter. The ureter is dilated down to the level of the ureterovesical junction. No obstructing stone seen at this location. Moderate right hydronephrosis. Mild right perinephric standing. No left urinary tract calculi or hydronephrosis. Nonobstructing stone seen lower pole ri ght kidney. No masses seen. Adrenal glands: No masses seen. Lymph nodes: Within normal limits. Abdominal Aorta: Abdominal portion non-dilated. PELVIS: Bladder: No wall thickening. Calcifications noted at the midline base of the the bladder measuring 10 by 15 millimeters and 3 x 4 millimeters which appear to be in the proximal portion of the urethra. These were not present on the prior exam in the bladder or in the collecting system. Bowel: No obstruction or bowel wall thickening. Suture material at stomach. Appendix normal. Peritoneal cavity: No ascites, collection or mesenteric inflammatory response. Reproductive organs: Status post hysterectomy. Ovaries unremarkable. Bones: Degenerative changes greatest at L4-5. IMPRESSION: Moderate right hydronephrosis. Ureter is dilated down to the ureteral vesicle junction. New 15 mill imeter stone and adjacent smaller stone in the upper urethra. RADIATION DOSE DELIVERED: Total DLP DATA REPOSITORY: All CT scans at this facility are submitted to the National Radiology Data Registry (NRDR) Dose Index Registry (DIR) with the [employer] (A[employer]). RADIATION OPTIMIZATION: All CT scans at this facility use at least one of these dose optimization te chniques: automated exposure control; mA and/or kV adjustment per patient size (includes targeted exa ms where dose is matched to clinical indication); or iterative reconstruction.
[2023-09-27 02:04] LABS: Bilirubin Negative (Negative); Blood Large (Negative); Clarity Cloudy (Clear); Glucose Negative (Negative); Ketones Negative (Negative); Leukocyte Esterase Negative (Negative); Nitrite Negative (Negative); Specific Gravity >= 1.030 (1.005-1.025); Urobilinogen 0.2 mg/dL (Up to 0.2); pH 5.5 (5-8)
--- NOTE | 2023-09-27 02:04 | W.ED.GENAD ---
Discharge Plan Discharge Details Chief Complaint: FlankPain Primary Care Provider: Waqas Cyr ED Provider: Kvng Roper Home Meds and New Rx's Prescriptions: No Action oxycodone 5 mg tablet 5 - 10 mg PO Q6H MDD 8 PRN (Reason: pain) Qty: 50 0RF oxybutynin chloride 5 mg tablet 5 mg PO TID PRN (Reason: bladder spasms) Qty: 20 0RF ipratropium-albuterol 0.5 mg-3 mg(2.5 mg base)/3 mL solution for nebulization 3 ml INHALATION Q6H PRN Patient Comments: no longer taking albuterol sulfate [ProAir HFA] 90 mcg/actuation HFA aerosol inhaler 1 - 2 puff INHALATION PRN PRN methylphenidate HCl [Ritalin] 20 mg Tablet 20 mg PO TID levalbuterol HCl 1.25 mg/3 mL Solution For Nebulization 1.25 mg UPD Q4H PRN PRNQty: 90 1RF Medical Decision Making The patient was seen and examined. She clearly appears to be having recurrent renal colic on the right side, which may be related to an obstructive pathology in the collecting system. With the stent removal, the patient will most likely reaccumulate her hydronephrosis if there is a fragment of stone that is obstructing the distal collecting system. The patient was given IV Toradol, IV ondansetron, and IV fluid here in the emergency room to help improve her symptoms. Basic labs and a UA will be sent on this patient. I will most likely reimage her right collecting system before contacting urology for further recommendations. HPI General Date/Time Provider Initiated Documentation: 09/27/23 01:47. HPI Narrative: The patient is a 53-year-old female, with a well-known history of renal colic related to recurrent calculi, who presents the emergency department this evening complaining of the sudden onset of right flank pain with radiation into the right lower quadrant and associated nausea and vomiting that began again tonight at approximately 10:30 PM. The patient had been seen earlier this month and had what appears to be laser based lithotripsy with stent placement performed by a local urologist. The patient had an appointment to have the stent removed today, but the stent was hanging out of her urethra and she pulled out today herself at around 4 PM. She had no pain at the time she removed the ureteral stent. She denies having any fevers at home but did have some sensation of chills during the height of her discomfort. The patient took 10 mg of oral oxycodone at home without any improvement in her pain symptoms and decided to come to the emergency room for pain relief. Related Data Home Medications Medication Instructions Recorded Confirmed methylphenidate HCl 20 mg tablet 20 mg PO TID 02/04/21 09/27/23 (Ritalin) levalbuterol HCl 1.25 mg/3 mL 1.25 mg (3 mL) UPD Q4H PRN PRN #90 02/08/21 09/27/23 solution for nebulization mL albuterol sulfate 90 mcg/actuation 1 - 2 puff inhalation PRN PRN 08/02/21 09/27/23 aerosol inhaler (ProAir HFA) ipratropium 0.5 mg-albuterol 3 mg 3 ml inhalation Q6H PRN 08/02/21 09/27/23 (2.5 mg base)/3 mL nebulization soln oxybutynin chloride 5 mg tablet 5 mg PO TID PRN bladder spasms #20 09/24/23 09/27/23 tabs oxycodone 5 mg tablet 5 - 10 mg (1 - 2 x 5 mg) PO Q6H 09/24/23 09/27/23 PRN pain #50 tabs Previous Rx's Medication Instructions Recorded levalbuterol HCl 1.25 mg/3 mL 1.25 mg (3 mL) UPD Q4H PRN PRN #90 02/08/21 solution for nebulization mL oxybutynin chloride 5 mg tablet 5 mg PO TID PRN bladder spasms #20 09/24/23 tabs oxycodone 5 mg tablet 5 - 10 mg (1 - 2 x 5 mg) PO Q6H 09/24/23 PRN pain #50 tabs Allergies Allergy/AdvReac Type Severity Reaction Status Date / Time No Known Allergies Allergy Unverified 09/24/23 07:38 General Stated Complaint: FlankPain RASHID: 3 PFSH All Active Problems Hyperplastic colon polyp (Acute ~08/06/23) Stress incontinence (Acute) Hydronephrosis (Acute) Diverticula of colon (Acute) Adenomatous polyp of sigmoid colon (Acute) Screening for malignant neoplasm of colon performed (Acute) Maltracking of left patella (Acute) Chondromalacia of left patellofemoral joint (Acute) ADHD (Chronic) History of section (Chronic) S/P hysterectomy (Chronic) Migraine (Chronic) Encounter for screening for other viral diseases (Acute) Fever (Acute) Fatigue (Acute) Nausea (Acute) Acute bronchitis with bronchospasm (Acute) GERD (gastroesophageal reflux disease) (Chronic) Acute esophagitis (Acute) Insomnia (Acute) DVT prophylaxis (Acute) Discharge planning issues (Acute) Pill dysphagia (Acute) Post-nasal drip (Acute) Encounter for screening laboratory testing for COVID-19 virus (Acute) Pneumonia due to COVID-19 virus (Acute) Screening for colon cancer (Acute) Abdominal pain (Acute) Acne (Acute) Medical History History of asthma Periodic limb movement sleep disorder Mixed hyperlipidemia Hypersomnia Family history of cardiovascular disease Ovarian cyst Gastritis Carpal tunnel syndrome Polycystic ovaries Hyperglycemia Rosacea ADAIR (obstructive sleep apnea) Insomnia Depressive disorder Claustrophobia Severe obesity Nephrolithiasis Surgical History Hx of reduction mammoplasty S/P gastric bypass History of colonoscopy (~07/2023) Hx of hysterectomy H/O LEEP (~1998) Hx of cholecystectomy (~2000) H/O ureteroscopy (~2020) H/O cystoscopy (~2020) Social History Smoking/Tobacco Use Status: Former Tobacco Use Quit Date: 11/19/99 Smoking risk assessment performed?: Yes Alcohol Intake: never Drug use: Never Substance use type: does not use Housing: house Current gender identity: female Do you feel safe at home: Yes Do you feel safe in your relationship?: Yes Exam Resp Effort & Inspection: normal respiratory effort and able to speak in complete sentences Auscultation: clear to auscultation bilaterally Cardio Rate: regular rate Rhythm: regular rhythm GI Other: Soft, positive bowel sounds, no distention Neuro Other: Grossly normal motor and sensory function. Course Vital Signs Vital signs: Vital Signs Temperature 36.6 C 09/27/23 01:51 Pulse 74 09/27/23 01:51 Respiratory Rate 26 H 09/27/23 01:51 Blood Pressure 145/80 H 09/27/23 01:51 Pulse Oximetry 99 09/27/23 01:51 Temperature 36.7 C 09/27/23 01:55 Temperature Source Temporal Artery Scan 09/27/23 01:55 Pulse 72 09/27/23 01:55 Respiratory Rate 21 09/27/23 01:55 Respiratory Effort Normal, Non-Labored 09/27/23 01:55 Blood Pressure 145/80 H 09/27/23 01:55 Blood Pressure Position Sitting 09/27/23 01:55 Pulse Oximetry 99 09/27/23 01:55 Oxygen Delivery Method Room Air 09/27/23 01:55 Oxygen Flow Rate 0 09/27/23 01:51 Pain Level 10 09/27/23 01:55
[2023-09-27] MEDS: Ondansetron 4 MG/2 ML VIAL IVP (02:06)
[2023-09-27] MEDS: Normal Saline 1,000 ML 1000 ML IV (02:06)
[2023-09-27] MEDS: Ketorolac 30 MG/ML VIAL IVP (02:06)
[2023-09-27 02:08] LABS: Abs Immature Grans 0.04 10^3/uL (0.0-0.06); Absolute Basophil Count 0.03 10^3/uL (0.0-0.2); Absolute Eosinophil Count 0.24 10^3/uL (0.0-0.7); Absolute Lymphocyte Count 1.76 10^3/uL (1.2-3.4); Absolute Monocyte Count 0.68 10^3/uL (0.1-0.8); Absolute Neutrophil Count 6.27 10^3/uL (1.2-6.7); Basophils % 0.3; Eosinophils % 2.7; HCT 33.1 % (36.0-46.0); HGB 10.4 g/dL (11.2-15.7); Immature Grans % 0.4; Lymphocytes % 19.5; MCH 23.4 pg (27.0-33.0); MCHC 31.4 % (32.0-36.0); MCV 75 fL (80-95); MPV 8.9 fL (8.0-11.0); Monocytes % 7.5; Neutrophils % 69.6; Platelet Count 323 10^3/uL (130-400); RBC 4.44 10^6/uL (3.93-5.22); RDW 16.7 % (11.7-14.6); RDW-SD 44.9 fL; WBC 9.02 10^3/uL (4.4-10.8)
[2023-09-27 02:17] LABS: Bacteria Moderate HPF (Negative); C & S Indicated? Yes; Epithelial Cells Few HPF (Negative); RBC >50 HPF (0-2)
[2023-09-27 02:29] LABS: ALT 28 U/L (14-59); AST 19 U/L (15-37); Albumin 3.8 g/dL (3.4-5.0); Alkaline Phosphatase 135 U/L (46-116); Anion Gap 9.9 mmol/L (3-11); BUN 16 mg/dL (7-18); Bilirubin, Total 0.5 mg/dL (0.2-1.0); CO2 27.1 mmol/L (21.0-32.0); Calcium 9.8 mg/dL (8.5-10.1); Chloride 101 mmol/L (98-107); Estimated GFR 68.21 (mL/min/1.73m2); Glucose 143 mg/dL (74-106); Potassium 3.5 mmol/L (3.5-5.1); Sodium 138 mmol/L (136-145); Total Protein 8.3 g/dL (6.4-8.2)
[2023-09-27 02:33] LABS: Diff Comment RBC Morph Reviewed; Microcytosis 2+; Polychromasia Present
--- NOTE | 2023-09-27 03:53 | DI.VRAD_ITS ---
PROCEDURE INFORMATION: Exam: CT Abdomen And Pelvis Without Contrast Exam date and time: 09/27/2023 2:34 AM Age: 53 years old Clinical indication: Abdominal pain; Flank; Right; Prior surgery; Surgery date: 1-6 months; Surgery type: Kidney stone surg 3x since jun 2022 TECHNIQUE: Imaging protocol: Computed tomography of the abdomen and pelvis without contrast. COMPARISON: CT ABDOMEN PELVIS WO/W 09/11/2023 8:55 AM FINDINGS: Lungs: Mild dependent atelectasis. Liver: Diffuse fatty infiltration of the liver. Gallbladder and bile ducts: Prior cholecystectomy. No biliary dilatation. Pancreas: Grossly unremarkable unenhanced pancreas. Spleen: Grossly unremarkable unenhanced spleen. Adrenal glands: Normal appearing adrenal glands. Kidneys and ureters: Nonobstructing renal calculi with the largest measuring 3 mm in the lower pole on the right. Moderate right-sided hydronephrosis. Asymmetrically prominent visualization of the urothelium in the right renal pelvis. 2 mm nonobstructing stone in the right renal pelvis. Right-sided perinephric edema, diffuse right-sided ureterectasis, and right-sided perinephric edema. Possible tiny 1 mm nonobstructing stone in the proximal right ureter on image 46 of series 2 versus artifact. No distally obstructing ureteral stone demonstrated. No left-sided hydronephrosis or ureterectasis. Stomach and bowel: Prior gastric surgery, apparently a gastric bypass procedure with gastrojejunostomy. Correlation with surgical history recommended. No small bowel dilatation to suggest obstruction. Appendix: Normal appendix. Intraperitoneal space: No gross ascites or free air. Vasculature: Normal caliber abdominal aorta. Lymph nodes: No pathologically enlarged mesenteric, retroperitoneal, or pelvic sidewall lymph nodes. Urinary bladder: Urinary bladder partially distended. Stones at the midline bladder base in the expected location of the female urethra measuring 10 mm x 10 mm x 15 mm and 10 mm x 3 mm x 4 mm. Reproductive: Prior hysterectomy. Ovaries partially obscured but normal in size. Bones/joints: No acute fracture seen among the bones of the abdomen or pelvis. Spinal degenerative change with discogenic degeneration at multiple lower thoracic levels. Severe bilateral facet arthrosis at L4-L5 with grade 1 anterolisthesis of L4 on L5, moderate left-sided foraminal narrowing, and moderate-severe right-sided foraminal narrowing with osteophytic material abutting the left L4 nerve root and abutting and deforming the right L4 nerve root. Soft tissues: No significant ventral or inguinal hernia. IMPRESSION: 1. Obstructive uropathy on the right with moderate hydronephrosis, diffuse right-sided ureterectasis, perinephric edema, and periureteral edema. No distally obstructing stone demonstrated in the right ureter. Possible tiny 1 mm nonobstructing proximal right ureteral calculus versus artifact. 2. Asymmetrically prominent visualization of the urothelium in the distended right renal pelvis worrisome for a superimposed acute urinary tract infection. 3. 10 mm x 10 mm x 15 mm and 10 mm x 3 mm x 4 mm calcifications in the midline bladder base in the expected location of the female urethra, suspicious for urinary tract stones, possibly recently passed from the right upper urinary tract although clinical correlation is recommended. Dictated and Authenticated by: Teodoro Wilson MD. Ordering:VIANEY Calderon MD
== END 2023-09-27 08:38 | disposition home or self-care (01) ==
LOC: ER 02:01
PROVIDERS: Emergency Provider Emergency Medicine Emergency Medical Services; PCP Neuromusculoskeletal Medicine & OMM
DX: R10.9 Unspecified abdominal pain (principal); G89.18 Other acute postprocedural pain; N13.2 Hydronephrosis with renal and ureteral calculous obstruction; Z98.84 Bariatric surgery status; Z87.891 Personal history of nicotine dependence
CPT/HCPCS: 80053; 96361; 96374; 96375; 99284; 74176; 81003; 81015; 85025; 87086; J1885; J2405

== ENCOUNTER 2024-02-04 09:14 | Day surgery (SDC) | payer OTHER, SELFPAY ==
[2024-02-04 09:18] VITALS: BP 134/59; PULSE 69; RESP 18; TEMP 36.6
[2024-02-04 09:25] VITALS: BP 134/59; PULSE 69; RESP 18; TEMP 36.6; O2SAT 97
--- NOTE | 2024-02-04 09:25 | W.ED.GENAD ---
Discharge Plan Disposition Patient Disposition: Admit to [facility] Condition: Stable Discharge Details Chief Complaint: FlankPain Clinical Impression: Hydronephrosis Attending Provider: Quan Lebron Primary Care Provider: Waqas Cyr ED Provider: Eulalio Heard Discharge Instructions Activity:: Activity as Tolerated Shower/Bathe:: 24 hours Diet:: As Tolerated Discharge Data Discharge Date/Time-TO BE ENTERED AT DEPARTURE: 02/04/24 12:23 HPI General Date/Time Provider Initiated Documentation: 02/04/24 09:23. HPI Narrative: 53 year-old female presents to ED today by POV/ambulating with a chief complaint of known obstructing renal stone from imaging at [facility] yesterday, 9mm, [facility] U[facility] Dr. Lebron aware patient was presenting here today for stenting. Quality described as R flank pain radiating around to front, no radiation to complete urinary retention, fever, focal abdominal pain, shortness of breath, chest pain. Severity is described as 8/10. Palliating factors include taking narcotic pain medicines. Provoking factors include nothing specific, history of renal stenting. Events leading up to the incident/Associated Symptoms: Patient has been NPO since midnight. Patient not anticoagulated. Related Data Home Medications Medication Instructions Recorded Confirmed methylphenidate HCl 20 mg tablet 20 mg PO TID 02/04/21 02/04/24 (Ritalin) levalbuterol HCl 1.25 mg/3 mL 1.25 mg (3 mL) UPD Q4H PRN PRN #90 02/08/21 02/04/24 solution for nebulization mL albuterol sulfate 90 mcg/actuation 1 - 2 puff inhalation PRN PRN 08/02/21 02/04/24 aerosol inhaler (ProAir HFA) ipratropium 0.5 mg-albuterol 3 mg 3 ml inhalation Q6H PRN 08/02/21 02/04/24 (2.5 mg base)/3 mL nebulization soln potassium citrate 10 mEq (1,080 10 meq PO BID #180 tabs 11/08/23 02/04/24 mg) tablet,extended release (Urocit-K 10) cephalexin 500 mg capsule 500 mg PO TID 7 days #21 caps 02/04/24 oxycodone 5 mg tablet 5 - 10 mg (1 - 2 x 5 mg) PO Q6H 02/04/24 PRN pain #30 tabs Previous Rx's Medication Instructions Recorded levalbuterol HCl 1.25 mg/3 mL 1.25 mg (3 mL) UPD Q4H PRN PRN #90 02/08/21 solution for nebulization mL potassium citrate 10 mEq (1,080 10 meq PO BID #180 tabs 11/08/23 mg) tablet,extended release (Urocit-K 10) cephalexin 500 mg capsule 500 mg PO TID 7 days #21 caps 02/04/24 oxycodone 5 mg tablet 5 - 10 mg (1 - 2 x 5 mg) PO Q6H 02/04/24 PRN pain #30 tabs Allergies Allergy/AdvReac Type Severity Reaction Status Date / Time No Known Allergies Allergy Unverified 02/04/24 09:22 General Stated Complaint: FlankPain RASHID: 3 Review of Systems All systems reviewed & are unremarkable except as noted in HPI and below Exam Narrative Exam Narrative: GENERAL APPEARANCE: Well-nourished, non-toxic, awake and alert, atraumatic, no acute distress. SKIN: Warm, pink, dry, intact, without rashes/lesions/ulcerations. HEAD: Normocephalic, atraumatic, normal hair distribution for gender/age. EYES: Pupils PERRLA, EOMs intact without nystagmus, normal conjunctiva, no exudates on lids/lashes. ENT: Nares patent, no circumoral cyanosis, no facial swelling NECK: Supple, trachea midline, painless cervical ROM. LUNGS/CHEST: Lungs CTA bilaterally- no rhonchi/rales/wheezes diffusely, non-labored respirations, normal A/P diameter, symmetrical expansion, no chest wall deformity HEART (CV/PV): Regular rate and rhythm without murmur, no peripheral edema, no JVD. ABDOMEN: Soft, non-distended, no guarding, R flank tenderness, no Rovsing's. MSK: Normal ROM, no swelling/deformity to bilateral UEs or LEs, moving all extremities without weakness, no cyanosis, spine midline without tenderness, normal curvature. NEURO: Mental Status AAOx4 - alert to person, place, time, events No facial droop, no forehead involvement. Motor: No focal weakness - strength 5/5 in bilateral UEs and LEs, proximal and distal, symmetric. Sensory: sensation intact to light touch globally. Gait normal: patient ambulated without ataxia into ED room. PSYCH: euthymic, cooperative, pleasant, appropriate speech Course Vital Signs Vital signs: Vital Signs Temperature 36.6 C 02/04/24 09:18 Pulse 69 02/04/24 09:18 Respiratory Rate 18 02/04/24 09:18 Blood Pressure 134/59 L 02/04/24 09:18 Temperature 36.6 C 02/04/24 09:18 Temperature Source Oral 02/04/24 09:18 Pulse 69 02/04/24 09:18 Respiratory Rate 18 02/04/24 09:18 Respiratory Effort Normal, Non-Labored 02/04/24 09:23 Blood Pressure 134/59 L 02/04/24 09:18 Pain Level 3 02/04/24 09:18 Medical Decision Making This dictation utilizes [id number] dictation software and may contain unedited grammatical errors. 53 y/o F presents to ED today with a chief complaint of R flank pain, dark urine for two weeks- seen at [facility] and diagnosed with R renal stones, hydronephrosis, and concern for UTI. Dr. Lebron of [facility] Urology aware and will be presenting to ED for admission and stenting. Patient comfortable on her oxycodone- last took at 0700, has been NPO since midnight. Patients' medical history: renal stones w prior stenting, asthma, PCOS, ADAIR, history of gastric bypass. Family and social history: [ ]. Pertinent exam findings / vital signs include R flank tenderness, non-peritoneal abdomen, benign cardiopulmonary status, neuro intact, nontoxic vitals. Differential / pathologies of concern include known renal stone in need of stenting, UTI. Diagnostic studies of: -deferred studies to Dr. Lebron. Interventions of: -none- patient had taken oxycodone at 0700 and was feeling OK with waiting for Urology here in ED without further analgesics. ED Course/Assessment/Plan: 53-year-old female was seen at [facility] and diagnosed with hydronephrosis likely secondary to right nephrolithiasis with possible UTI and ureteral stone, reviewed their records, she is comfortable and nontoxic at this time, I deferred studies to the urology provider who presented to ED for admission for stenting, there is no acute events or interventions needed in the ED. Admitted for stenting by Dr. Lebron. Disposition of Hydronephrosis Patient verbalized understanding of the plan and return to ED criteria and engaged in shared decision making. Medical Records Medical records reviewed: Yes I reviewed the patient's medical records. Medical records narrative: Reviewed paper records from [facility]- 9mm stone on R, concern UTI. Quality:SDOH Health Related Social Needs: No Data to Display PFSH All Active Problems (Updated 02/05/24 @ 14:42 by ASHOK Abbott) Hyperplastic colon polyp (Acute ~08/06/23) Stress incontinence (Acute) Hydronephrosis (Acute) Diverticula of colon (Acute) Adenomatous polyp of sigmoid colon (Acute) Screening for malignant neoplasm of colon performed (Acute) Maltracking of left patella (Acute) Chondromalacia of left patellofemoral joint (Acute) ADHD (Chronic) History of section (Chronic) S/P hysterectomy (Chronic) Migraine (Chronic) Encounter for screening for other viral diseases (Acute) Fever (Acute) Fatigue (Acute) Nausea (Acute) Acute bronchitis with bronchospasm (Acute) GERD (gastroesophageal reflux disease) (Chronic) Acute esophagitis (Acute) Insomnia (Acute) DVT prophylaxis (Acute) Discharge planning issues (Acute) Pill dysphagia (Acute) Post-nasal drip (Acute) Encounter for screening laboratory testing for COVID-19 virus (Acute) Pneumonia due to COVID-19 virus (Acute) Screening for colon cancer (Acute) Abdominal pain (Acute) Acne (Acute) Medical History (Updated 02/05/24 @ 14:42 by ASHOK Abbott) History of asthma Periodic limb movement sleep disorder Mixed hyperlipidemia Hypersomnia Family history of cardiovascular disease Ovarian cyst Gastritis Carpal tunnel syndrome Polycystic ovaries Hyperglycemia Rosacea ADAIR (obstructive sleep apnea) Insomnia Depressive disorder Claustrophobia Severe obesity Nephrolithiasis Surgical History Hx of reduction mammoplasty S/P gastric bypass History of colonoscopy (~07/2023) Hx of hysterectomy H/O LEEP (~1998) Hx of cholecystectomy (~2000) H/O ureteroscopy (~2020) H/O cystoscopy (~2020) Social History Smoking/Tobacco Use Status: Former Tobacco Use Quit Date: 11/19/99 Smoking risk assessment performed?: Yes Alcohol Intake: never Drug use: Never Substance use type: does not use Housing: house Current gender identity: female Do you feel safe at home: Yes Do you feel safe in your relationship?: Yes
[2024-02-04 09:33] VITALS: RESP 20
--- NOTE | 2024-02-04 11:53 | W.PM.HP.N ---
Date of service: 02/04/24 Time of Service: 11:53 Assessment and Plan Assessment and plan (1) Hydronephrosis: Status: Acute (2) Nephrolithiasis: Assessment and plan: With the possibility of a urinary tract infection, we will plan on doing a cystoscopy retrograde pyelogram and placing a ureteral stent. We will treat her with antibiotics to ensure her bacteriuria is adequately treated. She will require a return to the operating room for cystoscopy, stent removal, ureteroscopy and holmium laser lithotripsy at a later date. We will prophylax her with Ancef prior to the procedure. She should be able to go home later today on oral antibiotics. History of Present Illness History of Present Illness Chief Complaint: Right ureteral stone Narrative: This is a 53-year-old woman who has a long history of kidney stones. She has had some right-sided flank pain along with dark urine over the past 2 weeks. She presented to the emergency department at [facility] yesterday and was found to have stones in the right kidney. She also had an abnormal urinalysis concerning for urinary tract infection. She was given an IV dose of Rocephin. She presents now for placement of a ureteral stent. She has no fever or chills. She does have nausea and vomiting. Review of Systems Narrative: No fevers or chills No vision change or dysphasia No diabetes or thyroid dysfunction No shortness of breath, cough or hemoptysis No chest pain or palpitations GERD. No hepatitis, ulcers, jaundice, diarrhea or constipation Hx migraine headache. No seizures, strokes or peripheral neuropathy No bleeding disorders or anemia No gout PFSH All Active Problems Hyperplastic colon polyp (Acute ~08/06/23) Stress incontinence (Acute) Hydronephrosis (Acute) Diverticula of colon (Acute) Adenomatous polyp of sigmoid colon (Acute) Screening for malignant neoplasm of colon performed (Acute) Maltracking of left patella (Acute) Chondromalacia of left patellofemoral joint (Acute) ADHD (Chronic) History of section (Chronic) S/P hysterectomy (Chronic) Migraine (Chronic) Encounter for screening for other viral diseases (Acute) Fever (Acute) Fatigue (Acute) Nausea (Acute) Acute bronchitis with bronchospasm (Acute) GERD (gastroesophageal reflux disease) (Chronic) Acute esophagitis (Acute) Insomnia (Acute) DVT prophylaxis (Acute) Discharge planning issues (Acute) Pill dysphagia (Acute) Post-nasal drip (Acute) Encounter for screening laboratory testing for COVID-19 virus (Acute) Pneumonia due to COVID-19 virus (Acute) Screening for colon cancer (Acute) Abdominal pain (Acute) Acne (Acute) Medical History History of asthma Periodic limb movement sleep disorder Mixed hyperlipidemia Hypersomnia Family history of cardiovascular disease Ovarian cyst Gastritis Carpal tunnel syndrome Polycystic ovaries Hyperglycemia Rosacea ADAIR (obstructive sleep apnea) Insomnia Depressive disorder Claustrophobia Severe obesity Nephrolithiasis Surgical History Hx of reduction mammoplasty S/P gastric bypass History of colonoscopy (~07/2023) Hx of hysterectomy H/O LEEP (~1998) Hx of cholecystectomy (~2000) H/O ureteroscopy (~2020) H/O cystoscopy (~2020) Social History Smoking/Tobacco Use Status: Former Tobacco Use Quit Date: 11/19/99 Smoking risk assessment performed?: Yes Alcohol Intake: never Drug use: Never Substance use type: does not use Housing: house Current gender identity: female Do you feel safe at home: Yes Do you feel safe in your relationship?: Yes Meds Allergies and Home Medications Allergies Allergy/AdvReac Type Severity Reaction Status Date / Time No Known Allergies Allergy Unverified 02/04/24 09:22 Home Medications Medication Instructions Recorded Confirmed Type methylphenidate HCl 20 mg tablet 20 mg PO TID 02/04/21 02/04/24 History (Ritalin) levalbuterol HCl 1.25 mg/3 mL 1.25 mg (3 mL) UPD Q4H PRN PRN #90 02/08/21 02/04/24 Rx solution for nebulization mL albuterol sulfate 90 mcg/actuation 1 - 2 puff inhalation PRN PRN 08/02/21 02/04/24 History aerosol inhaler (ProAir HFA) ipratropium 0.5 mg-albuterol 3 mg 3 ml inhalation Q6H PRN 08/02/21 02/04/24 History (2.5 mg base)/3 mL nebulization soln potassium citrate 10 mEq (1,080 10 meq PO BID #180 tabs 11/08/23 02/04/24 Rx mg) tablet,extended release (Urocit-K 10) oxycodone 5 mg tablet 5 - 10 mg (1 - 2 x 5 mg) PO Q6H 12/28/23 02/04/24 Rx PRN pain #30 tabs tamsulosin 0.4 mg capsule (Flomax) 0.4 mg PO DAILY #14 caps 12/28/23 02/04/24 Rx Exam Narrative Exam Narrative: She does not appear septic or toxic Her vital signs are documented elsewhere Chest wall motion is normal. She does not appear short of breath at rest. Her lungs are clear Cardiac exam shows a regular rate and rhythm Her abdomen is soft with no guarding or rebound tenderness She is awake and alert I reviewed her urine sample from [facility] and based on a urinalysis, she does have increased white blood cells in the urine. I reviewed her CT scan and there is a stone in the lower pole of the right kidney along with what appears to be a stone in the renal pelvis and possibly a smaller stone down the ureter. Results Last Vital Signs Temp 36.6 C 02/04/24 09:25 Pulse 69 02/04/24 09:25 Resp 20 02/04/24 09:33 BP 134/59 L 02/04/24 09:25 Pulse Ox 97 02/04/24 09:25 Time Spent Time spent with Patient: 40-54 minutes Time was spent: preparing to see the patient(eg.review tests), obtaining and/or reviewing separately otained hiistory, referring, communicating with other health post acute care nurse practitioner, indepentently interpreting results, counseling the patient and care coordination
--- NOTE | 2024-02-04 12:00 | DI.RAD_ITS ---
Exam(s) XR RETROGRADE IN OR EXAM: XR RETROGRADE IN OR CLINICAL HISTORY: hydronephrosis. TECHNIQUE: Fluoroscopy was provided for the referring physician for guidance with performing retrogr jet procedure. COMPARISON: CT CT ABD/PELVIS WO CONTRAST from 02/03/2024 FINDINGS: There copy image shows placement of a ureteral stent please see procedure note for details. Fluoro time: 14 seconds RADIATION DOSE DELIVERED: Ka,r=2.79 mGy
--- NOTE | 2024-02-04 12:21 | W.ANESPRE ---
General Info Date of Service Date Performed: 02/04/24 Height: 5 ft 4 in Weight: 86.183 kg Body Mass Index (BMI): 32.5 Surgical Procedure: Operation Date: 02/04/24 12:40 Proposed Procedure Side Surgeon p Cystoscopy with Stent Insertion Right Quan Lebron MD Meds Allergies and Home Medications Allergies Allergy/AdvReac Type Severity Reaction Status Date / Time No Known Allergies Allergy Unverified 02/04/24 09:22 Home Medication Medication Instructions Recorded methylphenidate HCl 20 mg tablet 20 mg PO TID 02/04/21 (Ritalin) levalbuterol HCl 1.25 mg/3 mL 1.25 mg (3 mL) UPD Q4H PRN PRN #90 02/08/21 solution for nebulization mL albuterol sulfate 90 mcg/actuation 1 - 2 puff inhalation PRN PRN 08/02/21 aerosol inhaler (ProAir HFA) ipratropium 0.5 mg-albuterol 3 mg 3 ml inhalation Q6H PRN 08/02/21 (2.5 mg base)/3 mL nebulization soln potassium citrate 10 mEq (1,080 10 meq PO BID #180 tabs 11/08/23 mg) tablet,extended release (Urocit-K 10) oxycodone 5 mg tablet 5 - 10 mg (1 - 2 x 5 mg) PO Q6H 12/28/23 PRN pain #30 tabs tamsulosin 0.4 mg capsule (Flomax) 0.4 mg PO DAILY #14 caps 12/28/23 PFSH Active Problems Active Problems: Problem Status Onset Code Hyperplastic colon polyp ~08/06/23 K63.5 Stress incontinence N39.3 Hydronephrosis N13.30 Diverticula of colon K57.30 Adenomatous polyp of sigmoid colon D12.5 Screening for malignant neoplasm of colon performed Z12.11 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 ADHD F90.9 History of section Z98.891 S/P hysterectomy Z90.710 Migraine G43.909 Encounter for screening for other viral diseases Z11.59 Fever R50.9 Fatigue R53.83 Nausea R11.0 Acute bronchitis with bronchospasm J20.9 GERD (gastroesophageal reflux disease) K21.9 Acute esophagitis K20.90 Insomnia G47.00 DVT prophylaxis Z29.9 Discharge planning issues Z02.9 Pill dysphagia R13.10 Post-nasal drip R09.82 Epistaxis R04.0 Encounter for screening laboratory testing for COVID-19 virus Z20.822 Pneumonia due to COVID-19 virus U07.1, J12.82 Screening for colon cancer Z12.11 Abdominal pain R10.9 Acne L70.9 Medical History Medical History History of asthma Periodic limb movement sleep disorder Mixed hyperlipidemia Hypersomnia Family history of cardiovascular disease Ovarian cyst Gastritis Carpal tunnel syndrome Polycystic ovaries Hyperglycemia Rosacea ADAIR (obstructive sleep apnea) Insomnia Depressive disorder Claustrophobia Severe obesity Nephrolithiasis Surgical History Surgical History Hx of reduction mammoplasty S/P gastric bypass History of colonoscopy (~07/2023) Hx of hysterectomy H/O LEEP (~1998) Hx of cholecystectomy (~2000) H/O ureteroscopy (~2020) H/O cystoscopy (~2020) Tobacco Smoking/Tobacco Use Status: Former Tobacco Use Alcohol Alcohol Intake: never Substance Use Substance use: Never Substance use type: does not use Vital Signs and Lab Results Vital Signs Most Recent Vital Signs in EMR: Most Recent Vital Signs Temp Pulse Resp BP Pulse Ox 36.6 C 69 20 134/59 L 97 02/04/24 09:25 02/04/24 09:25 02/04/24 09:33 02/04/24 09:25 02/04/24 09:25 Lab Results Blood Type / Crossmatch: No Data to Display Complete Blood Count: No Data to Display Complete Metabolic Panel: No Data to Display Liver Function Panel: No Data to Display Coagulation Panel: No Data to Display Cardiac Panel: No Data to Display Arterial Blood Gas: No Data to Display Venous Blood Gas: No Data to Display Pancreas Panel: No Data to Display Thyroid Panel: No Data to Display Infectious Disease: No Data to Display Blood Cultures: No Data to Display Toxicology Panel: No Data to Display Panel: No Data to Display Imaging and Studies Imaging and Studies Study information below may be from another EMR and interpreted by another provider. Please see original notes in EMR for more complete details. EKG Summary: 08/02/21: Exam: Resting ECG Reason for Exam: sob Patient Location: E HR:94 bpm ECG Measurements Heart Rate 94 AXIS WI 150 P 50 QRSd 98 QRS 22 QT 374 T-5 QTc 468 Conclusion Sinus rhythm...normal P axis, V-rate 60- 99. Sinus. No STEMI. I have reviewed and interpreted ECG and agree with software generated interpretation. Pulmonary Function Summary: 03/31/21: Pulmonary Function Test Result Interpretation Spirometry: No evidence of obstructive airways disease, no bronchodilator response Lung Volumes: No evidence of restriction Diffusion Capacity: Borderline mildly reduced which is normal when corrected to alveolar volume Airway Pressure: Normal Impression Isolated borderline reduction in diffusion capacity, this is normal when corrected to alveolar volume Clinical Correlation therefore is recommended. Anesthesia Assessment and Plan Anesthesia History Personal History: No History of Anesthesia Complications Family History: No Family History of Anesthesia Complications Exercise Tolerance Exercise Tolerance: Metabolic Equivalents>4 Pertinent Negatives Pertinent Negatives: No Symptoms of GERD, No Major Cardiovascular Symptoms or Complaints and No History of CVA/TIA Cardiac & Pulmonary Exam Cardiac Exam: Normal S1/S2 Heart Sounds Pulmonary Exam: Clear Bilateral Breath Sounds Implantable Cardiac Device Does patient have a Pacemaker or an ICD?: No Airway Exam Known Difficult Airway: No Mallampati Class: 3 Mouth Opening: Normal (> 3cm) Thyromental Distance: Greater than 3 cm Neck Range of Motion: Full ROM Neck Circumference: Normal Teeth Condition: Removable Dentures/Plates Upper and Edentulous ASA Classification ASA Score: ASA 3 Emergency Case?: No NPO Status NPO Status: NPO Clears >2 hours, Solids >8 hours Status Status: History of Hysterectomy Anesthesia Plan Resuscitation Status: Full Code Anesthesia Technique: General Anesthesia Airway Planned: Natural Airway Monitors Used: Standard Monitors
[2024-02-04] MEDS: Lactated Ringers 1,000 ML 30 ML IV (12:40)
[2024-02-04 12:45] VITALS: BMI 32.5
[2024-02-04] MEDS: ceFAZolin 2 GM/50 ML BAG 100 GM (12:56)
[2024-02-04] MEDS: Omnipaque 300 MG/ML 50 ML BTL (13:03)
[2024-02-04] MEDS: Lidocaine 2% Jelly 11 ML SYR (13:03)
--- NOTE | 2024-02-04 13:16 | W.PM.DSUDISC ---
Date of service: 02/04/24 Time of Service: 13:16 Discharge Plan Disposition Patient Disposition: Home Condition: Stable Discharge Details Reason For Visit: kidney stone Attending Provider: Quan Lebron Primary Care Provider: Waqas Cyr [place] Meds and New Rx's Prescriptions: New cephalexin 500 mg capsule 500 mg PO TID 7 Days Qty: 21 0RF Continued potassium citrate [Urocit-K 10] 10 mEq (1,080 mg) tablet extended release 10 meq PO BID Qty: 180 3RF oxycodone 5 mg tablet 5 - 10 mg PO Q6H MDD 8 PRN (Reason: pain) Qty: 30 0RF ipratropium-albuterol 0.5 mg-3 mg(2.5 mg base)/3 mL solution for nebulization 3 ml INHALATION Q6H PRN Patient Comments: no longer taking albuterol sulfate [ProAir HFA] 90 mcg/actuation HFA aerosol inhaler 1 - 2 puff INHALATION PRN PRN methylphenidate HCl [Ritalin] 20 mg Tablet 20 mg PO TID levalbuterol HCl 1.25 mg/3 mL Solution For Nebulization 1.25 mg UPD Q4H PRN PRNQty: 90 1RF Discontinued tamsulosin [Flomax] 0.4 mg capsule 0.4 mg PO DAILY Qty: 14 0RF Discharge Instructions Additional Instructions: My office will contact the patient to make arrangements for cystoscopy, remove right ureteral stent, right ureteroscopy with holmium laser lithotripsy of her kidney stones. Prescription for antibiotics sent to [facility] Activity:: Activity as Tolerated Shower/Bathe:: 24 hours Diet:: As Tolerated DS: Diagnosis Discharge Diagnosis (1) Hydronephrosis: Status: Acute (2) Nephrolithiasis:
[2024-02-04 13:19] VITALS: BP 103/65; PULSE 63; RESP 16; TEMP 36.3; O2SAT 94
--- NOTE | 2024-02-04 13:23 | W.PM.OP ---
Date of service: 02/04/24 Time of Service: 13:23 Operative Note Operative Note DATE OF PROCEDURE: 02/04/24 PRE-OP DIAGNOSIS: Right hydronephrosis POST-OP DIAGNOSIS: same PROCEDURE: cystoscopy, right retrograde pyelogram, insert right ureteral stent SURGEON: Quan Lebron ANESTHESIA TYPE: Local By Surgeon and General:No Airway Refer to Anesthesia Record ESTIMATED BLOOD LOSS: 5 PATHOLOGY: none sent COMPLICATIONS: None Patient was transported to: same day Patient's condition: stable Implants: 6 Ukrainian by 22 to 30 cm right ureteral stent Indications: This is a 53-year-old woman who has a history of kidney stones. She presented to an [facility] emergency department yesterday with flank pain, nausea and vomiting. She was found to have right hydronephrosis, right lower pole kidney stone (nonobstructing) along with a right UPJ stone. She had an abnormal urinalysis concerning for a urinary tract infection. She presents now for stent placement. Findings: Dilated right kidney Procedure Description: The patient was given preoperative IV antibiotics and brought to the operating room on 02/04/2024. After successful induction of general anesthesia, she was placed in the dorsal lithotomy position. Her genitalia was prepped and draped. 2% Xylocaine jelly was instilled into the urethra to act as a local anesthetic. A 22 Ukrainian rigid cystoscope was passed through the urethra into the bladder. The bladder was inspected with a 30 degree lens. Both ureteral orifices appeared normal with no blood coming from either side. The right orifice was cannulated with a 5 Ukrainian access catheter. A retrograde pyelogram was obtained by injecting Omnipaque through the access catheter under fluoroscopic guidance. The right collecting system was dilated to the level of the UPJ. I did not see any filling defects further distally in the ureter. A guidewire was passed through the lumen of the access catheter and the catheter was removed. A 6 Ukrainian variable length stent was advanced over the wire. The stent was positioned with the proximal and curled in the renal pelvis and the distal and curled in the bladder. The positioning of the stent was confirmed both fluoroscopically and cystoscopically. The bladder was emptied and the scope was removed. The patient tolerated the procedure well with no complications. We will make arrangements for a planned return trip to the operating room for ureteroscopy and treatment of her stones once the patient has completed a course of oral antibiotics.
--- NOTE | 2024-02-04 13:24 | W.ANESPOSTOP ---
Postoperative Evaluation Date, Time and Location Date Performed: 02/04/24 Time Performed: 13:21 Patient Location: Day Surgery Unit Vital Signs Most Recent Imported Vital Signs: Most Recent Vital Signs Temp Pulse Resp BP Pulse Ox 36.3 C L 63 16 103/65 94 02/04/24 13:19 02/04/24 13:19 02/04/24 13:19 02/04/24 13:19 02/04/24 13:19 Pain Score Most Recent Pain Score: Most Recent Pain Score Pain Level [Abdomen] 0 02/04/24 09:36 Pain Level 0 02/04/24 13:19 Assessment Mental Status: Awake (Alert & Oriented to Patient Baseline) Airway and Respiratory Function: Patent airway with normal (patient baseline) respiratory exam Cardiovascular Function: Hemodynamically Stable Hydration Status: Adequately Hydrated Nausea & Vomiting: No Nausea or Vomiting Pain: Pt. Denies Any Pain Peripheral Nerve Block: Patient did not receive a nerve block
[2024-02-04] MEDS: Phenazopyridine 200 MG TAB PO (13:34)
[2024-02-04 13:48] VITALS: BP 119/72; PULSE 63; RESP 16; TEMP 36.3; O2SAT 97
[2024-02-04] MEDS: oxyCODONE 5 MG TAB PO (13:59)
[2024-02-04 14:29] VITALS: BP 114/64; PULSE 65; RESP 16; TEMP 36.4; O2SAT 98
== END 2024-02-04 14:45 | disposition home or self-care (01) ==
LOC: ER 11:52 → SUR 12:26
PROVIDERS: Emergency Provider Physician Assistant; PCP Neuromusculoskeletal Medicine & OMM; Visit Provider Urology
PROC: (CPT 52332; principal; 2024-02-04 12:30)
DX: N13.2 Hydronephrosis with renal and ureteral calculous obstruction (principal); G47.33 Obstructive sleep apnea (adult) (pediatric); E78.2 Mixed hyperlipidemia
CPT/HCPCS: 52332; 74420; J0690; J2001; J2704; Q9967

== ENCOUNTER 2024-02-12 14:45 | Outpatient (REF) | payer OTHER, SELFPAY | END 2024-02-12 14:46 | disposition home or self-care (01) | LOC: LBN 14:45 | PROVIDERS: PCP Neuromusculoskeletal Medicine & OMM; Visit Provider Urology | DX: N39.0 Urinary tract infection, site not specified (principal); N39.3 Stress incontinence (female) (male); Z87.442 Personal history of urinary calculi | CPT/HCPCS: 87086 ==

== ENCOUNTER 2024-02-14 07:20 | Day surgery (SDC) | payer OTHER, SELFPAY ==
[2024-02-14] VITALS (9 sets, daily range): BP systolic 108–131; BP diastolic 52–76; PULSE 56–69; RESP 13–20; TEMP 36–36.5; O2SAT 94–100; BMI 33.7
--- NOTE | 2024-02-14 08:00 | W.ANESPRE ---
General Info Date of Service Date Performed: 02/14/24 Height: 5 ft 4 in Weight: 89.3 kg Body Mass Index (BMI): 33.7 Surgical Procedure: Operation Date: 02/14/24 09:10 Proposed Procedure Side Surgeon p Cystoscopy/Laser/Retrograde/Ureteroscopy/Stent Removal/Possible Stent Replacement Right Quan Lebron MD Meds Allergies and Home Medications Allergies Allergy/AdvReac Type Severity Reaction Status Date / Time No Known Allergies Allergy Verified 02/14/24 07:37 Home Medication Medication Instructions Recorded methylphenidate HCl 20 mg tablet 20 mg PO TID 02/04/21 (Ritalin) levalbuterol HCl 1.25 mg/3 mL 1.25 mg (3 mL) UPD Q4H PRN PRN #90 02/08/21 solution for nebulization mL albuterol sulfate 90 mcg/actuation 1 - 2 puff inhalation PRN PRN 08/02/21 aerosol inhaler (ProAir HFA) ipratropium 0.5 mg-albuterol 3 mg 3 ml inhalation Q6H PRN 08/02/21 (2.5 mg base)/3 mL nebulization soln potassium citrate 10 mEq (1,080 10 meq PO BID #180 tabs 11/08/23 mg) tablet,extended release (Urocit-K 10) oxycodone 5 mg tablet 5 - 10 mg (1 - 2 x 5 mg) PO Q6H 02/04/24 PRN pain #30 tabs ciprofloxacin HCl 500 mg tablet 500 mg PO BID antibiotic #10 tabs 02/12/24 semaglutide (weight loss) 1.7 1.7 mg subcut Q7D 02/13/24 mg/0.75 mL subcutaneous pen injector (Nathanielgoronald) Current Visit Medications: Current Medications Generic Name Dose Route Start Last Admin Trade Name Freq PRN Reason Stop Dose Admin Ringer's Solution 1,000 mls @ 80 mls/hr 02/14/24 06:00 IV 03/14/24 23:59 INFUSION MEI Cefazolin Sodium/Dextrose 2 gm in 50 mls @ 100 mls/hr 02/14/24 06:00 Ancef Duplex IVPB 02/14/24 16:00 PREOP MEI IV Miscellaneous Supplies 1 each 02/14/24 06:00 Iv Access IV 04/26/24 23:59 DIRECTED MEI Sodium Chloride 0 ml 02/14/24 06:00 Normal Saline Flush 10 Ml Syr IV 03/14/24 23:59 PRN PRN Sodium Chloride 0 ml 02/14/24 06:00 Normal Saline 10 Ml Vial IJ 03/14/24 23:59 DIRECTED PRN Sterile Water 0 ml 02/14/24 06:00 Water,Injection,Sterile 10 Ml Vial IJ 03/14/24 23:59 DIRECTED PRN PFSH Active Problems Active Problems: Problem Status Onset Code Hyperplastic colon polyp ~08/06/23 K63.5 Stress incontinence N39.3 Hydronephrosis N13.30 Diverticula of colon K57.30 Adenomatous polyp of sigmoid colon D12.5 Screening for malignant neoplasm of colon performed Z12.11 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 ADHD F90.9 History of section Z98.891 S/P hysterectomy Z90.710 Migraine G43.909 Encounter for screening for other viral diseases Z11.59 Fever R50.9 Fatigue R53.83 Nausea R11.0 Acute bronchitis with bronchospasm J20.9 GERD (gastroesophageal reflux disease) K21.9 Acute esophagitis K20.90 Insomnia G47.00 DVT prophylaxis Z29.9 Discharge planning issues Z02.9 Pill dysphagia R13.10 Post-nasal drip R09.82 Epistaxis R04.0 Encounter for screening laboratory testing for COVID-19 virus Z20.822 Pneumonia due to COVID-19 virus U07.1, J12.82 Screening for colon cancer Z12.11 Abdominal pain R10.9 Acne L70.9 Medical History Medical History History of asthma Periodic limb movement sleep disorder Mixed hyperlipidemia Hypersomnia Family history of cardiovascular disease Ovarian cyst Gastritis Carpal tunnel syndrome Polycystic ovaries Hyperglycemia Rosacea ADAIR (obstructive sleep apnea) Insomnia Depressive disorder Claustrophobia Severe obesity Nephrolithiasis Surgical History Surgical History Hx of reduction mammoplasty S/P gastric bypass History of colonoscopy (~07/2023) Hx of hysterectomy H/O LEEP (~1998) Hx of cholecystectomy (~2000) H/O ureteroscopy (~2020) H/O cystoscopy (~2020) Tobacco Smoking/Tobacco Use Status: Former Tobacco Use Alcohol Alcohol Intake: never Substance Use Substance use: Never Substance use type: does not use Vital Signs and Lab Results Vital Signs Most Recent Vital Signs in EMR: Most Recent Vital Signs Temp Pulse Resp BP Pulse Ox 36.5 C 69 16 112/76 96 02/14/24 07:35 02/14/24 07:35 02/14/24 07:35 02/14/24 07:35 02/14/24 07:35 Lab Results Blood Type / Crossmatch: No Data to Display Complete Blood Count: No Data to Display Complete Metabolic Panel: No Data to Display Liver Function Panel: No Data to Display Coagulation Panel: No Data to Display Cardiac Panel: No Data to Display Arterial Blood Gas: No Data to Display Venous Blood Gas: No Data to Display Pancreas Panel: No Data to Display Thyroid Panel: No Data to Display Infectious Disease: No Data to Display Blood Cultures: No Data to Display Toxicology Panel: No Data to Display Panel: No Data to Display Imaging and Studies Imaging and Studies Study information below may be from another EMR and interpreted by another provider. Please see original notes in EMR for more complete details. EKG Summary: 08/02/21: Exam: Resting ECG Reason for Exam: sob Patient Location: E HR:94 bpm ECG Measurements Heart Rate 94 AXIS MA 150 P 50 QRSd 98 QRS 22 QT 374 T-5 QTc 468 Conclusion Sinus rhythm...normal P axis, V-rate 60- 99. Sinus. No STEMI. I have reviewed and interpreted ECG and agree with software generated interpretation. Pulmonary Function Summary: 03/31/21: Pulmonary Function Test Result Interpretation Spirometry: No evidence of obstructive airways disease, no bronchodilator response Lung Volumes: No evidence of restriction Diffusion Capacity: Borderline mildly reduced which is normal when corrected to alveolar volume Airway Pressure: Normal Impression Isolated borderline reduction in diffusion capacity, this is normal when corrected to alveolar volume Clinical Correlation therefore is recommended. Anesthesia Assessment and Plan Anesthesia History Personal History: No History of Anesthesia Complications Family History: No Family History of Anesthesia Complications Exercise Tolerance Exercise Tolerance: Metabolic Equivalents>4 Implantable Cardiac Device Does patient have a Pacemaker or an ICD?: No Airway Exam Known Difficult Airway: No Mallampati Class: 3 Mouth Opening: Normal (> 3cm) Thyromental Distance: Greater than 3 cm Neck Range of Motion: Full ROM Neck Circumference: Normal Teeth Condition: Removable Dentures/Plates Upper and Edentulous
[2024-02-14] MEDS: Lactated Ringers 1,000 ML 80 ML IV (08:14)
--- NOTE | 2024-02-14 09:25 | W.PM.HP.N ---
Date of service: 02/14/24 Time of Service: 09:26 Assessment and Plan Assessment and plan (1) Nephrolithiasis: Assessment and plan: We will plan to do cystoscopy, remove her right ureteral stent and passed the flexible ureteroscope up to the kidney. Will use a holmium laser to fragment her stone in her remove any stone fragments for chemical analysis. If her stones continue to be predominantly uric acid, perhaps we can switch her from potassium citrate to sodium bicarbonate for stone prevention. History of Present Illness History of Present Illness Chief Complaint: Right renal stone Narrative: This is a 53-year-old woman who has a long history of urolithiasis. Her most recent stones have been predominantly uric acid. She presented with right flank pain and was found to have the stone in the right kidney along with a stone at the right ureteropelvic junction. We placed a ureteral stent as we were concerned that she may have a urinary tract infection. She presents now for stone manipulation. Her stones have been developing in spite of potassium citrate therapy. She is having a difficult time tolerating the potassium citrate because of GI upset. Review of Systems Narrative: No fevers or chills No vision change or dysphasia No diabetes or thyroid dysfunction No shortness of breath, cough or hemoptysis No chest pain or palpitations GERD. No hepatitis, ulcers, jaundice No seizures, strokes or peripheral neuropathy No bleeding disorders or anemia No gout PFSH All Active Problems Hyperplastic colon polyp (Acute ~08/06/23) Stress incontinence (Acute) Hydronephrosis (Acute) Diverticula of colon (Acute) Adenomatous polyp of sigmoid colon (Acute) Screening for malignant neoplasm of colon performed (Acute) Maltracking of left patella (Acute) Chondromalacia of left patellofemoral joint (Acute) ADHD (Chronic) History of section (Chronic) S/P hysterectomy (Chronic) Migraine (Chronic) Encounter for screening for other viral diseases (Acute) Fever (Acute) Fatigue (Acute) Nausea (Acute) Acute bronchitis with bronchospasm (Acute) GERD (gastroesophageal reflux disease) (Chronic) Acute esophagitis (Acute) Insomnia (Acute) DVT prophylaxis (Acute) Discharge planning issues (Acute) Pill dysphagia (Acute) Post-nasal drip (Acute) Encounter for screening laboratory testing for COVID-19 virus (Acute) Pneumonia due to COVID-19 virus (Acute) Screening for colon cancer (Acute) Abdominal pain (Acute) Acne (Acute) Medical History History of asthma Periodic limb movement sleep disorder Mixed hyperlipidemia Hypersomnia Family history of cardiovascular disease Ovarian cyst Gastritis Carpal tunnel syndrome Polycystic ovaries Hyperglycemia Rosacea ADAIR (obstructive sleep apnea) Insomnia Depressive disorder Claustrophobia Severe obesity Nephrolithiasis Surgical History Hx of reduction mammoplasty S/P gastric bypass History of colonoscopy (~07/2023) Hx of hysterectomy H/O LEEP (~1998) Hx of cholecystectomy (~2000) H/O ureteroscopy (~2020) H/O cystoscopy (~2020) Social History Smoking/Tobacco Use Status: Former Tobacco Use Quit Date: 11/19/99 Smoking risk assessment performed?: Yes Alcohol Intake: never Drug use: Never Substance use type: does not use Housing: house Current gender identity: female Do you feel safe at home: Yes Do you feel safe in your relationship?: Yes Meds Allergies and Home Medications Allergies Allergy/AdvReac Type Severity Reaction Status Date / Time No Known Allergies Allergy Verified 02/14/24 07:37 Home Medications Medication Instructions Recorded Confirmed Type methylphenidate HCl 20 mg tablet 20 mg PO TID 02/04/21 02/14/24 History (Ritalin) levalbuterol HCl 1.25 mg/3 mL 1.25 mg (3 mL) UPD Q4H PRN PRN #90 02/08/21 02/14/24 Rx solution for nebulization mL albuterol sulfate 90 mcg/actuation 1 - 2 puff inhalation PRN PRN 08/02/21 02/14/24 History aerosol inhaler (ProAir HFA) ipratropium 0.5 mg-albuterol 3 mg 3 ml inhalation Q6H PRN 08/02/21 02/14/24 History (2.5 mg base)/3 mL nebulization soln potassium citrate 10 mEq (1,080 10 meq PO BID #180 tabs 11/08/23 02/14/24 Rx mg) tablet,extended release (Urocit-K 10) oxycodone 5 mg tablet 5 - 10 mg (1 - 2 x 5 mg) PO Q6H 02/04/24 02/14/24 Rx PRN pain #30 tabs ciprofloxacin HCl 500 mg tablet 500 mg PO BID antibiotic #10 tabs 02/12/24 02/14/24 Rx semaglutide (weight loss) 1.7 1.7 mg subcut Q7D 02/13/24 02/13/24 History mg/0.75 mL subcutaneous pen injector (Wegovy) Exam Const General: cooperative Neck Neck: supple Resp Effort & Inspection: normal respiratory effort Auscultation: clear to auscultation bilaterally Cardio Rate: regular rate Rhythm: regular rhythm GI Palpation: soft and no masses Neuro General: patient alert, patient awake and patient oriented x3 Results Labs Labs: RUN DATE: 02/14/24 [facility] PAGE 1 RUN TIME: [id number] RUN USER: [place] [address] Felicita Cristobal MD,PhD PATIENT REPORT PATIENT: Katty Peterson LOC: PHILLIP U #: [id number] /SX: 1970 F ROOM: RE09/24/[address]: KAVITHA HUANG MD STATUS: [facility] BED: DIS: SPEC #: [id number] NAVID: 09/24/23 STATUS: COMP REQ #: [id number] RECD: 09/24/[address]: KAVITHA HUANG MD ENTERED: 09/24/[address]: DARRIN TITUS DO FAX #: ORDERED: Stone Anaylsis QUERIES: Source: Right Kidney Test Result Flag Reference Verified Kidney Stone Analysis Source: Right Kidney 10/01/23 Interpretation SEE BELOW 10/01/23 RESULT: 80% Uric acid dihydrate. 20% Calcium oxalate dihydrate. Result Comment See Comment 10/01/23 For stones containing calcium oxalate, calcium phosphate, and/or uric acid, a 24 hr urinary supersaturation test may help detect underlying risk factors for this type of stone formation and provide guidance for a stone prevention strategy. ADDITIONAL INFORMATION This test was developed and its performance characteristics determined by [facility] in a manner consistent with CLIA requirements. This test has not been cleared or approved by the U.S. Food and Drug Administration. Test Performed by: [facility] [address] [place] [id number] Client Sales And Service Officer: Willi Michael M.D. 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
--- NOTE | 2024-02-14 09:28 | W.ANESPRE ---
General Info Date of Service Date Performed: 02/14/24 Height: 5 ft 4 in Weight: 89.3 kg Body Mass Index (BMI): 33.7 Surgical Procedure: Operation Date: 02/14/24 09:10 Proposed Procedure Side Surgeon p Cystoscopy/Laser/Retrograde/Ureteroscopy/Stent Removal/Possible Stent Replacement Right Quan Lebron MD Meds Allergies and Home Medications Allergies Allergy/AdvReac Type Severity Reaction Status Date / Time No Known Allergies Allergy Verified 02/14/24 07:37 Home Medication Medication Instructions Recorded methylphenidate HCl 20 mg tablet 20 mg PO TID 02/04/21 (Ritalin) levalbuterol HCl 1.25 mg/3 mL 1.25 mg (3 mL) UPD Q4H PRN PRN #90 02/08/21 solution for nebulization mL albuterol sulfate 90 mcg/actuation 1 - 2 puff inhalation PRN PRN 08/02/21 aerosol inhaler (ProAir HFA) ipratropium 0.5 mg-albuterol 3 mg 3 ml inhalation Q6H PRN 08/02/21 (2.5 mg base)/3 mL nebulization soln potassium citrate 10 mEq (1,080 10 meq PO BID #180 tabs 11/08/23 mg) tablet,extended release (Urocit-K 10) oxycodone 5 mg tablet 5 - 10 mg (1 - 2 x 5 mg) PO Q6H 02/04/24 PRN pain #30 tabs ciprofloxacin HCl 500 mg tablet 500 mg PO BID antibiotic #10 tabs 02/12/24 semaglutide (weight loss) 1.7 1.7 mg subcut Q7D 02/13/24 mg/0.75 mL subcutaneous pen injector (Wegovy) Current Visit Medications: Current Medications Generic Name Dose Route Start Last Admin Trade Name Freq PRN Reason Stop Dose Admin Ringer's Solution 1,000 mls @ 80 mls/hr 02/14/24 06:00 02/14/24 08:14 IV 03/14/24 23:59 80 mls/hr INFUSION MEI Administration Cefazolin Sodium/Dextrose 2 gm in 50 mls @ 100 mls/hr 02/14/24 06:00 Ancef Duplex IVPB 02/14/24 16:00 PREOP MEI IV Miscellaneous Supplies 1 each 02/14/24 06:00 Iv Access IV 03/14/24 23:59 DIRECTED MEI Sodium Chloride 0 ml 02/14/24 06:00 Normal Saline Flush 10 Ml Syr IV 03/14/24 23:59 PRN PRN Sodium Chloride 0 ml 02/14/24 06:00 Normal Saline 10 Ml Vial IJ 03/14/24 23:59 DIRECTED PRN Sterile Water 0 ml 02/14/24 06:00 Water,Injection,Sterile 10 Ml Vial IJ 03/14/24 23:59 DIRECTED PRN PFSH Active Problems Active Problems: Problem Status Onset Code Hyperplastic colon polyp ~08/06/23 K63.5 Stress incontinence N39.3 Hydronephrosis N13.30 Diverticula of colon K57.30 Adenomatous polyp of sigmoid colon D12.5 Screening for malignant neoplasm of colon performed Z12.11 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 ADHD F90.9 History of section Z98.891 S/P hysterectomy Z90.710 Migraine G43.909 Encounter for screening for other viral diseases Z11.59 Fever R50.9 Fatigue R53.83 Nausea R11.0 Acute bronchitis with bronchospasm J20.9 GERD (gastroesophageal reflux disease) K21.9 Acute esophagitis K20.90 Insomnia G47.00 DVT prophylaxis Z29.9 Discharge planning issues Z02.9 Pill dysphagia R13.10 Post-nasal drip R09.82 Epistaxis R04.0 Encounter for screening laboratory testing for COVID-19 virus Z20.822 Pneumonia due to COVID-19 virus U07.1, J12.82 Screening for colon cancer Z12.11 Abdominal pain R10.9 Acne L70.9 Medical History Medical History History of asthma Periodic limb movement sleep disorder Mixed hyperlipidemia Hypersomnia Family history of cardiovascular disease Ovarian cyst Gastritis Carpal tunnel syndrome Polycystic ovaries Hyperglycemia Rosacea ADAIR (obstructive sleep apnea) Insomnia Depressive disorder Claustrophobia Severe obesity Nephrolithiasis Surgical History Surgical History Hx of reduction mammoplasty S/P gastric bypass History of colonoscopy (~07/2023) Hx of hysterectomy H/O LEEP (~1998) Hx of cholecystectomy (~2000) H/O ureteroscopy (~2020) H/O cystoscopy (~2020) Tobacco Smoking/Tobacco Use Status: Former Tobacco Use Alcohol Alcohol Intake: never Substance Use Substance use: Never Substance use type: does not use Vital Signs and Lab Results Vital Signs Most Recent Vital Signs in EMR: Most Recent Vital Signs Temp Pulse Resp BP Pulse Ox 36.5 C 69 16 112/76 96 02/14/24 07:35 02/14/24 07:35 02/14/24 07:35 02/14/24 07:35 02/14/24 07:35 Lab Results Blood Type / Crossmatch: No Data to Display Complete Blood Count: No Data to Display Complete Metabolic Panel: No Data to Display Liver Function Panel: No Data to Display Coagulation Panel: No Data to Display Cardiac Panel: No Data to Display Arterial Blood Gas: No Data to Display Venous Blood Gas: No Data to Display Pancreas Panel: No Data to Display Thyroid Panel: No Data to Display Infectious Disease: No Data to Display Blood Cultures: No Data to Display Toxicology Panel: No Data to Display Panel: No Data to Display Imaging and Studies Imaging and Studies Study information below may be from another EMR and interpreted by another provider. Please see original notes in EMR for more complete details. EKG Summary: 08/02/21: Exam: Resting ECG Reason for Exam: sob Patient Location: E HR:94 bpm ECG Measurements Heart Rate 94 AXIS NJ 150 P 50 QRSd 98 QRS 22 QT 374 T-5 QTc 468 Conclusion Sinus rhythm...normal P axis, V-rate 60- 99. Sinus. No STEMI. I have reviewed and interpreted ECG and agree with software generated interpretation. Pulmonary Function Summary: 03/31/21: Pulmonary Function Test Result Interpretation Spirometry: No evidence of obstructive airways disease, no bronchodilator response Lung Volumes: No evidence of restriction Diffusion Capacity: Borderline mildly reduced which is normal when corrected to alveolar volume Airway Pressure: Normal Impression Isolated borderline reduction in diffusion capacity, this is normal when corrected to alveolar volume Clinical Correlation therefore is recommended. Other Study Summary:: L spine CT reviewed and results in chart Anesthesia Assessment and Plan Anesthesia History Personal History: No History of Anesthesia Complications Family History: No Family History of Anesthesia Complications Exercise Tolerance Exercise Tolerance: Metabolic Equivalents>4 Pertinent Negatives Pertinent Negatives: No Symptoms of GERD, No Major Cardiovascular Symptoms or Complaints, No Major Pulmonary Symptoms or Complaints and No History of CVA/TIA Cardiac & Pulmonary Exam Cardiac Exam: Normal S1/S2 Heart Sounds Pulmonary Exam: Clear Bilateral Breath Sounds Cardiac and Pulmonary Comment:: pt denies inhaler use for asthma for 1wk an denies any recent hospital stays for asthma Implantable Cardiac Device Does patient have a Pacemaker or an ICD?: No Airway Exam Known Difficult Airway: No Mallampati Class: 3 Mouth Opening: Normal (> 3cm) Thyromental Distance: Greater than 3 cm Neck Range of Motion: Full ROM Neck Circumference: Normal Teeth Condition: Removable Dentures/Plates Upper and Edentulous ASA Classification ASA Score: ASA 2 Emergency Case?: No NPO Status NPO Status: NPO Clears >2 hours, Solids >8 hours Status Status: Not Relevant due to Medical History Anesthesia Plan Resuscitation Status: Full Code Anesthesia Technique: General Anesthesia Airway Planned: Endotracheal Tube Monitors Used: Standard Monitors
[2024-02-14] MEDS: ceFAZolin 2 GM/50 ML BAG IVPB (09:51)
[2024-02-14] MEDS: Lidocaine 2% Jelly 11 ML SYR (10:30)
[2024-02-14] MEDS: Omnipaque 300 MG/ML 50 ML BTL (11:07)
--- NOTE | 2024-02-14 11:40 | DI.RAD_ITS ---
Exam(s) XR RETROGRADE IN OR EXAM: XR RETROGRADE IN OR CLINICAL HISTORY: right kidney stone. TECHNIQUE: Fluoroscopy was provided for the referring physician for guidance with performing retrogr jet procedure. COMPARISON: XA XR RETROGRADE IN OR from 02/04/2024 FINDINGS: Please see procedure note for details. Fluoro time: 43.4 seconds RADIATION DOSE DELIVERED: gita John=9.74 mGy
--- NOTE | 2024-02-14 11:42 | W.PM.DSUDISC ---
Date of service: 02/14/24 Time of Service: 11:42 Discharge Plan Disposition Patient Disposition: Home Condition: Stable Discharge Details Attending Provider: Quan Lebron Primary Care Provider: Waqas Cyr Docena Meds and New Rx's Prescriptions: Continued oxycodone 5 mg tablet 5 - 10 mg PO Q6H MDD 8 PRN (Reason: pain) Qty: 30 0RF oxybutynin chloride 5 mg tablet 5 mg PO TID PRN (Reason: bladder spasms) Qty: 30 0RF ipratropium-albuterol 0.5 mg-3 mg(2.5 mg base)/3 mL solution for nebulization 3 ml INHALATION Q6H PRN Patient Comments: no longer taking albuterol sulfate [ProAir HFA] 90 mcg/actuation HFA aerosol inhaler 1 - 2 puff INHALATION PRN PRN Wegovy 1.7 mg/0.75 mL pen injector 1.7 mg SUBCUT Q7D Patient Comments: INJECT 1.7 MG SUBCUTANEOUSLY EVERY WEEK FOR 4 WEEKS, IN THE ABDOMEN, THIGH, OR UPPER ARM methylphenidate HCl [Ritalin] 20 mg Tablet 20 mg PO TID levalbuterol HCl 1.25 mg/3 mL Solution For Nebulization 1.25 mg UPD Q4H PRN PRNQty: 90 1RF Discontinued potassium citrate [Urocit-K 10] 10 mEq (1,080 mg) tablet extended release 10 meq PO BID Qty: 180 3RF ciprofloxacin HCl 500 mg tablet 500 mg PO BID Qty: 10 0RF Discharge Instructions Additional Instructions: no need to strain urine remove stent @ 1 week - has string on stent followup 6 to 8 weeks with renal US no need to strain urine Stand Alone Forms: Anesthesia Discharge Inst., Anes.Sugammadex Interaction, Immanuel Lugo (DSU) Activity:: Activity as Tolerated Shower/Bathe:: 24 hours Diet:: As Tolerated Discharge Orders Discharge Orders: Discharge Order (Routine); Ordered 02/14/24 Ordered By: Quan Lebron DS: Diagnosis Discharge Diagnosis (1) Nephrolithiasis:
--- NOTE | 2024-02-14 12:06 | ROE_ITS ---
Date of service: 02/14/24 Time of Service: 12:06 Operative Note Operative Note DATE OF PROCEDURE: 02/14/24 PRE-OP DIAGNOSIS: Right kidney stone POST-OP DIAGNOSIS: same PROCEDURE: Cystoscopy, remove right ureteral stent, right retrograde pyelogram, right flexible ureteroscopy with holmium laser lithotripsy, stone fragment extraction, insert right ureteral stent SURGEON: Quan Lebron ANESTHESIA TYPE: Local By Surgeon and General LMA/ETT Refer to Anesthesia Record ESTIMATED BLOOD LOSS: 5 PATHOLOGY: other (Stone fragments for chemical analysis) COMPLICATIONS: None Patient was transported to: PACU Patient's condition: stable Implants: 6 Kittitian by 22 to 30 cm right ureteral stent Indications: This is a 53-year-old woman who has a history of kidney stones. Her predominant stone component has been uric acid. She currently has been identified as having a 9 mm stone in the right kidney. When she presented to the hospital, there was concern that she had an active urinary tract infection. A ureteral stent was placed and she was given antibiotics. Her ureteroscopy was deferred until today. Findings: Mobile stone in the right renal pelvis Procedure Description: The patient was given preoperative antibiotics and brought to the operating room on 02/14/2024. After successful induction of general anesthesia, she was placed in the dorsal lithotomy position. Her genitalia was prepped and draped sterilely. 2% Xylocaine jelly was instilled into the urethra. A 22 Kittitian rigid cystoscope was passed through the urethra into the bladder. The bladder was inspected with a 30 degree lens. A stent could be seen protruding from the right ureteral orifice. The stent was grasped with alligator forceps and brought out to the level of the urethral meatus. A guidewire was then advanced through the lumen of the stent and the stent was removed. A dual-lumen catheter was advanced over the wire and positioned such that the tip of the catheter was in the proximal ureter. A retrograde pyelogram was then obtained by injecting Omnipaque through the second port of the dual- lumen catheter. We are able to outline a filling defect in the renal pelvis. We then passed a second wire and removed the dual-lumen catheter. We chose one of the wires as a working wire and the other as a safety wire. The ureteral access sheath was advanced over the working wire and the sheath was positioned such that the end was in the proximal ureter. The working wire was removed. The flexible ureteroscope was then passed through the ureteral access sheath and the scope was advanced up to the kidney. Each of the calyces were inspected. The previously identified stone had migrated to the lower portion of the renal pelvis. The stone was then treated with a 272 ?m holmium laser fiber. We used a dusting setting with a power of 0.5 and a rate of 20. Multiple small fragments were identified, were grasped and a 0 tip stone basket and removed. Each of the stone fragments were sent for chemical analysis. At the completion of the procedure, no large stone burden remained. We removed the ureteral access sheath and ureteroscope. I passed a 6 Kittitian stent over the safety wire. We position the stent with the proximal and curled in the renal pelvis and the distal end curled within the bladder. The patient tolerated this procedure well with no complications. She was taken to the recovery room in stable condition.
--- NOTE | 2024-02-14 12:34 | W.ANESPOSTOP ---
Postoperative Evaluation Date, Time and Location Date Performed: 02/14/24 Time Performed: 12:34 Patient Location: Day Surgery Unit Vital Signs Most Recent Imported Vital Signs: Most Recent Vital Signs Temp Pulse Resp BP Pulse Ox 36.5 C 57 L 13 119/52 L 98 02/14/24 12:20 02/14/24 12:20 02/14/24 12:20 02/14/24 12:20 02/14/24 12:20 Pain Score Most Recent Pain Score: Most Recent Pain Score Pain Level 0 02/14/24 12:20 Assessment Mental Status: Awake (Alert & Oriented to Patient Baseline) Airway and Respiratory Function: Patent airway with normal (patient baseline) respiratory exam Cardiovascular Function: Hemodynamically Stable Hydration Status: Adequately Hydrated Nausea & Vomiting: No Nausea or Vomiting Pain: Pain is tolerable per patient Peripheral Nerve Block: Patient did not receive a nerve block
[2024-02-14] MEDS: oxyCODONE 5 MG TAB PO (12:39)
[2024-02-14] MEDS: Phenazopyridine 200 MG TAB PO (12:40)
[2024-02-14] MEDS: Oxybutynin 5 MG TAB PO (13:03)
[2024-02-19 23:59] LABS: Source: Right Kidney
== END 2024-02-14 14:10 | disposition home or self-care (01) ==
PROVIDERS: PCP Neuromusculoskeletal Medicine & OMM; Visit Provider Urology
PROC: (CPT 52356; principal; 2024-02-14 09:00)
DX: N20.0 Calculus of kidney (principal)
CPT/HCPCS: 52356; 74420; 82365; J0131; J0690; J1100; J1885; J2001; J2371; J2405; J2704; Q9967

== ENCOUNTER 2024-02-16 01:18 | Inpatient (IN) | payer OTHER, SELFPAY ==
[2024-02-16] VITALS (12 sets, daily range): BP systolic 100–183; BP diastolic 56–95; PULSE 68–121; RESP 16–20; TEMP 36.1–37.4; O2SAT 95–98
--- NOTE | 2024-02-16 01:43 | W.ED.GENAD ---
Discharge Plan Discharge Details Chief Complaint: Urinary Primary Care Provider: Corin Rosario ED Provider: Shanae Tracy Home Meds and New Rx's Prescriptions: No Action oxycodone 5 mg tablet 5 - 10 mg PO Q6H MDD 8 PRN (Reason: pain) Qty: 30 0RF oxybutynin chloride 5 mg tablet 5 mg PO TID PRN (Reason: bladder spasms) Qty: 30 0RF ipratropium-albuterol 0.5 mg-3 mg(2.5 mg base)/3 mL solution for nebulization 3 ml INHALATION Q6H PRN Patient Comments: no longer taking albuterol sulfate [ProAir HFA] 90 mcg/actuation HFA aerosol inhaler 1 - 2 puff INHALATION PRN PRN Wegovy 1.7 mg/0.75 mL pen injector 1.7 mg SUBCUT Q7D Hold Instructions: Adverse Reaction Patient Comments: INJECT 1.7 MG SUBCUTANEOUSLY EVERY WEEK FOR 4 WEEKS, IN THE ABDOMEN, THIGH, OR UPPER ARM methylphenidate HCl [Ritalin] 20 mg Tablet 20 mg PO TID levalbuterol HCl 1.25 mg/3 mL Solution For Nebulization 1.25 mg UPD Q4H PRN PRNQty: 90 1RF HPI General Mode of arrival: ambulatory. Date/Time Provider Initiated Documentation: 02/16/24 01:22. Limitations to Documentation: no limitations. Information obtained by: patient and old records reviewed. HPI Narrative: 53yo F with hx asthma, ADAIR, GERD, POD #2 s/ right ureteral stent removal with lithotripsy and stone removal and right ureteral stent replacement presenting for fever and malaise. Initially doing okay after the surgery. Today felt generally unwell, slept all day, mild nausea, tonight with fever of 101.0F. No chest pain or shortness of breath, No vomiting. Some post-op abdominal pain unchanged since surgery, not worsening. She is otherwise in her usual state of health with no chills, rash, constipation, diarrhea, or other concerns. Related Data Home Medications Medication Instructions Recorded Confirmed methylphenidate HCl 20 mg tablet 20 mg PO TID 02/04/21 02/16/24 (Ritalin) levalbuterol HCl 1.25 mg/3 mL 1.25 mg (3 mL) UPD Q4H PRN PRN #90 02/08/21 02/16/24 solution for nebulization mL albuterol sulfate 90 mcg/actuation 1 - 2 puff inhalation PRN PRN 08/02/21 02/16/24 aerosol inhaler (ProAir HFA) ipratropium 0.5 mg-albuterol 3 mg 3 ml inhalation Q6H PRN 08/02/21 02/16/24 (2.5 mg base)/3 mL nebulization soln semaglutide (weight loss) 1.7 1.7 mg subcut Q7D 02/13/24 02/16/24 mg/0.75 mL subcutaneous pen injector (Wegovy) oxybutynin chloride 5 mg tablet 5 mg PO TID PRN bladder spasms #30 02/14/24 02/16/24 tabs oxycodone 5 mg tablet 5 - 10 mg (1 - 2 x 5 mg) PO Q6H 02/14/24 02/16/24 PRN pain #30 tabs Previous Rx's Medication Instructions Recorded levalbuterol HCl 1.25 mg/3 mL 1.25 mg (3 mL) UPD Q4H PRN PRN #90 02/08/21 solution for nebulization mL oxybutynin chloride 5 mg tablet 5 mg PO TID PRN bladder spasms #30 02/14/24 tabs oxycodone 5 mg tablet 5 - 10 mg (1 - 2 x 5 mg) PO Q6H 02/14/24 PRN pain #30 tabs Allergies Allergy/AdvReac Type Severity Reaction Status Date / Time No Known Allergies Allergy Verified 02/14/24 07:37 General Stated Complaint: Urinary RASHID: 3 Review of Systems Narrative: see HPI Exam Narrative Exam Narrative: General: Alert, non-toxic Head: Normocephalic, atraumatic Neck: Trachea midline, ?Neck supple. ENT: ?MMM.? No oropharygeal lesions or exudate. Cardiac: ?Tachycardiac, regular, no murmurs appreciated Resp: No respiratory distress. CTAB. Abd: ?Soft, non-distended, nontender : ?No suprapubic tenderness. Extremities: ?No deformities.? No peripheral edema. Neurologic: GCS 15. ? Moves all extremities freely against gravity Course Vital Signs Vital signs: Vital Signs Temperature 37.4 C 02/16/24 01:21 Pulse 121 H 02/16/24 01:21 Respiratory Rate 18 02/16/24 01:21 Blood Pressure 183/77 H 02/16/24 01:21 Pulse Oximetry 96 02/16/24 01:21 Temperature 37.4 C 02/16/24 01:21 Pulse 121 H 02/16/24 01:21 Respiratory Rate 18 02/16/24 01:21 Respiratory Effort Normal, Non-Labored 02/16/24 01:24 Blood Pressure 183/77 H 02/16/24 01:21 Pulse Oximetry 96 02/16/24 01:21 Oxygen Delivery Method Room Air 02/16/24 01:21 Oxygen Flow Rate 0 02/16/24 01:21 Lab/Test Results Lab/Test Results: 02/16/24 01:27 Blood Blood Culture - Pending 02/16/24 01:27 Blood Blood Culture - Pending Medical Decision Making 53yo F with hx asthma, ADAIR, GERD, POD #2 s/ right ureteral stent removal with lithotripsy and stone removal and right ureteral stent replacement presenting for fever and malaise. New urinary incontinence. Tachycardiac on arrival, afebrile here (took tylenol prior to arrival); vital signs otherwise reassuring. With fever at home and tachycardia here high level of suspicion for sepsis; will treat empirically with 2L IVFB, 2g IV ceftriaxone presumed urinary source. Toradol for pain. No chest pain, shortness of breath, pleuritic pain, or hypoxia to suggest pulmonary embolism; would not pursue further at this time. Labs reviewed as below, CBC reassuring with no leukocytosis, Hg appears to be at baseline (10.6) on [facility] record review. CMP with mild hypokalemia, no actionable abnormalities. VBG with respiratory alkalosis. Lactate normal. Procal normal. Urine with gross hematuria, clotted, lab unable to run sample. CXR independently reviewed, no focal pneumonia on my view, agree with radiology read below. Discussed with [facility] urology, advised KUB to evaluate for stent placement. KUB independently reviewed, stent into urethra on my view, agree with radiology read below. Discussed again with Dr. Huang [facility] urology; he advised temporarily inserting large dacosta catheter to push stent back into the bladder. Whether successful or not he would not advise stent removal or other urgent/emergent urologic intervention. Agrees with admission for continued antibiotics. Signed out to oncoming physican. Plan to followup catheter insertion and repeat KUB. Medical Records Medical records reviewed: Yes I reviewed the patient's medical records. Medical records narrative: op note 02/14/24 Imaging Data Radiologic Study: Imaging: X-Ray Radiologist's impression: KUB: IMPRESSION: There is a ureteral stent on the right, with the distal aspect of the stent located within the urethra. Chest: IMPRESSION: No acute findings. Lab Data Lab results reviewed: Yes I reviewed the patient's lab results. Labs: 02/16/24 01:50 Blood Blood Culture - Pending 02/16/24 01:30 Blood Blood Culture - Pending Laboratory Tests Range/Units 02/16/24 02/16/24 01:30 02:20 WBC (4.4-10.8) 10^3/uL 8.61 RBC (3.93-5.22) 10^6/uL 4.00 Hgb (11.2-15.7) g/dL 10.6 L Hct (36.0-46.0) % 32.5 L MCV (80-95) fL 81 MCH (27.0-33.0) pg 26.5 L MCHC (32.0-36.0) % 32.6 RDW (11.7-14.6) % 14.7 H Plt Count (130-400) 10^3/uL 247 MPV (8.0-11.0) fL 8.5 Immature Gran % 0.5 Neutrophils % 67.2 Lymphocytes % 20.2 Monocytes % 10.2 Eosinophils % 1.6 Basophils % 0.3 Nucleated RBC % (0.0-0.3) % 0.0 Absolute Neutrophils (1.2-6.7) 10^3/uL 5.78 Absolute Lymphocytes (1.2-3.4) 10^3/uL 1.74 Absolute Monocytes (0.1-0.8) 10^3/uL 0.88 H Absolute Eosinophils (0.0-0.7) 10^3/uL 0.14 Absolute Basophils (0.0-0.2) 10^3/uL 0.03 VBG pH (7.31-7.41) 7.51 H VBG pCO2 (41-51) mmHg 37 L VBG pO2 mmHg 48 VBG HCO3 (23-28) mmol/L 29 H VBG Total CO2 (24-29) mmol/L 27 VBG O2 Saturation % 88 VBG Base Excess (-2-3) mmol/L 6 H VBG Lactate (0.6-1.4) mmol/L 0.9 Sodium (136-145) mmol/L 139 Potassium (3.5-5.1) mmol/L 3.3 L Chloride (98-107) mmol/L 102 Carbon Dioxide (21.0-32.0) mmol/L 28.8 Anion Gap (3-11) mmol/L 8.2 BUN (7-18) mg/dL 10 Creatinine (0.55-1.02) mg/dL 0.7 Est GFR (CKD-EPI 2020) (mL/min/1.73m2) 104.65 Glucose (74-106) mg/dL 110 H Calcium (8.5-10.1) mg/dL 8.5 Total Bilirubin (0.2-1.0) mg/dL 0.5 AST (15-37) U/L 44 H ALT (14-59) U/L 42 Alkaline Phosphatase (46-116) U/L 126 H Total Protein (6.4-8.2) g/dL 7.6 Albumin (3.4-5.0) g/dL 3.2 L Procalcitonin ng/mL < 0.1 COVID-19 Source Nasopharynx SARS-CoV-2 (PCR) (Negative) Negative Influenza Type A (PCR) (Negative) Negative Influenza Type B (PCR) (Negative) Negative RSV (PCR) (Negative) Negative Quality:SDOH Health Related Social Needs: No Data to Display PFSH All Active Problems Hyperplastic colon polyp (Acute ~08/06/23) Stress incontinence (Acute) Hydronephrosis (Acute) Diverticula of colon (Acute) Adenomatous polyp of sigmoid colon (Acute) Screening for malignant neoplasm of colon performed (Acute) Maltracking of left patella (Acute) Chondromalacia of left patellofemoral joint (Acute) ADHD (Chronic) History of section (Chronic) S/P hysterectomy (Chronic) Migraine (Chronic) Encounter for screening for other viral diseases (Acute) Fever (Acute) Fatigue (Acute) Nausea (Acute) Acute bronchitis with bronchospasm (Acute) GERD (gastroesophageal reflux disease) (Chronic) Acute esophagitis (Acute) Insomnia (Acute) DVT prophylaxis (Acute) Discharge planning issues (Acute) Pill dysphagia (Acute) Post-nasal drip (Acute) Encounter for screening laboratory testing for COVID-19 virus (Acute) Pneumonia due to COVID-19 virus (Acute) Screening for colon cancer (Acute) Abdominal pain (Acute) Acne (Acute) Medical History History of asthma Periodic limb movement sleep disorder Mixed hyperlipidemia Hypersomnia Family history of cardiovascular disease Ovarian cyst Gastritis Carpal tunnel syndrome Polycystic ovaries Hyperglycemia Rosacea ADAIR (obstructive sleep apnea) Insomnia Depressive disorder Claustrophobia Severe obesity Nephrolithiasis Surgical History Hx of reduction mammoplasty S/P gastric bypass History of colonoscopy (~07/2023) Hx of hysterectomy H/O LEEP (~1998) Hx of cholecystectomy (~2000) H/O ureteroscopy (~2020) H/O cystoscopy (~2020) Social History Smoking/Tobacco Use Status: Former Tobacco Use Quit Date: 11/19/99 Smoking risk assessment performed?: Yes Alcohol Intake: never Drug use: Never Substance use type: does not use Housing: house Current gender identity: female Do you feel safe at home: Yes Do you feel safe in your relationship?: Yes Sign Out Sign Out Data: Sign Out Comment: POD#2 s/p ureteral stent removal/lithotripsy/stone removal/stent replacement with Dr. Lebron. Presented septic; febrile at home, tachycardiac, feeling generally unwell. 2g ceftriaxone, IVFB. Possible stent malposition. Awaiting [facility] urology consult, may need transfer. Last updated by Shanae Tracy MD at 02/16/24 08:00
[2024-02-16] MEDS: Normal Saline 1,000 ML 1000 ML IV ×2 (01:49→01:50)
[2024-02-16] MEDS: cefTRIAXone 2 GM/50 ML BAG IVPB ×2 (01:49→13:56)
[2024-02-16] MEDS: Ketorolac 15 MG/ML VIAL IVP (01:51)
[2024-02-16 01:53] LABS: BE (Venous) 6 mmol/L (-2-3); HCO3 (Venous) 29 mmol/L (23-28); O2 Sat (Venous) 88 %; TCO2 (Venous) 27 mmol/L (24-29); pCO2 (Venous) 37 mmHg (41-51); pH (Venous) 7.51 (7.31-7.41); pO2 (Venous) 48 mmHg
[2024-02-16 01:55] LABS: Abs Immature Grans 0.04 10^3/uL (0.0-0.06); Absolute Basophil Count 0.03 10^3/uL (0.0-0.2); Absolute Eosinophil Count 0.14 10^3/uL (0.0-0.7); Absolute Lymphocyte Count 1.74 10^3/uL (1.2-3.4); Absolute Monocyte Count 0.88 10^3/uL (0.1-0.8); Absolute Neutrophil Count 5.78 10^3/uL (1.2-6.7); Basophils % 0.3; Eosinophils % 1.6; HCT 32.5 % (36.0-46.0); HGB 10.6 g/dL (11.2-15.7); Immature Grans % 0.5; Lactate 0.9 mmol/L (0.6-1.4); Lymphocytes % 20.2; MCH 26.5 pg (27.0-33.0); MCHC 32.6 % (32.0-36.0); MCV 81 fL (80-95); MPV 8.5 fL (8.0-11.0); Monocytes % 10.2; Neutrophils % 67.2; Platelet Count 247 10^3/uL (130-400); RDW 14.7 % (11.7-14.6); RDW-SD 43.8 fL; WBC 8.61 10^3/uL (4.4-10.8)
[2024-02-16 02:10] LABS: ALT 42 U/L (14-59); AST 44 U/L (15-37); Albumin 3.2 g/dL (3.4-5.0); Alkaline Phosphatase 126 U/L (46-116); Anion Gap 8.2 mmol/L (3-11); BUN 10 mg/dL (7-18); Bilirubin, Total 0.5 mg/dL (0.2-1.0); CO2 28.8 mmol/L (21.0-32.0); CREATININE 0.7 mg/dL (0.55-1.02); Calcium 8.5 mg/dL (8.5-10.1); Chloride 102 mmol/L (98-107); Estimated GFR 104.65 (mL/min/1.73m2); Glucose 110 mg/dL (74-106); Potassium 3.3 mmol/L (3.5-5.1); Sodium 139 mmol/L (136-145); Total Protein 7.6 g/dL (6.4-8.2)
[2024-02-16 02:27] LABS: Procalcitonin < 0.1 ng/mL
--- NOTE | 2024-02-16 02:30 | DI.RAD_ITS ---
Exam(s) XR PORTABLE CHEST AP EXAM: XR PORTABLE CHEST AP CLINICAL HISTORY: sepsis TECHNIQUE: 2D digital imaging was performed of the chest. One image was obtained. An AP view was ob tained. COMPARISON: CR,XR XR PORTABLE CHEST AP from 08/02/2021 FINDINGS: MEDIASTINUM: Normal. HEART: Normal. PULMONARY VASCULATURE: Normal. LUNGS: Clear. PLEURAL SPACE: No pleural effusion or pneumothorax. BONE:Within normal limits for the patient's age. OTHER FINDINGS:Normal. IMPRESSION: No acute pulmonary findings. DATA REPOSITORY: RADIATION DOSE DELIVERED:
[2024-02-16 03:02] LABS: COVID-19 PCR Negative (Negative); Influenza A PCR Negative (Negative); Influenza B PCR Negative (Negative); RSV PCR Negative (Negative)
[2024-02-16 03:04] LABS: Source Nasopharynx
[2024-02-16] MEDS: MORPHine 4 MG/ML SYR IVP (03:28)
--- NOTE | 2024-02-16 04:28 | DI.VRAD_ITS ---
PROCEDURE INFORMATION: Exam: XR Chest Exam date and time: 02/16/2024 2:50 AM Age: 53 years old Clinical indication: Other: Sepsis TECHNIQUE: Imaging protocol: Radiologic exam of the chest. Views: 1 view. COMPARISON: CR XR PORTABLE CHEST AP 08/02/2021 5:14 PM FINDINGS: Lungs: Unremarkable. No consolidation. Pleural spaces: Unremarkable. No pleural effusion. No pneumothorax. Heart/Mediastinum: Unremarkable. No cardiomegaly. Bones/joints: Unremarkable. IMPRESSION: No acute findings. Dictated and Authenticated by: Christophe Kerr MD. Ordering:NOAH Jolly MD
[2024-02-16] MEDS: Acetaminophen 500 MG TAB 1000 MG PO (05:10)
--- NOTE | 2024-02-16 05:15 | DI.RAD_ITS ---
Exam(s) XR ABDOMEN FLAT PLATE EXAM: 2D digital imaging was performed. CLINICAL HISTORY: KUB eval ureteral stent. COMPARISON: CT CT ABD/PELVIS WO CONTRAST from 02/03/2024 TECHNIQUE: Supine views of the abdomen performed. Two images were obtained. FINDINGS: BOWEL GAS PATTERN: Nondistended. CALCIFICATIONS: There are phleboliths seen in the left pelvis. OSSEOUS STRUCTURES: Normal for age. OTHER FINDINGS: There are surgical clips seen in the right upper quadrant of the abdomen which may re flect prior cholecystectomy. Surgical clips are also seen in the left abdomen. The patient has a ri ght nephroureteral stent. There is a 3 mm calcification lateral to the stent overlying the L5 transv erse process which may represent a ureteral stone. No other urinary tract calculi are identified. IMPRESSION: 1. There is a right nephroureteral stent extending within the urethra. 2. There is a 3 mm calcification lateral to the stent overlying the L5 transverse process which may r epresent a ureteral stone. DATA REPOSITORY: RADIATION DOSE DELIVERED:
--- NOTE | 2024-02-16 07:16 | DI.VRAD_ITS ---
PROCEDURE INFORMATION: Exam: XR Abdomen Exam date and time: 02/16/2024 6:25 AM Age: 53 years old Clinical indication: Screening exam; Other: Kub eval ureteral stent TECHNIQUE: Imaging protocol: Radiologic exam of the abdomen. Views: Frontal supine view of the abdomen. 1 View. COMPARISON: CT ABD/PELVIS WO CONTRAST 02/03/2024 5:13 PM FINDINGS: Gastrointestinal tract: Normal. No bowel dilation. Intraperitoneal space: Surgical clips noted within the abdomen. Organs: There is a ureteral stent on the right, with the distal aspect of the stent located within the urethra. Bones/joints: Unremarkable. IMPRESSION: There is a ureteral stent on the right, with the distal aspect of the stent located within the urethra. Dictated and Authenticated by: Bal Ya MD. Ordering:NOAH Jolly MD
--- NOTE | 2024-02-16 08:30 | DI.RAD_ITS ---
Exam(s) XR ABDOMEN FLAT PLATE EXAM: 2D digital imaging was performed. CLINICAL HISTORY: eval uretral stent. COMPARISON: CR,XR XR ABDOMEN FLAT PLATE from 02/16/2024 TECHNIQUE: Supine views of the abdomen performed. FINDINGS: BOWEL GAS PATTERN: Nondistended. CALCIFICATIONS: There is again seen a calcification to the right of the stent overlying the right L5 transverse process. OSSEOUS STRUCTURES: Normal for age. OTHER FINDINGS: The nephroureteral stent is now been repositioned. The distal pigtail is now seen co iled in the location of the urinary bladder. Surgical clips are seen in the abdomen. IMPRESSION: 1. The right nephroureteral stent is present as described above. The distal pigtail is now seen coil ed in the location of the urinary bladder. 2. Stable position of the calcification as described above. DATA REPOSITORY: RADIATION DOSE DELIVERED:
--- NOTE | 2024-02-16 08:53 | ED.PROG_ITS ---
Date of service: 02/16/24 Time of Service: 08:53 Medical Decision Making I received signout on this 53-year-old female who arrived septic with a fever to 100 ?F postop day 2 status post lithotripsy stone removal and stent placement at [facility] with Dr. Lebron. She received 2 g of ceftriaxone. Her urinalysis contained gross hematuria which prevented assessment of nitrites and leuk esterase. Urology at [facility] has been consulted and advised KUB following catheter placement and discontinuation in the setting of a stent that has migrated. I spoke with Dr. Betancur who graciously agreed to accept the patient for hospitalization. Will complete KUB prior to transferring patient to the floor. Patient has had no pathological species growing on previous microscopy use. 9:10 AM Prior to repeat KUB and Rodriguez insertion I reinserted the patient's stents with support from patient's nurse [place]. At bedside after patient's urethra was cleaned with Betadine I wore sterile gloves and used a sterile Zoe to gently reinsert the exposed blue stent. Patient tolerated this procedure well. Subsequently Rodriguez was inserted bladder drained and the Rodriguez was removed. Stent did not migrate distally. Patient will now go down for KUB prior to hospitalization. 1 PM Repeat KUB showing distal pigtail of stones coiled in urinary bladder. Patient transferred to floor in stable condition. Quality:SDOH Health Related Social Needs: No Data to Display Sign Out Sign Out Data: Sign Out Comment: POD#2 s/p ureteral stent removal/lithotripsy/stone guy haley/stent replacement with Dr. Lebron. Presented septic; febrile at home, tachycardiac, feeling generally unwell. 2g ceftriaxone, IVFB. Possible stent malposition. Awaiting [facility] urology consult, may need transfer. Last updated by Shanae Tracy MD at 02/16/24 08:00 Discharge Plan Disposition Patient Disposition: Admit to [facility] Discharge Details Clinical Impression: Fever postop Admit Date/Time: 02/16/24 08:49 Admit Provider: Toño Freedman Attending Provider: Toño Freedman Primary Care Provider: Corin Rosario ED Provider: Abhilash Randall
[2024-02-16 09:28] LABS: Bilirubin Negative (Negative); Blood Large (Negative); Clarity Clear (Clear); Glucose Negative (Negative); Ketones Negative (Negative); Leukocyte Esterase Small (Negative); Nitrite Negative (Negative); Urobilinogen 0.2 mg/dL (Up to 0.2)
[2024-02-16 09:32] LABS: Bacteria Few HPF (Negative); C & S Indicated? No/Sq. Contamination; Casts Negative LPF (Negative); Crystals Negative HPF (Negative); Epithelial Cells Few HPF (Negative); Mucus Moderate (Negative); RBC 20-50 HPF (0-2)
--- NOTE | 2024-02-16 09:37 | NUR.NOTE ---
lunch tray provided Nursing Note:
--- NOTE | 2024-02-16 10:27 | DI.VRAD_ITS ---
PROCEDURE INFORMATION: Exam: XR Abdomen Exam date and time: 02/16/2024 9:19 AM Age: 53 years old Clinical indication: Device placement; Urinary device; Other: Eval uretral stent; Prior surgery; Surgery date: 1-6 months TECHNIQUE: Imaging protocol: Radiologic exam of the abdomen. Views: Frontal supine view of the abdomen. 1 View. COMPARISON: CR XR ABDOMEN FLAT PLATE 02/16/2024 6:25 AM FINDINGS: Tubes, catheters and devices: Right nephroureteral stent is present. The proximal end is coiled lateral to the L2 vertebral body, unchanged. The distal end is coiled in the pelvis, in the expected location of the bladder. Gastrointestinal tract: Gas filled colon. Gas in several small bowel loops. Intraperitoneal space: Surgical clips in the abdomen. Bones/joints: Unremarkable. IMPRESSION: Right nephroureteral stent as above. Dictated and Authenticated by: Mayela Morrow MD. Ordering:NOAH Jolly MD
[2024-02-16] MEDS: Oxybutynin 5 MG TAB PO (11:02)
[2024-02-16] MEDS: Normal Saline Flush 10 ML SYR IVP (11:03)
[2024-02-16] MEDS: Heparin 5,000 UNITS/ML VIAL 5000 UNITS SC (11:13)
--- NOTE | 2024-02-16 11:43 | W.PM.HP.N ---
Date of service: 02/16/24 Time of Service: 11:43 [facility] All Active Problems (Updated 02/16/24 @ 08:55 by Abhilash Randall MD) Fever postop (Acute) Hyperplastic colon polyp (Acute ~08/06/23) Stress incontinence (Acute) Hydronephrosis (Acute) Diverticula of colon (Acute) Adenomatous polyp of sigmoid colon (Acute) Screening for malignant neoplasm of colon performed (Acute) Maltracking of left patella (Acute) Chondromalacia of left patellofemoral joint (Acute) ADHD (Chronic) History of section (Chronic) S/P hysterectomy (Chronic) Migraine (Chronic) Encounter for screening for other viral diseases (Acute) Fever (Acute) Fatigue (Acute) Nausea (Acute) Acute bronchitis with bronchospasm (Acute) GERD (gastroesophageal reflux disease) (Chronic) Acute esophagitis (Acute) Insomnia (Acute) DVT prophylaxis (Acute) Discharge planning issues (Acute) Pill dysphagia (Acute) Post-nasal drip (Acute) Encounter for screening laboratory testing for COVID-19 virus (Acute) Pneumonia due to COVID-19 virus (Acute) Screening for colon cancer (Acute) Abdominal pain (Acute) Acne (Acute) Medical History (Updated 02/16/24 @ 08:55 by Abhilash Randall MD) History of asthma Periodic limb movement sleep disorder Mixed hyperlipidemia Hypersomnia Family history of cardiovascular disease Ovarian cyst Gastritis Carpal tunnel syndrome Polycystic ovaries Hyperglycemia Rosacea ADAIR (obstructive sleep apnea) Insomnia Depressive disorder Claustrophobia Severe obesity Nephrolithiasis Surgical History Hx of reduction mammoplasty S/P gastric bypass History of colonoscopy (~07/2023) Hx of hysterectomy H/O LEEP (~1998) Hx of cholecystectomy (~2000) H/O ureteroscopy (~2020) H/O cystoscopy (~2020) Social History Smoking/Tobacco Use Status: Former Tobacco Use Quit Date: 11/19/99 Smoking risk assessment performed?: Yes Alcohol Intake: never Drug use: Never Substance use type: does not use Housing: house Current gender identity: female Do you feel safe at home: Yes Do you feel safe in your relationship?: Yes Meds Allergies and Home Medications Allergies Allergy/AdvReac Type Severity Reaction Status Date / Time No Known Allergies Allergy Verified 02/14/24 07:37 Home Medications Medication Instructions Recorded Confirmed Type methylphenidate HCl 20 mg tablet 20 mg PO TID 02/04/21 02/16/24 History (Ritalin) levalbuterol HCl 1.25 mg/3 mL 1.25 mg (3 mL) UPD Q4H PRN PRN #90 02/08/21 02/16/24 Rx solution for nebulization mL albuterol sulfate 90 mcg/actuation 1 - 2 puff inhalation PRN PRN 08/02/21 02/16/24 History aerosol inhaler (ProAir HFA) ipratropium 0.5 mg-albuterol 3 mg 3 ml inhalation Q6H PRN 08/02/21 02/16/24 History (2.5 mg base)/3 mL nebulization soln semaglutide (weight loss) 1.7 1.7 mg subcut Q7D 02/13/24 02/16/24 History mg/0.75 mL subcutaneous pen injector ([place]) oxybutynin chloride 5 mg tablet 5 mg PO TID PRN bladder spasms #30 02/14/24 02/16/24 Rx tabs oxycodone 5 mg tablet 5 - 10 mg (1 - 2 x 5 mg) PO Q6H 02/14/24 02/16/24 Rx PRN pain #30 tabs Results Labs 02/16/24 01:30 02/16/24 01:30 Labs: Laboratory Results - last 24 hr 02/16/24 02/16/24 02/16/24 01:30 02:20 04:27 WBC 8.61 RBC 4.00 Hgb 10.6 L Hct 32.5 L MCV 81 MCH 26.5 L MCHC 32.6 RDW 14.7 H Plt Count 247 MPV 8.5 Immature Gran % 0.5 Neutrophils % 67.2 Lymphocytes % 20.2 Monocytes % 10.2 Eosinophils % 1.6 Basophils % 0.3 Nucleated RBC % 0.0 Absolute Neutrophils 5.78 Absolute Lymphocytes 1.74 Absolute Monocytes 0.88 H Absolute Eosinophils 0.14 Absolute Basophils 0.03 VBG pH 7.51 H VBG pCO2 37 L VBG pO2 48 VBG HCO3 29 H VBG Total CO2 27 VBG O2 Saturation 88 VBG Base Excess 6 H VBG Lactate 0.9 Cancelled Sodium 139 Potassium 3.3 L Chloride 102 Carbon Dioxide 28.8 Anion Gap 8.2 BUN 10 Creatinine 0.7 Est GFR (CKD-EPI 2020) 104.65 Glucose 110 H Calcium 8.5 Total Bilirubin 0.5 AST 44 H ALT 42 Alkaline Phosphatase 126 H Total Protein 7.6 Albumin 3.2 L Procalcitonin < 0.1 Urine Color Urine Clarity Urine pH Ur Specific [place] Urine Protein Urine Ketones Urine Blood Urine Nitrite Urine Bilirubin Urine Urobilinogen Ur Leukocyte Esterase Urine RBC Urine WBC Ur Epithelial Cells Urine Crystals Urine Bacteria Urine Casts Urine Mucus Ur Culture Indicated? Urine Glucose COVID-19 Source Nasopharynx SARS-CoV-2 (PCR) Negative Influenza Type A (PCR) Negative Influenza Type B (PCR) Negative RSV (PCR) Negative 02/16/24 09:10 WBC RBC Hgb Hct MCV MCH MCHC RDW Plt Count MPV Immature Gran % Neutrophils % Lymphocytes % Monocytes % Eosinophils % Basophils % Nucleated RBC % Absolute Neutrophils Absolute Lymphocytes Absolute Monocytes Absolute Eosinophils Absolute Basophils VBG pH VBG pCO2 VBG pO2 VBG HCO3 VBG Total CO2 VBG O2 Saturation VBG Base Excess VBG Lactate Sodium Potassium Chloride Carbon Dioxide Anion Gap BUN Creatinine Est GFR (CKD-EPI 2020) Glucose Calcium Total Bilirubin AST ALT Alkaline Phosphatase Total Protein Albumin Procalcitonin Urine Color Yellow Urine Clarity Clear Urine pH 6.0 Ur Specific [place] 1.020 Urine Protein 100 H Urine Ketones Negative Urine Blood Large H Urine Nitrite Negative Urine Bilirubin Negative Urine Urobilinogen 0.2 Ur Leukocyte Esterase Small H Urine RBC 20-50 H Urine WBC 10-20 H Ur Epithelial Cells Few Urine Crystals Negative Urine Bacteria Few Urine Casts Negative Urine Mucus Moderate Ur Culture Indicated? No/Sq. Contamination Urine Glucose Negative COVID-19 Source SARS-CoV-2 (PCR) Influenza Type A (PCR) Influenza Type B (PCR) RSV (PCR) Last Vital Signs Temp 36.1 C L 02/16/24 10:41 Pulse 76 02/16/24 10:41 Resp 18 02/16/24 10:41 BP 137/87 02/16/24 10:41 Pulse Ox 98 02/16/24 10:41
--- NOTE | 2024-02-16 12:43 | W.PM.HP.N ---
Date of service: 02/16/24 Time of Service: 12:43 Assessment and Plan Assessment and plan (1) Fever postop: Status: Acute Assessment and plan: Blood cultures pending a-febrile at this time Urology consult (2) UTI (urinary tract infection): Status: Acute Assessment and plan: UA positive Dysuria: Short course of pyridium culture ordered and pending On ceftriaxone (3) Dysuria: Status: Acute Assessment and plan: Short course of pyridium (4) Nausea: Status: Acute Assessment and plan: On compazine PRN (5) Hypokalemia: Status: Acute Assessment and plan: Supplementation ordered BMP and mag level in AM (6) On deep vein thrombosis (DVT) prophylaxis: Status: Acute Assessment and plan: ROMAN'don, came in with hematuria with blood clots as per the ED provider's notes (7) Discharge planning issues: Status: Acute Assessment and plan: Discharge on Sunday after urology consult, if not available and stable will go home with OPT urology consult Discussed with Dr. Freedman History of Present Illness History of Present Illness Chief Complaint: Fever, nausea and malaise Narrative: This 63-year-old female patient with a past medical history of asthma, ADAIR, GERD, status post day 2 with ureteral stent removal and lithotripsy and stone removal of the right kidney; with right ureteral stent replacement presented to the emergency room on 02/16/2024 with complaints of sleepiness, mild nausea, fever, hematuria and a general ill feeling.The patient denies chest pain, shortness of breath, vomiting. The patient reported some post surgical abdominal pain without improve the patient denied chills, rash, constipation, diarrhea or other concerns. Labs in the emergency room were unremarkable except for potassium of 3.3 and H&H of 10.6 and 32.5. Urine analysis showed a small amount of leukocyte esterase and was sent for culture. The patient was started on ceftriaxone. A KUB showed that the right renal stent was displaced. [facility] urology team was consulted and following their guidance, the ED provider inserted a Rodriguez to mitigate stent displacement. On the following KUB the distal lumen of the right ureteral stent was seen to be located in the bladder. The hospitalist was consulted and the patient admitted to the medical surgical floor for further evaluation and management of postoperative fever, dysuria, ureteral stent migration, hypokalemia and UTI. When seen on the floor the patient was alert oriented x 4, complaining of dizziness at times, abdominal pain and urinary spasms, nausea. The patient denied change in vision, difficulty breathing, palpitation or chest pain, new and increased abdominal pain, vomiting, diarrhea, or ambulatory dysfunction. The patient agrees that she is a full code. Review of Systems All systems reviewed & are unremarkable except as noted in HPI and below Cardiovascular Cardiovascular: Denies chest pain and Denies dyspnea Respiratory Respiratory: Denies system reviewed and no additional complaints, except as documented, Denies cough and Denies dyspnea Genitourinary Genitourinary: Reports as per HPI and Reports hematuria PFSH All Active Problems (Updated 02/16/24 @ 17:02 by Radha Borges APRN) On deep vein thrombosis (DVT) prophylaxis (Acute) Hypokalemia (Acute) Dysuria (Acute) UTI (urinary tract infection) (Acute) Fever postop (Acute) Hyperplastic colon polyp (Acute ~08/06/23) Stress incontinence (Acute) Hydronephrosis (Acute) Diverticula of colon (Acute) Adenomatous polyp of sigmoid colon (Acute) Screening for malignant neoplasm of colon performed (Acute) Maltracking of left patella (Acute) Chondromalacia of left patellofemoral joint (Acute) ADHD (Chronic) History of section (Chronic) S/P hysterectomy (Chronic) Migraine (Chronic) Encounter for screening for other viral diseases (Acute) Fever (Acute) Fatigue (Acute) Nausea (Acute) Acute bronchitis with bronchospasm (Acute) GERD (gastroesophageal reflux disease) (Chronic) Acute esophagitis (Acute) Insomnia (Acute) DVT prophylaxis (Acute) Discharge planning issues (Acute) Pill dysphagia (Acute) Post-nasal drip (Acute) Encounter for screening laboratory testing for COVID-19 virus (Acute) Pneumonia due to COVID-19 virus (Acute) Screening for colon cancer (Acute) Abdominal pain (Acute) Acne (Acute) Medical History (Updated 02/16/24 @ 17:02 by Radha Borges APRN) History of asthma Periodic limb movement sleep disorder Mixed hyperlipidemia Hypersomnia Family history of cardiovascular disease Ovarian cyst Gastritis Carpal tunnel syndrome Polycystic ovaries Hyperglycemia Rosacea ADAIR (obstructive sleep apnea) Insomnia Depressive disorder Claustrophobia Severe obesity Nephrolithiasis Surgical History Hx of reduction mammoplasty S/P gastric bypass History of colonoscopy (~07/2023) Hx of hysterectomy H/O LEEP (~1998) Hx of cholecystectomy (~2000) H/O ureteroscopy (~2020) H/O cystoscopy (~2020) Family History (Updated 02/16/24 @ 17:01 by Radha Borges APRN) Mother Heart disease Diabetes Hypertension Father Diabetes Hypertension Social History Smoking/Tobacco Use Status: Former Tobacco Use Quit Date: 11/19/99 Smoking risk assessment performed?: Yes Alcohol Intake: never Drug use: Never Substance use type: does not use Housing: house Current gender identity: female Do you feel safe at home: Yes Do you feel safe in your relationship?: Yes Meds Allergies and Home Medications Allergies Allergy/AdvReac Type Severity Reaction Status Date / Time No Known Allergies Allergy Verified 02/14/24 07:37 Home Medications Medication Instructions Recorded Confirmed Type methylphenidate HCl 20 mg tablet 20 mg PO TID 02/04/21 02/16/24 History (Ritalin) levalbuterol HCl 1.25 mg/3 mL 1.25 mg (3 mL) UPD Q4H PRN PRN #90 02/08/21 02/16/24 Rx solution for nebulization mL albuterol sulfate 90 mcg/actuation 1 - 2 puff inhalation PRN PRN 08/02/21 02/16/24 History aerosol inhaler (ProAir HFA) ipratropium 0.5 mg-albuterol 3 mg 3 ml inhalation Q6H PRN 08/02/21 02/16/24 History (2.5 mg base)/3 mL nebulization soln semaglutide (weight loss) 1.7 1.7 mg subcut Q7D 02/13/24 02/16/24 History mg/0.75 mL subcutaneous pen injector (Wegovy) oxybutynin chloride 5 mg tablet 5 mg PO TID PRN bladder spasms #30 02/14/24 02/16/24 Rx tabs oxycodone 5 mg tablet 5 - 10 mg (1 - 2 x 5 mg) PO Q6H 02/14/24 02/16/24 Rx PRN pain #30 tabs Exam Narrative Exam Narrative: Constitutional The patient is sitting in bed without acute distress but nauseated HENMT: Head normocephalic, and facial structures with normal appearance Eyes: Well aligned Neuro:alert and oriented X 3 Chest:Chest is symmetrical and normal appearance Resp: Normal respiratory pattern, speaks in full sentences, unlabored breathing, clear lung bilaterally Cardio: regular rhythm, S1, S2, no murmur, positive pulses to all 4 extremities GI: Abdomen is not distended, soft with right flank tenderness, bowel sounds are present : Positive right Costovertebral angle tenderness Back/spine/Pelvis: Right upper back tenderness, normal alignment Integumentary: No skin lesions or rash Extremities: strength 5/5 to bilateral lower and upper extremities Psych: RASS 0, congruent mood and normal affect. Results Labs 02/16/24 01:30 02/16/24 01:30 Labs: Laboratory Results - last 24 hr 02/16/24 02/16/24 02/16/24 01:30 02:20 04:27 WBC 8.61 RBC 4.00 Hgb 10.6 L Hct 32.5 L MCV 81 MCH 26.5 L MCHC 32.6 RDW 14.7 H Plt Count 247 MPV 8.5 Immature Gran % 0.5 Neutrophils % 67.2 Lymphocytes % 20.2 Monocytes % 10.2 Eosinophils % 1.6 Basophils % 0.3 Nucleated RBC % 0.0 Absolute Neutrophils 5.78 Absolute Lymphocytes 1.74 Absolute Monocytes 0.88 H Absolute Eosinophils 0.14 Absolute Basophils 0.03 VBG pH 7.51 H VBG pCO2 37 L VBG pO2 48 VBG HCO3 29 H VBG Total CO2 27 VBG O2 Saturation 88 VBG Base Excess 6 H VBG Lactate 0.9 Cancelled Sodium 139 Potassium 3.3 L Chloride 102 Carbon Dioxide 28.8 Anion Gap 8.2 BUN 10 Creatinine 0.7 Est GFR (CKD-EPI 2020) 104.65 Glucose 110 H Calcium 8.5 Total Bilirubin 0.5 AST 44 H ALT 42 Alkaline Phosphatase 126 H Total Protein 7.6 Albumin 3.2 L Procalcitonin < 0.1 Urine Color Urine Clarity Urine pH Ur Specific [place] Urine Protein Urine Ketones Urine Blood Urine Nitrite Urine Bilirubin Urine Urobilinogen Ur Leukocyte Esterase Urine RBC Urine WBC Ur Epithelial Cells Urine Crystals Urine Bacteria Urine Casts Urine Mucus Ur Culture Indicated? Urine Glucose COVID-19 Source Nasopharynx SARS-CoV-2 (PCR) Negative Influenza Type A (PCR) Negative Influenza Type B (PCR) Negative RSV (PCR) Negative 02/16/24 09:10 WBC RBC Hgb Hct MCV MCH MCHC RDW Plt Count MPV Immature Gran % Neutrophils % Lymphocytes % Monocytes % Eosinophils % Basophils % Nucleated RBC % Absolute Neutrophils Absolute Lymphocytes Absolute Monocytes Absolute Eosinophils Absolute Basophils VBG pH VBG pCO2 VBG pO2 VBG HCO3 VBG Total CO2 VBG O2 Saturation VBG Base Excess VBG Lactate Sodium Potassium Chloride Carbon Dioxide Anion Gap BUN Creatinine Est GFR (CKD-EPI 2020) Glucose Calcium Total Bilirubin AST ALT Alkaline Phosphatase Total Protein Albumin Procalcitonin Urine Color Yellow Urine Clarity Clear Urine pH 6.0 Ur Specific [place] 1.020 Urine Protein 100 H Urine Ketones Negative Urine Blood Large H Urine Nitrite Negative Urine Bilirubin Negative Urine Urobilinogen 0.2 Ur Leukocyte Esterase Small H Urine RBC 20-50 H Urine WBC 10-20 H Ur Epithelial Cells Few Urine Crystals Negative Urine Bacteria Few Urine Casts Negative Urine Mucus Moderate Ur Culture Indicated? No/Sq. Contamination Urine Glucose Negative COVID-19 Source SARS-CoV-2 (PCR) Influenza Type A (PCR) Influenza Type B (PCR) RSV (PCR) Last Vital Signs Temp 36.1 C L 02/16/24 10:41 Pulse 76 02/16/24 10:41 Resp 18 02/16/24 10:41 BP 137/87 02/16/24 10:41 Pulse Ox 98 02/16/24 10:41 Time Spent Time spent with Patient: >75 minutes Time was spent: preparing to see the patient(eg.review tests), obtaining and/or reviewing separately otained hiistory, ordering medications,tests, procedures, referring, communicating with other health direct care professional, indepentently interpreting results, counseling the patient and care coordination
[2024-02-16] MEDS: Prochlorperazine 10 MG/2 ML VIAL 5 MG IVP (14:07)
--- NOTE | 2024-02-16 15:34 | PDOC.CMIN ---
Date of service: 02/16/24 Time of Service: 15:34 Care Management Initial Assmt Initial Assessment REASON FOR HOSPITALIZATION:: post operative fever PREVIOUS FUNCTIONAL STATUS/SOCIAL/FAMILY SUPPORTS:: Katty lives in [place], [place] with her Kit. They have 4 children who all live in the area. Katty stated that they are a close, supportive family. Their youngest daughter who is 17 still lives at home. 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 She is independnet at baseline and does not receive any community services. CURRENT FUNCTIONAL STATUS:: Katty was sitting up in a chair when CM met with her. She denied having any pain or discomfort and stated that she feels well. The provider indicated that she might be able to discharge home today. Katty stated that she would be happy if that were the case. ADVANCE DIRECTIVES:: none on file Has patient been provided with info about the portal/API?: Yes Did the patient sign up for the portal?: Yes CODE STATUS:: Full Code INSURANCE COVERAGE / FINANCIAL ISSUES:: [place] CURRENT HOME/COMMUNITY SERVICES/EQUIPMENT:: none PRIMARY CARE PHYSICIAN:: Corin Rosario POTENTIAL DISCHARGE NEEDS:: follow up with Urology and PCP PATIENT/FAMILY EDUCATION NEEDS:: Review of discharge instructions, activity, limitations, follow up plan, discuss [employer] TRANSPORTATION:: via private vehicle with PLAN:: Anticipate Katty will be discharged home with no new services. She will follow up with her PCP and plan of care and transport with her . CM will follow and continue to assess for discharge planning concerns. PFSH All Active Problems (Updated 02/16/24 @ 17:02 by Radha Borges APRN) On deep vein thrombosis (DVT) prophylaxis (Acute) Hypokalemia (Acute) Dysuria (Acute) UTI (urinary tract infection) (Acute) Fever postop (Acute) Hyperplastic colon polyp (Acute ~08/06/23) Stress incontinence (Acute) Hydronephrosis (Acute) Diverticula of colon (Acute) Adenomatous polyp of sigmoid colon (Acute) Screening for malignant neoplasm of colon performed (Acute) Maltracking of left patella (Acute) Chondromalacia of left patellofemoral joint (Acute) ADHD (Chronic) History of section (Chronic) S/P hysterectomy (Chronic) Migraine (Chronic) Encounter for screening for other viral diseases (Acute) Fever (Acute) Fatigue (Acute) Nausea (Acute) Acute bronchitis with bronchospasm (Acute) GERD (gastroesophageal reflux disease) (Chronic) Acute esophagitis (Acute) Insomnia (Acute) DVT prophylaxis (Acute) Discharge planning issues (Acute) Pill dysphagia (Acute) Post-nasal drip (Acute) Encounter for screening laboratory testing for COVID-19 virus (Acute) Pneumonia due to COVID-19 virus (Acute) Screening for colon cancer (Acute) Abdominal pain (Acute) Acne (Acute) Medical History (Updated 02/16/24 @ 17:02 by Radha Borges APRN) History of asthma Periodic limb movement sleep disorder Mixed hyperlipidemia Hypersomnia Family history of cardiovascular disease Ovarian cyst Gastritis Carpal tunnel syndrome Polycystic ovaries Hyperglycemia Rosacea ADAIR (obstructive sleep apnea) Insomnia Depressive disorder Claustrophobia Severe obesity Nephrolithiasis Surgical History Hx of reduction mammoplasty S/P gastric bypass History of colonoscopy (~07/2023) Hx of hysterectomy H/O LEEP (~1998) Hx of cholecystectomy (~2000) H/O ureteroscopy (~2020) H/O cystoscopy (~2020) Family History (Updated 02/16/24 @ 17:01 by Radha Borges APRN) Mother Heart disease Diabetes Hypertension Father Diabetes Hypertension Social History Smoking/Tobacco Use Status: Former Tobacco Use Quit Date: 11/19/99 Smoking risk assessment performed?: Yes Alcohol Intake: never Drug use: Never Substance use type: does not use Housing: house Current gender identity: female Do you feel safe at home: Yes Do you feel safe in your relationship?: Yes SDOH(Care Management) Screening Will the Patient Participate in the Screening?: Declined to provide Do you worry about having a steady place to live?: choose not to answer In the past 12 months, have you had to go without electric, gas, oil or water in your home?: choose not to answer Have you or anyone in your house had to go without enough food to eat?: choose not to answer Has lack of transportation kept you from medical appointments or from doing things needed for daily living?: choose not to answer Has anyone in your support network made you feel unsafe for any reason?: choose not to answer
[2024-02-16] MEDS: Phenazopyridine 100 MG TAB PO ×2 (15:48→20:21)
[2024-02-16] MEDS: POTASSIUM CHLORIDE 20 MEQ/100 ML BAG 50 MEQ IVPB (16:49)
[2024-02-17 03:18] VITALS: BP 140/94; PULSE 67; RESP 18; TEMP 36.7; O2SAT 95
[2024-02-17 07:33] LABS: Abs Immature Grans 0.02 10^3/uL (0.0-0.06); Absolute Basophil Count 0.03 10^3/uL (0.0-0.2); Absolute Eosinophil Count 0.38 10^3/uL (0.0-0.7); Absolute Lymphocyte Count 2.33 10^3/uL (1.2-3.4); Absolute Monocyte Count 0.71 10^3/uL (0.1-0.8); Absolute Neutrophil Count 3.09 10^3/uL (1.2-6.7); Basophils % 0.5; Eosinophils % 5.8; HCT 29.6 % (36.0-46.0); HGB 9.6 g/dL (11.2-15.7); Immature Grans % 0.3; Lymphocytes % 35.5; MCH 26.7 pg (27.0-33.0); MCHC 32.4 % (32.0-36.0); MCV 82 fL (80-95); MPV 9.2 fL (8.0-11.0); Monocytes % 10.8; Neutrophils % 47.1; Platelet Count 249 10^3/uL (130-400); RDW 14.9 % (11.7-14.6); WBC 6.56 10^3/uL (4.4-10.8)
[2024-02-17 07:48] LABS: Anion Gap 9.6 mmol/L (3-11); BUN 9 mg/dL (7-18); CO2 28.4 mmol/L (21.0-32.0); CREATININE 0.6 mg/dL (0.55-1.02); Calcium 8.9 mg/dL (8.5-10.1); Chloride 106 mmol/L (98-107); Estimated GFR 108.61 (mL/min/1.73m2); Glucose 97 mg/dL (74-106); Magnesium 1.9 mg/dL (1.8-2.4); Potassium 3.4 mmol/L (3.5-5.1); Sodium 144 mmol/L (136-145)
[2024-02-17 08:07] VITALS: BP 143/90; PULSE 63; RESP 17; TEMP 36.5; O2SAT 96
--- NOTE | 2024-02-17 08:15 | RESPIRATORY ---
Spoke with patient about her ADAIR diagnosis and she advised she hasn't had a home machine since back prior to her weight loss
[2024-02-17] MEDS: Phenazopyridine 100 MG TAB PO (08:29)
[2024-02-17] MEDS: Polyethylene Glycol 3350 17 GM PACKET PO (08:37)
--- NOTE | 2024-02-17 09:58 | DSE_ITS ---
Date of service: 02/17/24 Time of Service: 09:58 DS: Diagnosis Discharge Diagnosis (1) Fever postop: Status: Acute (2) UTI (urinary tract infection): Status: Acute (3) Dysuria: Status: Acute (4) Nausea: Status: Acute (5) Hypokalemia: Status: Acute (6) On deep vein thrombosis (DVT) prophylaxis: Status: Acute (7) Discharge planning issues: Status: Acute Discharge Plan Disposition Patient Disposition: Home Condition: Fair Discharge Details Reason For Visit: Fever Admit Date/Time: 02/16/24 08:49 Admit Provider: Toño Freedman Attending Provider: Toño Freedman Primary Care Provider: [facility] Course Hospital Course: This 53 years old female patient with a past medical history of asthma obstructive sleep apnea, gastro esophageal reflux disease, right-sided stent removal and replacement with lithotripsy on 02/14/2024, presented to the ED at [facility] on 02/16/2024 with complaints of fevers, hematuria,nausea and feeling ill. At the time, the patient reported that post-surgical abdominal pain remaining the same. In the ED the patient was not febrile. Labs in the ED were unremarkable except for potassium of 3.3, H&H of 10.6 and 32 5, urinalysis showing a small amount of leuk esterase for which a urine culture was sent and the patient was initiated on ceftriaxone. A KUB showed that the right renal stent was displaced and after consultation with [facility] urology team, the ED provider under their guidance placed a Rodriguez to help the stent migrate back into the bladder. The repeated KUB showed that the distal lumen of the right ureteral stent appeared to be located in the bladder. The Rodriguez was discontinued. The hospitalist was consulted and the patient was admitted to the medical surgical floor for further evaluation and management of postoperative fever, dysuria ureteral stent migration, hypokalemia and possible UTI. During the stay, nausea subsided with the administration of antiemetics. The patient was able to void without any difficulty. The patient had no further re corded fevers. Vital signs remained stable and hematuria resolved. The patient initially complained of bladder spasm for which Pyridium was effectively administered. The urine culture showed no growth at 24 hours and blood cultures were also negative. The patient continued to receive her home medicine regimen for her chronic conditions. The patient will be discharged home today without further antibiotics as the patient never exhibited leukocytosis, recorded fevers at [facility] and remained stable after stent migration. The patient will be discharged with 2 doses of Pyridium. The patient will need to follow-up with Dr. Lebron from urology and called the office to set up an appointment on Sunday morning. The patient will also need to follow-up with her primary care physician within 7 days of discharge. Patient will have to seek medical attention if further fevers, hematuria or dysuria develops. Discussed with Dr. Freedman Home Meds and New Rx's Prescriptions: Continued oxycodone 5 mg tablet 5 - 10 mg PO Q6H MDD 8 PRN (Reason: pain) Qty: 30 0RF oxybutynin chloride 5 mg tablet 5 mg PO TID PRN (Reason: bladder spasms) Qty: 30 0RF ipratropium-albuterol 0.5 mg-3 mg(2.5 mg base)/3 mL solution for nebulization 3 ml INHALATION Q6H PRN Patient Comments: no longer taking albuterol sulfate [ProAir HFA] 90 mcg/actuation HFA aerosol inhaler 1 - 2 puff INHALATION PRN PRN Wegovy 1.7 mg/0.75 mL pen injector 1.7 mg SUBCUT Q7D Hold Instructions: Adverse Reaction Patient Comments: INJECT 1.7 MG SUBCUTANEOUSLY EVERY WEEK FOR 4 WEEKS, IN THE ABDOMEN, THIGH, OR UPPER ARM methylphenidate HCl [Ritalin] 20 mg Tablet 20 mg PO TID levalbuterol HCl 1.25 mg/3 mL Solution For Nebulization 1.25 mg UPD Q4H PRN PRNQty: 90 1RF Discharge Instructions Referrals: Corin Rosario [Primary Care Provider] - (F/u with PCP within 7 days ) Quan Lebron MD [ [facility] STAFF PHYSICIAN] - (Call for a f/u with Dr. Lebron in AM) Activity:: Activity as Tolerated Equipment/Supplies:: No Equipment Needed Diet:: As Tolerated DS: Summary Time Spent with Patient providing and/or coordinating discharge services: Greater than 30 minutes Status at Discharge Functional status at discharge: independent ambulation Overall status at discharge: patient is back to baseline Mental Status: mental status grossly normal Speech and Movement: speech and movement normal Mood: congruent mood Affect: normal affect Quality:SDOH Health Related Social Needs: No Data to Display Exam Narrative Exam Narrative: Constitutional The patient is in bed without acute distress HENMT: facial structures with normal appearance Neuro:alert and oriented X 3 Resp: Normal respiratory pattern, speaks in full sentences, unlabored breathing, clear lung bilaterally Cardio: regular rhythm, S1, S2, no murmur GI: Abdomen is not distended,soft, w/o tenderness, bowel sounds are present : negative Costovertebral angle tenderness Back/spine/Pelvis: Right upper back tenderness, normal alignment Integumentary: No skin lesions or rash Extremities: strength 5/5 to bilateral lower and upper extremities Psych: RASS 0, congruent mood and normal affect. Psych Mental Status: mental status grossly normal Speech and Movement: speech and movement normal Mood: congruent mood Affect: normal affect DS: Data Vitals/I&O Vitals and I&O: Vital Signs Temperature 36.5 C 02/17/24 08:07 Temperature Source Tympanic 02/17/24 08:07 Pulse 63 02/17/24 08:07 Pulse Rhythm Regular 02/16/24 20:10 Respiratory Rate 17 02/17/24 08:07 Respiratory Effort Normal, Non-Labored 02/16/24 20:10 Respiratory Depth Normal 02/16/24 20:10 Respiratory Pattern Normal 02/16/24 20:10 Blood Pressure 143/90 H 02/17/24 08:07 Pulse Oximetry 96 02/17/24 08:07 Oxygen Delivery Method Room Air 02/17/24 08:07 Oxygen Flow Rate 0 02/17/24 08:07 Pain Level 0 02/17/24 08:07 Comment RN Notified 02/17/24 03:18 Intake & Output 02/16/24 02/16/24 02/17/24 11:59 23:59 11:59 Intake Total 2049 / 3130 240 / 240 Output Total 100 / 1600 1500 / 1600 1100 / 1100 Balance 1950 / 1530 -420 / 1530 -860 / -860 Weight 90.628 kg Intake: IV 2049 / 3130 Oral 240 / 240 Output: Urine 100 / 1600 1500 / 1600 1100 / 1100 Other: Urine Color Pale [place] Yellow Urine Appearance Clear Clear Clear Urine Odor Normal Normal Comment voids independently in toilet Voiding Methods Toilet Toilet Toilet Data Completed and Pending Labs on day of discharge: Labs from last 24 hours 02/17/24 06:30 WBC 6.56 RBC 3.60 L Hgb 9.6 L Hct 29.6 L MCV 82 MCH 26.7 L MCHC 32.4 RDW 14.9 H Plt Count 249 MPV 9.2 Immature Gran % 0.3 Neutrophils % 47.1 Lymphocytes % 35.5 Monocytes % 10.8 Eosinophils % 5.8 Basophils % 0.5 Nucleated RBC % 0.0 Absolute Neutrophils 3.09 Absolute Lymphocytes 2.33 Absolute Monocytes 0.71 Absolute Eosinophils 0.38 Absolute Basophils 0.03 Sodium 144 Potassium 3.4 L Chloride 106 Carbon Dioxide 28.4 Anion Gap 9.6 BUN 9 Creatinine 0.6 Est GFR (CKD-EPI 2020) 108.61 Glucose 97 Calcium 8.9 Magnesium 1.9 Preliminary micro results at discharge 02/16/24 14:00 Urine Culture - Preliminary Urine - Voided 02/16/24 01:50 Blood Culture - Preliminary Blood NO GROWTH 24 HOURS 02/16/24 01:30 Blood Culture - Preliminary Blood NO GROWTH 24 HOURS PFSH All Active Problems (Updated 02/17/24 @ 15:49 by Radha Borges APRN) On deep vein thrombosis (DVT) prophylaxis (Acute) Hypokalemia (Acute) Dysuria (Acute) UTI (urinary tract infection) (Acute) Fever postop (Acute) Hyperplastic colon polyp (Acute ~08/06/23) Stress incontinence (Acute) Hydronephrosis (Acute) Diverticula of colon (Acute) Adenomatous polyp of sigmoid colon (Acute) Screening for malignant neoplasm of colon performed (Acute) Maltracking of left patella (Acute) Chondromalacia of left patellofemoral joint (Acute) ADHD (Chronic) History of section (Chronic) S/P hysterectomy (Chronic) Migraine (Chronic) Encounter for screening for other viral diseases (Acute) Fever (Acute) Fatigue (Acute) Nausea (Acute) Acute bronchitis with bronchospasm (Acute) GERD (gastroesophageal reflux disease) (Chronic) Acute esophagitis (Acute) Insomnia (Acute) DVT prophylaxis (Acute) Discharge planning issues (Acute) Pill dysphagia (Acute) Post-nasal drip (Acute) Encounter for screening laboratory testing for COVID-19 virus (Acute) Pneumonia due to COVID-19 virus (Acute) Screening for colon cancer (Acute) Abdominal pain (Acute) Acne (Acute) Medical History (Updated 02/17/24 @ 15:49 by Radha Borges APRN) History of asthma Periodic limb movement sleep disorder Mixed hyperlipidemia Hypersomnia Family history of cardiovascular disease Ovarian cyst Gastritis Carpal tunnel syndrome Polycystic ovaries Hyperglycemia Rosacea ADAIR (obstructive sleep apnea) Insomnia Depressive disorder Claustrophobia Severe obesity Nephrolithiasis Surgical History Hx of reduction mammoplasty S/P gastric bypass History of colonoscopy (~07/2023) Hx of hysterectomy H/O LEEP (~1998) Hx of cholecystectomy (~2000) H/O ureteroscopy (~2020) H/O cystoscopy (~2020) Family History (Updated 02/16/24 @ 17:01 by Radha Borges APRN) Mother Heart disease Diabetes Hypertension Father Diabetes Hypertension Social History Smoking/Tobacco Use Status: Former Tobacco Use Quit Date: 11/19/99 Smoking risk assessment performed?: Yes Alcohol Intake: never Drug use: Never Substance use type: does not use Housing: house Current gender identity: female Do you feel safe at home: Yes Do you feel safe in your relationship?: Yes Time Spent with Patient Time Spent with Patient: 70-84 minutes4 Time was spent: preparing to see the patient(eg.review tests), obtaining and/or reviewing separately otained hiistory, ordering medications,tests, procedures, referring, communicating with other health client care representative, indepentently interpreting results, counseling the patient and care coordination
[2024-02-17] MEDS: Potassium Chloride 20 MEQ TABCR 40 MEQ PO (10:49)
[2024-02-17] MEDS: Normal Saline Flush 10 ML SYR IVP (10:49)
[2024-02-17 12:16] VITALS: BP 124/88; PULSE 68; RESP 16; O2SAT 97
[2024-02-17] MEDS: cefTRIAXone 2 GM/50 ML BAG IVPB (14:36)
[2024-02-17 16:41] VITALS: BP 142/86; PULSE 58; RESP 17; TEMP 36.8; O2SAT 97
== END 2024-02-17 17:18 | disposition home or self-care (01) | DRG 864 ==
LOC: ER 08:55 → MS 10:34
PROVIDERS: Student in an Organized Health Care Education/Training Program; Admitting Provider Internal Medicine; Emergency Provider Emergency Medicine; PCP Nurse Practitioner Family; Visit Provider Internal Medicine
DX: R50.82 Postprocedural fever (principal); N39.0 Urinary tract infection, site not specified; T83.122A Displacement of indwelling ureteral stent, initial encounter; N13.30 Unspecified hydronephrosis; R30.0 Dysuria; E87.6 Hypokalemia; R11.0 Nausea; J45.909 Unspecified asthma, uncomplicated; G47.33 Obstructive sleep apnea (adult) (pediatric); K21.9 Gastro-esophageal reflux disease without esophagitis; N39.3 Stress incontinence (female) (male); F90.9 Attention-deficit hyperactivity disorder, unspecified type; G43.909 Migraine, unspecified, not intractable, without status migrainosus; Z98.84 Bariatric surgery status
CPT/HCPCS: 00123; 36415; 51701; 80048; 80053; 82805; 84145; 87040; 87637; 96361; 96365; 96366; 96375; 99285; 71045; 74018; 81003; 81015; 83605; 83735; 85025; 87086; 99223; 99239; G0378; J0696; J0780; J1644; J1885; J2270; J3480

== ENCOUNTER 2024-05-05 15:18 | Outpatient (REF) | payer OTHER, SELFPAY ==
[2024-05-05 20:07] LABS: HCT 34.9 % (36.0-46.0); HGB 11.4 g/dL (11.2-15.7); MCH 26.9 pg (27.0-33.0); MCHC 32.7 % (32.0-36.0); MCV 82 fL (80-95); MPV 9.7 fL (8.0-11.0); Platelet Count 268 10^3/uL (130-400); RBC 4.24 10^6/uL (3.93-5.22); RDW 13.9 % (11.7-14.6); RDW-SD 41.3 fL; WBC 5.41 10^3/uL (4.4-10.8)
[2024-05-05 20:08] LABS: Bilirubin Negative (Negative); Blood Large (Negative); Clarity Cloudy (Clear); Glucose Negative (Negative); Ketones Negative (Negative); Leukocyte Esterase Moderate (Negative); Nitrite Negative (Negative); Specific Gravity >= 1.030 (1.005-1.025); Urobilinogen 0.2 mg/dL (Up to 0.2); pH 5.5 (5-8)
[2024-05-05 20:15] LABS: Bacteria Many HPF (Negative); C & S Indicated? Yes; Casts Negative LPF (Negative); Crystals Few Calcium Oxalate HPF (Negative); Epithelial Cells Few HPF (Negative); Mucus Trace (Negative); RBC 20-50 HPF (0-2); WBC 20-50 HPF (0-5)
[2024-05-05 21:18] LABS: Iron 45 ug/dL (50-170); Total Iron Binding Capacity 437 ug/dL (250-450); Transferrin Sat 10 % (15-50)
== END 2024-05-05 15:19 | disposition home or self-care (01) ==
LOC: NCHCN 15:18
PROVIDERS: PCP Nurse Practitioner Family; Visit Provider Nurse Practitioner Family
DX: D64.9 Anemia, unspecified (principal); R30.0 Dysuria
CPT/HCPCS: 85027; 81003; 81015; 83540; 83550; 87086

== ENCOUNTER 2024-06-17 04:14 | Emergency (ER) | payer OTHER, SELFPAY ==
[2024-06-17 04:17] VITALS: BP 146/90; PULSE 74; RESP 16; TEMP 36.5; O2SAT 97
--- NOTE | 2024-06-17 04:21 | ED.GENADUL_ITS ---
Discharge Plan Disposition Patient Disposition: Home Condition: Good Discharge Details Chief Complaint: FlankPain Clinical Impression: Kidney stones Primary Care Provider: Corin Rosario ED Provider: Eulalio Arellano Home Meds and New Rx's Prescriptions: New cephalexin 500 mg capsule 500 mg PO QID 14 Days Qty: 56 0RF No Action potassium citrate-citric acid 1,100-334 mg/5 mL solution 10 ml PO BID Qty: 473 12RF oxybutynin chloride 5 mg tablet 5 mg PO TID PRN (Reason: bladder spasms) Qty: 60 1RF oxycodone 10 mg tablet 10 mg PO Q6H MDD 4 PRN (Reason: pain) Qty: 30 0RF ondansetron HCl 4 mg tablet 4 mg PO Q8H PRN (Reason: nausea and vomiting) Qty: 20 0RF ipratropium-albuterol 0.5 mg-3 mg(2.5 mg base)/3 mL solution for nebulization 3 ml INHALATION Q6H PRN Patient Comments: no longer taking albuterol sulfate [ProAir HFA] 90 mcg/actuation HFA aerosol inhaler 1 - 2 puff INHALATION PRN PRN Wegovy 1.7 mg/0.75 mL pen injector 1.7 mg SUBCUT Q7D Patient Comments: INJECT 1.7 MG SUBCUTANEOUSLY EVERY WEEK FOR 4 WEEKS, IN THE ABDOMEN, THIGH, OR UPPER ARM methylphenidate HCl [Ritalin] 20 mg Tablet 20 mg PO TID levalbuterol HCl 1.25 mg/3 mL Solution For Nebulization 1.25 mg UPD Q4H PRN PRNQty: 90 1RF Discharge Instructions Additional Instructions: At this time you do have your persistent chronic kidney stone, however your renal function is excellent, you have no white count or evidence of significant infection. There is a trace amount of leukocyte esterase in your urine, and because of this we will be giving you the antibiotic. Please take this as directed and have your urology stenting procedure performed soon as you return. If you notice any worsening of your symptoms, or any new symptoms such as vomiting, diarrhea, fever, chills, shortness of breath, chest pain, numbness, weakness, or fainting , please return immediately to the emergency department for reevaluation. Please follow up with your primary care provider as soon as possible for reassessment and reevaluation. As always, it was a pleasure participating in your medical care today. Referrals: Corin Rosario [Primary Care Provider] - Quan Lebron MD [ [facility] STAFF PHYSICIAN] - HPI General Date/Time Provider Initiated Documentation: 06/17/24 04:15 . HPI Narrative: This is a very pleasant 54-year-old female with a past medical history of multiple kidney stones which are uric acid stones in particular, previous gastric bypass, hysterectomy, ADAIR, polycystic ovaries, high cholesterol, who presents today for mild right flank pain. About a week and a half ago the patient was diagnosed with a non-obstructing kidney stone, however her pain was notably mild. She has these fairly frequently. There was questionable infection and she was started on a course of a third-generation cephalosporin (which she finished a few days ago) she was scheduled to have a stent placed yesterday but she rescheduled secondary to travel plans, and will be having it in 2 weeks instead. Things are going well, pain was well-managed until tonight when she suddenly noticed a change in her urine color. It went from yellow to dark brown. This is atypical for her. She does admit to some mild achiness in the right flank, but no other changes otherwise. She denies nausea vomiting or diarrhea. She has been taking her regular home medications as prescribed. No other complaints at this time. No hematuria, no fever. Related Data Home Medications ?Medication ?Instructions ?Recorded ?Confirmed methylphenidate HCl 20 mg tablet 20 mg PO TID 02/04/21 06/17/24 (Ritalin) levalbuterol HCl 1.25 mg/3 mL 1.25 mg (3 mL) UPD Q4H PRN PRN #90 02/08/21 06/17/24 solution for nebulization mL albuterol sulfate 90 mcg/actuation 1 - 2 puff inhalation PRN PRN 08/02/21 06/17/24 aerosol inhaler (ProAir HFA) ipratropium 0.5 mg-albuterol 3 mg 3 ml inhalation Q6H PRN 08/02/21 06/17/24 (2.5 mg base)/3 mL nebulization soln semaglutide (weight loss) 1.7 1.7 mg subcut Q7D 02/13/24 06/17/24 mg/0.75 mL subcutaneous pen injector (Wegovy) oxybutynin chloride 5 mg tablet 5 mg PO TID PRN bladder spasms #60 04/11/24 06/17/24 tabs potassium citrate-citric acid 10 ml PO BID stone prevention #473 05/09/24 06/17/24 1,100 mg-334 mg/5 mL oral solution mL ondansetron HCl 4 mg tablet 4 mg PO Q8H PRN nausea and 06/16/24 06/17/24 vomiting #20 tabs oxycodone 10 mg tablet 10 mg PO Q6H PRN pain #30 tabs 06/16/24 06/17/24 cephalexin 500 mg capsule 500 mg PO QID 14 days #56 caps 06/17/24 Previous Rx's ?Medication ?Instructions ?Recorded levalbuterol HCl 1.25 mg/3 mL 1.25 mg (3 mL) UPD Q4H PRN PRN #90 02/08/21 solution for nebulization mL oxybutynin chloride 5 mg tablet 5 mg PO TID PRN bladder spasms #60 04/11/24 tabs potassium citrate-citric acid 10 ml PO BID stone prevention #473 05/09/24 1,100 mg-334 mg/5 mL oral solution mL ondansetron HCl 4 mg tablet 4 mg PO Q8H PRN nausea and 06/16/24 vomiting #20 tabs oxycodone 10 mg tablet 10 mg PO Q6H PRN pain #30 tabs 06/16/24 cephalexin 500 mg capsule 500 mg PO QID 14 days #56 caps 06/17/24 Allergies Allergy/AdvReac Type Severity Reaction Status Date / Time No Known Allergies Allergy Verified 06/17/24 04:23 General RASHDI: 3 Review of Systems All systems reviewed & are unremarkable except as noted in HPI and below Exam Narrative Exam Narrative: 1.Const: Well-nourished, Well-developed, appearing stated age 2.Eyes: PERRL, no conjunctival injection, and symmetrical lids. 3.ENT: Atraumatic external nose and ears. Moist MM. Neck: Symmetric, trachea midline, No thyromegaly. 4.CVS: +S1/S2, No murmurs or gallops. Peripheral pulses 2+ and equal in all extremities. Brisk capillary refill in all extremities. 5.RESP: Unlabored respiratory effort. Clear to auscultation bilaterally. No wheezes rales or rhonchi 6.GI: Soft, Nontender/Nondistended, No hepatosplenomegaly. No guarding or rebound. Very mild right-sided CVA tenderness 7.MSK: Normocephalic/Atraumatic, Extremities w/o deformity or ttp No cyanosis or clubbing, Normal movement of all extremities 8.Skin: Warm, Dry. No rashes or lesions. 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 Sensation grossly intact, no focal neurologic deficits. 10.Psych: (AAO) x3. Appropriate mood and affect Medical Decision Making Yan is a very pleasant 54-year-old female with a past medical history of multiple kidney stones which are uric acid stones in particular, previous gastric bypass, hysterectomy, ADAIR, polycystic ovaries, high cholesterol, who presents today for mild right flank pain. About a week and a half ago the patient was diagnosed with a non-obstructing kidney stone (per radiology report), however her pain was notably mild. She has these fairly frequently. There was questionable infection and she was started on a course of a third-generation cephalosporin (which she finished a few days ago) she was scheduled to have a stent placed yesterday but she rescheduled secondary to travel plans, and will be having it in 2 weeks instead. Things are going well, pain was well-managed until tonight when she suddenly noticed a change in her urine color. It went from yellow to dark brown. This is atypical for her. She does admit to some mild achiness in the right flank, but no other changes otherwise. She denies nausea vomiting or diarrhea. She has been taking her regular home medications as prescribed. No other complaints at this time. No hematuria, no fever. Exam demonstrates well-appearing female, vital signs stable, no fever, differential includes worsening renal function, infection, dehydration, proteinuria. We will evaluate for these etiologies, rehydrate with a liter of LR, review most recent results from [facility] on her last visit there, monitor closely and reassess. 7:38 AM Laboratory workup has returned, no white count, bandemia, left shift, fever. Urinalysis shows negative nitrites, trace leuk esterase so. RBCs WBCs present. Patient has had no fever while here, no tachycardia, and pain has been very well-controlled with no additional medications. Renal function is excellent with a creatinine of 0.7 and a GFR of 104. Symptoms inconsistent with urinary obstruction causing sepsis, pyelonephritis, or renal dysfunction. I discussed the case with Dr. Lebron, at this time he does recommend continued antibiotics/Keflex until the patient returns from her trip and has her scheduled stenting procedure. With no signs of sepsis or significant infection, there is no indication for emergent stone removal at this time as she has had this for a notably chronic component. Additionally the patient's potassium is slightly elevated at 5.4, however normally on all of patient's previous labs she is potassium low. There was a bit of a problem with extraction of blood, and then there were multiple problems with the testing machine in the lab which led to a notable delay, concern for mild hemolysis as a cause for the atypical potassium. Did discuss options for repeat blood draw, which has been declined at this time. Symptoms clinically appear notably inconsistent with hyperkalemia whatsoever. Patient has been rehydrated already here which would be the treatment for that minimally elevated potassium. Patient stable for discharge. QT on bedside monitor is normal, QRS normal. No indication for other additional emergent management. Patient will be discharged home, Keflex prescription sent. Discussed red flags which to return. I have extensively reviewed the treatment plan and discharge instructions with the patient. I have addressed all patient concerns at this time. The patient was made aware of what symptoms to monitor for that would warrant a return to the emergency department. Discussed the plan with the patient, they demonstrate verbal understanding and agreement with our assessment and plan at this time. The documentation in this chart was dictated using [employer] dictation software. Please excuse any dictation errors. Quality:SDOH Health Related Social Needs: No Data to Display PFSH All Active Problems (Updated 06/17/24 @ 07:38 by Eulalio Arellano DO) Kidney stones (Chronic) Hematuria (Acute) Fever postop (Acute) Hyperplastic colon polyp (Acute ~08/06/23) Stress incontinence (Acute) Hydronephrosis (Acute) Diverticula of colon (Acute) Adenomatous polyp of sigmoid colon (Acute) Screening for malignant neoplasm of colon performed (Acute) Maltracking of left patella (Acute) Chondromalacia of left patellofemoral joint (Acute) ADHD (Chronic) History of section (Chronic) S/P hysterectomy (Chronic) Migraine (Chronic) Encounter for screening for other viral diseases (Acute) Fever (Acute) Fatigue (Acute) Acute bronchitis with bronchospasm (Acute) GERD (gastroesophageal reflux disease) (Chronic) Acute esophagitis (Acute) Insomnia (Acute) DVT prophylaxis (Acute) Pill dysphagia (Acute) Post-nasal drip (Acute) Encounter for screening laboratory testing for COVID-19 virus (Acute) Pneumonia due to COVID-19 virus (Acute) Screening for colon cancer (Acute) Abdominal pain (Acute) Acne (Acute) Medical History Hypokalemia History of asthma Periodic limb movement sleep disorder Mixed hyperlipidemia Hypersomnia Family history of cardiovascular disease Ovarian cyst Gastritis Carpal tunnel syndrome Polycystic ovaries Hyperglycemia Rosacea ADAIR (obstructive sleep apnea) Insomnia Depressive disorder Claustrophobia Severe obesity Nephrolithiasis Surgical History Hx of reduction mammoplasty S/P gastric bypass History of colonoscopy (~07/2023) Hx of hysterectomy H/O LEEP (~1998) Hx of cholecystectomy (~2000) H/O ureteroscopy (~2020) H/O cystoscopy (~2020) Family History Mother Heart disease Diabetes Hypertension Father Diabetes Hypertension Social History Smoking/Tobacco Use Status: Former Tobacco Use Quit Date: 11/19/99 Smoking risk assessment performed?: Yes Alcohol Intake: never Drug use: Never Substance use type: does not use Housing: house Current gender identity: female Do you feel safe at home: Yes Do you feel safe in your relationship?: Yes
[2024-06-17] MEDS: Lactated Ringers 1,000 ML 1000 ML IV (04:31)
[2024-06-17 04:34] LABS: Abs Immature Grans 0.01 10^3/uL (0.0-0.06); Absolute Basophil Count 0.04 10^3/uL (0.0-0.2); Absolute Eosinophil Count 0.34 10^3/uL (0.0-0.7); Absolute Lymphocyte Count 2.57 10^3/uL (1.2-3.4); Absolute Monocyte Count 0.62 10^3/uL (0.1-0.8); Absolute Neutrophil Count 3.62 10^3/uL (1.2-6.7); Basophils % 0.6 %; Eosinophils % 4.7 %; HCT 38.3 % (36.0-46.0); HGB 12.4 g/dL (11.2-15.7); Immature Grans % 0.1 %; Lymphocytes % 35.7 %; MCH 27.1 pg (27.0-33.0); MCHC 32.4 % (32.0-36.0); MCV 84 fL (80-95); MPV 8.7 fL (8.0-11.0); Monocytes % 8.6 %; Neutrophils % 50.3 %; Platelet Count 283 10^3/uL (130-400); RBC 4.58 10^6/uL (3.93-5.22); RDW 14.1 % (11.7-14.6); RDW-SD 41.8 fL
[2024-06-17 04:52] LABS: Bilirubin Small (Negative); Blood Large (Negative); Clarity Turbid (Clear); Glucose Negative (Negative); Ketones Negative (Negative); Leukocyte Esterase Small (Negative); Nitrite Negative (Negative); Specific Gravity >= 1.030 (1.005-1.025); Urobilinogen 0.2 mg/dL (Up to 0.2); pH 5.5 (5-8)
--- NOTE | 2024-06-17 05:10 | NUR.NOTE ---
Pt records requested from [facility] latest CT scans and last emergency room visit.
[2024-06-17 05:18] LABS: Epithelial Cells Rare HPF (Negative); RBC >50 HPF (0-2); WBC >50 HPF (0-5)
[2024-06-17 05:19] LABS: Bacteria Few HPF (Negative); C & S Indicated? Yes; Crystals Negative HPF (Negative); Mucus Negative (Negative)
[2024-06-17] MEDS: CEFEPIME 2 GM in Normal Saline 100 ML IVPB (05:40)
[2024-06-17 06:15] VITALS: BP 126/72; PULSE 56; RESP 14; O2SAT 99
[2024-06-17 07:14] LABS: ALT 28 U/L (14-59); AST 30 U/L (15-37); Albumin 4.1 g/dL (3.4-5.0); Alkaline Phosphatase 130 U/L (46-116); Anion Gap 7.8 mmol/L (3-11); BUN 17 mg/dL (7-18); Bilirubin, Total 0.79 mg/dL (0.2-1.0); CO2 30.2 mmol/L (21.0-32.0); CREATININE 0.7 mg/dL (0.55-1.02); Calcium 9.8 mg/dL (8.5-10.1); Chloride 104 mmol/L (98-107); Glucose 115 mg/dL (74-106); Potassium 5.4 mmol/L (3.5-5.1); Sodium 142 mmol/L (136-145); Total Protein 8.6 g/dL (6.4-8.2)
[2024-06-17 07:38] VITALS: BP 134/87; PULSE 65; RESP 18; TEMP 36.6; O2SAT 99
== END 2024-06-17 07:52 | disposition home or self-care (01) ==
LOC: ER 08:14
PROVIDERS: Emergency Provider Student in an Organized Health Care Education/Training Program; PCP Nurse Practitioner Family
DX: N20.0 Calculus of kidney (principal)
CPT/HCPCS: 36415; 80053; 96361; 96365; 99284; 81003; 81015; 85025; 87086; 99283; J0692

== ENCOUNTER 2024-07-03 06:05 | Day surgery (SDC) | payer OTHER, SELFPAY ==
[2024-07-03] VITALS (17 sets, daily range): BP systolic 108–127; BP diastolic 62–83; PULSE 60–77; RESP 7–27; TEMP 36.4–36.6; O2SAT 93–99; BMI 32.7
[2024-07-03] MEDS: Lactated Ringers 1,000 ML 80 ML IV (06:37)
--- NOTE | 2024-07-03 06:59 | W.PM.HP.N ---
Date of service: 07/03/24 Time of Service: 06:59 History of Present Illness History of Present Illness Chief Complaint: Right kidney stone Narrative: This is a 54-year-old woman who has a history of kidney stones. She is currently been identified as having a intermittently obstructing right UPJ stone that measures about 6 mm in size. She has had intermittent urinary tract infections as well but has not had pyelonephritis. She presents for ureteroscopy and holmium laser lithotripsy of her known right UPJ stone. Her most recent stone analysis was 80% uric acid and 20% calcium oxalate dihydrate She is not having any flank pain at this time. She tells me her urine still seems cloudy. She is not febrile Review of Systems Narrative: No fevers or chills Postnasal drip. No vision change or dysphasia No diabetes or thyroid dysfunction No shortness of breath, cough or hemoptysis No chest pain or palpitations GERD. No hepatitis, ulcers, jaundice, diarrhea or constipation Hx migraine headaches. No seizures, strokes or peripheral neuropathy No bleeding disorders or anemia No gout PFSH All Active Problems Kidney stones (Chronic) Hematuria (Acute) Fever postop (Acute) Hyperplastic colon polyp (Acute ~08/06/23) Stress incontinence (Acute) Hydronephrosis (Acute) Diverticula of colon (Acute) Adenomatous polyp of sigmoid colon (Acute) Screening for malignant neoplasm of colon performed (Acute) Maltracking of left patella (Acute) Chondromalacia of left patellofemoral joint (Acute) ADHD (Chronic) History of section (Chronic) S/P hysterectomy (Chronic) Migraine (Chronic) Encounter for screening for other viral diseases (Acute) Fever (Acute) Fatigue (Acute) Acute bronchitis with bronchospasm (Acute) GERD (gastroesophageal reflux disease) (Chronic) Acute esophagitis (Acute) Insomnia (Acute) DVT prophylaxis (Acute) Pill dysphagia (Acute) Post-nasal drip (Acute) Encounter for screening laboratory testing for COVID-19 virus (Acute) Pneumonia due to COVID-19 virus (Acute) Screening for colon cancer (Acute) Abdominal pain (Acute) Acne (Acute) Medical History Hypokalemia History of asthma Periodic limb movement sleep disorder Mixed hyperlipidemia Hypersomnia Family history of cardiovascular disease Ovarian cyst Gastritis Carpal tunnel syndrome Polycystic ovaries Hyperglycemia Rosacea ADAIR (obstructive sleep apnea) Insomnia Depressive disorder Claustrophobia Severe obesity Nephrolithiasis Surgical History Hx of reduction mammoplasty S/P gastric bypass History of colonoscopy (~07/2023) Hx of hysterectomy H/O LEEP (~1998) Hx of cholecystectomy (~2000) H/O ureteroscopy (~2020) H/O cystoscopy (~2020) Family History Mother Heart disease Diabetes Hypertension Father Diabetes Hypertension Social History Smoking/Tobacco Use Status: Former Tobacco Use Quit Date: 11/19/99 Smoking risk assessment performed?: Yes Alcohol Intake: never Drug use: Never Substance use type: does not use Housing: house Current gender identity: female Do you feel safe at home: Yes Do you feel safe in your relationship?: Yes Meds Allergies and Home Medications Allergies Allergy/AdvReac Type Severity Reaction Status Date / Time No Known Allergies Allergy Verified 07/03/24 06:18 Home Medications ?Medication ?Instructions ?Recorded ?Confirmed ?Type methylphenidate HCl 20 mg tablet 20 mg PO TID 02/04/21 07/03/24 History (Ritalin) levalbuterol HCl 1.25 mg/3 mL 1.25 mg (3 mL) UPD Q4H PRN PRN #90 02/08/21 07/03/24 Rx solution for nebulization mL albuterol sulfate 90 mcg/actuation 1 - 2 puff inhalation PRN PRN 08/02/21 07/03/24 History aerosol inhaler (ProAir HFA) ipratropium 0.5 mg-albuterol 3 mg 3 ml inhalation Q6H PRN 08/02/21 07/03/24 History (2.5 mg base)/3 mL nebulization soln semaglutide (weight loss) 1.7 1.7 mg subcut Q7D 02/13/24 07/02/24 History mg/0.75 mL subcutaneous pen injector (Wejamaalvmaryse) oxybutynin chloride 5 mg tablet 5 mg PO TID PRN bladder spasms #60 04/11/24 07/03/24 Rx tabs ondansetron HCl 4 mg tablet 4 mg PO Q8H PRN nausea and 06/16/24 07/03/24 Rx vomiting #20 tabs oxycodone 10 mg tablet 10 mg PO Q6H PRN pain #30 tabs 07/01/24 07/03/24 Rx Exam Const General: cooperative Neck Neck: supple Resp Effort & Inspection: normal respiratory effort Auscultation: clear to auscultation bilaterally Cardio Rate: regular rate Rhythm: regular rhythm GI Palpation: soft and no masses Neuro General: patient alert, patient awake and patient oriented x3 Results Last Vital Signs Temp 36.6 C 07/03/24 06:19 Pulse 61 07/03/24 06:19 Resp 16 07/03/24 06:19 BP 124/65 07/03/24 06:19 Pulse Ox 98 07/03/24 06:19 Time Spent Time spent with Patient: <40 minutes Time was spent: other
--- NOTE | 2024-07-03 07:08 | ANES.PREOP_ITS ---
General Info Date of Service Date Performed: 07/03/24 Height: 5 ft 4 in Weight: 86.4 kg Body Mass Index (BMI): 32.7 Surgical Procedure: Operation Date: 07/03/24 07:40 Proposed Procedure Side Surgeon p Cystoscopy/Laser/Retrograde/Ureteroscopy/ Possible Stone Right Quan Lebron MD Actual Procedure Side Surgeon p Cystoscopy/Laser/Retrograde/Ureteroscopy/ Possible Stone Right Quan Lebron MD Pre-Op Diagnosis Post-Op Diagnosis Nephrolithiasis Meds Allergies and Home Medications Allergies Allergy/AdvReac Type Severity Reaction Status Date / Time No Known Allergies Allergy Verified 07/03/24 06:18 Home Medication ?Medication ?Instructions ?Recorded methylphenidate HCl 20 mg tablet 20 mg PO TID 02/04/21 (Ritalin) levalbuterol HCl 1.25 mg/3 mL 1.25 mg (3 mL) UPD Q4H PRN PRN #90 02/08/21 solution for nebulization mL albuterol sulfate 90 mcg/actuation 1 - 2 puff inhalation PRN PRN 08/02/21 aerosol inhaler (ProAir HFA) ipratropium 0.5 mg-albuterol 3 mg 3 ml inhalation Q6H PRN 08/02/21 (2.5 mg base)/3 mL nebulization soln semaglutide (weight loss) 1.7 1.7 mg subcut Q7D 02/13/24 mg/0.75 mL subcutaneous pen injector (Wegovy) oxybutynin chloride 5 mg tablet 5 mg PO TID PRN bladder spasms #60 04/11/24 tabs ondansetron HCl 4 mg tablet 4 mg PO Q8H PRN nausea and 06/16/24 vomiting #20 tabs oxycodone 10 mg tablet 10 mg PO Q6H PRN pain #30 tabs 07/01/24 Current Visit Medications: Current Medications Generic Name Dose Route Start Last Admin Trade Name Freq PRN Reason Stop Dose Admin Ringer's Solution 1,000 mls @ 80 mls/hr 07/03/24 06:00 07/03/24 06:37 IV 08/01/24 23:59 80 mls/hr INFUSION MEI Administration Cefazolin Sodium/Dextrose 2 gm in 50 mls @ 100 mls/hr 07/03/24 06:00 Ancef Duplex IVPB 07/03/24 16:00 PREOP MEI IV Miscellaneous Supplies 1 each 07/03/24 06:00 Iv Access IV 08/01/24 23:59 DIRECTED MEI Sodium Chloride 0 ml 07/03/24 06:00 Normal Saline Flush 10 Ml Syr IV 08/01/24 23:59 PRN PRN Sodium Chloride 0 ml 07/03/24 06:00 Normal Saline 10 Ml Vial IJ 08/01/24 23:59 DIRECTED PRN Sterile Water 0 ml 07/03/24 06:00 Water,Injection,Sterile 10 Ml Vial IJ 08/01/24 23:59 DIRECTED PRN PFSH Active Problems Active Problems: Problem Status Onset Code Kidney stones Chronic N20.0 Hematuria Acute R31.9 Fever postop Acute R50.82 Hyperplastic colon polyp Acute ~08/06/23 K63.5 Stress incontinence Acute N39.3 Hydronephrosis Acute N13.30 Diverticula of colon Acute K57.30 Adenomatous polyp of sigmoid colon Acute D12.5 Screening for malignant neoplasm of colon performed Acute Z12.11 Maltracking of left patella Acute M22.8X2 Chondromalacia of left patellofemoral joint Acute M22.42 ADHD Chronic F90.9 History of section Chronic Z98.891 S/P hysterectomy Chronic Z90.710 Migraine Chronic G43.909 Encounter for screening for other viral diseases Acute Z11.59 Fever Acute R50.9 Fatigue Acute R53.83 Acute bronchitis with bronchospasm Acute J20.9 GERD (gastroesophageal reflux disease) Chronic K21.9 Acute esophagitis Acute K20.90 Insomnia Acute G47.00 DVT prophylaxis Acute Z29.9 Pill dysphagia Acute R13.10 Post-nasal drip Acute R09.82 Epistaxis Resolved R04.0 Encounter for screening laboratory testing for COVID-19 virus Acute Z20.822 Pneumonia due to COVID-19 virus Acute U07.1, J12.82 Screening for colon cancer Acute Z12.11 Abdominal pain Acute R10.9 Acne Acute L70.9 Medical History Medical History Hypokalemia History of asthma Periodic limb movement sleep disorder Mixed hyperlipidemia Hypersomnia Family history of cardiovascular disease Ovarian cyst Gastritis Carpal tunnel syndrome Polycystic ovaries Hyperglycemia Rosacea ADAIR (obstructive sleep apnea) Insomnia Depressive disorder Claustrophobia Severe obesity Nephrolithiasis Surgical History Surgical History Hx of reduction mammoplasty S/P gastric bypass History of colonoscopy (~07/2023) Hx of hysterectomy H/O LEEP (~1998) Hx of cholecystectomy (~2000) H/O ureteroscopy (~2020) H/O cystoscopy (~2020) Tobacco Smoking/Tobacco Use Status: Former Tobacco Use Alcohol Alcohol Intake: never Substance Use Substance use: Never Substance use type: does not use Vital Signs and Lab Results Vital Signs Most Recent Vital Signs in EMR: Most Recent Vital Signs Temp Pulse Resp BP Pulse Ox 36.6 C 61 16 124/65 98 07/03/24 06:19 07/03/24 06:19 07/03/24 06:19 07/03/24 06:19 07/03/24 06:19 Lab Results Blood Type / Crossmatch: No Data to Display Complete Blood Count: White Blood Count 7.20 10^3/uL (4.4-10.8) 06/17/24 04:29 Red Blood Count 4.58 10^6/uL (3.93-5.22) 06/17/24 04:29 Hemoglobin 12.4 g/dL (11.2-15.7) 06/17/24 04:29 Hematocrit 38.3 % (36.0-46.0) 06/17/24 04:29 Platelet Count 283 10^3/uL (130-400) 06/17/24 04:29 Complete Metabolic Panel: Sodium 142 mmol/L (136-145) 06/17/24 04:29 Potassium 5.4 mmol/L (3.5-5.1) H 06/17/24 04:29 Chloride 104 mmol/L (98-107) 06/17/24 04:29 Carbon Dioxide 30.2 mmol/L (21.0-32.0) 06/17/24 04:29 BUN 17 mg/dL (7-18) 06/17/24 04:29 Creatinine 0.7 mg/dL (0.55-1.02) 06/17/24 04:29 Est GFR (CKD-EPI 2020) 104.00 (mL/min/1.73m2) 06/17/24 04:29 Calcium 9.8 mg/dL (8.5-10.1) 06/17/24 04:29 Albumin 4.1 g/dL (3.4-5.0) 06/17/24 04:29 Glucose 115 mg/dL (74-106) H 06/17/24 04:29 Liver Function Panel: Alanine Aminotransferase (ALT/SGPT) 28 U/L (14-59) 06/17/24 04: 29 Aspartate Amino Transf (AST/SGOT) 30 U/L (15-37) 06/17/24 04:29 Coagulation Panel: No Data to Display Cardiac Panel: No Data to Display Arterial Blood Gas: No Data to Display Venous Blood Gas: No Data to Display Pancreas Panel: No Data to Display Thyroid Panel: No Data to Display Infectious Disease: No Data to Display Blood Cultures: No Data to Display Toxicology Panel: No Data to Display Panel: No Data to Display Imaging and Studies Imaging and Studies Study information below may be from another EMR and interpreted by another provider. Please see original notes in EMR for more complete details. EKG Summary: 08/02/21: Exam: Resting ECG Reason for Exam: sob Patient Location: E HR:94 bpm ECG Measurements Heart Rate 94 AXIS MD 150 P 50 QRSd 98 QRS 22 QT 374 T-5 QTc 468 Conclusion Sinus rhythm...normal P axis, V-rate 60- 99. Sinus. No STEMI. I have reviewed and interpreted ECG and agree with software generated interpretation. Pulmonary Function Summary: 03/31/21: Pulmonary Function Test Result Interpretation Spirometry: No evidence of obstructive airways disease, no bronchodilator response Lung Volumes: No evidence of restriction Diffusion Capacity: Borderline mildly reduced which is normal when corrected to alveolar volume Airway Pressure: Normal Impression Isolated borderline reduction in diffusion capacity, this is normal when corrected to alveolar volume Clinical Correlation therefore is recommended. Other Study Summary:: L spine CT reviewed and results in chart Anesthesia Assessment and Plan Anesthesia History Personal History: No History of Anesthesia Complications Family History: No Family History of Anesthesia Complications Exercise Tolerance Exercise Tolerance: Metabolic Equivalents>4 Pertinent Negatives Pertinent Negatives: No Symptoms of GERD Cardiac & Pulmonary Exam Cardiac Exam: Normal S1/S2 Heart Sounds Pulmonary Exam: Clear Bilateral Breath Sounds Implantable Cardiac Device Does patient have a Pacemaker or an ICD?: No Airway Exam Known Difficult Airway: No Mallampati Class: 3 Mouth Opening: Normal (> 3cm) Thyromental Distance: Greater than 3 cm Neck Range of Motion: Full ROM Neck Circumference: Normal Teeth Condition: Removable Dentures/Plates Upper and Edentulous ASA Classification ASA Score: ASA 2 Emergency Case?: No NPO Status NPO Status: NPO Clears >2 hours, Solids >8 hours Status Status: Not Relevant due to Medical History Anesthesia Plan Resuscitation Status: Full Code Anesthesia Technique: General Anesthesia Airway Planned: Endotracheal Tube Monitors Used: Standard Monitors
[2024-07-03] MEDS: ceFAZolin 2 GM/50 ML BAG IVPB (07:52)
[2024-07-03] MEDS: Lidocaine 2% Jelly 6 ML SYR (08:12)
[2024-07-03] MEDS: Omnipaque 300 MG/ML 50 ML BTL (09:10)
--- NOTE | 2024-07-03 09:15 | W.PM.DSUDISC ---
Date of service: 07/03/24 Time of Service: 09:15 Discharge Plan Disposition Patient Disposition: Home Condition: Stable Discharge Details Reason For Visit: ureteroscopy Attending Provider: Quan Lebron Primary Care Provider: Corin Rosario Home Meds and New Rx's Prescriptions: New cefpodoxime 200 mg tablet 200 mg PO BID Qty: 14 0RF Rx Instructions: must administer with a meal/food No Action oxybutynin chloride 5 mg tablet 5 mg PO TID PRN (Reason: bladder spasms) Qty: 60 1RF ondansetron HCl 4 mg tablet 4 mg PO Q8H PRN (Reason: nausea and vomiting) Qty: 20 0RF oxycodone 10 mg tablet 10 mg PO Q6H MDD 4 PRN (Reason: pain) Qty: 30 0RF ipratropium-albuterol 0.5 mg-3 mg(2.5 mg base)/3 mL solution for nebulization 3 ml INHALATION Q6H PRN Patient Comments: no longer taking albuterol sulfate [ProAir HFA] 90 mcg/actuation HFA aerosol inhaler 1 - 2 puff INHALATION PRN PRN Wegovy 1.7 mg/0.75 mL pen injector 1.7 mg SUBCUT Q7D Patient Comments: INJECT 1.7 MG SUBCUTANEOUSLY EVERY WEEK FOR 4 WEEKS, IN THE ABDOMEN, THIGH, OR UPPER ARM methylphenidate HCl [Ritalin] 20 mg Tablet 20 mg PO TID levalbuterol HCl 1.25 mg/3 mL Solution For Nebulization 1.25 mg UPD Q4H PRN PRNQty: 90 1RF Discharge Instructions Additional Instructions: no need to strain urine my office will contact patient to arrange cystoscopy, stent removal, repeat ureteroscopy to make sure all the stone pieces have been removed I sent a prescription for an antibiotic - continue to use your pain meds and spasm meds as needed Activity:: Activity as Tolerated Shower/Bathe:: 24 hours Diet:: As Tolerated Discharge Orders Discharge Orders: Discharge Order (Routine); Ordered 07/03/24 Ordered By: Quan Lebron
--- NOTE | 2024-07-03 09:17 | DI.RAD_ITS ---
Exam(s) XR RETROGRADE IN OR EXAM: XR RETROGRADE IN OR CLINICAL HISTORY: Nephrolithiasis TECHNIQUE: 2D and realtime digital imaging was performed. CONTRAST MATERIAL: Refer to procedure report. COMPARISON: CT CT ABD/PELVIS WO CONTRAST from 06/06/2024 FINDINGS: Fluoroscopy was provided for Dr. Lebron during the performance of a renal collecting system evaluatio n. Please refer to the procedure report for complete details. Ka,r=7.0 mGy IMPRESSION: RADIATION DOSE DELIVERED: 0.0 0.0 0
--- NOTE | 2024-07-03 09:20 | W.PM.OP ---
Date of service: 07/03/24 Time of Service: 09:20 Operative Note Operative Note DATE OF PROCEDURE: 07/03/24 PRE-OP DIAGNOSIS: right renal stone PROCEDURE: cystoscopy, right retrograde pyelogram, right ureteroscopy with holmium laser lithotripsy, extraction of multiple stone fragments, insert right ureteral stent SURGEON: Quan Lebron ANESTHESIA TYPE: Local By Surgeon and General LMA/ETT Refer to Anesthesia Record ESTIMATED BLOOD LOSS: 5 PATHOLOGY: other (stones for chemical analysis) COMPLICATIONS: None Patient was transported to: PACU Patient's condition: stable Implants: 6 [place] by 22 to 30 cm right ureteral stent Indications: This is a 54-year-old woman who has a history of recurrent kidney stones. She was recently found to have a nonobstructing stone at the right ureteropelvic junction. She presents now for ureteroscopy and holmium laser lithotripsy of her stone Findings: Narrowing at the right ureteropelvic junction Stone in the dilated renal pelvis Procedure Description: The patient was given preoperative IV antibiotics. She is brought to the operating room on 07/03/2024. After successful induction of general anesthesia, she was placed in the dorsal lithotomy position. Her genitalia was prepped and draped. 2% Xylocaine jelly was then instilled into the urethra to act as a local anesthetic. A 22 [place] rigid cystoscope was passed through the urethra into the bladder. The bladder was inspected using a 30 degree lens. The right ureteral orifice was visualized and was cannulated with a 5 [place] access catheter. Retrograde pyelogram was obtained by injecting Omnipaque through the access catheter under fluoroscopic guidance. A filling defect was seen within the renal pelvis. I then passed a guidewire through the lumen of the access catheter and advanced the wire up to an upper pole calyx. The access catheter was removed and was replaced with a dual-lumen catheter. A second wire was then positioned and the dual-lumen catheter was removed. We chose one of the wires as a working wire and the other as a safety wire. The ureteral access sheath was then advanced over the working wire leaving the safety wire in place. I passed the flexible ureteroscope through the access sheath. I had some difficulty maneuvering through the narrowed ureteropelvic junction but eventually I was able to enter the renal pelvis. The stone was seen in the renal pelvis. The stone was treated with a 252 ?m holmium laser fiber. We fragmented the stone using fracturing settings. I was able to grasp multiple stone fragments and a 0 tip stone basket and remove the fragments. The fragments were sent to pathology for chemical analysis. At the completion of the procedure I was not certain that all significant stone fragments had been removed. I passed a 6 [place] variable length stent over the safety wire. The stent was positioned with the proximal end curled in the renal pelvis and the distal end curled in the bladder. The positioning of the stent was confirmed both fluoroscopically and cystoscopically. The patient tolerated this procedure well with no complications. She was taken to the recovery room in stable condition.
[2024-07-03] MEDS: fentaNYL 100 MCG/2 ML VIAL IVP (09:48)
[2024-07-03] MEDS: oxyCODONE 5 MG TAB 10 MG PO (10:48)
[2024-07-03] MEDS: Phenazopyridine 200 MG TAB PO (10:49)
--- NOTE | 2024-07-03 12:31 | W.ANESPOSTOP ---
Postoperative Evaluation Date, Time and Location Date Performed: 07/03/24 Time Performed: 10:36 Patient Location: Day Surgery Unit Vital Signs Most Recent Imported Vital Signs: Most Recent Vital Signs Temp Pulse Resp BP Pulse Ox 36.5 C 63 16 109/65 99 07/03/24 10:34 07/03/24 10:34 07/03/24 10:34 07/03/24 10:34 07/03/24 10:34 Pain Score Most Recent Pain Score: Most Recent Pain Score Pain Level 0 07/03/24 10:34 Assessment Mental Status: Awake (Alert & Oriented to Patient Baseline) Airway and Respiratory Function: Patent airway with normal (patient baseline) respiratory exam Cardiovascular Function: Hemodynamically Stable Hydration Status: Adequately Hydrated Nausea & Vomiting: No Nausea or Vomiting Pain: Pt. Denies Any Pain Peripheral Nerve Block: Patient did not receive a nerve block
[2024-07-11 15:38] LABS: Source: Right Kidney
== END 2024-07-03 10:56 | disposition home or self-care (01) ==
PROVIDERS: PCP Nurse Practitioner Family; Visit Provider Urology
PROC: (CPT 52356; principal; 2024-07-03 07:30)
DX: N20.0 Calculus of kidney (principal); E78.2 Mixed hyperlipidemia; K21.9 Gastro-esophageal reflux disease without esophagitis; G47.33 Obstructive sleep apnea (adult) (pediatric); Z98.84 Bariatric surgery status
CPT/HCPCS: 52356; 74420; 82365; J0131; J0690; J1100; J1885; J2001; J2250; J2405; J2704; J3010; Q9967

== ENCOUNTER 2024-07-24 05:57 | Day surgery (SDC) | payer OTHER, SELFPAY ==
[2024-07-24] VITALS (18 sets, daily range): BP systolic 90–147; BP diastolic 50–89; PULSE 48–70; RESP 13–20; TEMP 36–36.5; O2SAT 95–99; BMI 32.9
[2024-07-24] MEDS: Lactated Ringers 1,000 ML 80 ML IV (06:32)
--- NOTE | 2024-07-24 06:42 | W.PM.HP.N ---
Date of service: 07/24/24 Time of Service: 06:43 Assessment and Plan Assessment and plan (1) Nephrolithiasis: Assessment and plan: For cystoscopy, remove right ureteral stent, right retrograde pyelogram, right flexible ureteroscopy and extraction of any residual stone fragments. History of Present Illness History of Present Illness Chief Complaint: Right kidney stones Narrative: This is a 54-year-old woman who has a history of recurrent kidney stones. She had undergone ureteroscopy and holmium laser lithotripsy of a right renal pelvic stone. We were not convinced that all significant stone fragments had been removed, so we placed a ureteral stent. She presents today for stent removal, ureteroscopy and extraction of any residual stone fragments. She has passed multiple stone fragments since her last procedure. She has stent discomfort especially when she moves. Review of Systems Narrative: No fevers or chills No vision change or dysphasia No diabetes or thyroid dysfunction No shortness of breath, cough or hemoptysis No chest pain or palpitations Hx GERD. No hepatitis, ulcers, jaundice Hx migraines. No seizures, strokes or peripheral neuropathy No bleeding disorders or anemia No gout PFSH All Active Problems Hematuria (Acute) Fever postop (Acute) Hyperplastic colon polyp (Acute ~08/06/23) Stress incontinence (Acute) Hydronephrosis (Acute) Diverticula of colon (Acute) Adenomatous polyp of sigmoid colon (Acute) Screening for malignant neoplasm of colon performed (Acute) Maltracking of left patella (Acute) Chondromalacia of left patellofemoral joint (Acute) ADHD (Chronic) History of section (Chronic) S/P hysterectomy (Chronic) Migraine (Chronic) Encounter for screening for other viral diseases (Acute) Fever (Acute) Fatigue (Acute) Acute bronchitis with bronchospasm (Acute) GERD (gastroesophageal reflux disease) (Chronic) Acute esophagitis (Acute) Insomnia (Acute) DVT prophylaxis (Acute) Pill dysphagia (Acute) Post-nasal drip (Acute) Encounter for screening laboratory testing for COVID-19 virus (Acute) Pneumonia due to COVID-19 virus (Acute) Screening for colon cancer (Acute) Abdominal pain (Acute) Acne (Acute) Medical History Hypokalemia History of asthma Periodic limb movement sleep disorder Mixed hyperlipidemia Hypersomnia Family history of cardiovascular disease Ovarian cyst Gastritis Carpal tunnel syndrome Polycystic ovaries Hyperglycemia Rosacea ADAIR (obstructive sleep apnea) Insomnia Depressive disorder Claustrophobia Severe obesity Nephrolithiasis Surgical History Hx of reduction mammoplasty S/P gastric bypass History of colonoscopy (~07/2023) Hx of hysterectomy H/O LEEP (~1998) Hx of cholecystectomy (~2000) H/O ureteroscopy (~2020) H/O cystoscopy (~2020) Family History Mother Heart disease Diabetes Hypertension Father Diabetes Hypertension Social History Smoking/Tobacco Use Status: Former Tobacco Use Quit Date: 11/19/99 Smoking risk assessment performed?: Yes Alcohol Intake: never Drug use: Never Substance use type: does not use Housing: house Current gender identity: female Do you feel safe at home: Yes Do you feel safe in your relationship?: Yes Meds Allergies and Home Medications Allergies Allergy/AdvReac Type Severity Reaction Status Date / Time No Known Allergies Allergy Verified 07/24/24 06:18 Home Medications ?Medication ?Instructions ?Recorded ?Confirmed ?Type methylphenidate HCl 20 mg tablet 20 mg PO TID 02/04/21 07/24/24 History (Ritalin) levalbuterol HCl 1.25 mg/3 mL 1.25 mg (3 mL) UPD Q4H PRN PRN #90 02/08/21 07/03/24 Rx solution for nebulization mL albuterol sulfate 90 mcg/actuation 1 - 2 puff inhalation PRN PRN 08/02/21 07/24/24 History aerosol inhaler (ProAir HFA) ipratropium 0.5 mg-albuterol 3 mg 3 ml inhalation Q6H PRN 08/02/21 07/03/24 History (2.5 mg base)/3 mL nebulization soln semaglutide (weight loss) 1.7 1.7 mg subcut Q7D 02/13/24 07/24/24 History mg/0.75 mL subcutaneous pen injector (Wegovy) cefpodoxime 200 mg tablet 200 mg PO BID antibiotic #14 tabs 07/03/24 Rx ondansetron HCl 4 mg tablet 4 mg PO Q8H PRN nausea and 07/15/24 Rx vomiting #20 tabs oxybutynin chloride 5 mg tablet 5 mg PO TID PRN bladder spasms #60 07/15/24 07/24/24 Rx tabs oxycodone 10 mg tablet 10 mg PO Q6H PRN pain #30 tabs 07/23/24 07/24/24 Rx Exam Const General: cooperative Neck Neck: supple Resp Effort & Inspection: normal respiratory effort Auscultation: clear to auscultation bilaterally Cardio Rate: regular rate Rhythm: regular rhythm GI Inspection: normal to inspection Palpation: soft Neuro General: patient alert, patient awake and patient oriented x3 Results Last Vital Signs Temp 36.3 C L 07/24/24 06:19 Pulse 61 07/24/24 06:19 Resp 16 07/24/24 06:19 BP 111/69 07/24/24 06:19 Pulse Ox 96 07/24/24 06:19 Time Spent Time spent with Patient: <40 minutes Time was spent: preparing to see the patient(eg.review tests) and counseling the patient
--- NOTE | 2024-07-24 06:48 | W.ANESPRE ---
General Info Date of Service Date Performed: 07/24/24 Height: 5 ft 4 in Weight: 87.1 kg Body Mass Index (BMI): 32.9 Surgical Procedure: Operation Date: 07/24/24 07:40 Proposed Procedure Side Surgeon p Cystoscopy/Ureteroscopy w/Removal of Stone Fragments/ Removal Ureteral Stent Right Quan Lebron MD Meds Allergies and Home Medications Allergies Allergy/AdvReac Type Severity Reaction Status Date / Time No Known Allergies Allergy Verified 07/24/24 06:18 Home Medication ?Medication ?Instructions ?Recorded methylphenidate HCl 20 mg tablet 20 mg PO TID 02/04/21 (Ritalin) levalbuterol HCl 1.25 mg/3 mL 1.25 mg (3 mL) UPD Q4H PRN PRN #90 02/08/21 solution for nebulization mL albuterol sulfate 90 mcg/actuation 1 - 2 puff inhalation PRN PRN 08/02/21 aerosol inhaler (ProAir HFA) ipratropium 0.5 mg-albuterol 3 mg 3 ml inhalation Q6H PRN 08/02/21 (2.5 mg base)/3 mL nebulization soln semaglutide (weight loss) 1.7 1.7 mg subcut Q7D 02/13/24 mg/0.75 mL subcutaneous pen injector (Nathanielgovy) cefpodoxime 200 mg tablet 200 mg PO BID antibiotic #14 tabs 07/03/24 ondansetron HCl 4 mg tablet 4 mg PO Q8H PRN nausea and 07/15/24 vomiting #20 tabs oxybutynin chloride 5 mg tablet 5 mg PO TID PRN bladder spasms #60 07/15/24 tabs oxycodone 10 mg tablet 10 mg PO Q6H PRN pain #30 tabs 07/23/24 Current Visit Medications: Current Medications Generic Name Dose Route Start Last Admin Trade Name Freq PRN Reason Stop Dose Admin Ringer's Solution 1,000 mls @ 80 mls/hr 07/24/24 06:00 07/24/24 06:32 IV 08/22/24 23:59 80 mls/hr INFUSION MEI Administration Cefazolin Sodium/Dextrose 2 gm in 50 mls @ 100 mls/hr 07/24/24 06:00 Ancef Duplex IVPB 07/24/24 16:00 PREOP MEI IV Miscellaneous Supplies 1 each 07/24/24 06:00 Iv Access IV 08/22/24 23:59 DIRECTED MEI Sodium Chloride 0 ml 07/24/24 06:00 Normal Saline Flush 10 Ml Syr IV 08/22/24 23:59 PRN PRN Sodium Chloride 0 ml 07/24/24 06:00 Normal Saline 10 Ml Vial IJ 08/22/24 23:59 DIRECTED PRN Sterile Water 0 ml 07/24/24 06:00 Water,Injection,Sterile 10 Ml Vial IJ 08/22/24 23:59 DIRECTED PRN PFSH Active Problems Active Problems: Problem Status Onset Code Hematuria Acute R31.9 Fever postop Acute R50.82 Hyperplastic colon polyp Acute ~08/06/23 K63.5 Stress incontinence Acute N39.3 Hydronephrosis Acute N13.30 Diverticula of colon Acute K57.30 Adenomatous polyp of sigmoid colon Acute D12.5 Screening for malignant neoplasm of colon performed Acute Z12.11 Maltracking of left patella Acute M22.8X2 Chondromalacia of left patellofemoral joint Acute M22.42 ADHD Chronic F90.9 History of section Chronic Z98.891 S/P hysterectomy Chronic Z90.710 Migraine Chronic G43.909 Encounter for screening for other viral diseases Acute Z11.59 Fever Acute R50.9 Fatigue Acute R53.83 Acute bronchitis with bronchospasm Acute J20.9 GERD (gastroesophageal reflux disease) Chronic K21.9 Acute esophagitis Acute K20.90 Insomnia Acute G47.00 DVT prophylaxis Acute Z29.9 Pill dysphagia Acute R13.10 Post-nasal drip Acute R09.82 Epistaxis Resolved R04.0 Encounter for screening laboratory testing for COVID-19 virus Acute Z20.822 Pneumonia due to COVID-19 virus Acute U07.1, J12.82 Screening for colon cancer Acute Z12.11 Abdominal pain Acute R10.9 Acne Acute L70.9 Medical History Medical History Hypokalemia History of asthma Periodic limb movement sleep disorder Mixed hyperlipidemia Hypersomnia Family history of cardiovascular disease Ovarian cyst Gastritis Carpal tunnel syndrome Polycystic ovaries Hyperglycemia Rosacea ADAIR (obstructive sleep apnea) Insomnia Depressive disorder Claustrophobia Severe obesity Nephrolithiasis Surgical History Surgical History Hx of reduction mammoplasty S/P gastric bypass History of colonoscopy (~07/2023) Hx of hysterectomy H/O LEEP (~1998) Hx of cholecystectomy (~2000) H/O ureteroscopy (~2020) H/O cystoscopy (~2020) Tobacco Smoking/Tobacco Use Status: Former Tobacco Use Alcohol Alcohol Intake: never Substance Use Substance use: Never Substance use type: does not use Vital Signs and Lab Results Vital Signs Most Recent Vital Signs in EMR: Most Recent Vital Signs Temp Pulse Resp BP Pulse Ox 36.3 C L 61 16 111/69 96 07/24/24 06:19 07/24/24 06:19 07/24/24 06:19 07/24/24 06:19 07/24/24 06:19 Lab Results Blood Type / Crossmatch: No Data to Display Complete Blood Count: No Data to Display Complete Metabolic Panel: No Data to Display Liver Function Panel: No Data to Display Coagulation Panel: No Data to Display Cardiac Panel: No Data to Display Arterial Blood Gas: No Data to Display Venous Blood Gas: No Data to Display Pancreas Panel: No Data to Display Thyroid Panel: No Data to Display Infectious Disease: No Data to Display Blood Cultures: No Data to Display Toxicology Panel: No Data to Display Panel: No Data to Display Imaging and Studies Imaging and Studies Study information below may be from another EMR and interpreted by another provider. Please see original notes in EMR for more complete details. EKG Summary: 08/02/21: Exam: Resting ECG Reason for Exam: sob Patient Location: E HR:94 bpm ECG Measurements Heart Rate 94 AXIS OK 150 P 50 QRSd 98 QRS 22 QT 374 T-5 QTc 468 Conclusion Sinus rhythm...normal P axis, V-rate 60- 99. Sinus. No STEMI. I have reviewed and interpreted ECG and agree with software generated interpretation. Pulmonary Function Summary: 03/31/21: Pulmonary Function Test Result Interpretation Spirometry: No evidence of obstructive airways disease, no bronchodilator response Lung Volumes: No evidence of restriction Diffusion Capacity: Borderline mildly reduced which is normal when corrected to alveolar volume Airway Pressure: Normal Impression Isolated borderline reduction in diffusion capacity, this is normal when corrected to alveolar volume Clinical Correlation therefore is recommended. Other Study Summary:: L spine CT reviewed and results in chart Anesthesia Assessment and Plan Anesthesia History Personal History: No History of Anesthesia Complications Family History: No Family History of Anesthesia Complications Exercise Tolerance Exercise Tolerance: Metabolic Equivalents>4 Pertinent Negatives Pertinent Negatives: No Symptoms of GERD Cardiac & Pulmonary Exam Cardiac Exam: Normal S1/S2 Heart Sounds Pulmonary Exam: Clear Bilateral Breath Sounds Implantable Cardiac Device Does patient have a Pacemaker or an ICD?: No Airway Exam Known Difficult Airway: No Mallampati Class: 3 Mouth Opening: Normal (> 3cm) Thyromental Distance: Greater than 3 cm Neck Range of Motion: Full ROM Neck Circumference: Normal Teeth Condition: Removable Dentures/Plates Upper and Edentulous ASA Classification ASA Score: ASA 2 Emergency Case?: No NPO Status NPO Status: NPO Clears >2 hours, Solids >8 hours Status Status: History of Hysterectomy Anesthesia Plan Resuscitation Status: Full Code Anesthesia Technique: General Anesthesia Airway Planned: LMA Monitors Used: Standard Monitors
--- NOTE | 2024-07-24 07:00 | DI.RAD_ITS ---
Exam(s) XR RETROGRADE IN OR EXAM: XR RETROGRADE IN OR CLINICAL HISTORY: right renal pelvic stone TECHNIQUE: 2D and realtime digital imaging was performed. CONTRAST MATERIAL: Refer to procedure report. COMPARISON: XA XR RETROGRADE IN OR from 07/03/2024 FINDINGS: Fluoroscopy was provided for Dr. Lebron during the performance of a retrograde evaluation of the kaitlin l collecting system. Please refer to the procedure report for complete details. Ka,r=6.08 mGy IMPRESSION: RADIATION DOSE DELIVERED: 0.0 0.0 0
[2024-07-24] MEDS: ceFAZolin 2 GM/50 ML BAG IVPB (07:30)
[2024-07-24] MEDS: Omnipaque 300 MG/ML 50 ML BTL (07:46)
[2024-07-24] MEDS: Lidocaine 2% Jelly 11 ML SYR (07:46)
--- NOTE | 2024-07-24 07:58 | W.PM.DSUDISC ---
Date of service: 07/24/24 Time of Service: 07:58 Discharge Plan Disposition Patient Disposition: Home Discharge Details Reason For Visit: renal stone Attending Provider: Quan Lebron Primary Care Provider: Corin Rosario Home Meds and New Rx's Prescriptions: No Action oxybutynin chloride 5 mg tablet 5 mg PO TID PRN (Reason: bladder spasms) Qty: 60 1RF ondansetron HCl 4 mg tablet 4 mg PO Q8H PRN (Reason: nausea and vomiting) Qty: 20 0RF oxycodone 10 mg tablet 10 mg PO Q6H MDD 4 PRN (Reason: pain) Qty: 30 0RF ipratropium-albuterol 0.5 mg-3 mg(2.5 mg base)/3 mL solution for nebulization 3 ml INHALATION Q6H PRN Patient Comments: no longer taking albuterol sulfate [ProAir HFA] 90 mcg/actuation HFA aerosol inhaler 1 - 2 puff INHALATION PRN PRN Wegovy 1.7 mg/0.75 mL pen injector 1.7 mg SUBCUT Q7D Patient Comments: INJECT 1.7 MG SUBCUTANEOUSLY EVERY WEEK FOR 4 WEEKS, IN THE ABDOMEN, THIGH, OR UPPER ARM methylphenidate HCl [Ritalin] 20 mg Tablet 20 mg PO TID levalbuterol HCl 1.25 mg/3 mL Solution For Nebulization 1.25 mg UPD Q4H PRN PRNQty: 90 1RF cefpodoxime 200 mg tablet 200 mg PO BID Qty: 14 0RF Rx Instructions: must administer with a meal/food Discharge Instructions Additional Instructions: No need to strain urine Follow-up for my office in about 8 weeks for a [id number] renal ultrasound Discharge Orders Discharge Orders: Discharge Order (Routine); Ordered 07/24/24 Ordered By: Quan Lebron DS: Diagnosis Discharge Diagnosis (1) Nephrolithiasis:
--- NOTE | 2024-07-24 08:06 | W.PM.OP ---
Date of service: 07/24/24 Time of Service: 08:06 Operative Note Operative Note DATE OF PROCEDURE: 07/24/24 PRE-OP DIAGNOSIS: Right kidney stone POST-OP DIAGNOSIS: same PROCEDURE: cystoscopy, remove right ureteral stent, right retrograde pyelogram, right ureteroscopy and removal of stone fragment SURGEON: Qaun Lebron ANESTHESIA TYPE: Local By Surgeon and General LMA/ETT Refer to Anesthesia Record ESTIMATED BLOOD LOSS: 5 PATHOLOGY: none sent COMPLICATIONS: None Patient was transported to: PACU Patient's condition: stable Implants: none Indications: This is a 54-year-old woman who has a history of right sided kidney stones. The stones have been predominantly uric acid. She recently underwent ureteroscopy and holmium laser lithotripsy of her stone. We were not convinced all stone fragments were removed, so we placed a ureteral stent following the procedure and she comes back for stent removal ureteroscopy and extraction of any residual stone fragments Findings: Small stone fragment in lower pole calyx Procedure Description: The patient was given IV antibiotics and brought to the operating room on 07/24/2024. After successful induction of general anesthesia, she was placed in the dorsal lithotomy position. Her genitalia was prepped and draped. 2% Xylocaine jelly was instilled into the urethra to act as a local anesthetic. A 22 Slovenian rigid cystoscope was passed through the urethra into the bladder. The bladder was inspected. The stent could be seen protruding from the right ureteral orifice. The stent was grasped with alligator forceps and brought to the level of the urethral meatus. A guidewire was then advanced through the lumen of the ureteral stent. The stent was removed leaving the wire in place. A 6 Slovenian access catheter was then advanced over the wire and the wire was removed. A retrograde pyelogram was obtained by injecting Omnipaque through the access catheter under fluoroscopic guidance. No significant filling defects were seen in the collecting system. The guidewire was then replaced through the lumen of the access catheter and the access catheter was removed. A dual-lumen catheter was passed over the wire and a second wire was positioned. We chose one of the wires as a working wire and the other as a safety wire. I passed the flexible ureteroscope over the working wire leaving the safety wire in place. The scope was advanced up to the renal pelvis. Each of the calyces were inspected. There was only a very small fragment identified in one of the lower pole calyces. The fragment was grasped in a 0 tip stone basket and removed. The patient tolerated this procedure well with no complications. We elected not to replace the ureteral stent. The patient tolerated the procedure well. She was taken to the recovery room in stable condition.
[2024-07-24] MEDS: Oxybutynin 5 MG TAB PO (08:40)
[2024-07-24] MEDS: Phenazopyridine 200 MG TAB PO (08:40)
--- NOTE | 2024-07-24 09:10 | W.ANESPOSTOP ---
Postoperative Evaluation Date, Time and Location Date Performed: 07/24/24 Time Performed: 09:10 Patient Location: Day Surgery Unit Vital Signs Most Recent Imported Vital Signs: Most Recent Vital Signs Temp Pulse Resp BP Pulse Ox 36.0 C L 53 L 16 117/76 98 07/24/24 08:34 07/24/24 08:34 07/24/24 08:34 07/24/24 08:34 07/24/24 08:34 Pain Score Most Recent Pain Score: Most Recent Pain Score Pain Level 0 07/24/24 08:34 Assessment Mental Status: Awake (Alert & Oriented to Patient Baseline) Airway and Respiratory Function: Patent airway with normal (patient baseline) respiratory exam Cardiovascular Function: Hemodynamically Stable Hydration Status: Adequately Hydrated Nausea & Vomiting: No Nausea or Vomiting Pain: Pain is tolerable per patient Peripheral Nerve Block: Patient did not receive a nerve block
== END 2024-07-24 09:20 | disposition home or self-care (01) ==
PROVIDERS: PCP Nurse Practitioner Family; Visit Provider Urology
PROC: (CPT 52352; principal; 2024-07-24 07:30)
DX: N20.0 Calculus of kidney (principal)
CPT/HCPCS: 52352; 74420; J0690; J1100; J1885; J2001; J2405; J2704; Q9967

== ENCOUNTER 2024-07-26 22:38 | Inpatient (IN) | payer OTHER, SELFPAY ==
[2024-07-26] VITALS (8 sets, daily range): BP systolic 149; BP diastolic 75; PULSE 95; RESP 20; TEMP 38.6; O2SAT 91–97
--- NOTE | 2024-07-26 01:27 | DI.CT_ITS ---
Exam(s) CT ABDOMEN PELVIS W EXAM: CT ABDOMEN PELVIS W CLINICAL HISTORY: fever, post ureteral stent removed, abd pain TECHNIQUE: Imaging Protocol: Axial computed tomography images with coronal and sagittal reformatted images were created and reviewed. CONTRAST MATERIAL: Intravenous: Omnipaque 350 Contrast volume:100 mL Oral: No COMPARISON: CT CT ABD/PELVIS WO CONTRAST from 02/03/2024 FINDINGS: ABDOMEN: Lung Bases: Normal where visualized. Liver: Normal density. No measurable mass. Portal, Superior Mesenteric, and Splenic Veins: Unremarkable. Gallbladder and Biliary Tract: Status post cholecystectomy. No significant biliary ductal dilatation . Pancreas: Normal density, no abnormal calcifications or inflammatory process. Spleen: Normal. Adrenals: No masses seen. Kidneys: The left kidney shows normal size, contour and axis. There is mild enhancement of the wall o f the right renal collecting system. There is heterogeneous enhancement of the right kidney particul jaydon the superior pole. There is inflammatory stranding seen around the proximal renal pelvis on the right. No masses seen. Abdominal Aorta: Abdominal portion non-dilated. Atherosclerotic calcification is present. Bowel: Gastric surgery has been performed. There is no evidence of bowel wall thickening or obstruct ion. Appendix is unremarkable. Peritoneal Cavity: No ascites, collection or mesenteric inflammatory response. No free air. Lymph Nodes: Within normal limits. Bones: Within normal limits for the patient's age. Grade 1 anterolisthesis of L4 on L5. Soft Tissues: Unremarkable. PELVIS: Bladder: There is a small focus of air in the urinary bladder likely secondary to the patient's recen t instrumentation. The urinary bladder is otherwise unremarkable. Reproductive Organs: The uterus is absent. Lymph Nodes: Within normal limits. Bones: Within normal limits for the patient's age. IMPRESSION: Heterogeneous enhancement of the kidney with mild enhancement of the wall of the right renal collecti ng system. The findings are suspicious for acute pyelonephritis. No abscess is identified. RADIATION DOSE DELIVERED: 631.45mGy.cm Total DLP DATA REPOSITORY: All CT scans at this facility are submitted to the National Radiology Data Registry (NRDR) Dose Index Registry (DIR) with the [employer] (ACR). RADIATION OPTIMIZATION: All CT scans at this facility use at least one of these dose optimization te chniques: automated exposure control; mA and/or kV adjustment per patient size (includes targeted exa ms where dose is matched to clinical indication); or iterative reconstruction.
--- NOTE | 2024-07-26 22:52 | ED.GENADUL_ITS ---
Discharge Plan Disposition Patient Disposition: Admit to [facility] Condition: Fair Discharge Details Clinical Impression: Acute pyelonephritis, Sepsis Primary Care Provider: Corin Rosario ED Provider: Waqas Gama Corder Meds and New Rx's Prescriptions: No Action oxycodone 10 mg tablet 10 mg PO Q6H MDD 4 PRN (Reason: pain) Qty: 30 0RF ciprofloxacin HCl 500 mg tablet 500 mg PO BID Qty: 20 0RF oxybutynin chloride 5 mg tablet 5 mg PO TID PRN (Reason: bladder spasms) Qty: 60 1RF ondansetron HCl 4 mg tablet 4 mg PO Q8H PRN (Reason: nausea and vomiting) Qty: 20 0RF ipratropium-albuterol 0.5 mg-3 mg(2.5 mg base)/3 mL solution for nebulization 3 ml INHALATION Q6H PRN Patient Comments: no longer taking albuterol sulfate [ProAir HFA] 90 mcg/actuation HFA aerosol inhaler 1 - 2 puff INHALATION PRN PRN methylphenidate HCl [Ritalin] 20 mg Tablet 20 mg PO TID levalbuterol HCl 1.25 mg/3 mL Solution For Nebulization 1.25 mg UPD Q4H PRN PRNQty: 90 1RF HPI General Mode of arrival: ambulatory . Date/Time Provider Initiated Documentation: 07/26/24 22:38 . Limitations to Documentation: no limitations . Information obtained by: patient, RN notes reviewed and old records reviewed . HPI Narrative: Patient presents to ED with fever, abdominal pain, weakness. Patient underwent right ureteral stent removal and residual stone removal 2 days ago on . Developed fever and headache on Sunday and spoke with Dr. Lebron who started her on ciprofloxacin. She reports feeling weak and having low blood pressures on that day. Today feels worse and has diffuse abdominal pain, some back pain. Continues to have frontal headache which she relates to typical migraines. Denies any neck stiffness. Denies any URI symptoms, cough, chest pain, shortness of breath. Denies any urinary symptoms. Complaining of diffuse abdominal pain not localized. Has been having shaking chills. Related Data Home Medications ?Medication ?Instructions ?Recorded ?Confirmed methylphenidate HCl 20 mg tablet 20 mg PO TID 02/04/21 07/26/24 (Ritalin) levalbuterol HCl 1.25 mg/3 mL 1.25 mg (3 mL) UPD Q4H PRN PRN #90 02/08/21 07/26/24 solution for nebulization mL albuterol sulfate 90 mcg/actuation 1 - 2 puff inhalation PRN PRN 08/02/21 07/26/24 aerosol inhaler (ProAir HFA) ipratropium 0.5 mg-albuterol 3 mg 3 ml inhalation Q6H PRN 08/02/21 07/26/24 (2.5 mg base)/3 mL nebulization soln ondansetron HCl 4 mg tablet 4 mg PO Q8H PRN nausea and 07/15/24 07/26/24 vomiting #20 tabs oxybutynin chloride 5 mg tablet 5 mg PO TID PRN bladder spasms #60 07/15/24 07/26/24 tabs oxycodone 10 mg tablet 10 mg PO Q6H PRN pain #30 tabs 07/24/24 07/26/24 ciprofloxacin HCl 500 mg tablet 500 mg PO BID #20 tabs 07/25/24 07/26/24 Previous Rx's ?Medication ?Instructions ?Recorded levalbuterol HCl 1.25 mg/3 mL 1.25 mg (3 mL) UPD Q4H PRN PRN #90 02/08/21 solution for nebulization mL ondansetron HCl 4 mg tablet 4 mg PO Q8H PRN nausea and 07/15/24 vomiting #20 tabs oxybutynin chloride 5 mg tablet 5 mg PO TID PRN bladder spasms #60 07/15/24 tabs oxycodone 10 mg tablet 10 mg PO Q6H PRN pain #30 tabs 07/24/24 ciprofloxacin HCl 500 mg tablet 500 mg PO BID #20 tabs 07/25/24 Allergies Allergy/AdvReac Type Severity Reaction Status Date / Time No Known Allergies Allergy Verified 07/26/24 22:47 General Stated Complaint: Abd Prob RASHID: 3 Review of Systems Narrative: Per HPI Exam Narrative Exam Narrative: Const: WDWN female in NAD. VS per triage. HEENT: NC/AT. Normal facial exam. Neck: Supple. Trachea midline. Lungs: Normal respiratory effort. Lungs are clear. Cor: RRR without murmur. Good radial pulses. GI: Soft/ND. Mild diffuse tenderness. Neuro: A+O x 3. Normal speech, mentation, gait. Cranial nerves II - XII grossly intact. No gross motor or sensory deficit. Ext: No C/C/E. Skin: No rashes. Course Vital Signs Vital signs: Vital Signs Temperature 101.4 F H 07/26/24 22:42 Pulse 95 H 07/26/24 22:42 Respiratory Rate 20 07/26/24 22:42 Blood Pressure 149/75 H 07/26/24 22:42 Pulse Oximetry 96 07/26/24 22:42 Temperature 101.4 F H 07/26/24 22:42 Temperature Source Rectal 07/26/24 22:42 Pulse 95 H 07/26/24 22:42 Respiratory Rate 20 07/26/24 22:42 Respiratory Effort Normal 07/26/24 22:47 Blood Pressure 149/75 H 07/26/24 22:42 Pulse Oximetry 96 07/26/24 22:42 Oxygen Delivery Method Room Air 07/26/24 22:42 Oxygen Flow Rate 0 07/26/24 22:42 Medical Decision Making Patient presenting to ED with fever, headache, abdominal pain, generalized weakness. She is 2 days postop from right ureteral stent retrieval and residual stone retrieval. She is reporting the headache is frontal and similar to previous migraines but will not go away. She is neurologically intact. She does not have a stiff neck. She is not having urinary symptoms. She is on Cipro and did receive preop antibiotics. She is mildly diffusely tender in the abdomen. She has clear lungs and no respiratory symptoms. Presume infection probably related to procedure but consider other possibilities given lack of urinary symptoms. Doubt meningitis/encephalitis given normal neurologic status, no meningeal signs, similar headache to all previous migraines. She reports low blood pressures yesterday but has elevated blood pressure here with elevated heart rate but not sinus tachycardia. She is febrile to 101.4. Will start IV fluids. Will treat headache with ketorolac and prochlorperazine since she reports similar to previous migraines. Will cover with broad spectrum antibiotics after blood cultures obtained. Laboratory studies sent. CT abdomen pelvis ordered. Labs are reassuring. Her white count is normal with normal neutrophil count. Her lactic acid is normal at 0.8. Venous gas is actually alkalotic. Potassium is little low at 3.1 but kidney function and liver function otherwise normal. Procalcitonin is normal. A urinalysis and Fluvid is still pending. CT of the abdomen pelvis still pending. Preliminary radiology read of CT scan suggest acute right pyelonephritis. Flu vid swab is negative. Patient providing urine sample now. Headache has resolved with fluids, ketorolac, prochlorperazine. Will discuss with hospitalist for admission and treatment of pyelonephritis/sepsis. Can likely tailor her antibiotics down now that we have a clear source. Heart rate and blood pressure improved with fluid bolus. Fever resolved with ketorolac. Medical Records Medical records reviewed: Yes I reviewed the patient's medical records. Medical records narrative: urology notes, op notes Lab Data Lab results reviewed: Yes I reviewed the patient's lab results. PFSH All Active Problems (Updated 07/27/24 @ 01:57 by Waqas Gama MD) Sepsis (Acute) Acute pyelonephritis (Acute) Hematuria (Acute) Fever postop (Acute) Hyperplastic colon polyp (Acute ~08/06/23) Stress incontinence (Acute) Hydronephrosis (Acute) Diverticula of colon (Acute) Adenomatous polyp of sigmoid colon (Acute) Screening for malignant neoplasm of colon performed (Acute) Maltracking of left patella (Acute) Chondromalacia of left patellofemoral joint (Acute) ADHD (Chronic) History of section (Chronic) S/P hysterectomy (Chronic) Migraine (Chronic) Encounter for screening for other viral diseases (Acute) Fever (Acute) Fatigue (Acute) Acute bronchitis with bronchospasm (Acute) GERD (gastroesophageal reflux disease) (Chronic) Acute esophagitis (Acute) Insomnia (Acute) DVT prophylaxis (Acute) Pill dysphagia (Acute) Post-nasal drip (Acute) Encounter for screening laboratory testing for COVID-19 virus (Acute) Pneumonia due to COVID-19 virus (Acute) Screening for colon cancer (Acute) Abdominal pain (Acute) Acne (Acute) Medical History Hypokalemia History of asthma Periodic limb movement sleep disorder Mixed hyperlipidemia Hypersomnia Family history of cardiovascular disease Ovarian cyst Gastritis Carpal tunnel syndrome Polycystic ovaries Hyperglycemia Rosacea ADAIR (obstructive sleep apnea) Insomnia Depressive disorder Claustrophobia Severe obesity Nephrolithiasis Surgical History Hx of reduction mammoplasty S/P gastric bypass History of colonoscopy (~07/2023) Hx of hysterectomy H/O LEEP (~1998) Hx of cholecystectomy (~2000) H/O ureteroscopy (~2020) H/O cystoscopy (~2020) Family History Mother Heart disease Diabetes Hypertension Father Diabetes Hypertension Social History Smoking/Tobacco Use Status: Former Tobacco Use Quit Date: 11/19/99 Smoking risk assessment performed?: Yes Alcohol Intake: never Drug use: Never Substance use type: does not use Housing: house Current gender identity: female Do you feel safe at home: Yes Do you feel safe in your relationship?: Yes
[2024-07-26 23:09] LABS: BE (Venous) 5 mmol/L (-2-3); HCO3 (Venous) 30 mmol/L (23-28); Lactate 0.8 mmol/L (0.6-1.4); O2 Sat (Venous) 62 %; TCO2 (Venous) 27 mmol/L (24-29); pCO2 (Venous) 46 mmHg (41-51); pH (Venous) 7.42 (7.31-7.41); pO2 (Venous) 33 mmHg
[2024-07-26 23:11] LABS: Abs Immature Grans 0.02 10^3/uL (0.0-0.06); Absolute Basophil Count 0.03 10^3/uL (0.0-0.2); Absolute Eosinophil Count 0.12 10^3/uL (0.0-0.7); Absolute Lymphocyte Count 1.55 10^3/uL (1.2-3.4); Absolute Monocyte Count 0.98 10^3/uL (0.1-0.8); Absolute Neutrophil Count 5.33 10^3/uL (1.2-6.7); Basophils % 0.4 %; Eosinophils % 1.5 %; HCT 33.7 % (36.0-46.0); HGB 11.1 g/dL (11.2-15.7); Immature Grans % 0.2 %; Lymphocytes % 19.3 %; MCH 26.8 pg (27.0-33.0); MCHC 32.9 % (32.0-36.0); MCV 81 fL (80-95); MPV 8.7 fL (8.0-11.0); Monocytes % 12.2 %; Neutrophils % 66.4 %; Platelet Count 258 10^3/uL (130-400); RBC 4.14 10^6/uL (3.93-5.22); RDW 13.2 % (11.7-14.6); WBC 8.03 10^3/uL (4.4-10.8)
[2024-07-26 23:26] LABS: ALT 27 U/L (14-59); AST 24 U/L (15-37); Albumin 3.5 g/dL (3.4-5.0); Alkaline Phosphatase 131 U/L (46-116); Anion Gap 8.7 mmol/L (3-11); BUN 10 mg/dL (7-18); Bilirubin, Total 0.98 mg/dL (0.2-1.0); CO2 29.3 mmol/L (21.0-32.0); CREATININE 0.8 mg/dL (0.55-1.02); Calcium 9.6 mg/dL (8.5-10.1); Chloride 98 mmol/L (98-107); Glucose 111 mg/dL (74-106); Potassium 3.1 mmol/L (3.5-5.1); Sodium 136 mmol/L (136-145); Total Protein 8.3 g/dL (6.4-8.2)
[2024-07-26] MEDS: Ketorolac 15 MG/ML VIAL IVP (23:33)
[2024-07-26] MEDS: Prochlorperazine 10 MG/2 ML VIAL IVP (23:34)
[2024-07-26] MEDS: SODIUM CHLORIDE 1000 ML IV (23:34)
[2024-07-26] MEDS: Normal Saline - Diluent 50 ML VIAL IJ (23:36)
[2024-07-26] MEDS: Omnipaque 350 MG/ML 100 ML BTL IJ (23:37)
[2024-07-26 23:39] LABS: Procalcitonin < 0.1 ng/mL
[2024-07-26] MEDS: PIPERACILLIN/TAZO 3.375 GM in Normal Saline 50 ML IVPB (23:52)
[2024-07-27] VITALS (38 sets, daily range): BP systolic 90–129; BP diastolic 46–78; PULSE 56–66; RESP 14–17; TEMP 36.4–38.2; O2SAT 92–99
[2024-07-27] MEDS: VANCOMYCIN 1,500 MG in Normal Saline 250 ML 166.6666 MG IVPB (00:25)
[2024-07-27 00:32] LABS: COVID-19 PCR Negative (Negative); Influenza A PCR Negative (Negative); Influenza B PCR Negative (Negative); RSV PCR Negative (Negative)
[2024-07-27 00:39] LABS: Source Nasopharynx
--- NOTE | 2024-07-27 01:46 | DI.VRAD_ITS ---
PROCEDURE INFORMATION: Exam: CT Abdomen And Pelvis With Contrast Exam date and time: 07/27/2024 1:16 AM Age: 54 years old Clinical indication: Other: Fever, post ureteral stent removed, abd pain; Prior surgery; Surgery date: Post-operative (0-2 days); Surgery type: Kidney stent removal TECHNIQUE: Imaging protocol: Computed tomography of the abdomen and pelvis with contrast. Contrast material: OMNIPAQUE 350; Contrast volume: 100 ml; Contrast route: INTRAVENOUS (IV); COMPARISON: CT ABD/PELVIS WO CONTRAST 06/06/2024 6:27 AM FINDINGS: Lungs: There is minimal bibasilar atelectasis. Pleural spaces: There is no evidence of pneumothorax. There are no pleural effusions present. Coronary arteries: There is moderate atherosclerotic calcification of the coronary arteries. Liver: The liver is moderately enlarged measuring 18 cm. Gallbladder and biliary ducts: There is mild intrahepatic biliary dilation. There has been a cholecystectomy. Pancreas: The pancreas is normal. Spleen: An accessory splenule is present. The spleen is enlarged. The spleen otherwise appears normal. Adrenal glands: The adrenal glands are normal. Kidneys and ureters: The left kidney is normal. There is mild ectasia of the right ureter. There is enhancement of the right ureteral and renal pelvic mucosa. There is mild right hydronephrosis. There are low attenuation areas within the midpole and upper pole of the right kidney consistent with acute pyelonephritis. Stomach and bowel: There has been a gastric stapling and bypass. There is no evidence of intestinal obstruction. Appendix: A normal appendix is identified. There is no evidence of distention or periappendiceal inflammation to suggest appendicitis. Intraperitoneal space: There is no free intraperitoneal air. There is no evidence of free intraperitoneal or pelvic fluid. Vasculature: Phlebolith adjacent to the right ureter present on image 518 series 4. Lymph nodes: There is no evidence of lymphadenopathy. Urinary bladder: There is a small amount of intraluminal air within the bladder, likely iatrogenic and, consistent with instrumentation. The bladder is otherwise normal. Reproductive: There has been a hysterectomy. No adnexal cysts or masses are identified. Bones/joints: The skeletal structures and soft tissues show no evidence of fracture or other acute processes. The thoracolumbar spine demonstrates moderate degenerative changes at multiple levels.There is a fat-containing umbilical hernia. Soft tissues: The extra-abdominal soft tissues are normal. IMPRESSION: 1. There is mild ectasia of the right ureter. There is enhancement of the right ureteral and renal pelvic mucosa. There is mild right hydronephrosis. 2. There are low attenuation areas within the midpole and upper pole of the right kidney consistent with acute pyelonephritis. Dictated and Authenticated by: Mikey Moreno MD. Ordering:ANANTH Alan MD
[2024-07-27 02:08] LABS: Bilirubin Negative (Negative); Blood Small (Negative); Clarity Clear (Clear); Glucose Negative (Negative); Ketones Negative (Negative); Leukocyte Esterase Negative (Negative); Nitrite Negative (Negative); Urobilinogen 0.2 mg/dL (Up to 0.2)
[2024-07-27 02:11] LABS: Bacteria Few HPF (Negative); C & S Indicated? No; Casts Negative LPF (Negative); Crystals Negative HPF (Negative); Epithelial Cells Few HPF (Negative); Mucus Negative (Negative)
--- NOTE | 2024-07-27 02:14 | HPE_ITS ---
Date of service: 07/27/24 Time of Service: 02:15 Assessment and Plan Assessment and plan (1) Acute pyelonephritis: Status: Acute Assessment and plan: She has a history of recurrent nephrolithiasis w/ uric acid stones and recently underwent R stent and residual stone removal and since this past has been having symptoms of fever, chills, nausea and abdominal pain worrisome for complicated UTI. She did have CT which revealed findings concerning for acute pyelonephritis. She does not have any leukocytosis but has a fever (101.4F) and a decrease BP from 149/75 to 94/55. The ER has started broad spectrum antibiotics with Vancomycin/Zosyn. I recommend that we give 2L IVF, obtain a lactic acid, obtain blood cultures x2, urine cultures and de-escalate antibiotics to Ceftriaxone. -ER has started IV Vancomycin/Zosyn. Once completed we can consider de-escalate to Ceftriaxone as she has no prior hx of MRSA or pseudomonas on UCx -Administer 2L IVF -Obtain Blood Cx x2 and UCx - Obtain Lactic Acid and if elevated will repeat 2 hours later History of Present Illness History of Present Illness Chief Complaint: Nausea Narrative: The patient vannesa 54 y/o C F w/ PMH recurrent nephrolithiasis due to uric acid who was recently evaluated in the ED on 06/17/24 for nephrolithiasis for which she was discharged with antibiotics. She followed up w/ Dr. Lebron from urology and recently underwent right ureteral stent and residual stent removal 2 days ago. Post-op she immediately began to have symptoms of nausea and abdominal pain. She reports of right flank and right upper quadrant abdominal pain which is described as a constant throbbing sensation. She does not have any radiating symptoms. Associated symptoms include severe nausea and no vomiting, albeit she was taking Zofran at home. Other symptoms include fever (100F), chills and migraines. She did not have any dysuria, hematuria or discharge in her urine. She has no chest pain, palpitations, coughing, wheezing or dyspnea. She has no new skin lesions or rashes. She did follow up w/ Dr. Lebron with these symptoms and was put on oral Ciprofloxacin which did not result in any improvement. Tonight she felt as if her symptoms were becoming worse and presented to the ER. Review of Systems Constitutional Constitutional: Reports chills, Reports fever(s), Reports headache(s) and Reports lethargy Eyes Eyes: Denies diplopia and Denies eye pain ENT Ears, Nose, Mouth, and Throat: Denies dysphagia, Denies dizziness, Reports headache(s) and Denies neck pain Cardiovascular Cardiovascular: Denies chest pain at rest, Denies chest pain with activity, Denies diaphoresis and Denies dyspnea Respiratory Respiratory: Denies cough, Denies dyspnea and Denies wheezing Gastrointestinal Gastrointestinal: Reports abdominal pain, Denies change in stool character, Denies coffee ground emesis, Denies dysphagia, Reports nausea and Denies vomiting Genitourinary Genitourinary: Denies hematuria and Denies dysuria Musculoskeletal Musculoskeletal: Denies arthralgias, Denies joint swelling and Denies neck pain Neurologic Neurologic: Denies confusion, Denies dizziness, Reports headache(s) and Denies localized weakness Psychiatric Psychiatric: Denies confusion Allergic/Immunologic Allergic/Immunologic: Denies wheezing PFSH All Active Problems (Updated 07/27/24 @ 01:57 by Waqas Gama MD) Sepsis (Acute) Acute pyelonephritis (Acute) Hematuria (Acute) Fever postop (Acute) Hyperplastic colon polyp (Acute ~08/06/23) Stress incontinence (Acute) Hydronephrosis (Acute) Diverticula of colon (Acute) Adenomatous polyp of sigmoid colon (Acute) Screening for malignant neoplasm of colon performed (Acute) Maltracking of left patella (Acute) Chondromalacia of left patellofemoral joint (Acute) ADHD (Chronic) History of section (Chronic) S/P hysterectomy (Chronic) Migraine (Chronic) Encounter for screening for other viral diseases (Acute) Fever (Acute) Fatigue (Acute) Acute bronchitis with bronchospasm (Acute) GERD (gastroesophageal reflux disease) (Chronic) Acute esophagitis (Acute) Insomnia (Acute) DVT prophylaxis (Acute) Pill dysphagia (Acute) Post-nasal drip (Acute) Encounter for screening laboratory testing for COVID-19 virus (Acute) Pneumonia due to COVID-19 virus (Acute) Screening for colon cancer (Acute) Abdominal pain (Acute) Acne (Acute) Medical History Hypokalemia History of asthma Periodic limb movement sleep disorder Mixed hyperlipidemia Hypersomnia Family history of cardiovascular disease Ovarian cyst Gastritis Carpal tunnel syndrome Polycystic ovaries Hyperglycemia Rosacea ADAIR (obstructive sleep apnea) Insomnia Depressive disorder Claustrophobia Severe obesity Nephrolithiasis Surgical History Hx of reduction mammoplasty S/P gastric bypass History of colonoscopy (~07/2023) Hx of hysterectomy H/O LEEP (~1998) Hx of cholecystectomy (~2000) H/O ureteroscopy (~2020) H/O cystoscopy (~2020) Family History Mother Heart disease Diabetes Hypertension Father Diabetes Hypertension Social History Smoking/Tobacco Use Status: Former Tobacco Use Quit Date: 11/19/99 Smoking risk assessment performed?: Yes Alcohol Intake: never Drug use: Never Substance use type: does not use Housing: house Current gender identity: female Do you feel safe at home: Yes Do you feel safe in your relationship?: Yes Meds Allergies and Home Medications Allergies Allergy/AdvReac Type Severity Reaction Status Date / Time No Known Allergies Allergy Verified 07/26/24 22:47 Home Medications ?Medication ?Instructions ?Recorded ?Confirmed ?Type methylphenidate HCl 20 mg tablet 20 mg PO TID 02/04/21 07/26/24 History (Ritalin) levalbuterol HCl 1.25 mg/3 mL 1.25 mg (3 mL) UPD Q4H PRN PRN #90 02/08/21 07/26/24 Rx solution for nebulization mL albuterol sulfate 90 mcg/actuation 1 - 2 puff inhalation PRN PRN 08/02/21 07/26/24 History aerosol inhaler (ProAir HFA) ipratropium 0.5 mg-albuterol 3 mg 3 ml inhalation Q6H PRN 08/02/21 07/26/24 History (2.5 mg base)/3 mL nebulization soln ondansetron HCl 4 mg tablet 4 mg PO Q8H PRN nausea and 07/15/24 07/26/24 Rx vomiting #20 tabs oxybutynin chloride 5 mg tablet 5 mg PO TID PRN bladder spasms #60 07/15/24 07/26/24 Rx tabs oxycodone 10 mg tablet 10 mg PO Q6H PRN pain #30 tabs 07/24/24 07/26/24 Rx ciprofloxacin HCl 500 mg tablet 500 mg PO BID #20 tabs 07/25/24 07/26/24 Rx Exam Const General: cooperative, comfortable and no acute distress Nutritional Appearance: average body habitus Orientation: alert, awake and oriented x3 HENMT Head: normal to inspection Ears: hearing grossly normal bilaterally General nose exam: external nose normal Face and sinus: normal facial exam Eyes General: appearance normal, both eyes and all related structures Alignment and Position: alignment normal Eyelids: eyelids normal Neck Neck: full ROM Lymphatic: no lymphadenopathy noted Chest Chest: normal inspection of the chest Resp Effort & Inspection: normal respiratory effort, able to speak in complete sentences, no audible wheezes and no respiratory distress Auscultation: clear to auscultation bilaterally Cardio Rate: regular rate Rhythm: regular rhythm Heart Sounds: S1 normal and S2 normal GI Inspection: normal to inspection Palpation: soft Percussion: normal to percussion Auscultation: normal bowel sounds Back/Spine/Pelvis Other: +R CVA tenderness Skin General skin exam: no rashes or lesions noted, elasticity normal and turgor normal Neuro General: patient alert, patient awake and patient oriented x3 Cranial Nerves: CN's II-XI intact bilaterally Extrem General: normal to inspection Right upper extremity: normal to inspection Left upper extremity: normal to inspection Right lower extremity: normal to inspection Left lower extremity: normal to inspection Psych Appearance: grossly normal Results Labs 07/26/24 22:56 07/26/24 22:56 Labs: Laboratory Results - last 24 hr 07/26/24 07/26/24 07/27/24 22:56 23:45 02:02 WBC 8.03 RBC 4.14 Hgb 11.1 L Hct 33.7 L MCV 81 MCH 26.8 L MCHC 32.9 RDW 13.2 Plt Count 258 MPV 8.7 Immature Gran % 0.2 Neutrophils % 66.4 Lymphocytes % 19.3 Monocytes % 12.2 Eosinophils % 1.5 Basophils % 0.4 Nucleated RBC % 0.0 Absolute Neutrophils 5.33 Absolute Lymphocytes 1.55 Absolute Monocytes 0.98 H Absolute Eosinophils 0.12 Absolute Basophils 0.03 VBG pH 7.42 H VBG pCO2 46 VBG pO2 33 VBG HCO3 30 H VBG Total CO2 27 VBG O2 Saturation 62 VBG Base Excess 5 H VBG Lactate 0.8 Sodium 136 Potassium 3.1 L Chloride 98 Carbon Dioxide 29.3 Anion Gap 8.7 BUN 10 Creatinine 0.8 Est GFR (CKD-EPI 2020) 88.60 Glucose 111 H Calcium 9.6 Total Bilirubin 0.98 AST 24 ALT 27 Alkaline Phosphatase 131 H Total Protein 8.3 H Albumin 3.5 Procalcitonin < 0.1 Urine Color Yellow Urine Clarity Clear Urine pH 6.0 Ur Specific [place] 1.020 Urine Protein 30 H Urine Ketones Negative Urine Blood Small H Urine Nitrite Negative Urine Bilirubin Negative Urine Urobilinogen 0.2 Ur Leukocyte Esterase Negative Urine RBC 10-20 H Urine WBC 3-5 Ur Epithelial Cells Few Urine Crystals Negative Urine Bacteria Few Urine Casts Negative Urine Mucus Negative Ur Culture Indicated? No Urine Glucose Negative COVID-19 Source Nasopharynx SARS-CoV-2 (PCR) Negative Influenza Type A (PCR) Negative Influenza Type B (PCR) Negative RSV (PCR) Negative Last Vital Signs Temp 36.5 C 07/27/24 01:26 Pulse 60 07/27/24 01:46 Resp 20 07/26/24 22:42 BP 94/55 L 07/27/24 01:46 Pulse Ox 97 07/27/24 02:04 Time Spent Time spent with Patient: <40 minutes Time was spent: preparing to see the patient(eg.review tests), obtaining and/or reviewing separately otained hiistory, ordering medications,tests, procedures, referring, communicating with other health customer care professional, indepentently interpreting results, counseling the patient and care coordination
--- NOTE | 2024-07-27 03:21 | W.PC.ACHO ---
Registration Status: Primary Language: Preferred Language: ED Information & Data Chief Complaint Abd Prob 07/26/24 23:05 Triage Note Surgery on , stents 07/26/24 22:42 and kidney stone removed. Pain in back/abd, N/V, fevers. On abx and meds for pain. pt states that she has felt unwell since . Denies pain with urination. Medical / Surgical History (Last Reviewed 07/26/24 @ 23:59 by Waqas Gama MD) Hypokalemia History of asthma Periodic limb movement sleep disorder Mixed hyperlipidemia Hypersomnia Family history of cardiovascular disease Ovarian cyst Gastritis Carpal tunnel syndrome Polycystic ovaries Hyperglycemia Rosacea ADAIR (obstructive sleep apnea) Insomnia Depressive disorder Claustrophobia Severe obesity Nephrolithiasis (Last Reviewed 07/26/24 @ 23:59 by Waqas Gama MD) Hx of reduction mammoplasty S/P gastric bypass History of colonoscopy (~07/2023) Hx of hysterectomy H/O LEEP (~1998) Hx of cholecystectomy (~2000) H/O ureteroscopy (~2020) H/O cystoscopy (~2020) Most Recent Vital Signs Temperature 36.5 C 07/27/24 01:26 Temperature Source Rectal 07/26/24 22:42 Pulse 60 07/27/24 01:46 Respiratory Rate 20 07/26/24 22:42 Respiratory Effort Normal 07/26/24 22:47 Blood Pressure 94/55 L 07/27/24 01:46 Blood Pressure Mean 68 07/27/24 01:46 Pulse Oximetry 97 07/27/24 02:04 Oxygen Delivery Method Room Air 07/26/24 22:42 Oxygen Flow Rate 0 07/26/24 22:42 Comment 2 lpm nc 07/26/24 22:59 Allergies No Known Allergies Allergy (Verified 07/26/24 22:47) Precautions Isolation Standard precaution 07/26/24 22:47 Active Medications Generic Name Dose Route Start Last Admin Trade Name Freq PRN Reason Stop Dose Admin Iohexol 100 ml 07/26/24 23:45 07/26/24 23:37 Omnipaque 350 Mg/Ml 100 Ml Btl IJ 08/25/24 23:59 100 ml DIRECTED MEI Administration Sodium Chloride 50 ml 07/26/24 23:45 07/26/24 23:36 Normal Saline - Diluent 50 Ml Vial IJ 50 ml .FOR DI USE MEI Administration IV IV Catheter Type [Left Peripheral IV Antecubital] IV Catheter Gauge [Left 18 Antecubital] Diet Orders Category Date Time Status Regular/Normal [DIET] Nutrition 07/27/24 Breakfast Active Diagnostics 07/27/24 07/27/24 07/26/24 Range/Units Unknown 02:02 23:45 WBC (4.4-10.8) 10^3/uL RBC (3.93-5.22) 10^6/uL Hgb (11.2-15.7) g/dL Hct (36.0-46.0) % MCV (80-95) fL MCH (27.0-33.0) pg MCHC (32.0-36.0) % RDW (11.7-14.6) % Plt Count (130-400) 10^3/uL MPV (8.0-11.0) fL Immature Gran % % Neutrophils % % Lymphocytes % % Monocytes % % Eosinophils % % Basophils % % Nucleated RBC % (0.0-0.3) % Absolute Neutrophils (1.2-6.7) 10^3/uL Absolute Lymphocytes (1.2-3.4) 10^3/uL Absolute Monocytes (0.1-0.8) 10^3/uL Absolute Eosinophils (0.0-0.7) 10^3/uL Absolute Basophils (0.0-0.2) 10^3/uL VBG pH (7.31-7.41) VBG pCO2 (41-51) mmHg VBG pO2 mmHg VBG HCO3 (23-28) mmol/L VBG Total CO2 (24-29) mmol/L VBG O2 Saturation % VBG Base Excess (-2-3) mmol/L VBG Lactate Pending (0.6-1.4) mmol/L Sodium (136-145) mmol/L Potassium (3.5-5.1) mmol/L Chloride (98-107) mmol/L Carbon Dioxide (21.0-32.0) mmol/L Anion Gap (3-11) mmol/L BUN (7-18) mg/dL Creatinine (0.55-1.02) mg/dL Est GFR (CKD-EPI 2020) (mL/min/1.73m2) Glucose (74-106) mg/dL Calcium (8.5-10.1) mg/dL Total Bilirubin (0.2-1.0) mg/dL AST (15-37) U/L ALT (14-59) U/L Alkaline Phosphatase (46-116) U/L Total Protein (6.4-8.2) g/dL Albumin (3.4-5.0) g/dL Procalcitonin ng/mL Urine Color Yellow (Yellow) Urine Clarity Clear (Clear) Urine pH 6.0 (5-8) Ur Specific [place] 1.020 (1.005-1.025) Urine Protein 30 H (Neg-Trace) mg/dL Urine Ketones Negative (Negative) mg/dL Urine Blood Small H (Negative) Urine Nitrite Negative (Negative) Urine Bilirubin Negative (Negative) Urine Urobilinogen 0.2 (Up to 0.2) mg/dL Ur Leukocyte Esterase Negative (Negative) Urine RBC 10-20 H (0-2) HPF Urine WBC 3-5 (0-5) HPF Ur Epithelial Cells Few (Negative) HPF Urine Crystals Negative (Negative) HPF Urine Bacteria Few (Negative) HPF Urine Casts Negative (Negative) LPF Urine Mucus Negative (Negative) Ur Culture Indicated? No Urine Glucose Negative (Negative) mg/dL COVID-19 Source Nasopharynx SARS-CoV-2 (PCR) Negative (Negative) Influenza Type A (PCR) Negative (Negative) Influenza Type B (PCR) Negative (Negative) RSV (PCR) Negative (Negative) 07/26/24 Range/Units 22:56 WBC 8.03 (4.4-10.8) 10^3/uL RBC 4.14 (3.93-5.22) 10^6/uL Hgb 11.1 L (11.2-15.7) g/dL Hct 33.7 L (36.0-46.0) % MCV 81 (80-95) fL MCH 26.8 L (27.0-33.0) pg MCHC 32.9 (32.0-36.0) % RDW 13.2 (11.7-14.6) % Plt Count 258 (130-400) 10^3/uL MPV 8.7 (8.0-11.0) fL Immature Gran % 0.2 % Neutrophils % 66.4 % Lymphocytes % 19.3 % Monocytes % 12.2 % Eosinophils % 1.5 % Basophils % 0.4 % Nucleated RBC % 0.0 (0.0-0.3) % Absolute Neutrophils 5.33 (1.2-6.7) 10^3/uL Absolute Lymphocytes 1.55 (1.2-3.4) 10^3/uL Absolute Monocytes 0.98 H (0.1-0.8) 10^3/uL Absolute Eosinophils 0.12 (0.0-0.7) 10^3/uL Absolute Basophils 0.03 (0.0-0.2) 10^3/uL VBG pH 7.42 H (7.31-7.41) VBG pCO2 46 (41-51) mmHg VBG pO2 33 mmHg VBG HCO3 30 H (23-28) mmol/L VBG Total CO2 27 (24-29) mmol/L VBG O2 Saturation 62 % VBG Base Excess 5 H (-2-3) mmol/L VBG Lactate 0.8 (0.6-1.4) mmol/L Sodium 136 (136-145) mmol/L Potassium 3.1 L (3.5-5.1) mmol/L Chloride 98 (98-107) mmol/L Carbon Dioxide 29.3 (21.0-32.0) mmol/L Anion Gap 8.7 (3-11) mmol/L BUN 10 (7-18) mg/dL Creatinine 0.8 (0.55-1.02) mg/dL Est GFR (CKD-EPI 2020) 88.60 (mL/min/1.73m2) Glucose 111 H (74-106) mg/dL Calcium 9.6 (8.5-10.1) mg/dL Total Bilirubin 0.98 (0.2-1.0) mg/dL AST 24 (15-37) U/L ALT 27 (14-59) U/L Alkaline Phosphatase 131 H (46-116) U/L Total Protein 8.3 H (6.4-8.2) g/dL Albumin 3.5 (3.4-5.0) g/dL Procalcitonin < 0.1 ng/mL Urine Color (Yellow) Urine Clarity (Clear) Urine pH (5-8) Ur Specific [place] (1.005-1.025) Urine Protein (Neg-Trace) mg/dL Urine Ketones (Negative) mg/dL Urine Blood (Negative) Urine Nitrite (Negative) Urine Bilirubin (Negative) Urine Urobilinogen (Up to 0.2) mg/dL Ur Leukocyte Esterase (Negative) Urine RBC (0-2) HPF Urine WBC (0-5) HPF Ur Epithelial Cells (Negative) HPF Urine Crystals (Negative) HPF Urine Bacteria (Negative) HPF Urine Casts (Negative) LPF Urine Mucus (Negative) Ur Culture Indicated? Urine Glucose (Negative) mg/dL COVID-19 Source SARS-CoV-2 (PCR) (Negative) Influenza Type A (PCR) (Negative) Influenza Type B (PCR) (Negative) RSV (PCR) (Negative) 07/26/24 23:20 Blood Culture - Pending Blood 07/26/24 22:56 Blood Culture - Pending Blood Intake and Output - 24 Hour Total 07/26/24 22:38 thru 07/27/24 02:20 Intake Total 2800 Balance 2800 Weight 81.647 kg Intake: IV 2800 Falls Risk Assessment History of Falls No History 07/26/24 22:51 Contributing Factors No Factors 07/26/24 22:51 Ambulatory Aids Independent 07/26/24 22:51 Tubes/Lines None 07/26/24 22:51 Gait Evaluation No gait disturbance 07/26/24 22:51 Cognition No cognitive impairment 07/26/24 22:51 Fall Total Score 0 07/26/24 22:51 Level of Risk Standard/Low Risk 07/26/24 22:51 Problems (Last Reviewed 07/26/24 @ 23:59 by Waqas Gama MD) Acute pyelonephritis (Acute) v v v v v v v v v Sending and/or Receiving Nurses: Please use comment section below to note any information pertinent to the patient hand-off not included above. Information / Comments: Patient admitted for abdominal pain, fever. She had stints removed on and has had fever since. admitted with 101.4 fever it has since reduced to 36.5. Patient has had light blood pressure but no dizziness. Pt has 18 in left AC. Has received: 2500 LR, 10 compozine, 15 Toradol, 2 gram Vancomycin, 3.375 Zosyn Report received from:Cayla
[2024-07-27] MEDS: Lactated Ringers 1,000 ML 2000 ML IV (03:55)
[2024-07-27] MEDS: Enoxaparin 40 MG/0.4 ML SYR SC (03:58)
[2024-07-27] MEDS: oxyCODONE 10 MG TAB PO (07:36)
[2024-07-27] MEDS: Acetaminophen 500 MG TAB 1000 MG PO ×3 (07:44→19:43)
[2024-07-27] MEDS: Ondansetron O.D.T. 4 MG TABEF PO (09:14)
[2024-07-27] MEDS: Normal Saline Flush 10 ML SYR IVP ×2 (09:15→12:07)
[2024-07-27] MEDS: cefTRIAXone 1 GM/50 ML BAG IVPB (09:15)
--- NOTE | 2024-07-27 09:15 | PGE_ITS ---
Date of Service Date of service: 07/27/24 Time of Service: 09:15 Assessment and Plan Assessment and plan (1) Acute pyelonephritis: Status: Acute Assessment and plan: History of recurrent nephrolithiasis w/ uric acid stones S/p R stent and residual stone removal and since this past has been having symptoms of fever, chills, nausea and abdominal pain worrisome for complicated UTI. CT concerning for acute pyelonephritis. No leukocytosis but has a fever (101.4F) and a decrease BP from 149/75 to 94/55. Started on broad spectrum antibiotics with Vancomycin/Zosyn in the ED and fluid resuscitation w 2L IVF, Now on ceftriaxone: still febrile this AM with N/V Lactic is negative Blood cultures results pending Urine cultures results pending Consider de-escalation of antibiotics to Ceftriaxone if appropriate. Questioning history of MRSA or Pseudomonas - was on oral levaquin at home -No MRSA history reported - Blood culture grew GN bacilli in the past - No reported history of pseudomonas (2) ADHD: Status: Chronic Assessment and plan: On home med regimen (3) Stress incontinence: Status: Acute Assessment and plan: On home meds regimen (4) Hypokalemia: Assessment and plan: K 3.1 , supplementation ordered BMP in AM (5) Nausea & vomiting: Status: Acute Assessment and plan: Continue PRN antiemetic drugs IVF : LR at 125 cc/hr Discussed with Dr. Lopez Objective Last Vital Signs Temp 38.2 C H 07/27/24 07:44 Pulse 64 07/27/24 07:17 Resp 17 07/27/24 07:17 BP 121/73 07/27/24 07:17 Pulse Ox 96 07/27/24 07:17 Laboratory Results - last 24 hr 07/26/24 07/26/24 07/27/24 22:56 23:45 02:02 WBC 8.03 RBC 4.14 Hgb 11.1 L Hct 33.7 L MCV 81 MCH 26.8 L MCHC 32.9 RDW 13.2 Plt Count 258 MPV 8.7 Immature Gran % 0.2 Neutrophils % 66.4 Lymphocytes % 19.3 Monocytes % 12.2 Eosinophils % 1.5 Basophils % 0.4 Nucleated RBC % 0.0 Absolute Neutrophils 5.33 Absolute Lymphocytes 1.55 Absolute Monocytes 0.98 H Absolute Eosinophils 0.12 Absolute Basophils 0.03 VBG pH 7.42 H VBG pCO2 46 VBG pO2 33 VBG HCO3 30 H VBG Total CO2 27 VBG O2 Saturation 62 VBG Base Excess 5 H VBG Lactate 0.8 Sodium 136 Potassium 3.1 L Chloride 98 Carbon Dioxide 29.3 Anion Gap 8.7 BUN 10 Creatinine 0.8 Est GFR (CKD-EPI 2020) 88.60 Glucose 111 H Calcium 9.6 Total Bilirubin 0.98 AST 24 ALT 27 Alkaline Phosphatase 131 H Total Protein 8.3 H Albumin 3.5 Procalcitonin < 0.1 Urine Color Yellow Urine Clarity Clear Urine pH 6.0 Ur Specific [place] 1.020 Urine Protein 30 H Urine Ketones Negative Urine Blood Small H Urine Nitrite Negative Urine Bilirubin Negative Urine Urobilinogen 0.2 Ur Leukocyte Esterase Negative Urine RBC 10-20 H Urine WBC 3-5 Ur Epithelial Cells Few Urine Crystals Negative Urine Bacteria Few Urine Casts Negative Urine Mucus Negative Ur Culture Indicated? No Urine Glucose Negative COVID-19 Source Nasopharynx SARS-CoV-2 (PCR) Negative Influenza Type A (PCR) Negative Influenza Type B (PCR) Negative RSV (PCR) Negative 07/27/24 06:01 WBC RBC Hgb Hct MCV MCH MCHC RDW Plt Count MPV Immature Gran % Neutrophils % Lymphocytes % Monocytes % Eosinophils % Basophils % Nucleated RBC % Absolute Neutrophils Absolute Lymphocytes Absolute Monocytes Absolute Eosinophils Absolute Basophils VBG pH VBG pCO2 VBG pO2 VBG HCO3 VBG Total CO2 VBG O2 Saturation VBG Base Excess VBG Lactate 1.0 Sodium Potassium Chloride Carbon Dioxide Anion Gap BUN Creatinine Est GFR (CKD-EPI 2020) Glucose Calcium Total Bilirubin AST ALT Alkaline Phosphatase Total Protein Albumin Procalcitonin Urine Color Urine Clarity Urine pH Ur Specific [place] Urine Protein Urine Ketones Urine Blood Urine Nitrite Urine Bilirubin Urine Urobilinogen Ur Leukocyte Esterase Urine RBC Urine WBC Ur Epithelial Cells Urine Crystals Urine Bacteria Urine Casts Urine Mucus Ur Culture Indicated? Urine Glucose COVID-19 Source SARS-CoV-2 (PCR) Influenza Type A (PCR) Influenza Type B (PCR) RSV (PCR) Time Spent with Patient Time Spent with Patient: >50 minutes Time was spent: preparing to see the patient(eg.review tests), obtaining and/or reviewing separately otained hiistory, ordering medications,tests, procedures, referring, communicating with other health lawn care professional, indepentently i nterpreting results, counseling the patient and care coordination
[2024-07-27] MEDS: POTASSIUM CHLORIDE 20 MEQ/100 ML BAG 50 MEQ IVINF ×2 (11:57→14:08)
[2024-07-27] MEDS: Prochlorperazine 10 MG/2 ML VIAL 5 MG IVP (12:07)
[2024-07-27] MEDS: Lactated Ringers 1,000 ML 125 ML IV (14:52)
--- NOTE | 2024-07-27 15:51 | INITIAL_ITS ---
Date of service: 07/27/24 Time of Service: 12:30 Care Management Initial Assmt Initial Assessment Reason for Hospitalization: acute pyelonephritis. s/p stent and stone removal on 07/24/24 Functional Status/Living Situation Patient Presentation: Katty was lying in bed when CM met with her this afternoon. She was easily roused and amenable to conversation. She stated, my kidneys don't like me. She has had at least 6 months of ongoing kidney stone issues and is frustrated. She stated at the moment she was feeling fine, but she hadn't been awake very long. Katty stated she had no concerns about returning home, just wants to be finished with her kidney issues. Town of Residence: [place], [place] Resides with: Spouse Significant Other/Family: Local (Katty has 4 grown children. 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[employer].) Medications Medication Management: No Issues/Barriers identified Physical Functioning/Mobility Assistive Device: none Advance Directives Advance Directives: Do you have an Advance Directive: N 06/15/23 14:02 AD On File at [facility]: N 06/15/23 14:02 Date Asked 07/26/24 07/26/24 22:40 AD Date Reviewed COLST On File at [facility] No 06/15/23 14:02 COLST Date Scanned Code Status Resuscitation Status Full Code Insurance Coverage/Financial Issues Insurance: [facility] Financial Issues: denies Care Team Visit Care Team Role Provider Type Corin Rosario Primary Care Provider NURSE PRACTITIONER Waqas Gama MD Emergency Provider [facility] STAFF PHYSICIAN Ivan Sarkar MD Admit Provider [facility] STAFF PHYSICIAN Attending Provider Other: Dr Lebron Discharge Potential Discharge Needs: PCP F/U Appt and Surgical F/U Appt (urology) Anticipated Barriers to Discharge: None Identified Patient/Family Education Needs: Review discharge instructions, discuss Ask Me Three Transportation: Private vehicle Plan: Anticipate that Katty will be discharged home with no new services. She will follow up with her PCP and with urology and plan of care. She will transport with her . CM will follow and continue to assess for discharge planning concerns. PFSH All Active Problems (Updated 07/27/24 @ 12:08 by Radha Borges APRN) Nausea & vomiting (Acute) Sepsis (Acute) Acute pyelonephritis (Acute) Hematuria (Acute) Fever postop (Acute) Hyperplastic colon polyp (Acute ~08/06/23) Stress incontinence (Acute) Hydronephrosis (Acute) Diverticula of colon (Acute) Adenomatous polyp of sigmoid colon (Acute) Screening for malignant neoplasm of colon performed (Acute) Maltracking of left patella (Acute) Chondromalacia of left patellofemoral joint (Acute) ADHD (Chronic) History of section (Chronic) S/P hysterectomy (Chronic) Migraine (Chronic) Encounter for screening for other viral diseases (Acute) Fever (Acute) Fatigue (Acute) Acute bronchitis with bronchospasm (Acute) GERD (gastroesophageal reflux disease) (Chronic) Acute esophagitis (Acute) Insomnia (Acute) DVT prophylaxis (Acute) Pill dysphagia (Acute) Post-nasal drip (Acute) Encounter for screening laboratory testing for COVID-19 virus (Acute) Pneumonia due to COVID-19 virus (Acute) Screening for colon cancer (Acute) Abdominal pain (Acute) Acne (Acute) Medical History Hypokalemia History of asthma Periodic limb movement sleep disorder Mixed hyperlipidemia Hypersomnia Family history of cardiovascular disease Ovarian cyst Gastritis Carpal tunnel syndrome Polycystic ovaries Hyperglycemia Rosacea ADAIR (obstructive sleep apnea) Insomnia Depressive disorder Claustrophobia Severe obesity Nephrolithiasis Surgical History Hx of reduction mammoplasty S/P gastric bypass History of colonoscopy (~07/2023) Hx of hysterectomy H/O LEEP (~1998) Hx of cholecystectomy (~2000) H/O ureteroscopy (~2020) H/O cystoscopy (~2020) Family History Mother Heart disease Diabetes Hypertension Father Diabetes Hypertension Social History Smoking/Tobacco Use Status: Former Tobacco Use Quit Date: 11/19/99 Smoking risk assessment performed?: Yes Alcohol Intake: never Drug use: Never Substance use type: does not use Housing: house Current gender identity: female Do you feel safe at home: Yes Do you feel safe in your relationship?: Yes Readmission ED visits How many ED visits in the past 12 months: 5 SDOH(Care Management) Screening Will the Patient Participate in the Screening?: Yes Do you worry about having a steady place to live?: no Problems where you live: no known problems In the past 12 months, have you had to go without electric, gas, oil or water in your home?: no Have you or anyone in your house had to go without enough food to eat?: no Has lack of transportation kept you from medical appointments or from doing things needed for daily living?: no Has anyone in your support network made you feel unsafe for any reason?: no
[2024-07-28] MEDS: Lactated Ringers 1,000 ML 125 ML IV (00:30)
[2024-07-28] MEDS: Normal Saline Flush 10 ML SYR IVP ×4 (00:39→20:04)
[2024-07-28] MEDS: Enoxaparin 40 MG/0.4 ML SYR SC (02:14)
[2024-07-28] MEDS: Acetaminophen 500 MG TAB 1000 MG PO ×4 (02:14→22:21)
[2024-07-28 06:43] LABS: Abs Immature Grans 0.02 10^3/uL (0.0-0.06); Absolute Basophil Count 0.01 10^3/uL (0.0-0.2); Absolute Eosinophil Count 0.28 10^3/uL (0.0-0.7); Absolute Lymphocyte Count 1.36 10^3/uL (1.2-3.4); Absolute Monocyte Count 0.74 10^3/uL (0.1-0.8); Absolute Neutrophil Count 2.48 10^3/uL (1.2-6.7); Basophils % 0.2 %; Eosinophils % 5.7 %; HCT 27.6 % (36.0-46.0); Immature Grans % 0.4 %; Lymphocytes % 27.8 %; MCH 26.7 pg (27.0-33.0); MCHC 32.6 % (32.0-36.0); MCV 82 fL (80-95); Monocytes % 15.1 %; Neutrophils % 50.8 %; Platelet Count 175 10^3/uL (130-400); RBC 3.37 10^6/uL (3.93-5.22); RDW 13.2 % (11.7-14.6); RDW-SD 39.6 fL; WBC 4.89 10^3/uL (4.4-10.8)
[2024-07-28 07:06] LABS: Anion Gap 6.2 mmol/L (3-11); BUN 8 mg/dL (7-18); CO2 26.8 mmol/L (21.0-32.0); CREATININE 0.6 mg/dL (0.55-1.02); Calcium 9.1 mg/dL (8.5-10.1); Chloride 105 mmol/L (98-107); Estimated GFR 107.93 (mL/min/1.73m2); Glucose 115 mg/dL (74-106); Magnesium 1.9 mg/dL (1.8-2.4); Potassium 3.6 mmol/L (3.5-5.1); Sodium 138 mmol/L (136-145)
[2024-07-28 07:26] VITALS: BP 155/84; PULSE 52; RESP 18; TEMP 36.8; O2SAT 97
[2024-07-28] MEDS: oxyCODONE 10 MG TAB PO ×2 (08:10→22:21)
[2024-07-28] MEDS: cefTRIAXone 1 GM/50 ML BAG IVPB (08:11)
--- NOTE | 2024-07-28 09:27 | W.PM.PROGNOT ---
Date of Service Date of service: 07/28/24 Time of Service: : Assessment and Plan Assessment and plan (1) Acute pyelonephritis: Status: Acute Assessment and plan: History of recurrent nephrolithiasis w/ uric acid stones S/p R stent and residual stone removal and since this past has been having symptoms of fever, chills, nausea and abdominal pain worrisome for complicated UTI. The patient was on oral fluoquinolones s/p this surgical procedure CT concerning for acute pyelonephritis. Negative lactic No leukocytosis but presented with a fever (101.4F) and a decreased BP from 149/75 to 94/55. Afebrile on scheduled APAP- APAP now PRN Started on broad spectrum antibiotics with Vancomycin/Zosyn in the ED and fluid resuscitation w 2L IVF. Vanco and Zosyn stopped. Continue ceftriaxone -days 2 Blood cultures negative Urine cultures no growth -No MRSA or Pseudomonas history reported - Urine culture grew GN bacilli in the past on 07/09 Urology consult as per discussion with Dr. Lebron , will continue ceftriaxone ( temp 101.3). When no fever for 24 hours will transition to cefpodoxime( until 08/01) to complete a 10-day course of treatment from 07/25 when Ciprofloxacin was initiated. (2) ADHD: Status: Chronic Assessment and plan: On home ritalin (3) Stress incontinence: Status: Acute Assessment and plan: On home ditropan (4) Hypokalemia: Assessment and plan: Now K 3.6 , resolved BMP in AM (5) Nausea & vomiting: Status: Acute Assessment and plan: Continue PRN antiemetic drugs- improved Stop IVF : LR at 125 cc/hr (6) Anemia: Status: Chronic Assessment and plan: Admission H&H 11& 33 with probable hemoconcentration at the time as the patient was nauseous and vomiting now &27 after IVF and now most likely dilutional Will continue to monitor as UA showed small amount of blood - No gross hematuria CBC in AM Discussed with Dr. Freedman Subjective Subjective Patient reports: feels better, pain is less, tolerating liquids well, voiding w/o difficulty, nausea and fever (Pt measured her temp with a rectal thermometer and reported 101.3); denies tolerating a regular diet, blood in stool, vomiting or shortness of breath Exam Narrative Exam Narrative: Constitutional The patient is without acute distress HENMT: Facial structures with normal appearance Eyes: Well aligned, intact ROM Neuro:alert and oriented X4, non-focal Resp: Unlabored breathing, clear lung bilaterally Cardio: regular rhythm, S1, S2, no murmur GI: Abdomen is not distended, soft with RUQ tenderness, bowel sounds are present : Positive right costovertebral angle tenderness Extremities: strength 5/5 to bilateral lower and upper extremities Psych: RASS 0, congruent mood and normal affect. Objective Last Vital Signs Temp 36.8 C 07/28/24 07:26 Pulse 52 L 07/28/24 07:26 Resp 18 07/28/24 07:26 BP 155/84 H 07/28/24 07:26 Pulse Ox 97 07/28/24 07:26 Laboratory Results - last 24 hr 07/28/24 06:30 WBC 4.89 RBC 3.37 L Hgb 9.0 L D Hct 27.6 L MCV 82 MCH 26.7 L MCHC 32.6 RDW 13.2 Plt Count 175 MPV 9.0 Immature Gran % 0.4 Neutrophils % 50.8 Lymphocytes % 27.8 Monocytes % 15.1 Eosinophils % 5.7 Basophils % 0.2 Nucleated RBC % 0.0 Absolute Neutrophils 2.48 Absolute Lymphocytes 1.36 Absolute Monocytes 0.74 Absolute Eosinophils 0.28 Absolute Basophils 0.01 Sodium 138 Potassium 3.6 Chloride 105 Carbon Dioxide 26.8 Anion Gap 6.2 BUN 8 Creatinine 0.6 Est GFR (CKD-EPI 2020) 107.93 Glucose 115 H Calcium 9.1 Magnesium 1.9 Time Spent with Patient Time Spent with Patient: >50 minutes Time was spent: preparing to see the patient(eg.review tests), obtaining and/or reviewing separately otained hiistory, ordering medications,tests, procedures, referring, communicating with other health home care music therapist, indepentently interpreting results, counseling the patient and care coordination
[2024-07-28] MEDS: Prochlorperazine 10 MG/2 ML VIAL 5 MG IVP ×2 (09:56→20:02)
--- NOTE | 2024-07-28 11:19 | PHA.REVIEW2 ---
Pharmacy Admission Review Admission Clinical Review Admission Pharmacy Review: Nausea & vomiting (Acute) Acute pyelonephritis (Acute) Stress incontinence (Acute) No Known Allergies Allergy (Verified 07/26/24 22:47) Resuscitation Status Full Code Height 5 ft 4 in Weight 86.8 kg Pharmacy Admission Review Renal Dosing Renal Dosing: BUN 8 mg/dL (7-18) 07/28/24 06:30 Creatinine 0.6 mg/dL (0.55-1.02) 07/28/24 06:30 Medications needing adjustments: Reviewed (CrCl 116.88 mL/min) List of meds needing interventions: Current medications are okay Anticoagulation Anticoagulation: Hgb 9.0 g/dL (11.2-15.7) L D 07/28/24 06:30 Hct 27.6 % (36.0-46.0) L 07/28/24 06:30 Plt Count 175 10^3/uL (130-400) 07/28/24 06:30 Creatinine 0.6 mg/dL (0.55-1.02) 07/28/24 06:30 DVT Prophylaxis: Reviewed (Hgb decreased from 11.1) Medications: Enoxaparin (40mg daily) Opiate Usage Evaluate Pain Scale/Pains Meds: Reviewed (PRN oxycodone - 2 doses given) Scheduled Bowel Reg ordered if on Opiates?: No Relevant Labs Relevant Labs: Sodium 138 mmol/L (136-145) 07/28/24 06:30 Potassium 3.6 mmol/L (3.5-5.1) 07/28/24 06:30 Chloride 105 mmol/L (98-107) 07/28/24 06:30 Magnesium 1.9 mg/dL (1.8-2.4) 07/28/24 06:30 Electrolytes, C-Reactive P, ESR: Reviewed (glucose 115 at 0630 today) Cardiac Review BP, HR, EF%: Reviewed (BP 155/84 and HR 52. BP yesterday was low to normal range.) List meds needing interventions: Patient is not on any BP/HR medications QTc Review QTc: Reviewed (468 from 08/02/21 - most recent EKG on file) IV to PO Switch IV Medications: Reviewed (ceftriaxone and prochlorperazine) Home Meds Home Med List reviewed: Reviewed Relevent Home Meds Not ordered & why?: Ciprofloxacin (no fill history) Current Meds Current Medication Order Review: Intervened Comments: Added q4h to albuterol inhaler order - based on home med list Added 2nd PRN to Duoneb order per pharmacy protocol Pharmacy Antibiotic Review Relevant Labs: WBC 4.89 10^3/uL (4.4-10.8) 07/28/24 06:30 Procalcitonin < 0.1 ng/mL 07/26/24 22:56 Temperature 36.8 C Microbiology 07/27/24 08:05 Urine Culture - Preliminary Urine - Clean Catch NO GROWTH 24 HOURS 07/26/24 23:20 Blood Culture - Preliminary Blood NO GROWTH 24 HOURS 07/26/24 22:56 Blood Culture - Preliminary Blood NO GROWTH 24 HOURS Pharmacy Antibiotic Activity: C/S review and Reviewed, no change Comments: Patient is on ceftriaxone, day 2, for pyelonephritis. Last elevated temperate was 07/27 at 0744. Cultures showing no growth at 24 hours.
--- NOTE | 2024-07-28 11:29 | PDOC.CMPRO ---
Date of service: 07/28/24 Time of Service: 10:30 Care Management Progress Note Progress Note Text Progress Note Text: Katty was lying in bed, lights off but awake, when CM met with her this morning. She engaged easily and was pleasant. She is hoping to go home today, but is still having fevers when not medicated, and still having nausea. Katty did state that she does not wish to go home too early, however, because she has been struggling with kidney problems for nearly a year, and does not want to have to return to the ER. Discharge Potential Discharge Needs: PCP F/U Appt and Other (urology follow up) Anticipated Barriers to Discharge: None Identified Patient/Family Education Needs: Review discharge instructions, discuss Ask Me Three Transportation: Private vehicle Plan: Anticipate that Katty will be discharged home with no new services. She will transport home in private vehicle with her or her daughter. She will follow up with her PCP and urology and continue per her plan of care. CM will continue to follow. SDOH(Care Management) Screening Will the Patient Participate in the Screening?: Yes Do you worry about having a steady place to live?: no Problems where you live: no known problems In the past 12 months, have you had to go without electric, gas, oil or water in your home?: no Have you or anyone in your house had to go without enough food to eat?: no Has lack of transportation kept you from medical appointments or from doing things needed for daily living?: no Has anyone in your support network made you feel unsafe for any reason?: no
[2024-07-28 15:02] VITALS: BP 133/79; PULSE 61; RESP 18; TEMP 36.9; O2SAT 98
--- NOTE | 2024-07-28 16:48 | UCONE_ITS ---
Date of service: 07/28/24 Time of Service: 16:48 Assessment and Plan Assessment and plan (1) Acute pyelonephritis: Status: Acute Assessment and plan: I am not convinced that she requires any type of drainage procedure at this time. I suspect that she will improve with antibiotics alone. It is difficult to tell exactly which antibiotic to use since her cultures have not been showing any bacterial growth. She has improved with the ceftriaxone, so I think I would continue until she is afebrile and then switch her over to oral antibiotics. I should probably see her back in a few weeks when she finishes her antibiotics so that I can recheck a urine culture and make sure that her infection has cleared. History of Present Illness History of Present Illness Chief Complaint: Right pyelonephritis Narrative: This is a 54-year-old woman who has a long history of kidney stones. She had undergone a staged ureteroscopy with holmium laser lithotripsy of a large right renal pelvic stone. Her stone composition she had 90% uric acid and 10% calcium oxalate dihydrate (no struvite). Within 24 hours of removing her stent, she developed fevers and hypotension. She had received a perioperative dose of Ancef at the time of her most recent procedure. I then started on oral Levaquin. When her fevers and hypotension persisted and spite of the oral Levaquin, she presented to the emergency department. She was started on IV fluids and antibiotics. Blood and urine cultures were obtained but as previously mentioned, she had received multiple doses of antibiotics prior to the cultures. In the past, she has had positive urine cultures obtained at [facility]. The most recent cultures from [place] showed the presence of gram- negative noemi and some yeast, but there was no significant uropathogen growth. Her most recent positive culture that I can find was pansensitive E. coli. When her temperature increases, she tends to get significant headaches. She may also get some nausea and vomiting although these GI symptoms seem to be improving as her temperature curve decreases. She is currently on IV ceftriaxone and is gradually improving. Review of Systems Constitutional Constitutional: Reports chills, Reports fever(s) and Reports headache(s) ENT Ears, Nose, Mouth, and Throat: Reports headache(s) Neurologic Neurologic: Reports headache(s) PFSH All Active Problems (Updated 07/28/24 @ 09:34 by Radha Borges APRN) Anemia (Chronic) Nausea & vomiting (Acute) Sepsis (Acute) Acute pyelonephritis (Acute) Hematuria (Acute) Fever postop (Acute) Hyperplastic colon polyp (Acute ~08/06/23) Stress incontinence (Acute) Hydronephrosis (Acute) Diverticula of colon (Acute) Adenomatous polyp of sigmoid colon (Acute) Screening for malignant neoplasm of colon performed (Acute) Maltracking of left patella (Acute) Chondromalacia of left patellofemoral joint (Acute) ADHD (Chronic) History of section (Chronic) S/P hysterectomy (Chronic) Migraine (Chronic) Encounter for screening for other viral diseases (Acute) Fever (Acute) Fatigue (Acute) Acute bronchitis with bronchospasm (Acute) GERD (gastroesophageal reflux disease) (Chronic) Acute esophagitis (Acute) Insomnia (Acute) DVT prophylaxis (Acute) Pill dysphagia (Acute) Post-nasal drip (Acute) Encounter for screening laboratory testing for COVID-19 virus (Acute) Pneumonia due to COVID-19 virus (Acute) Screening for colon cancer (Acute) Abdominal pain (Acute) Acne (Acute) Medical History Hypokalemia History of asthma Periodic limb movement sleep disorder Mixed hyperlipidemia Hypersomnia Family history of cardiovascular disease Ovarian cyst Gastritis Carpal tunnel syndrome Polycystic ovaries Hyperglycemia Rosacea ADAIR (obstructive sleep apnea) Insomnia Depressive disorder Claustrophobia Severe obesity Nephrolithiasis Surgical History Hx of reduction mammoplasty S/P gastric bypass History of colonoscopy (~07/2023) Hx of hysterectomy H/O LEEP (~1998) Hx of cholecystectomy (~2000) H/O ureteroscopy (~2020) H/O cystoscopy (~2020) Family History Mother Heart disease Diabetes Hypertension Father Diabetes Hypertension Social History Smoking/Tobacco Use Status: Former Tobacco Use Quit Date: 11/19/99 Smoking risk assessment performed?: Yes Alcohol Intake: never Drug use: Never Substance use type: does not use Housing: house Current gender identity: female Do you feel safe at home: Yes Do you feel safe in your relationship?: Yes Exam Narrative Exam Narrative: She appears reasonably comfortable at this time. She does not appear septic or toxic Her vital signs are documented elsewhere Her abdomen is soft with no peritoneal signs There is some right CVA tenderness She is awake and alert I reviewed her CT scan on the PACS system. I do not see any sign of perinephric abscess that would require drainage. There is quite a bit of stranding around the renal pelvis but no stone burden to speak of. Results Last Vital Signs Temp 36.9 C 07/28/24 15:02 Pulse 61 07/28/24 15:02 Resp 18 07/28/24 15:02 BP 133/79 07/28/24 15:02 Pulse Ox 98 07/28/24 15:02 Labs 07/29/24 05:59 07/29/24 06:55 Labs: Laboratory Results - last 24 hr 07/28/24 06:30 WBC 4.89 RBC 3.37 L Hgb 9.0 L D Hct 27.6 L MCV 82 MCH 26.7 L MCHC 32.6 RDW 13.2 Plt Count 175 MPV 9.0 Immature Gran % 0.4 Neutrophils % 50.8 Lymphocytes % 27.8 Monocytes % 15.1 Eosinophils % 5.7 Basophils % 0.2 Nucleated RBC % 0.0 Absolute Neutrophils 2.48 Absolute Lymphocytes 1.36 Absolute Monocytes 0.74 Absolute Eosinophils 0.28 Absolute Basophils 0.01 Sodium 138 Potassium 3.6 Chloride 105 Carbon Dioxide 26.8 Anion Gap 6.2 BUN 8 Creatinine 0.6 Est GFR (CKD-EPI 2020) 107.93 Glucose 115 H Calcium 9.1 Magnesium 1.9
[2024-07-28 20:04] VITALS: BP 131/82; PULSE 58; RESP 16; TEMP 36.7; O2SAT 98
[2024-07-29] MEDS: Enoxaparin 40 MG/0.4 ML SYR SC (03:59)
[2024-07-29] MEDS: oxyCODONE 10 MG TAB PO (06:03)
[2024-07-29] MEDS: Acetaminophen 500 MG TAB 1000 MG PO ×2 (06:03→12:16)
[2024-07-29] MEDS: Normal Saline Flush 10 ML SYR IVP ×2 (06:04→08:30)
[2024-07-29] MEDS: Prochlorperazine 10 MG/2 ML VIAL 5 MG IVP (06:04)
[2024-07-29 06:16] LABS: Abs Immature Grans 0.01 10^3/uL (0.0-0.06); Absolute Basophil Count 0.02 10^3/uL (0.0-0.2); Absolute Eosinophil Count 0.25 10^3/uL (0.0-0.7); Absolute Lymphocyte Count 1.53 10^3/uL (1.2-3.4); Absolute Monocyte Count 0.74 10^3/uL (0.1-0.8); Absolute Neutrophil Count 2.93 10^3/uL (1.2-6.7); Basophils % 0.4 %; Eosinophils % 4.6 %; Immature Grans % 0.2 %; Lymphocytes % 27.9 %; MCH 26.9 pg (27.0-33.0); MCHC 33.3 % (32.0-36.0); MCV 81 fL (80-95); MPV 9.3 fL (8.0-11.0); Monocytes % 13.5 %; Neutrophils % 53.4 %; Platelet Count 211 10^3/uL (130-400); RBC 3.72 10^6/uL (3.93-5.22); RDW 13.2 % (11.7-14.6); RDW-SD 38.1 fL; WBC 5.48 10^3/uL (4.4-10.8)
[2024-07-29 07:17] LABS: Anion Gap 9.2 mmol/L (3-11); BUN 7 mg/dL (7-18); CO2 26.8 mmol/L (21.0-32.0); CREATININE 0.7 mg/dL (0.55-1.02); Calcium 8.9 mg/dL (8.5-10.1); Chloride 105 mmol/L (98-107); Glucose 107 mg/dL (74-106); Potassium 3.4 mmol/L (3.5-5.1); Sodium 141 mmol/L (136-145)
[2024-07-29 07:23] VITALS: BP 121/63; PULSE 54; RESP 17; TEMP 35.4; O2SAT 94
[2024-07-29] MEDS: cefTRIAXone 1 GM/50 ML BAG IVPB (08:29)
--- NOTE | 2024-07-29 09:19 | DSE_ITS ---
Date of service: 07/29/24 Time of Service: 09:19 DS: Diagnosis Discharge Diagnosis (1) Acute pyelonephritis: Status: Acute Discharge Plan Disposition Patient Disposition: Home Condition: Improving Discharge Details Reason For Visit: Pyelonephritis Admit Date/Time: 07/27/24 02:44 Admit Provider: Ivan Sarkar Attending Provider: Ivan Sarkar [facility] Hospital Course: This 54 years old female patient with a past medical history of recurrent nephrolithiasis due to uric acid stones with recent stent evaluation in the ED here at [facility] on 2023.4 (for which she was discharged with antibiotics and followed up with Dr. Lebron, urologist for right ureteral stent and residual stent removal on , 07/24/2024 presented on 07/26/2024 to the ED at [facility] for evaluation of right flank and upper and lower quadrant pain described as constant and throbbing. Patient reported starting to have symptoms of nausea and abdominal pain immediately after the surgical procedure and after following up with Dr. Lebron due to her symptoms ciprofloxacin oral was initiated without any improvement but worsening of her symptoms. The patient reported severe nausea without vomiting while taking Zofran at home, fever, chills and migraine. The patient denied dysuria, hematuria or discharge in the urine; also denied chest pain, palpitation coughing, wheezing or dyspnea?no skin rash or lesion reported. Workup in the ED was significant for the absence of leukocytosis, H&H of 11 and 33, potassium at 3.1. The CT of her abdomen pelvis was significant for inflammatory stranding from the right proximal renal pelvis with effusions enhancement of the right kidney mostly around the superior lobe concerning for acute pyelonephritis of the right kidney; no abscess or hematoma identified. In the ED vancomycin and Zosyn were initiated. UA was negative urine and blood cul tures pending. The hospitalist was consulted and patient admitted to the medical surgical floor for evaluation and management of acute pyelonephritis of the right kidney. During the stay, the patient continued to receive treatment with ceftriaxone as she has no history of MRSA or Pseudomonas. The patient reported urine culture from another facility from 07/09/2024 showing gram-negative bacilli. The patient continued to receive antiemetic medicine for ongoing nausea and vomiting initially with gradual improvement.The patient mentioned that prochlorperazine was more effective than ondansetron in treating her GI symptoms and is requesting this medicine instead of her home ondansetron. Urology was consulted and negative urine and blood cultures were discussed as well as the ongoing febrile state of the patient on day 2. Recommendations are to continue ceftriaxone until afebrile for 24 hours then discharged home on cefpodoxime to complete a total of 10 days of treatment from when ciprofloxacin was initiated by urology. Patient will be discharged home on cefpodoxime 200 mg oral twice a day until 08/03/2024 as well as short course of probiotics. The patient chronic conditions were manage as per her home medicine regimen. The patient will have to follow-up with PCP within a week of discharge. The patient is to keep her follow-up appointment with urology as previously scheduled. Discussed with Dr. Freedman Home Meds and New Rx's Prescriptions: New cefpodoxime 200 mg tablet 200 mg PO BID Qty: 12 0RF Rx Instructions: must administer with a meal/food prochlorperazine maleate [Compazine] 5 mg tablet 5 mg PO TID PRNQty: 10 0RF Bio-K plus 50 billion cell capsule,delayed release(DR/EC) 1 cap PO DAILY Qty: 10 0RF Continued oxycodone 10 mg tablet 10 mg PO Q6H MDD 4 PRN (Reason: pain) Qty: 30 0RF oxybutynin chloride 5 mg tablet 5 mg PO TID PRN (Reason: bladder spasms) Qty: 60 1RF ipratropium-albuterol 0.5 mg-3 mg(2.5 mg base)/3 mL solution for nebulization 3 ml INHALATION Q6H PRN Patient Comments: no longer taking albuterol sulfate [ProAir HFA] 90 mcg/actuation HFA aerosol inhaler 1 - 2 puff INHALATION PRN PRN methylphenidate HCl [Ritalin] 20 mg Tablet 20 mg PO TID levalbuterol HCl 1.25 mg/3 mL Solution For Nebulization 1.25 mg UPD Q4H PRN PRNQty: 90 1RF Discontinued ciprofloxacin HCl 500 mg tablet 500 mg PO BID Qty: 20 0RF ondansetron HCl 4 mg tablet 4 mg PO Q8H PRN (Reason: nausea and vomiting) Qty: 20 0RF Discharge Instructions Stand Alone Forms: Nursing Discharge Form Referrals: Corin Rosario [Primary Care Provider] - 08/04/24 2:30 pm () Quan Lebron MD [ [facility] STAFF PHYSICIAN] - Activity:: Activity as Tolerated Equipment/Supplies:: No Equipment Needed Diet:: As Tolerated Discharge Orders Discharge Orders: Discharge Order (Routine); Ordered 07/29/24 Ordered By: Radha Borges DS: Summary Time Spent with Patient providing and/or coordinating discharge services: Greater than 30 minutes Status at Discharge Functional status at discharge: uses cane/walker Overall status at discharge: patient is progressing back to baseline Mental Status: mental status grossly normal Speech and Movement: speech and movement normal Mood: congruent mood Affect: normal affect Quality:SDOH Health Related Social Needs: No Data to Display Exam Narrative Exam Narrative: Constitutional The patient is without acute distress HENMT: Facial structures with normal appearance Neuro:alert and oriented X4, non-focal Resp: Unlabored breathing, clear lung bilaterally Cardio: regular rhythm, S1, S2, no murmur, no edema GI: Abdomen is not distended, soft with RUQ tenderness, bowel sounds are present : Positive right costovertebral angle tenderness- improved from prior Extremities: strength 5/5 to bilateral lower and upper extremities Psych: RASS 0, congruent mood and normal affect. Psych Mental Status: mental status grossly normal Speech and Movement: speech and movement normal Mood: congruent mood Affect: normal affect DS: Data Vitals/I&O Vitals and I&O: Vital Signs Temperature 35.4 C L 07/29/24 07:23 Temperature Source Temporal Artery Scan 07/29/24 07:23 Pulse 54 L 07/29/24 07:23 Pulse Rhythm Regular 07/27/24 03:29 Respiratory Rate 17 07/29/24 07:23 Respiratory Effort Normal 07/27/24 03:29 Respiratory Depth Normal 07/27/24 03:29 Respiratory Pattern Normal 07/27/24 03:29 Blood Pressure 121/63 07/29/24 07:23 Blood Pressure Mean 89 07/27/24 03:01 Pulse Oximetry 94 07/29/24 07:23 Oxygen Delivery Method Room Air 07/29/24 07:23 Oxygen Flow Rate 0 07/29/24 07:23 Pain Level 0 07/29/24 07:03 Comment pT states, A little bit of pain, not bad. 07/27/24 07:17 Comment 2 lpm nc 07/26/24 22:59 Intake & Output 07/28/24 07/28/24 07/29/24 11:59 23:59 11:59 Intake Total 1250 / 2660 1410 / 2660 Balance 1250 / 2660 1410 / 2660 Intake: IV 1010 / 2060 1050 / 2060 Oral 240 / 600 360 / 600 Other: Urine Color Yellow Urine Appearance Clear Comment self reported self reported Stool Size Moderate Stool Characteristics Hard Voiding Methods Toilet Toilet Toilet Data Completed and Pending Labs on day of discharge: Labs from last 24 hours 07/29/24 07/29/24 06:55 05:59 WBC 5.48 RBC 3.72 L Hgb 10.0 L Hct 30.0 L MCV 81 MCH 26.9 L MCHC 33.3 RDW 13.2 Plt Count 211 MPV 9.3 Immature Gran % 0.2 Neutrophils % 53.4 Lymphocytes % 27.9 Monocytes % 13.5 Eosinophils % 4.6 Basophils % 0.4 Nucleated RBC % 0.0 Absolute Neutrophils 2.93 Absolute Lymphocytes 1.53 Absolute Monocytes 0.74 Absolute Eosinophils 0.25 Absolute Basophils 0.02 Sodium 141 Cancelled Potassium 3.4 L Cancelled Chloride 105 Cancelled Carbon Dioxide 26.8 Cancelled Anion Gap 9.2 Cancelled BUN 7 Cancelled Creatinine 0.7 Cancelled Est GFR (CKD-EPI 2020) 104.00 Cancelled Glucose 107 H Cancelled Calcium 8.9 Cancelled Preliminary micro results at discharge 07/26/24 23:20 Blood Culture - Preliminary Blood NO GROWTH 48 HOURS 07/26/24 22:56 Blood Culture - Preliminary Blood NO GROWTH 48 HOURS PFSH All Active Problems (Updated 07/28/24 @ 09:34 by Radha Borges APRN) Anemia (Chronic) Nausea & vomiting (Acute) Sepsis (Acute) Acute pyelonephritis (Acute) Hematuria (Acute) Fever postop (Acute) Hyperplastic colon polyp (Acute ~08/06/23) Stress incontinence (Acute) Hydronephrosis (Acute) Diverticula of colon (Acute) Adenomatous polyp of sigmoid colon (Acute) Screening for malignant neoplasm of colon performed (Acute) Maltracking of left patella (Acute) Chondromalacia of left patellofemoral joint (Acute) ADHD (Chronic) History of section (Chronic) S/P hysterectomy (Chronic) Migraine (Chronic) Encounter for screening for other viral diseases (Acute) Fever (Acute) Fatigue (Acute) Acute bronchitis with bronchospasm (Acute) GERD (gastroesophageal reflux disease) (Chronic) Acute esophagitis (Acute) Insomnia (Acute) DVT prophylaxis (Acute) Pill dysphagia (Acute) Post-nasal drip (Acute) Encounter for screening laboratory testing for COVID-19 virus (Acute) Pneumonia due to COVID-19 virus (Acute) Screening for colon cancer (Acute) Abdominal pain (Acute) Acne (Acute) Medical History Hypokalemia History of asthma Periodic limb movement sleep disorder Mixed hyperlipidemia Hypersomnia Family history of cardiovascular disease Ovarian cyst Gastritis Carpal tunnel syndrome Polycystic ovaries Hyperglycemia Rosacea ADAIR (obstructive sleep apnea) Insomnia Depressive disorder Claustrophobia Severe obesity Nephrolithiasis Surgical History Hx of reduction mammoplasty S/P gastric bypass History of colonoscopy (~07/2023) Hx of hysterectomy H/O LEEP (~1998) Hx of cholecystectomy (~2000) H/O ureteroscopy (~2020) H/O cystoscopy (~2020) Family History Mother Heart disease Diabetes Hypertension Father Diabetes Hypertension Social History Smoking/Tobacco Use Status: Former Tobacco Use Quit Date: 11/19/99 Smoking risk assessment performed?: Yes Alcohol Intake: never Drug use: Never Substance use type: does not use Housing: house Current gender identity: female Do you feel safe at home: Yes Do you feel safe in your relationship?: Yes Time Spent with Patient Time Spent with Patient: >85 minutes Time was spent: preparing to see the patient(eg.review tests), obtaining and/or reviewing separately otained hiistory, ordering medications,tests, procedures, referring, communicating with other health customer care specialist, indepentently interpreting results, counseling the patient and care coordination
--- NOTE | 2024-07-29 09:54 | PDOC.CMDIS ---
Date of service: 07/29/24 Time of Service: 09:54 LACE Index Scoring Tool Questions: Length of Stay (in days): 2 Was the patient admitted via the E.D.?: Yes E.D. Visits: 4 Answers: Total Score: 9 Risk of Readmission: Low Risk Care Management Discharge Plan Reason for Hospitalization: pyelonephritis Discharge Plan: Katty will be discharged home with no new services. She will follow up with her PCP, Urology and plan of care. She will continue to take her antibiotics (Cefpodoxime) until 08/03/24 and will transport with family. Patient/Family Education Needs: Review of discharge instructions, activity, limitations, follow up plan and discuss Ask Me Three SDVT Health Related Social Needs: No Data to Display
[2024-07-29 15:49] VITALS: BP 134/81; PULSE 61; RESP 17; TEMP 36.3; O2SAT 97
--- NOTE | 2024-07-29 16:04 | NUR.NOTE ---
Nursing Note:D/C instructions reviewed with pt, pt verbalized understanding of all instructions. IV removed. Pt sent home with all belongings, including meds from pharmacy. Pt ambulated off unit with this RN and pts at 1602.
== END 2024-07-29 16:01 | disposition home or self-care (01) | DRG 863 ==
LOC: ER 07-27 02:50 → MS 07-27 03:26
PROVIDERS: Nurse Practitioner Acute Care; Admitting Provider Student in an Organized Health Care Education/Training Program; Emergency Provider Emergency Medicine; PCP Nurse Practitioner Family; Visit Provider Student in an Organized Health Care Education/Training Program
DX: T81.40XA Infection following a procedure, unspecified, initial encounter (principal); N10 Acute pyelonephritis; F90.9 Attention-deficit hyperactivity disorder, unspecified type; D64.9 Anemia, unspecified; R11.2 Nausea with vomiting, unspecified; G43.909 Migraine, unspecified, not intractable, without status migrainosus; K21.9 Gastro-esophageal reflux disease without esophagitis; G47.00 Insomnia, unspecified; N39.3 Stress incontinence (female) (male); K57.30 Diverticulosis of large intestine without perforation or abscess without bleeding; M94.262 Chondromalacia, left knee; E87.6 Hypokalemia; Z87.442 Personal history of urinary calculi; Z87.891 Personal history of nicotine dependence; Z98.84 Bariatric surgery status
CPT/HCPCS: 00123; 36415; 80048; 80053; 82805; 84145; 87040; 87637; 96365; 96366; 96367; 96375; 99285; J1650; 74177; 81003; 81015; 83605; 83735; 85025; 87086; 99222; 99233; 99239; J0696; J0780; J1885; J2543; J3370; J3480; J3490

== ENCOUNTER 2024-11-04 19:40 | Outpatient (REF) | payer MEDICAID, SELFPAY ==
[2024-11-04 20:51] LABS: *AMPHETAMINES SCREEN URINE Negative (Negative); *BARBITURATES SCREEN URINE Negative (Negative); *BENZODIAZEPINES SCREEN URINE Negative (Negative); Cannabinoids THC Negative (Negative); Cocaine Screen,Urine Negative (Negative); METHADONE URINE SCREEN Negative (Negative); OPIATES URINE SCREEN Negative (Negative)
[2024-11-04 20:52] LABS: Tricyclic Antidepressants Negative (Negative)
== END 2024-11-04 19:41 | disposition home or self-care (01) ==
LOC: LBN 19:40
PROVIDERS: PCP Nurse Practitioner Family; Visit Provider Urology
DX: Z79.899 Other long term (current) drug therapy (principal); R10.9 Unspecified abdominal pain; N20.0 Calculus of kidney
CPT/HCPCS: 80307

== ENCOUNTER 2024-12-07 00:38 | Emergency (ER) | payer MEDICAID, SELFPAY ==
[2024-12-07 00:41] VITALS: BP 142/129; PULSE 81; RESP 20; TEMP 36.8; O2SAT 97
[2024-12-07 00:47] VITALS: BP 126/101; PULSE 82; RESP 20; TEMP 36.8; O2SAT 96
[2024-12-07 01:12] LABS: Abs Immature Grans 0.02 10^3/uL (0.0-0.06); Absolute Basophil Count 0.03 10^3/uL (0.0-0.2); Absolute Eosinophil Count 0.21 10^3/uL (0.0-0.7); Absolute Lymphocyte Count 2.21 10^3/uL (1.2-3.4); Absolute Monocyte Count 0.61 10^3/uL (0.1-0.8); Absolute Neutrophil Count 4.46 10^3/uL (1.2-6.7); Basophils % 0.4 %; Eosinophils % 2.8 %; HCT 39.1 % (36.0-46.0); HGB 13.1 g/dL (11.2-15.7); Immature Grans % 0.3 %; Lymphocytes % 29.3 %; MCH 27.3 pg (27.0-33.0); MCHC 33.5 % (32.0-36.0); MCV 82 fL (80-95); MPV 8.8 fL (8.0-11.0); Monocytes % 8.1 %; Neutrophils % 59.1 %; Platelet Count 319 10^3/uL (130-400); RDW 13.9 % (11.7-14.6); RDW-SD 40.6 fL; WBC 7.54 10^3/uL (4.4-10.8)
[2024-12-07 01:17] LABS: Bilirubin Small (Negative); Blood Trace-intact (Negative); Clarity Clear (Clear); Glucose Negative (Negative); Ketones Negative (Negative); Leukocyte Esterase Trace (Negative); Nitrite Negative (Negative); Specific Gravity >= 1.030 (1.005-1.025); Urobilinogen 0.2 mg/dL (Up to 0.2)
[2024-12-07 01:21] LABS: Bacteria Few HPF (Negative); Crystals Negative HPF (Negative); Epithelial Cells Few HPF (Negative)
[2024-12-07 01:22] LABS: C & S Indicated? C&S Done As Ordered; Casts Negative LPF (Negative); Mucus Trace (Negative)
--- NOTE | 2024-12-07 01:28 | DI.CT_ITS ---
Exam(s) CT ABDOMEN PELVIS WO EXAM: CT ABDOMEN PELVIS WO CLINICAL HISTORY: right flank pain, hx of kidney stones. TECHNIQUE: Imaging Protocol: Axial computed tomography images with coronal and sagittal reformatted images were created and reviewed. Oral: no COMPARISON: CT CT ABDOMEN PELVIS W from 07/27/2024 FINDINGS: Lung Bases: No acute findings. Liver: Normal density. No suspicious mass. Gallbladder and biliary tract: Status post cholecystectomy. No biliary dilation. Pancreas: Normal density. No abnormal calcifications or inflammatory process. Spleen: Normal. Kidneys: Normal size, contour and axis. Duplicated right collecting system. No radiodense stones. No obstructive uropathy. No suspicious masses seen. Adrenal glands: No masses seen. Lymph nodes: Within normal limits. Vasculature: Abdominal aorta non-dilated. Mild atherosclerotic changes. Soft tissues: Unremarkable. Bladder: Nearly empty. No wall thickening. No mass or calculi. There is a calcification below the base of the bladder which is chronic. Bowel: Suture material at stomach. Small bowel anastomosis. No obstruction or bowel wall thickening . Appendix normal. Minimal diverticulosis. No evidence of diverticulitis. Peritoneal cavity: No ascites. No focal collection. No mesenteric inflammatory response. Reproductive organs: Status post hysterectomy. Bones: Stable mild L4-5 spondylolisthesis. IMPRESSION: No acute abnormality in the abdomen or pelvis. RADIATION DOSE DELIVERED: Total DLP DATA REPOSITORY: All CT scans at this facility are submitted to the National Radiology Data Registry (NRDR) Dose Index Registry (DIR) with the [employer] ([employer]). RADIATION OPTIMIZATION: All CT scans at this facility use at least one of these dose optimization te chniques: automated exposure control; mA and/or kV adjustment per patient size (includes targeted exa ms where dose is matched to clinical indication); or iterative reconstruction.
[2024-12-07 01:29] LABS: ALT 25 U/L (14-59); AST 23 U/L (15-37); Albumin 4.3 g/dL (3.4-5.0); Alkaline Phosphatase 133 U/L (46-116); Anion Gap 9.5 mmol/L (3-11); BUN 13 mg/dL (7-18); Bilirubin, Total 2.02 mg/dL (0.2-1.0); CO2 30.5 mmol/L (21.0-32.0); CREATININE 0.8 mg/dL (0.55-1.02); Calcium 10.1 mg/dL (8.5-10.1); Chloride 103 mmol/L (98-107); Glucose 100 mg/dL (74-106); Sodium 143 mmol/L (136-145); Total Protein 8.6 g/dL (6.4-8.2)
[2024-12-07 01:40] LABS: Procalcitonin < 0.10 ng/mL
[2024-12-07] MEDS: ACETAMINOPHEN 1,000 MG/100 ML BAG 400 MG IVPB (01:45)
[2024-12-07] MEDS: Ketorolac 15 MG/ML VIAL IVP (01:57)
[2024-12-07] MEDS: cefTRIAXone 2 GM/50 ML BAG IVPB (02:33)
--- NOTE | 2024-12-07 02:37 | W.ED.GENAD ---
Discharge Plan Disposition Patient Disposition: Home Condition: Good Discharge Details Clinical Impression: Urinary tract infection Primary Care Provider: Corin Rosario ED Provider: Eulalio Arellano Home Meds and New Rx's Prescriptions: New cefpodoxime 200 mg tablet 200 mg PO BID 10 Days Qty: 20 0RF Rx Instructions: must administer with a meal/food No Action zolpidem [Ambien CR] 6.25 mg tablet,ext release multiphase 6.25 mg PO QHS ondansetron HCl 4 mg tablet 4 mg PO Q6H budesonide-formoterol [Symbicort] 80-4.5 mcg/actuation HFA aerosol inhaler 1 puff inhalation ONCE oxybutynin chloride 5 mg tablet 5 mg PO TID PRN (Reason: bladder spasms) Qty: 60 1RF ondansetron 4 mg tablet,disintegrating See Rx Instructions .ROUTE .COMPLEX Qty: 30 1RF Dose Instruction: TAKE 1 TABLET BY MOUTH EVERY 8 HOURS NEEDED FOR NAUSEA OR VOMITING Rx Instructions: TAKE 1 TABLET BY MOUTH EVERY 8 HOURS NEEDED FOR NAUSEA OR VOMITING oxycodone 5 mg tablet 5 - 10 mg PO Q6H MDD 10 PRN (Reason: pain) Qty: 70 0RF ipratropium-albuterol 0.5 mg-3 mg(2.5 mg base)/3 mL solution for nebulization 3 ml INHALATION Q6H PRN Patient Comments: no longer taking albuterol sulfate [ProAir HFA] 90 mcg/actuation HFA aerosol inhaler 1 - 2 puff INHALATION PRN PRN methylphenidate HCl [Ritalin] 20 mg Tablet 20 mg PO TID levalbuterol HCl 1.25 mg/3 mL Solution For Nebulization 1.25 mg UPD Q4H PRN PRNQty: 90 1RF Bio-K plus 50 billion cell capsule,delayed release(DR/EC) 1 cap PO DAILY Qty: 10 0RF Discharge Instructions Instructions: Urinary Tract Infection, Adult ED Additional Instructions: At this time there does not appear to be any obstructing kidney stones. You do have a urinary tract infection. Please take the cefpodoxime as prescribed. If you notice any worsening of your symptoms, or any new symptoms such as vomiting, diarrhea, fever, chills, shortness of breath, chest pain, numbness, weakness, or fainting , please return immediately to the emergency department for reevaluation. Please follow up with your primary care provider as soon as possible for reassessment and reevaluation. As always, it was a pleasure participating in your medical care today. Referrals: Corin Rosario [Primary Care Provider] - Quan Lebron MD [ [facility] STAFF PHYSICIAN] - HPI General Date/Time Provider Initiated Documentation: 12/07/24 01:03. HPI Narrative: This is a very pleasant 54-year-old female with past medical history of recurrent kidney stones, previous urinary infections, polycystic ovaries, obstructive sleep apnea, who presents today for right-sided flank pain. Patient states that symptoms have been present for the last few weeks, however over the last few days she has noticed a change in her urine odor color and consistency. She denies any blood. She denies fever or chills. Chronic right flank pain has been worsening. She denies vomiting or diarrhea. She is not on any antibiotics currently. Most recent procedure elicitation was over a month ago. No other complaints at this time. She does have a pain contract, and has been taking her regularly prescribed medications without change. She has taken occasional intermittent additional NSAID therapy. No significant improvement of her pain with this though. Related Data Home Medications ?Medication ?Instructions ?Recorded ?Confirmed methylphenidate HCl 20 mg tablet 20 mg PO TID 02/04/21 12/07/24 (Ritalin) levalbuterol HCl 1.25 mg/3 mL 1.25 mg (3 mL) UPD Q4H PRN PRN #90 02/08/21 12/07/24 solution for nebulization mL albuterol sulfate 90 mcg/actuation 1 - 2 puff inhalation PRN PRN 08/02/21 12/07/24 aerosol inhaler (ProAir HFA) ipratropium 0.5 mg-albuterol 3 mg 3 ml inhalation Q6H PRN 08/02/21 12/07/24 (2.5 mg base)/3 mL nebulization soln L. acidophilus,casei,rhamnosus 50 1 cap PO DAILY #10 caps 07/29/24 12/07/24 billion cell capsule,delayed release (Bio-K plus) zolpidem 6.25 mg tablet,extended 6.25 mg PO QHS 09/09/24 12/07/24 release,multiphase (Ambien CR) budesonide-formoterol HFA 80 1 puff inhalation ONCE 09/23/24 12/07/24 mcg-4.5 mcg/actuation aerosol inhaler (Symbicort) ondansetron HCl 4 mg tablet 4 mg PO Q6H 09/23/24 12/07/24 oxybutynin chloride 5 mg tablet 5 mg PO TID PRN bladder spasms #60 10/02/24 12/07/24 tabs ondansetron 4 mg disintegrating See Rx Instructions .Route 11/07/24 12/07/24 tablet .COMPLEX #30 tabs oxycodone 5 mg tablet 5 - 10 mg (1 - 2 x 5 mg) PO Q6H 11/28/24 12/07/24 PRN pain #70 tabs cefpodoxime 200 mg tablet 200 mg PO BID 10 days #20 tabs 12/07/24 Previous Rx's ?Medication ?Instructions ?Recorded levalbuterol HCl 1.25 mg/3 mL 1.25 mg (3 mL) UPD Q4H PRN PRN #90 02/08/21 solution for nebulization mL L. acidophilus,casei,rhamnosus 50 1 cap PO DAILY #10 caps 07/29/24 billion cell capsule,delayed release (Bio-K plus) oxybutynin chloride 5 mg tablet 5 mg PO TID PRN bladder spasms #60 10/02/24 tabs ondansetron 4 mg disintegrating See Rx Instructions .Route 11/07/24 tablet .COMPLEX #30 tabs oxycodone 5 mg tablet 5 - 10 mg (1 - 2 x 5 mg) PO Q6H 11/28/24 PRN pain #70 tabs cefpodoxime 200 mg tablet 200 mg PO BID 10 days #20 tabs 12/07/24 Allergies Allergy/AdvReac Type Severity Reaction Status Date / Time No Known Allergies Allergy Verified 12/07/24 00:45 General Stated Complaint: FlankPain RASHID: 3 Exam Narrative Exam Narrative: 1.Const: Well-nourished, Well-developed, appearing stated age 2.Eyes: PERRL, no conjunctival injection, and symmetrical lids. 3.ENT: Atraumatic external nose and ears. Moist MM. Neck: Symmetric, trachea midline, No thyromegaly. 4.CVS: +S1/S2, Peripheral pulses 2+ and equal in all extremities. Brisk capillary refill in all extremities. 5.RESP: Unlabored respiratory effort. Clear to auscultation bilaterally. No wheezes rales or rhonchi 6.GI: Soft, Nontender/Nondistended, No hepatosplenomegaly. No guarding or rebound. Mild to moderate right sided CVA tenderness. 7.MSK: Normocephalic/Atraumatic, Extremities w/o deformity or ttp No cyanosis or clubbing, Normal movement of all extremities 8.Skin: Warm, Dry. No rashes or lesions. 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 Sensation grossly intact, no focal neurologic deficits. 10.Psych: (AAO) x3. Appropriate mood and affect Course Vital Signs Vital signs: Vital Signs Temperature 36.8 C 12/07/24 00:41 Pulse 81 12/07/24 00:41 Respiratory Rate 20 12/07/24 00:41 Blood Pressure 142/129 H 12/07/24 00:41 Pulse Oximetry 97 12/07/24 00:41 Temperature 36.8 C 12/07/24 00:47 Pulse 82 12/07/24 00:47 Respiratory Rate 20 12/07/24 00:47 Blood Pressure 126/101 H 12/07/24 00:47 Blood Pressure Position Sitting 12/07/24 00:47 Pulse Oximetry 96 12/07/24 00:47 Pain Level 9 12/07/24 02:10 Lab/Test Results Lab/Test Results: 12/07/24 00:48 Urine - Voided Urine Culture - Pending Laboratory Tests Range/Units 12/07/24 12/07/24 00:48 01:02 WBC (4.4-10.8) 10^3/uL 7.54 RBC (3.93-5.22) 10^6/uL 4.80 Hgb (11.2-15.7) g/dL 13.1 Hct (36.0-46.0) % 39.1 MCV (80-95) fL 82 MCH (27.0-33.0) pg 27.3 MCHC (32.0-36.0) % 33.5 RDW (11.7-14.6) % 13.9 Plt Count (130-400) 10^3/uL 319 MPV (8.0-11.0) fL 8.8 Immature Gran % % 0.3 Neutrophils % % 59.1 Lymphocytes % % 29.3 Monocytes % % 8.1 Eosinophils % % 2.8 Basophils % % 0.4 Nucleated RBC % (0.0-0.3) % 0.0 Absolute Neutrophils (1.2-6.7) 10^3/uL 4.46 Absolute Lymphocytes (1.2-3.4) 10^3/uL 2.21 Absolute Monocytes (0.1-0.8) 10^3/uL 0.61 Absolute Eosinophils (0.0-0.7) 10^3/uL 0.21 Absolute Basophils (0.0-0.2) 10^3/uL 0.03 Sodium (136-145) mmol/L 143 Potassium (3.5-5.1) mmol/L 3.0 L Chloride (98-107) mmol/L 103 Carbon Dioxide (21.0-32.0) mmol/L 30.5 Anion Gap (3-11) mmol/L 9.5 BUN (7-18) mg/dL 13 Creatinine (0.55-1.02) mg/dL 0.8 Est GFR (CKD-EPI 2020) (mL/min/1.73m2) 88.60 Glucose (74-106) mg/dL 100 Calcium (8.5-10.1) mg/dL 10.1 Total Bilirubin (0.2-1.0) mg/dL 2.02 H AST (15-37) U/L 23 ALT (14-59) U/L 25 Alkaline Phosphatase (46-116) U/L 133 H Total Protein (6.4-8.2) g/dL 8.6 H Albumin (3.4-5.0) g/dL 4.3 Procalcitonin ng/mL < 0.10 Urine Color (Yellow) Yellow Urine Clarity (Clear) Clear Urine pH (5-8) 6.0 Ur Specific [place] (1.005-1.025) >= 1.030 H Urine Protein (Neg-Trace) mg/dL 30 H Urine Ketones (Negative) mg/dL Negative Urine Blood (Negative) Trace-intact H Urine Nitrite (Negative) Negative Urine Bilirubin (Negative) Small H Urine Urobilinogen (Up to 0.2) mg/dL 0.2 Ur Leukocyte Esterase (Negative) Trace H Urine RBC (0-2) HPF 5-10 H Urine WBC (0-5) HPF 10-20 H Ur Epithelial Cells (Negative) HPF Few Urine Crystals (Negative) HPF Negative Urine Bacteria (Negative) HPF Few Urine Casts (Negative) LPF Negative Urine Mucus (Negative) Trace Ur Culture Indicated? C&S Done As Ordered Urine Glucose (Negative) mg/dL Negative Medical Decision Making This is a very pleasant 54-year-old female with past medical history of recurrent kidney stones, previous urinary infections, polycystic ovaries, obstructive sleep apnea, who presents today for right-sided flank pain. Patient states that symptoms have been present for the last few weeks, however over the last few days she has noticed a change in her urine odor color and consistency. She denies any blood. She denies fever or chills. Chronic right flank pain has been worsening. She denies vomiting or diarrhea. She is not on any antibiotics currently. Most recent procedure elicitation was over a month ago. No other complaints at this time. She does have a pain contract, and has been taking her regularly prescribed medications without change. She has taken occasional intermittent additional NSAID therapy. No significant improvement of her pain with this though. Exam demonstrates well-appearing female, vital signs stable, no fever. Mild right-sided CVA tenderness though. No guarding or rebound in the abdomen. Urinalysis was ordered and shows trace leuk esterase 10-20 WBCs 5-10 RBCs. Laboratory workup shows no white count bandemia or left shift, normal renal function. No other significant abnormalities. Patient was given Toradol and Ofirmev without significant improvement of her symptoms. CT scan was ordered and shows no evidence of acute process, kidney stone, or other abnormality acutely. Suspect UTI to be the cause of her symptomatology. There does appear to be a phlebolith noted near her right ureter, but radiology does not feel this to be intra ureter. Patient will be given 2 g of ceftriaxone here and cefpodoxime for home use. She will follow-up closely with Dr. Lebron. I have extensively reviewed the treatment plan and discharge instructions with the patient. I have addressed all patient concerns at this time. The patient was made aware of what symptoms to monitor for that would warrant a return to the emergency department. Discussed the plan with the patient, they demonstrate verbal understanding and agreement with our assessment and plan at this time. The documentation in this chart was dictated using [employer] dictation software. Please excuse any dictation errors. FINDINGS: Limitations: No intravenous contrast was administered, limiting evaluation for some pathologies. Liver: No focal hepatic lesion identified, within the limitations of a noncontrast examination. Gallbladder and biliary ducts: Cholecystectomy. Pancreas: No CT evidence for acute pancreatitis. Spleen: No splenomegaly. Adrenal glands: No mass. Kidneys and ureters: Duplicated right renal collecting system. No radiopaque renal, ureteral, or bladder calculi are identified. There is no hydronephrosis. Stomach and bowel: Gastric bypass surgery. No intestinal obstruction is evident. Fluid in nondilated small bowel, nonspecific. Areas of apparent mural thickening in the colon commensurate with underdistention. Colonic diverticula. Appendix: No evidence of appendicitis. Intraperitoneal space: No free air. Vasculature: Arterial calcifications. Lymph nodes: Nonspecific mesenteric lymph nodes. Urinary bladder: No bladder calculi seen. Reproductive: Uterus absent. Bones/joints: Anterolisthesis of L4 on L5. Soft tissues: No pertinent acute abnormality seen. IMPRESSION: 1. No acute findings to explain reported symptoms, within the limitations of a noncontrast examination. 2. Nonacute findings as outlined above. Thank you for allowing us to participate in the care of your patient. Dictated and Authenticated by: Mayela Morrow MD 12/07/2024 2:39 AM Eastern Time ([place] & [place]) Quality:SDOH Health Related Social Needs: No Data to Display PFSH All Active Problems (Updated 12/07/24 @ 02:43 by Eulalio Arellano DO) Urinary tract infection (Acute) Flank pain (Acute) Right flank pain, chronic (Acute) Anemia (Chronic) Sepsis (Acute) Acute pyelonephritis (Acute) Hematuria (Acute) Fever postop (Acute) Hyperplastic colon polyp (Acute ~08/06/23) Stress incontinence (Acute) Hydronephrosis (Acute) Diverticula of colon (Acute) Adenomatous polyp of sigmoid colon (Acute) Screening for malignant neoplasm of colon performed (Acute) Maltracking of left patella (Acute) Chondromalacia of left patellofemoral joint (Acute) ADHD (Chronic) History of section (Chronic) S/P hysterectomy (Chronic) Migraine (Chronic) Encounter for screening for other viral diseases (Acute) Fever (Acute) Fatigue (Acute) Acute bronchitis with bronchospasm (Acute) GERD (gastroesophageal reflux disease) (Chronic) Acute esophagitis (Acute) Insomnia (Acute) DVT prophylaxis (Acute) Pill dysphagia (Acute) Post-nasal drip (Acute) Encounter for screening laboratory testing for COVID-19 virus (Acute) Pneumonia due to COVID-19 virus (Acute) Screening for colon cancer (Acute) Abdominal pain (Acute) Acne (Acute) Medical History Hypokalemia History of asthma Periodic limb movement sleep disorder Mixed hyperlipidemia Hypersomnia Family history of cardiovascular disease Ovarian cyst Gastritis Carpal tunnel syndrome Polycystic ovaries Hyperglycemia Rosacea ADAIR (obstructive sleep apnea) Insomnia Depressive disorder Claustrophobia Severe obesity Nephrolithiasis Surgical History Hx of reduction mammoplasty S/P gastric bypass History of colonoscopy (~07/2023) Hx of hysterectomy H/O LEEP (~1998) Hx of cholecystectomy (~2000) H/O ureteroscopy (~2020) H/O cystoscopy (~2020) Family History Mother Heart disease Diabetes Hypertension Father Diabetes Hypertension Social History Smoking/Tobacco Use Status: Former Tobacco Use Quit Date: 11/19/99 Smoking risk assessment performed?: Yes Alcohol Intake: never Drug use: Never Substance use type: does not use Housing: house Current gender identity: female Do you feel safe at home: Yes Do you feel safe in your relationship?: Yes
--- NOTE | 2024-12-07 02:39 | DI.VRAD_ITS ---
PROCEDURE INFORMATION: Exam: CT Abdomen And Pelvis Without Contrast Exam date and time: 12/07/2024 1:20 AM Age: 54 years old Clinical indication: Other: Right flank pain, HX of kidney stones; Prior surgery; Surgery date: 1-6 months; Surgery type: Cystoscopy 5+ times TECHNIQUE: Imaging protocol: Computed tomography of the abdomen and pelvis without contrast. COMPARISON: CT ABDOMEN PELVIS W 07/27/2024 1:16 AM FINDINGS: Limitations: No intravenous contrast was administered, limiting evaluation for some pathologies. Liver: No focal hepatic lesion identified, within the limitations of a noncontrast examination. Gallbladder and biliary ducts: Cholecystectomy. Pancreas: No CT evidence for acute pancreatitis. Spleen: No splenomegaly. Adrenal glands: No mass. Kidneys and ureters: Duplicated right renal collecting system. No radiopaque renal, ureteral, or bladder calculi are identified. There is no hydronephrosis. Stomach and bowel: Gastric bypass surgery. No intestinal obstruction is evident. Fluid in nondilated small bowel, nonspecific. Areas of apparent mural thickening in the colon commensurate with underdistention. Colonic diverticula. Appendix: No evidence of appendicitis. Intraperitoneal space: No free air. Vasculature: Arterial calcifications. Lymph nodes: Nonspecific mesenteric lymph nodes. Urinary bladder: No bladder calculi seen. Reproductive: Uterus absent. Bones/joints: Anterolisthesis of L4 on L5. Soft tissues: No pertinent acute abnormality seen. IMPRESSION: 1. No acute findings to explain reported symptoms, within the limitations of a noncontrast examination. 2. Nonacute findings as outlined above. Dictated and Authenticated by: Mayela Morrow MD. Ordering:CELE Tsai MD
[2024-12-07 03:10] VITALS: BP 140/88; PULSE 86; RESP 20; TEMP 36.9; O2SAT 99
== END 2024-12-07 03:10 | disposition home or self-care (01) ==
PROVIDERS: Emergency Provider Student in an Organized Health Care Education/Training Program; PCP Nurse Practitioner Family
DX: N39.0 Urinary tract infection, site not specified (principal)
CPT/HCPCS: 80053; 84145; 96365; 96367; 96375; 99284; 74176; 81003; 81015; 85025; 87086; J0131; J0696; J1885

== ENCOUNTER 2024-12-16 08:15 | Outpatient (REF) | payer MEDICAID, SELFPAY ==
[2024-12-16 10:24] LABS: Bilirubin Negative (Negative); Blood Negative (Negative); Clarity Sl Cloudy (Clear); Glucose Negative (Negative); Ketones Negative (Negative); Leukocyte Esterase Negative (Negative); Nitrite Negative (Negative); Urobilinogen 0.2 mg/dL (Up to 0.2)
== END 2024-12-16 08:16 | disposition home or self-care (01) ==
LOC: LBN 08:15
PROVIDERS: PCP Nurse Practitioner Family; Visit Provider Urology
DX: R10.9 Unspecified abdominal pain (principal); N20.0 Calculus of kidney; G89.29 Other chronic pain
CPT/HCPCS: 81003; 87086

== ENCOUNTER 2025-01-19 13:09 | Outpatient (REF) | payer MEDICAID, SELFPAY ==
[2025-01-19 17:06] LABS: Bilirubin Negative (Negative); Blood Large (Negative); Clarity Cloudy (Clear); Glucose Negative (Negative); Ketones Negative (Negative); Leukocyte Esterase Negative (Negative); Nitrite Negative (Negative); Specific Gravity 1.015 (1.005-1.025); Urobilinogen 0.2 mg/dL (Up to 0.2)
[2025-01-19 17:09] LABS: C & S Indicated? No; RBC >50 HPF (0-2)
== END 2025-01-19 13:10 | disposition home or self-care (01) ==
LOC: LBN 13:09
PROVIDERS: PCP Nurse Practitioner Family; Visit Provider Urology
DX: R10.9 Unspecified abdominal pain (principal); R31.9 Hematuria, unspecified
CPT/HCPCS: 81003; 81015

== ENCOUNTER 2025-02-04 10:08 | Emergency (ER) | payer MEDICAID, SELFPAY ==
[2025-02-04 10:10] VITALS: BP 120/78; PULSE 78; RESP 16; TEMP 36.7; O2SAT 98
[2025-02-04 10:17] VITALS: BP 120/78; PULSE 78; RESP 16; TEMP 36.7; O2SAT 98
--- NOTE | 2025-02-04 10:34 | ED.GENADUL_ITS ---
Discharge Plan Disposition Patient Disposition: Home Condition: Stable Discharge Details Clinical Impression: Pyelonephritis Primary Care Provider: Corin Rosario ED Provider: Jo Posada Home Meds and New Rx's Prescriptions: New cephalexin 500 mg capsule 500 mg PO QID 10 Days Qty: 40 0RF No Action zolpidem [Ambien CR] 6.25 mg tablet,ext release multiphase 6.25 mg PO QHS budesonide-formoterol [Symbicort] 80-4.5 mcg/actuation HFA aerosol inhaler 1 puff inhalation ONCE ondansetron 4 mg tablet,disintegrating See Rx Instructions .ROUTE .COMPLEX Qty: 30 1RF Dose Instruction: TAKE 1 TABLET BY MOUTH EVERY 8 HOURS NEEDED FOR NAUSEA OR VOMITING Rx Instructions: TAKE 1 TABLET BY MOUTH EVERY 8 HOURS NEEDED FOR NAUSEA OR VOMITING oxycodone 5 mg tablet 5 - 10 mg PO Q6H MDD 10 PRN (Reason: pain) Qty: 70 0RF ipratropium-albuterol 0.5 mg-3 mg(2.5 mg base)/3 mL solution for nebulization 3 ml INHALATION Q6H PRN Patient Comments: no longer taking albuterol sulfate [ProAir HFA] 90 mcg/actuation HFA aerosol inhaler 1 - 2 puff INHALATION PRN PRN methylphenidate HCl [Ritalin] 20 mg Tablet 20 mg PO TID levalbuterol HCl 1.25 mg/3 mL Solution For Nebulization 1.25 mg UPD Q4H PRN PRNQty: 90 1RF Bio-K plus 50 billion cell capsule,delayed release(DR/EC) 1 cap PO DAILY Qty: 10 0RF Discharge Instructions Instructions: Urinary Tract Infection, Adult ED Additional Instructions: You were seen in the emergency department today for evaluation of right flank pain and urinary changes and were found to have a urinary tract infection known as pyelonephritis. In our department he also do full physical examination and had laboratory studies that were reassuring. You had a CT scan that does not show any renal stones, and were given your first dose of antibiotics here in the emergency department. We have started you on a course of Keflex, please take all this medication until it is gone, even if you start to feel better. Your potassium was on the low side of normal, you can supplement this through your diet with foods such as potatoes, bananas, fortified cereals, etc. Please follow-up with your primary care provider in the next few days to discuss this visit and any symptoms that change, worsen, or persist. Thank you for allowing us to be part of your care. HPI General Mode of arrival: ambulatory . Date/Time Provider Initiated Documentation: 02/04/25 10:18 . Limitations to Documentation: no limitations . Information obtained by: patient and old records reviewed . HPI Narrative: HPI: This is a 54-year-old female patient with a history of frequent renal stones, frequently requiring stenting, history of GERD, and chronic flank pain who is presenting for evaluation of right flank pain and foul-smelling urine. The patient reports that she has noted a change in her urine over the last few weeks, with cloudy color, foul odor, and increasing frequency/urgency. She de veloped right flank pain, has been managing at home with Tylenol, states that she follows with urology who is unfortunately not available at this week. She states that she developed a fever over the last few days and is concerned that she is developing pyelonephritis/sepsis like she had before. Her last urinary tract infection requiring antibiotics was 1 and half months ago, she has not had a renal stone since July of last year. She reports no abdominal pain, has been drinking fluids without nausea or vomiting. Exam: Gen: Awake and alert, in no apparent distress HEENT: Non-icteric sclera Neck: Supple Lungs: No apparent respiratory distress, normal respiratory effort. CV: Appears well perfused, heart with regular rate and rhythm, strong distal pulses Abdomen: Non-distended, soft, nontender without rigidity, rebound, guarding MSK: Moves 4 extremities without apparent limitation in ROM, right CVA tenderness present with no overlying skin changes Skin: Visualized skin without rashes, cyanosis. Neuro: Normal Gait, no obvious focal deficits or facial asymmetry. Speaks in full, clear sentences. Psych: Appropriate for situation. MDM: This is a 54-year-old female patient presenting for evaluation of right flank pain and urinary symptoms. Differential includes but is not limited to urinary tract infection, Pyelonephritis, renal stone, certainly considered infected stone, renal abscess. Reassuringly the patient does not have any fever or tachycardia at this time to suggest sepsis or bacteremia, consider kidney injury, metabolic and electrolyte derangement. This is a patient with a well- established history of stones, with no abdominal pain or concerning history to suggest AAA or other severe intra-abdominal pathology. I will provide the patient with a liter of IV fluids, Toradol, morphine, and Zofran for symptomatic management. Will obtain a urinalysis as well as CBC, CMP, and magnesium. I will obtain a CT renal stone to determine the presence of a stone in size. ED Course: I independently interpreted the laboratory studies, which show no significant leukocytosis, anemia, or thrombocytopenia. The chemistry panel is without evidence of electrolyte abnormality, kidney dysfunction, or liver injury, other than a mild hypokalemia which can be repleted by diet. Urinalysis is infectious appearing with nitrites, pyuria, and hematuria, and will be sent for culture. CT scan reviewed by myself, showing no evidence of obstructing renal stone or hydronephrosis. No other abnormalities appreciated or changes from baseline. The patient's examination and workup was most consistent with pyelonephritis. She received her first dose of ceftriaxone here in the emergency department, prescription for Keflex was sent to her pharmacy. At this time, the patient has had a full medical evaluation and is safe for discharge to home. They are hemodynamically stable, ambulatory, and tolerating PO. They are understanding of the follow-up plan and return precautions. They left our facility without incident. Jo Posada MD Related Data Home Medications ?Medication ?Instructions ?Recorded ?Confirmed methylphenidate HCl 20 mg tablet 20 mg PO TID 02/04/21 02/04/25 (Ritalin) levalbuterol HCl 1.25 mg/3 mL 1.25 mg (3 mL) UPD Q4H PRN PRN #90 02/08/21 02/04/25 solution for nebulization mL albuterol sulfate 90 mcg/actuation 1 - 2 puff inhalation PRN PRN 08/02/21 02/04/25 aerosol inhaler (ProAir HFA) ipratropium 0.5 mg-albuterol 3 mg 3 ml inhalation Q6H PRN 08/02/21 02/04/25 (2.5 mg base)/3 mL nebulization soln L. acidophilus,casei,rhamnosus 50 1 cap PO DAILY #10 caps 07/29/24 02/04/25 billion cell capsule,delayed release (Bio-K plus) zolpidem 6.25 mg tablet,extended 6.25 mg PO QHS 09/09/24 02/04/25 release,multiphase (Ambien CR) budesonide-formoterol HFA 80 1 puff inhalation ONCE 09/23/24 02/04/25 mcg-4.5 mcg/actuation aerosol inhaler (Symbicort) ondansetron 4 mg disintegrating See Rx Instructions .Route 11/07/24 02/04/25 tablet .COMPLEX #30 tabs oxycodone 5 mg tablet 5 - 10 mg (1 - 2 x 5 mg) PO Q6H 01/23/25 02/04/25 PRN pain #70 tabs cephalexin 500 mg capsule 500 mg PO QID 10 days #40 caps 02/04/25 Previous Rx's ?Medication ?Instructions ?Recorded levalbuterol HCl 1.25 mg/3 mL 1.25 mg (3 mL) UPD Q4H PRN PRN #90 02/08/21 solution for nebulization mL L. acidophilus,casei,rhamnosus 50 1 cap PO DAILY #10 caps 07/29/24 billion cell capsule,delayed release (Bio-K plus) ondansetron 4 mg disintegrating See Rx Instructions .Route 11/07/24 tablet .COMPLEX #30 tabs oxycodone 5 mg tablet 5 - 10 mg (1 - 2 x 5 mg) PO Q6H 01/23/25 PRN pain #70 tabs cephalexin 500 mg capsule 500 mg PO QID 10 days #40 caps 02/04/25 Allergies Allergy/AdvReac Type Severity Reaction Status Date / Time adhesive Allergy Intermediate Skin Rash Verified 02/04/25 10:18 General Stated Complaint: FlankPain RASHID: 3 Course Vital Signs Vital signs: Vital Signs Temperature 36.7 C 02/04/25 10:10 Pulse 78 02/04/25 10:10 Respiratory Rate 16 02/04/25 10:10 Blood Pressure 120/78 02/04/25 10:10 Pulse Oximetry 98 02/04/25 10:10 Temperature 36.7 C 02/04/25 10:17 Temperature Source Oral 02/04/25 10:17 Pulse 78 02/04/25 10:17 Respiratory Rate 16 02/04/25 10:17 Blood Pressure 120/78 02/04/25 10:17 Blood Pressure Position Sitting 02/04/25 10:17 Pulse Oximetry 98 02/04/25 10:17 Oxygen Delivery Method Room Air 02/04/25 10:17 Oxygen Flow Rate 0 02/04/25 10:10 Pain Level 6 02/04/25 10:17 Medical Decision Making Quality:SDOH Health Related Social Needs: No Data to Display PFSH All Active Problems (Updated 02/04/25 @ 11:54 by Jo Posada MD) Pyelonephritis (Acute) Flank pain (Acute) Right flank pain, chronic (Acute) Anemia (Chronic) Sepsis (Acute) Acute pyelonephritis (Acute) Hematuria (Acute) Fever postop (Acute) Hyperplastic colon polyp (Acute ~08/06/23) Stress incontinence (Acute) Hydronephrosis (Acute) Diverticula of colon (Acute) Adenomatous polyp of sigmoid colon (Acute) Screening for malignant neoplasm of colon performed (Acute) Maltracking of left patella (Acute) Chondromalacia of left patellofemoral joint (Acute) ADHD (Chronic) History of section (Chronic) S/P hysterectomy (Chronic) Migraine (Chronic) Encounter for screening for other viral diseases (Acute) Fever (Acute) Fatigue (Acute) Acute bronchitis with bronchospasm (Acute) GERD (gastroesophageal reflux disease) (Chronic) Acute esophagitis (Acute) Insomnia (Acute) DVT prophylaxis (Acute) Pill dysphagia (Acute) Post-nasal drip (Acute) Encounter for screening laboratory testing for COVID-19 virus (Acute) Pneumonia due to COVID-19 virus (Acute) Screening for colon cancer (Acute) Abdominal pain (Acute) Acne (Acute) Medical History Hypoxemia associated with sleep Hypokalemia History of asthma Periodic limb movement sleep disorder Mixed hyperlipidemia Hypersomnia Family history of cardiovascular disease Ovarian cyst Gastritis Carpal tunnel syndrome Polycystic ovaries Hyperglycemia Rosacea ADAIR (obstructive sleep apnea) Insomnia Depressive disorder Claustrophobia Severe obesity Nephrolithiasis Surgical History Hx of reduction mammoplasty S/P gastric bypass History of colonoscopy (~07/2023) Hx of hysterectomy H/O LEEP (~1998) Hx of cholecystectomy (~2000) H/O ureteroscopy (~2020) H/O cystoscopy (~2020) Family History Mother Heart disease Diabetes Hypertension Father Diabetes Hypertension Social History Smoking/Tobacco Use Status: Former Tobacco Use Quit Date: 11/19/99 Smoking risk assessment performed?: Yes Alcohol Intake: never Drug use: Never Substance use type: does not use Housing: house Current gender identity: female Do you feel safe at home: Yes Do you feel safe in your relationship?: Yes
[2025-02-04 10:39] LABS: Bilirubin Negative (Negative); Blood Large (Negative); Clarity Cloudy (Clear); Glucose Negative (Negative); Ketones Negative (Negative); Leukocyte Esterase Trace (Negative); Nitrite Positive (Negative); Specific Gravity 1.025 (1.005-1.025); Urobilinogen 0.2 mg/dL (Up to 0.2); pH 5.5 (5-8)
[2025-02-04 10:43] LABS: Abs Immature Grans 0.02 10^3/uL (0.0-0.06); Absolute Basophil Count 0.02 10^3/uL (0.0-0.2); Absolute Eosinophil Count 0.12 10^3/uL (0.0-0.7); Absolute Lymphocyte Count 1.51 10^3/uL (1.2-3.4); Absolute Monocyte Count 0.96 10^3/uL (0.1-0.8); Absolute Neutrophil Count 5.87 10^3/uL (1.2-6.7); Basophils % 0.2 %; Eosinophils % 1.4 %; HCT 38.9 % (36.0-46.0); Immature Grans % 0.2 %; Lymphocytes % 17.8 %; MCH 28.1 pg (27.0-33.0); MCHC 33.4 % (32.0-36.0); MCV 84 fL (80-95); MPV 8.4 fL (8.0-11.0); Monocytes % 11.3 %; Neutrophils % 69.1 %; Platelet Count 244 10^3/uL (130-400); RBC 4.62 10^6/uL (3.93-5.22); RDW 13.7 % (11.7-14.6); RDW-SD 42.2 fL
[2025-02-04 10:49] LABS: Bacteria Moderate HPF (Negative); Crystals Negative HPF (Negative); Epithelial Cells Few HPF (Negative); Mucus Negative (Negative); RBC >50 HPF (0-2)
[2025-02-04 10:50] LABS: C & S Indicated? Yes
[2025-02-04] MEDS: Ketorolac 15 MG/ML VIAL IVP (10:54)
[2025-02-04] MEDS: Ondansetron 4 MG/2 ML VIAL IVP (10:54)
[2025-02-04] MEDS: cefTRIAXone 1 GM/50 ML BAG IVPB (10:57)
[2025-02-04 10:58] LABS: ALT 19 U/L (14-59); AST 15 U/L (15-37); Albumin 3.8 g/dL (3.4-5.0); Alkaline Phosphatase 149 U/L (46-116); Anion Gap 10.2 mmol/L (3-11); BUN 8 mg/dL (7-18); Bilirubin, Total 0.9 mg/dL (0.2-1.0); CO2 28.8 mmol/L (21.0-32.0); CREATININE 0.7 mg/dL (0.55-1.02); Calcium 9.5 mg/dL (8.5-10.1); Chloride 106 mmol/L (98-107); Glucose 105 mg/dL (74-106); Potassium 3.3 mmol/L (3.5-5.1); Sodium 145 mmol/L (136-145); Total Protein 8.3 g/dL (6.4-8.2)
--- NOTE | 2025-02-04 11:10 | DI.CT_ITS ---
Exam(s) CT RENAL COLIC WO EXAM: CT RENAL COLIC WO CLINICAL HISTORY: R. flank pain, hx stones. TECHNIQUE: Imaging Protocol: Axial computed tomography images with coronal and sagittal reformatted images were created and reviewed. COMPARISON: CT CT RENAL COLIC WO from 02/04/[address] RENAL COLIC WO from 11/22/[address] ABDOMEN PELVIS WO/W from 09/11/2023 XA XR RETROGRADE IN OR from 09/24/[address] ABD/PELVIS WO CONTRAST from 12/27/2023 CR,XR XR ABDOMEN FLAT PLATE from 02/16/[address] ABD/PELVIS WO CONTRAST from 06/06/2024 XA XR RETROGRADE IN OR from 07/03/2024 XA XR RETROGRADE IN OR from 07/24/[address] ABDOMEN PELVIS W from 07/27/[address] ABDOMEN PELVIS WO from 12/07/2024 FINDINGS: Lung Bases: No acute findings. Liver: Normal density. No measurable mass. Gallbladder and biliary tract: cholecystectomy. No biliary ductal dilation. Pancreas: No abnormal calcifications or inflammatory process. Spleen: Normal size. Kidneys: Normal size, contour and axis.No radiodense stones or obstructive uropathy. No suspicious ma sses seen. Adrenal glands: No mass is seen. Lymph nodes: Within normal limits. Vasculature: Abdominal aorta non-dilated. Bladder:Calcification at the midline base of the bladder and again noted measuring 12 millimeters, de veloping between the 09/11/2023 and 09/27/2023 exams. No gross wall thickening. No evidence of mass. Bowel: Suture material at stomach and left upper quadrant small bowel appear could. No obstruction. No bowel wall thickening. Appendix normal. Peritoneal cavity: No ascites.No free air. No focal collection. No mesenteric inflammatory response. Reproductive organs: Hysterectomy. Bones: Mild spondylo listhesis at L4-5 Soft Tissues: Within normal limits. IMPRESSION: No evidence of renal calculi, ureteral calculi or hydronephrosis. Stable appearance of calcification at the base of the bladder since 09/27/2023. RADIATION DOSE DELIVERED: 824.62mGy.cm Total DLP 824.62mGy.cm Total DLP DATA REPOSITORY: All CT scans at this facility are submitted to the National Radiology Data Registry (NRDR) Dose Index Registry (DIR) with the [employer] ([employer]). RADIATION OPTIMIZATION: All CT scans at this facility use at least one of these dose optimization te chniques: automated exposure control; mA and/or kV adjustment per patient size (includes targeted exa ms where dose is matched to clinical indication); or iterative reconstruction.
[2025-02-04] MEDS: Lactated Ringers 1,000 ML 1000 ML IV (11:40)
[2025-02-04 11:43] VITALS: BP 117/53; PULSE 64; O2SAT 95
[2025-02-04 12:01] VITALS: BP 124/58; PULSE 64; O2SAT 97
== END 2025-02-04 12:33 | disposition home or self-care (01) ==
PROVIDERS: Emergency Provider Emergency Medicine; PCP Nurse Practitioner Family
DX: N12 Tubulo-interstitial nephritis, not specified as acute or chronic (principal); E78.2 Mixed hyperlipidemia; Z98.84 Bariatric surgery status; Z87.891 Personal history of nicotine dependence
CPT/HCPCS: 80053; 87077; 96365; 96375; 99284; 74176; 81003; 81015; 83735; 85025; 87086; 87186; J0696; J1885; J2405

== ENCOUNTER 2025-03-02 20:31 | Outpatient (REF) | payer MEDICAID, SELFPAY ==
[2025-03-02 18:18] LABS: Bilirubin Negative (Negative); Blood Trace-lysed (Negative); Clarity Clear (Clear); Glucose Negative (Negative); Ketones Negative (Negative); Leukocyte Esterase Negative (Negative); Nitrite Negative (Negative); Urobilinogen 0.2 mg/dL (Up to 0.2); pH 5.5 (5-8)
[2025-03-02 18:30] LABS: Bacteria Rare HPF (Negative); Casts Negative LPF (Negative); Crystals Negative HPF (Negative); Epithelial Cells Rare HPF (Negative); Mucus Negative (Negative); WBC Negative HPF (0-5)
[2025-03-02 18:31] LABS: C & S Indicated? C&S Done As Ordered
== END 2025-03-02 20:32 | disposition home or self-care (01) ==
LOC: LBN 20:31
PROVIDERS: PCP Nurse Practitioner Family; Visit Provider Nurse Practitioner Gerontology
DX: Z87.440 Personal history of urinary (tract) infections (principal)
CPT/HCPCS: 81003; 81015; 87086

== ENCOUNTER 2025-06-15 02:31 | Outpatient (CLI) | payer MEDICAID, SELFPAY ==
--- NOTE | 2025-06-15 07:32 | DI.CT_ITS ---
Exam(s) CT ABDOMEN PELVIS WO EXAM: CT ABDOMEN PELVIS WO CLINICAL HISTORY: stone evaluation, NEPHROLITHIASIS, N20.0. TECHNIQUE: Imaging Protocol: Axial computed tomography images with coronal and sagittal reformatted images were created and reviewed CONTRAST MATERIAL: Intravenous: none Oral: None COMPARISON: CT CT ABDOMEN PELVIS W from 07/27/[address] RENAL COLIC WO from 02/04/2025 FINDINGS: VISUALIZED LUNG BASES: No nodules nor pleural effusions evident. ABDOMEN: GI: Again noted is evidence of prior bariatric surgery and cholecystectomy. The [place] excluded stomach is not dilated. The gastric pouch and pre colic Colt limb not dilated and there is no obvious significant abnormality at the distal anastomosis/enteroenterostomy nor evidence of bowel obstruction more distally in the small bowel. No evidence of free air nor ascites. No evidence of abscess. LIVER: There are no obvious focal hepatic lesions evident of this noninfused study. GALLBLADDER/BILIARY: Gallbladder is again noted be surgically absent. CBD is not dilated. PANCREAS: No evidence of pancreatic mass nor dilatation of the pancreatic duct. SPLEEN: Spleen is not enlarged. No obvious intrasplenic lesions. ADRENALS: There are no significant adrenal masses. KIDNEYS:No cysts evident. No solid renal masses. No calculi nor hydronephrosis. . ABDOMINAL AORTA: Abdominal aorta is not enlarged. LYMPH NODES: There is no retroperitoneal nor paraaortic adenopathy. ABDOMINAL WALL: No evidence of significant anterior abdominal wall nor inguinal hernia. PELVIS: LYMPH NODES: There is no intrapelvic nor inguinal adenopathy. GI: No evidence of appendicitis.No evidence of sigmoid diverticulitis. URINARY BLADDER: Bladder is collapsed on today's study. However, there is again noted the previously described mural based partially calcified finding in the mid aspect of the posterior wall the urinary bladder which measures 1 cm wide by 1 cm AP by 1.4 cm craniocaudal. This is at the junction of the bladder and urethra. REPRODUCTIVE: Uterus is surgically absent.. There are no abnormal adnexal masses nor free fluid in the pelvis. OSSEOUS: There is degenerative anterior listhesis of L4 upon L5 again noted. There is moderate disc space narrowing at this level again noted. IMPRESSION: 1. Both kidneys appear unremarkable and do not contain calculi. No hydronephrosis. 2. Again noted is a previously described 10 x 10 x 14 mm calcification in the mid posterior wall the urinary bladder. This either represents a calculus or partially calcified bladder wall mass at this level. It it appears in the same position is previous although I note the patient is always in the same supine position for this scan and clinically indicated scanning and another position will determine if this abnormal finding in the bladder is fixed or mobile. 3. Again noted is evidence of prior Colt-en-Y bariatric surgery, cholecystectomy, and hysterectomy. There is no evidence of bowel obstruction. RADIATION DOSE DELIVERED: 926.17mGy.cm Total DLP DATA REPOSITORY: All CT scans at this facility are submitted to the National Radiology Data Registry (NRDR) Dose Index Registry (DIR) with the [employer] (ACR). RADIATION OPTIMIZATION: All CT scans at this facility use at least one of these dose optimization techniques: automated exposure control; mA and/or kV adjustment per patient size (includes targeted exams where dose is matched to clinical indication); or iterative reconstruction.
== END 2025-06-15 02:51 ==
LOC: DI 02:31
PROVIDERS: PCP Nurse Practitioner Family; Visit Provider Urology
DX: N20.0 Calculus of kidney (principal)
CPT/HCPCS: 74176